=== PATIENT | female | born 1960 | race Caucasian/White ===

== ENCOUNTER → 2017-06-02 | Outpatient (CLI) | payer BC, SELFPAY | DX: Z12.31 Encounter for screening mammogram for malignant neoplasm of breast (principal) | CPT/HCPCS: 77067; G0202 ==

== ENCOUNTER → 2017-09-15 14:28 | Outpatient (POV) | payer BC, SELFPAY | PROVIDERS: Visit Provider Dermatology | DX: Z00.00 Encounter for general adult medical examination without abnormal findings (principal) ==

== ENCOUNTER → 2018-05-09 09:09 | Outpatient (POV) | payer BC, SELFPAY | PROVIDERS: Visit Provider Dermatology | DX: Z00.00 Encounter for general adult medical examination without abnormal findings (principal) ==

== ENCOUNTER → 2018-06-27 08:30 | Outpatient (POV) | payer BC, SELFPAY | PROVIDERS: Visit Provider Dermatology | DX: Z00.00 Encounter for general adult medical examination without abnormal findings (principal) ==

== ENCOUNTER → 2018-10-24 08:55 | Outpatient (POV) | payer BC, SELFPAY | PROVIDERS: Visit Provider Dermatology | DX: Z00.00 Encounter for general adult medical examination without abnormal findings (principal) ==

== ENCOUNTER → 2018-11-02 08:50 | Outpatient (CLI) | payer BC, SELFPAY ==
--- NOTE | 2018-11-02 08:59 | MM_ITS ---
MM Dig screening mamm BI w/CAD ORDERING PHYSICIAN : Tien Das MD PATIENT AGE: 58 years GENDER: Female COMPARISON: March 2016, May 2017, January Also bilateral breast ultrasound 2013 which revealed dense fibrous breast with no dominant cyst or mass INDICATION: Routine screening mammogram. No hormones. No new complaints. Excisional biopsy left breast. TECHNIQUE: Standard CC and MLO images were obtained. R2 CAD reviewed. FINDINGS: Very inhomogeneous breast pattern with dense patchy areas bilaterally, most evident towards superior breast and upper-outer quadrant. Somewhat difficult to evaluate mammogram.- Ultrasound will be a useful compliment/augment to mammography screening in breast of this of these heterogeneous areas of density bilaterally. RIGHT BREAST: Although the MLO view appears fairly stable there is a slightly more pronounced density on the cc view, medial retroareolar region. Unimpressive benefit from spot views and ultrasound of the right breast. LEFT BREAST: The cc view appears fairly stable on the left. However on the MLO view there is a relative focal area of increased density superiorly-most likely is due to summation shadow this area labeled X and warrants additional spot views given its slightly radiating appearance again I believe due to overlapping shadow. (Additional problem-solving views should include spot CC and MLO view along with a full 90 degrees view left breast. Subsequent ultrasound thereafter) Area labeled Y at the inferior left breast is been seen previously. ----IMPRESSION: Very heterogeneous breast, with areas of asymmetric dense tissue. Will benefit from evaluation with spot views and ultrasound bilaterally: Right Breast: today's mammogram studies shows areas of increased density at retroareolar region and in the medial retroareolar region. Spot views and ultrasound recommended here. Left Breast: . Increased density at the right breast-most likely due to summation shadow but would benefit from spot view and ultrasound patient returns. . BI-RADS Category: 0 Need Additional Imaging Evaluation RECOMMENDED FOLLOW-UP: IMM - IMMEDIATE FOLLOW-UP RECOMMENDED Additional views bilaterally. With Subsequent bilateral breast ultrasound (A letter has been sent to the patient regarding results of the study.)
== END ==
PROVIDERS: PCP Family Medicine; Visit Provider Obstetrics & Gynecology
DX: Z12.31 Encounter for screening mammogram for malignant neoplasm of breast (principal)
CPT/HCPCS: 77067

== ENCOUNTER → 2018-12-18 13:31 | Outpatient (CLI) | payer BC, SELFPAY ==
--- NOTE | 2018-12-18 13:39 | MM_ITS ---
MM Dig mamm BI DX w/CAD COMPARISON: Digital mammogram with CAD 11/02/2018 INDICATION: Additional evaluation of possible asymmetric densities in each breast TECHNIQUE: Spot compression MLO and CC views of each breast FINDINGS: Spot compression MLO and CC views of the right breast less than concern for true lesions. The questionable density seen on the recent mammogram appear to represent summation shadows of heterogenic fibroglandular structures in the subareolar region. Targeted ultrasound of the right breast performed same date showed no persistent or suspicious abdomen out. Spot compression MLO and CC views of the left breast lessen concern for possible architectural distortion upper outer quadrant. There is rather heterogenic fiber glandular densities in the central portion and upper outer quadrant but I see no suspicious or persistent lesion on the additional views. Ultrasound performed the same date showed no suspicious abnormality. IMPRESSION: Problem-solving views of each breast are most compatible with diffusely heterogenic fiber glandular densities likely accounting for summation shadows in each breast. BI-RADS Category: 1 Negative RECOMMENDED FOLLOW-UP: 1YR - 1 YEAR FOLLOW-UP (A letter has been sent to the patient regarding results of the study.)
--- NOTE | 2018-12-18 13:40 | US_ITS ---
US breast LT complete INDICATION: Follow-up abnormal mammogram ORDERING PHYSICIAN: Tien Das MD PATIENT AGE: 58 years COMPARISON: 12/12/2013, 12/18/2018, 11/02/2018 TECHNIQUE: Complete breast ultrasound performed with axial FINDINGS: Hypoechoic nodule is present at 4:00 measuring 7 x 5 mm. There is good through transmission of sound. This may be due to fibroglandular tissue. No other abnormalities evident. Small nodes are present in the axilla IMPRESSION: Probably benign nodule at 4:00. Recommend 6 month follow-up BI-RADS Category: 3 Probably Benign Finding Short Term Follow-up RECOMMENDED FOLLOW-UP: 6M - 6 MONTH FOLLOW-UP (A letter has been sent to the patient regarding results of the study.)
--- NOTE | 2018-12-18 13:40 | US_ITS ---
US breast RT complete INDICATION: Abnormal mammogram ORDERING PHYSICIAN: Tien Das MD PATIENT AGE: 58 years COMPARISON: 12/12/2013, 12/18/2018, 11/02/2018 TECHNIQUE: Right breast ultrasound performed with axilla FINDINGS: 6 x 4 mm septated cyst at 4:00. No suspicious lesions evident. Small nodes in the axilla IMPRESSION: Benign findings BI-RADS Category: 2 Benign Finding(s) RECOMMENDED FOLLOW-UP: 1YR - 1 YEAR FOLLOW-UP (A letter has been sent to the patient regarding results of the study.)
== END ==
PROVIDERS: PCP Family Medicine; Visit Provider Obstetrics & Gynecology
DX: R92.8 Other abnormal and inconclusive findings on diagnostic imaging of breast (principal)
CPT/HCPCS: 76641; 77066

== ENCOUNTER → 2021-03-06 14:25 | Outpatient (CLI) | payer BC, SELFPAY ==
[2021-03-06 15:13] LABS: Basophils # 0.1 K/mm3 (0-0.2); Basophils % 0.8 % (0.1-2.0); Eosinophils # 0.3 K/mm3 (0.0-0.4); Eosinophils % 3.2 % (0.1-12.0); Hematocrit 38.4 % (37.0-47.0); Hemoglobin 11.8 g/dL (12.2-16.2); Lymphocytes # 2.9 K/mm3 (0.7-4.5); Mean Corpuscular HGB Conc 30.7 g/dL (31.8-35.4); Mean Corpuscular Hemoglobin 28.5 pg (27.0-31.2); Mean Corpuscular Volume 92.9 fl (81-99); Mean Platelet Volume 8.3 fl (7.4-10.4); Monocytes # 0.4 K/mm3 (0.1-1.0); Monocytes % 4.9 % (1.7-9.3); Neutrophils # 5.2 K/mm3 (1.8-7.8); Neutrophils % 58.2 % (37.0-80.0); Platelet Count 288 K/mm3 (142-424); Red Blood Count 4.13 M/mm3 (4.20-5.40); Red Cell Distribution Width 14.6 % (11.5-17.5); White Blood Count 8.9 K/mm3 (4.8-10.8)
[2021-03-06 15:19] LABS: Strep Scrn Group A (Rapid) Negative (Negative)
== END ==
PROVIDERS: PCP Family Medicine; Visit Provider Nurse Practitioner
DX: Z20.822 Contact with and (suspected) exposure to COVID-19 (principal)
CPT/HCPCS: 36415; 85025; 87430; C9803; U0003; U0005

== ENCOUNTER → 2021-03-26 15:39 | Outpatient (CLI) | payer BC, SELFPAY ==
--- NOTE | 2021-03-26 15:43 | MM_ITS ---
PROCEDURE INFORMATION: Exam: MG Bilateral Screening 3D Mammography Exam date and time: 03/26/2021 3:43 PM Age: 61 years old Clinical indication: Encounter for screening mammogram for malignant neoplasm of breast TECHNIQUE: Imaging protocol: Bilateral screening tomosynthesis and 2D mammography including computer-aided detection (CAD) when performed. COMPARISON: 11/02/2018, 06/02/2017, 03/24/2016 FINDINGS: MAMMOGRAPHY: Breast composition: The breasts are heterogeneously dense, which may obscure small masses. Mass: No suspicious masses. Architectural distortion: No suspicious distortion. Calcifications: No suspicious calcifications. Asymmetric density: None. Skin thickening: None. Axillary adenopathy: None. IMPRESSION: No mammographic evidence of malignancy. Annual screening is recommended unless otherwise clinically indicated. ASSESSMENT: BI-RADS Category 1: Negative
== END ==
PROVIDERS: PCP Family Medicine; Visit Provider Family Medicine
DX: Z12.31 Encounter for screening mammogram for malignant neoplasm of breast (principal)
CPT/HCPCS: 77063; 77067

== ENCOUNTER → 2021-03-31 14:57 | Outpatient (POV) | payer BC, SELFPAY | PROVIDERS: Visit Provider Dermatology | DX: Z00.00 Encounter for general adult medical examination without abnormal findings (principal) ==

== ENCOUNTER → 2022-10-07 23:19 | Outpatient (CLI) | payer BC, SELFPAY ==
[2022-10-07 17:56] LABS: Basophils % 0.6 % (0.1-2.0); Eosinophils # 0.3 K/mm3 (0.0-0.4); Eosinophils % 4.5 % (0.1-12.0); Hematocrit 42.7 % (37.0-47.0); Hemoglobin 13.4 g/dL (12.2-16.2); Lymphocytes # 2.1 K/mm3 (0.7-4.5); Lymphocytes % 29.4 % (10-50); Mean Corpuscular HGB Conc 31.3 g/dL (31.8-35.4); Mean Corpuscular Hemoglobin 29.1 pg (27.0-31.2); Mean Corpuscular Volume 92.7 fl (81-99); Mean Platelet Volume 9.6 fl (7.4-10.4); Monocytes # 0.4 K/mm3 (0.1-1.0); Monocytes % 5.4 % (1.7-9.3); Neutrophils # 4.4 K/mm3 (1.8-7.8); Neutrophils % 60.2 % (37.0-80.0); Platelet Count 312 K/mm3 (142-424); Red Cell Distribution Width 13.8 % (11.5-17.5); White Blood Count 7.2 K/mm3 (4.8-10.8)
[2022-10-07 18:24] LABS: Hemoglobin A1C 5.4 % (4.0-6.0)
[2022-10-07 18:33] LABS: Microalbumin/Creatinine Ratio 4.5
[2022-10-07 18:34] LABS: Creatinine,Urine Random 179 mg/dL (Not Estab.)
[2022-10-07 18:36] LABS: Alanine Aminotransferase 30 U/L (12-78); Albumin Level 4.4 g/dl (3.5-5.0); Albumin/Globulin Ratio 1.6 (1.1-1.8); Alkaline Phosphatase 80 U/L (38-126); Anion Gap 13.2 mEq/L (5-15); Aspartate Amino Transferase 39 U/L (14-36); Bilirubin,Total 0.6 mg/dl (0.2-1.3); Blood Urea Nitrogen 18 mg/dl (7-17); Calcium 9.3 mg/dl (8.4-10.2); Carbon Dioxide 28 mmol/L (22.0-30.0); Chloride 105 mmol/L (98-107); Chol/HDL Ratio 3.3 (1-3.5); Cholesterol 221 mg/dl (140-200); Estimated Glomerular Filt Rate 73 ml/min (>60); GFR (African American) 89 ML/MIN (>60); Globulin 2.7 g/dL (1.3-3.2); Glucose 85 mg/dl (74-100); HDL Cholesterol 66 mg/dl (40-60); Potassium 4.2 mmoL/L (3.5-5.1); Sodium 142 mmol/L (136-145); Total Protein,Serum 7.1 g/dl (6.3-8.2); Triglycerides 229 mg/dl (30-150); VLDL Cholesterol 46 mg/dL (0-40)
[2022-10-07 18:53] LABS: 25-OH Vitamin D, Total 42.7 ng/mL (30-100)
[2022-10-07 19:07] LABS: Thyroid Stimulating Hormone 2.25 uIU/mL (0.465-4.68)
[2022-10-07 19:26] LABS: Vitamin B12 818 pg/mL (239-931)
== END ==
PROVIDERS: PCP Nurse Practitioner; Visit Provider Nurse Practitioner
DX: I10 Essential (primary) hypertension (principal); E78.5 Hyperlipidemia, unspecified; E53.8 Deficiency of other specified B group vitamins; E55.9 Vitamin D deficiency, unspecified; K21.9 Gastro-esophageal reflux disease without esophagitis
CPT/HCPCS: 80053; 80061; 82043; 82306; 82570; 82607; 83036; 84443; 85025

== ENCOUNTER → 2022-11-15 13:14 | Outpatient (CLI) | payer BC, SELFPAY ==
--- NOTE | 2022-11-15 13:14 | MM_ITS ---
PROCEDURE INFORMATION: Exam: MG Bilateral Screening 3D Mammography Exam date and time: 11/15/2022 1:05 PM Age: 62 years old Clinical indication: Screening. No family history of breast cancer. TECHNIQUE: Imaging protocol: Bilateral Screening tomosynthesis and 2D mammography including computer-aided detection (CAD) when performed. COMPARISON: 1. MG MM DIG SCREENING MAMM BI W/CAD 03/26/2021 3:55 PM 2. MG DIG MAMM-DX [facility] 12/18/2018 1:58 PM 3. MG SCBI MM Dig screening mamm BI w/CAD 11/02/2018 9:14 AM 4. MG DMSB DIG MAMM-SCREEN [facility] W/CAD 06/02/2017 10:08 AM FINDINGS: MAMMOGRAPHY: Breast composition: The breasts are heterogeneously dense, which may obscure small masses. Mass: No suspicious mass. Architectural distortion: None. Calcifications: No suspicious calcifications. Asymmetric density: None. Skin thickening: None. Axillary adenopathy: None. IMPRESSION: No mammographic evidence of malignancy. Annual screening is recommended unless otherwise clinically indicated. ASSESSMENT: BI-RADS Category 1: Negative
== END ==
PROVIDERS: PCP Nurse Practitioner; Visit Provider Nurse Practitioner
DX: Z12.31 Encounter for screening mammogram for malignant neoplasm of breast (principal)
CPT/HCPCS: 77063; 77067

== ENCOUNTER → 2022-12-29 09:24 | Outpatient (CLI) | payer BC, SELFPAY ==
[2022-12-29 20:15] LABS: Alanine Aminotransferase 26 U/L (12-78); Albumin Level 4.2 g/dl (3.5-5.0); Albumin/Globulin Ratio 1.6 (1.1-1.8); Alkaline Phosphatase 84 U/L (38-126); Anion Gap 9.9 mEq/L (5-15); Aspartate Amino Transferase 28 U/L (14-36); Bilirubin,Total 0.4 mg/dl (0.2-1.3); Blood Urea Nitrogen 16 mg/dl (7-17); Calcium 9.3 mg/dl (8.4-10.2); Carbon Dioxide 28 mmol/L (22.0-30.0); Chloride 108 mmol/L (98-107); Chol/HDL Ratio 2.5 (1-3.5); Cholesterol 196 mg/dl (140-200); Estimated Glomerular Filt Rate 73 ml/min (>60); GFR (African American) 89 ML/MIN (>60); Globulin 2.6 g/dL (1.3-3.2); Glucose 85 mg/dl (74-100); HDL Cholesterol 77 mg/dl (40-60); Potassium 3.9 mmoL/L (3.5-5.1); Sodium 142 mmol/L (136-145); Total Protein,Serum 6.8 g/dl (6.3-8.2); Triglycerides 171 mg/dl (30-150); VLDL Cholesterol 34 mg/dL (0-40)
[2022-12-29 20:26] LABS: Direct LDL Cholesterol 90.95 mg/dL (100-129)
== END ==
PROVIDERS: PCP Nurse Practitioner; Visit Provider Nurse Practitioner
DX: E78.5 Hyperlipidemia, unspecified (principal)
CPT/HCPCS: 80053; 80061

== ENCOUNTER → 2023-04-22 23:44 | Outpatient (CLI) | payer BC, SELFPAY ==
[2023-04-22 19:17] LABS: Coronavirus 19, PCR Not Detected (NotDetected); Influenza A, PCR Not Detected (NotDetected); Influenza B, PCR Not Detected (NotDetected)
== END ==
PROVIDERS: Family Medicine; PCP Family Medicine; Visit Provider Family Medicine
DX: J02.9 Acute pharyngitis, unspecified (principal); B95.0 Streptococcus, group A, as the cause of diseases classified elsewhere; R53.81 Other malaise; H92.03 Otalgia, bilateral
CPT/HCPCS: 87636

== ENCOUNTER → 2023-05-10 07:14 | Outpatient (CLI) | payer BC, SELFPAY ==
[2023-05-10 18:31] LABS: Influenza A, PCR Not Detected (NotDetected); Influenza B, PCR Not Detected (NotDetected)
[2023-05-10 20:32] LABS: Coronavirus 19, PCR Detected (NotDetected)
== END ==
PROVIDERS: PCP Nurse Practitioner; Visit Provider Nurse Practitioner
DX: J06.9 Acute upper respiratory infection, unspecified (principal); U07.1 COVID-19
CPT/HCPCS: 87636

== ENCOUNTER → 2023-06-09 23:28 | Outpatient (CLI) | payer BC, SELFPAY ==
[2023-06-09 18:45] LABS: Basophils % 0.6 % (0.1-2.0); Eosinophils # 0.3 K/mm3 (0.0-0.4); Eosinophils % 4.9 % (0.1-12.0); Hematocrit 40.4 % (37.0-47.0); Hemoglobin 12.8 g/dL (12.2-16.2); Lymphocytes # 1.9 K/mm3 (0.7-4.5); Lymphocytes % 35.3 % (10-50); Mean Corpuscular HGB Conc 31.8 g/dL (31.8-35.4); Mean Corpuscular Hemoglobin 28.9 pg (27.0-31.2); Mean Corpuscular Volume 91.1 fl (81-99); Mean Platelet Volume 9.6 fl (7.4-10.4); Monocytes # 0.4 K/mm3 (0.1-1.0); Monocytes % 6.9 % (1.7-9.3); Neutrophils # 2.8 K/mm3 (1.8-7.8); Neutrophils % 52.3 % (37.0-80.0); Platelet Count 272 K/mm3 (142-424); Red Blood Count 4.44 M/mm3 (4.20-5.40); Red Cell Distribution Width 14.3 % (11.5-17.5); White Blood Count 5.4 K/mm3 (4.8-10.8)
[2023-06-09 18:52] LABS: Alanine Aminotransferase 23 U/L (12-78); Albumin/Globulin Ratio 1.6 (1.1-1.8); Alkaline Phosphatase 73 U/L (38-126); Anion Gap 8.8 mEq/L (5-15); Aspartate Amino Transferase 28 U/L (14-36); Bilirubin,Total 0.5 mg/dl (0.2-1.3); Blood Urea Nitrogen 16 mg/dl (7-17); Calcium 8.8 mg/dl (8.4-10.2); Carbon Dioxide 26 mmol/L (22.0-30.0); Chloride 109 mmol/L (98-107); Chol/HDL Ratio 3.1 (1-3.5); Cholesterol 184 mg/dl (140-200); Estimated Glomerular Filt Rate 73 ml/min (>60); GFR (African American) 88 ML/MIN (>60); Globulin 2.5 g/dL (1.3-3.2); Glucose 86 mg/dl (74-100); HDL Cholesterol 59 mg/dl (40-60); Potassium 3.8 mmoL/L (3.5-5.1); Sodium 140 mmol/L (136-145); Total Protein,Serum 6.5 g/dl (6.3-8.2); Triglycerides 187 mg/dl (30-150); VLDL Cholesterol 37 mg/dL (0-40)
[2023-06-09 19:03] LABS: Direct LDL Cholesterol 87.43 mg/dL (100-129)
[2023-06-09 19:08] LABS: 25-OH Vitamin D, Total 38.1 ng/mL (30-100)
[2023-06-09 19:42] LABS: Vitamin B12 783 pg/mL (239-931)
== END ==
LOC: LAB.DROPOF 23:29
PROVIDERS: PCP Nurse Practitioner; Visit Provider Nurse Practitioner
DX: E53.8 Deficiency of other specified B group vitamins (principal); E55.9 Vitamin D deficiency, unspecified; E78.5 Hyperlipidemia, unspecified; I10 Essential (primary) hypertension; K21.9 Gastro-esophageal reflux disease without esophagitis
CPT/HCPCS: 80053; 80061; 82306; 82607; 85025

== ENCOUNTER 2023-09-19 23:09 | Outpatient (CLI) | payer BC, SELFPAY ==
[2023-09-19 18:12] LABS: Basophils # 0.1 K/mm3 (0-0.2); Basophils % 1.1 % (0.1-2.0); Eosinophils # 0.3 K/mm3 (0.0-0.4); Eosinophils % 4.4 % (0.1-12.0); Hematocrit 39.4 % (37.0-47.0); Hemoglobin 12.4 g/dL (12.2-16.2); Lymphocytes # 2.6 K/mm3 (0.7-4.5); Lymphocytes % 33.1 % (10-50); Mean Corpuscular HGB Conc 31.4 g/dL (31.8-35.4); Mean Corpuscular Hemoglobin 28.9 pg (27.0-31.2); Mean Platelet Volume 8.3 fl (7.4-10.4); Monocytes # 0.4 K/mm3 (0.1-1.0); Monocytes % 4.5 % (1.7-9.3); Neutrophils # 4.4 K/mm3 (1.8-7.8); Neutrophils % 56.9 % (37.0-80.0); Platelet Count 314 K/mm3 (142-424); Red Blood Count 4.29 M/mm3 (4.20-5.40); Red Cell Distribution Width 13.8 % (11.5-17.5); White Blood Count 7.7 K/mm3 (4.8-10.8)
[2023-09-19 18:55] LABS: Alanine Aminotransferase 28 U/L (12-78); Albumin Level 4.3 g/dl (3.5-5.0); Albumin/Globulin Ratio 1.7 (1.1-1.8); Alkaline Phosphatase 85 U/L (38-126); Anion Gap 10.3 mEq/L (5-15); Aspartate Amino Transferase 35 U/L (14-36); Bilirubin,Total 0.5 mg/dl (0.2-1.3); Blood Urea Nitrogen 18 mg/dl (7-17); Calcium 9.6 mg/dl (8.4-10.2); Carbon Dioxide 28 mmol/L (22.0-30.0); Chloride 105 mmol/L (98-107); Estimated Glomerular Filt Rate 73 ml/min (>60); GFR (African American) 88 ML/MIN (>60); Globulin 2.6 g/dL (1.3-3.2); Glucose 91 mg/dl (74-100); Potassium 3.3 mmoL/L (3.5-5.1); Sodium 140 mmol/L (136-145); Total Protein,Serum 6.9 g/dl (6.3-8.2)
[2023-09-19 19:28] LABS: Thyroid Stimulating Hormone 2.35 uIU/mL (0.465-4.68)
[2023-09-19 19:39] LABS: Hemoglobin A1C 5.8 % (4.0-6.0)
[2023-09-19 19:48] LABS: Vitamin B12 940 pg/mL (239-931)
== END 2023-09-19 23:59 | disposition home or self-care (01) ==
LOC: LAB.DROPOF 23:10
PROVIDERS: PCP Nurse Practitioner; Visit Provider Nurse Practitioner
DX: L65.9 Nonscarring hair loss, unspecified (principal); E53.8 Deficiency of other specified B group vitamins; E55.9 Vitamin D deficiency, unspecified; Z79.899 Other long term (current) drug therapy
CPT/HCPCS: 80053; 82306; 82607; 83036; 84443; 85025

== ENCOUNTER 2023-10-18 11:04 | Outpatient (POV) | payer BC, SELFPAY | END 2023-10-18 23:59 | disposition home or self-care (01) | LOC: SC 11:05 | PROVIDERS: PCP Nurse Practitioner; Visit Provider Dermatology | DX: Z00.00 Encounter for general adult medical examination without abnormal findings (principal) ==

== ENCOUNTER 2023-11-29 16:28 | Outpatient (CLI) | payer BC, SELFPAY ==
--- NOTE | 2023-11-29 16:44 | XR_ITS ---
PROCEDURE INFORMATION: Exam: XR Chest Exam date and time: 11/29/2023 4:51 PM Age: 63 years old Clinical indication: Pain; Other: Tightness; Additional info: Chest tightness TECHNIQUE: Imaging protocol: Radiologic exam of the chest. Views: 2 views. COMPARISON: No relevant prior studies available. FINDINGS: Lungs: No consolidation. Pleural spaces: No pleural effusion. No pneumothorax. Heart/Mediastinum: No cardiomegaly. Diaphragm: Right diaphragmatic eventration. Bones/joints: No acute osseous findings. IMPRESSION: No acute pulmonary findings.
--- NOTE | 2023-11-29 17:01 | ECG_ITS ---
APPROVED REPORT Exam: Resting ECG HR:76 bpm ECG Measurements Heart Rate 76 AXES MI 126 P 28 QRSd 82 QRS -5 QT 378 T -5 QTc 408 Conclusion SINUS RHYTHM LOW QRS VOLTAGE IN PRECORDIAL LEADS [QRS DEFLECTION < 1.0 mV IN CHEST LEADS] NONSPECIFIC ST & T-WAVE ABNORMALITY BORDERLINE ECG UNCONFIRMED REPORT Electronically signed by : Barrie Beebe MD 11/29/2023 17:17:08
[2023-11-29 17:21] LABS: Basophils # 0.1 K/mm3 (0-0.2); Basophils % 0.9 % (0.1-2.0); Eosinophils # 0.4 K/mm3 (0.0-0.4); Eosinophils % 3.2 % (0.1-12.0); Hematocrit 39.1 % (37.0-47.0); Hemoglobin 12.4 g/dL (12.2-16.2); Lymphocytes # 3.1 K/mm3 (0.7-4.5); Lymphocytes % 27.6 % (10-50); Mean Corpuscular HGB Conc 31.6 g/dL (31.8-35.4); Mean Corpuscular Hemoglobin 28.1 pg (27.0-31.2); Mean Corpuscular Volume 88.9 fl (81-99); Mean Platelet Volume 8.1 fl (7.4-10.4); Monocytes # 0.6 K/mm3 (0.1-1.0); Monocytes % 5.7 % (1.7-9.3); Neutrophils # 7.1 K/mm3 (1.8-7.8); Neutrophils % 62.5 % (37.0-80.0); Platelet Count 319 K/mm3 (142-424); Red Cell Distribution Width 14.8 % (11.5-17.5); White Blood Count 11.3 K/mm3 (4.8-10.8)
[2023-11-29 18:05] LABS: Alanine Aminotransferase 28 U/L (12-78); Albumin Level 4.2 g/dl (3.5-5.0); Albumin/Globulin Ratio 1.4 (1.1-1.8); Alkaline Phosphatase 96 U/L (38-126); Aspartate Amino Transferase 36 U/L (14-36); Bilirubin,Total 0.4 mg/dl (0.2-1.3); Blood Urea Nitrogen 15 mg/dl (7-17); Calcium 9.7 mg/dl (8.4-10.2); Carbon Dioxide 31 mmol/L (22.0-30.0); Chloride 101 mmol/L (98-107); Estimated Glomerular Filt Rate 46 ml/min (>60); GFR (African American) 55 ML/MIN (>60); Globulin 2.9 g/dL (1.3-3.2); Glucose 91 mg/dl (74-100); Sodium 139 mmol/L (136-145); Total Protein,Serum 7.1 g/dl (6.3-8.2)
[2023-11-29 18:15] LABS: Creatine Kinase MB 3.4 ng/ml (0.0-2.03)
[2023-11-29 18:23] LABS: Troponin I < 0.01 ng/ml (0.00-0.034)
== END 2023-11-29 23:59 | disposition home or self-care (01) ==
LOC: LAB 16:28
PROVIDERS: PCP Nurse Practitioner; Visit Provider Nurse Practitioner
DX: R07.89 Other chest pain (principal)
CPT/HCPCS: 36415; 71046; 80053; 82553; 84484; 85025; 93005

== ENCOUNTER 2023-12-08 13:36 | Outpatient (CLI) | payer BC, SELFPAY ==
--- NOTE | 2023-12-08 13:36 | CA_ITS ---
APPROVED REPORT EXAM: Comprehensive 2D, Doppler, and color-flow Echocardiogram [employer] Supervisor: Sakina Mills CRT Ht: 5 ft 1 in Wt: 135lbs BSA: 1.60 BP: 112/78 mmHg Indications: Chest Pain 2D Dimensions LA Volume 32.90 mL LA Volume Index 20.56 mL/m2 (M/F) 16-34 M-Mode Dimensions RVDd 1.83 cm (0.9-2.6) LA Diam 2.61 cm (1.9-4.0) LVDd 4.36 cm (3.5-5.7) LVDs 2.59 cm (3.5-5.7) IVSd 1.37 cm (0.6-1.1) PWd 0.81 cm (0.6-1.1) EF (Teich) 71.60% FS 40.60% EDV (Teich) 85.80 mL TAPSE 1.57 (<1.7) ESV (Teich) 24.40 mL LV Diastology E Decel Time 227 (160-240 msec) E/A Ratio 0.68 MED A' 13.20 cm/s LAT A' 12.50 cm/s Aortic Valve AO Peak GR. 5.20 mmHg Mitral Valve MV A Velocity 70.0 (40-130 cm/s) E/A Ratio 0.68 Pulmonary Valve PV Peak Velocity 125.0 (50-150 cm/s) Tricuspid Valve TR P. Velocity 149.00 cm/s RAP Estimate 10.00 mmHg RVSP 18.90 mmHg Left Ventricle The left ventricle is normal size. The left ventricular systolic function is normal. The left ventricular ejection fraction is within the normal range. There is increased LV wall thickness. There is normal LV segmental wall motion. Transmitral Doppler flow pattern suggests impaired LV relaxation. LVEF is 55%. Right Ventricle The right ventricle is normal size. The right ventricular systolic function is normal. Atria The left atrium size is normal. The right atrium size is normal. There is no Doppler evidence of interatrial shunt. Aortic Valve The aortic valve opens well. There is no aortic valvular stenosis. Trace aortic regurgitation. Mitral Valve The mitral valve is normal in structure. No evidence of mitral valve stenosis. Trace mitral regurgitation. Tricuspid Valve The tricuspid valve leaflets are thin and pliable. Trace tricuspid regurgitation. There is insufficient TR jet to estimate RVSP. Pulmonic Valve The pulmonary valve is normal in structure. Mild pulmonic regurgitation. Great Vessels The aortic root is normal in size. The ascending aorta is normal in size. IVC is normal in size and collapses >50% with inspiration. Pericardium There is no pericardial effusion. Other Information Study Quality: Fair Conclusion Normal biventricular systolic function. No significant valvular stenosis or regurgitation. Electronically signed by : Pallavi Thibodeaux MD 12/12/2023 12:10:02
== END 2023-12-08 23:59 | disposition home or self-care (01) ==
LOC: RT 13:36
PROVIDERS: PCP Nurse Practitioner; Visit Provider Nurse Practitioner
DX: R07.89 Other chest pain (principal)
CPT/HCPCS: 93306

== ENCOUNTER 2023-12-12 10:29 | Outpatient (CLI) | payer BC, SELFPAY ==
[2023-12-12 19:08] LABS: Basophils # 0.1 K/mm3 (0-0.2); Basophils % 0.7 % (0.1-2.0); Eosinophils # 0.3 K/mm3 (0.0-0.4); Eosinophils % 4.8 % (0.1-12.0); Hematocrit 36.7 % (37.0-47.0); Hemoglobin 12.2 g/dL (12.2-16.2); Lymphocytes # 2.3 K/mm3 (0.7-4.5); Lymphocytes % 34.1 % (10-50); Mean Corpuscular HGB Conc 33.3 g/dL (31.8-35.4); Mean Corpuscular Hemoglobin 29.2 pg (27.0-31.2); Mean Corpuscular Volume 87.8 fl (81-99); Mean Platelet Volume 8.3 fl (7.4-10.4); Monocytes # 0.4 K/mm3 (0.1-1.0); Monocytes % 5.1 % (1.7-9.3); Neutrophils # 3.8 K/mm3 (1.8-7.8); Neutrophils % 55.2 % (37.0-80.0); Platelet Count 300 K/mm3 (142-424); Red Blood Count 4.17 M/mm3 (4.20-5.40); Red Cell Distribution Width 15.2 % (11.5-17.5); White Blood Count 6.8 K/mm3 (4.8-10.8)
[2023-12-12 19:46] LABS: Alanine Aminotransferase 32 U/L (12-78); Albumin Level 4.3 g/dl (3.5-5.0); Albumin/Globulin Ratio 1.4 (1.1-1.8); Alkaline Phosphatase 100 U/L (38-126); Anion Gap 13.9 mEq/L (5-15); Aspartate Amino Transferase 38 U/L (14-36); Bilirubin,Total 0.6 mg/dl (0.2-1.3); Blood Urea Nitrogen 12 mg/dl (7-17); Calcium 9.6 mg/dl (8.4-10.2); Carbon Dioxide 28 mmol/L (22.0-30.0); Chloride 101 mmol/L (98-107); Estimated Glomerular Filt Rate 56 ml/min (>60); GFR (African American) 68 ML/MIN (>60); Globulin 3.1 g/dL (1.3-3.2); Glucose 93 mg/dl (74-100); Sodium 140 mmol/L (136-145); Total Protein,Serum 7.4 g/dl (6.3-8.2)
[2023-12-12 20:47] LABS: Potassium 2.9 mmoL/L (3.5-5.1)
== END 2023-12-12 23:59 | disposition home or self-care (01) ==
LOC: LAB.DROPOF 12-13 10:30
PROVIDERS: PCP Nurse Practitioner; Visit Provider Nurse Practitioner
DX: R07.89 Other chest pain (principal); I10 Essential (primary) hypertension
CPT/HCPCS: 80053; 85025

== ENCOUNTER 2023-12-19 15:40 | Outpatient (CLI) | payer BC, SELFPAY ==
--- NOTE | 2023-12-19 15:41 | MM_ITS ---
PROCEDURE INFORMATION: Exam: MG Bilateral Screening 3D Mammography Exam date and time: 12/19/2023 3:31 PM Age: 63 years old Clinical indication: Screening examination; Additional info: Annual breast cancer screening TECHNIQUE: Imaging protocol: Bilateral Screening tomosynthesis and 2D mammography including computer-aided detection (CAD) when performed. COMPARISON: 1. MG MM DIG SCREENING MAMM BI W/CAD 11/15/2022 1:05 PM 2. MG MM DIG SCREENING MAMM BI W/CAD 03/26/2021 3:55 PM 3. MG DIG MAMM-DX [facility] 12/18/2018 1:58 PM FINDINGS: MAMMOGRAPHY: Breast composition: The breasts are heterogeneously dense, which may obscure small masses. Mass: No suspicious masses. Architectural distortion: No suspicious distortion. Calcifications: No suspicious calcifications. Asymmetric density: None. Skin thickening: None. Axillary adenopathy: None. IMPRESSION: No mammographic evidence of malignancy. Annual screening is recommended unless otherwise clinically indicated. ASSESSMENT: BI-RADS Category 1: Negative
== END 2023-12-19 23:59 | disposition home or self-care (01) ==
LOC: RAD 15:41
PROVIDERS: PCP Nurse Practitioner; Visit Provider Nurse Practitioner
DX: Z12.31 Encounter for screening mammogram for malignant neoplasm of breast (principal)
CPT/HCPCS: 77063; 77067

== ENCOUNTER 2023-12-27 11:10 | Outpatient (CLI) | payer BC, SELFPAY ==
--- NOTE | 2023-12-27 11:11 | NM_ITS ---
APPROVED REPORT Exam: Nuclear Stress Test Indication: Chest pain, Abnormal EKG, HTN, High cholesterol Patient Location: Outpatient Stress Tech: Graciela Ramirez [place] Tech:Irene Blanco, ARRT, RT (R)(N) Ht: 5 ft 1 in Wt: 149 lbs Bra Size: D HR: 83 bpm BP: 116/77 mmHg BSA: 1.67 m2 Rhythm: NSR TID: 1.19 BMI: 28.1 History: Chest pain, Abnormal EKG, HTN, High cholesterol Procedure: Patient exercised on Kennedy protocol 7:03 minutes and sec, resting heart rate 83 bpm, resting blood pressure 116/77 mmHg, with exercise maximum heart rate achived was 150 bpm which is 94 % of the maximum predicted heart rate and blood pressure was 158/90 mmHg. Test was stopped due to SOB. Patient denied any complaint of chest pain. Patient has average exercise capacity, achieved 10.1 METs of workload on treadmill, the blood pressure response to exercise was normal . Cardiac Stress and Resting SPECT Images: Cardiac Stress and Resting SPECT images were obtained using technetium 99m Myoview 31.7 mCi stress and 10.68 mCi at rest. Resting and stress imaging in supine and prone positions demonstrate no evidence of fixed or reversible perfusion defects. Gated imaging demonstrates normal global and regional LV systolic function. LVEF is calculated at 61%. Conclusion: No evidence of fixed or reversible perfusion defects. Gated imaging demonstrates normal global and regional LV systolic function. LVEF is calculated at 61%. Of note, the patient had an abnormal ECG at peak stress suggestive of ischemia. If there is ongoing clinical concern for ischemia, further evaluation with an alternative modality (i.e. CCTA) is suggested. Electronically signed by : Pallavi Thibodeaux MD 01/01/2024 02:16:52
[2023-12-27] MEDS: SODIUM CHLORIDE 0.9% 10ML SYR (RAD ONLY) 10 ML IV ×2 (13:24)
[2023-12-27] MEDS: ISOTOPE MYOVIEW (PER STUDY) 1 DOSE IV (13:24)
--- NOTE | 2023-12-27 13:48 | CA_ITS ---
APPROVED REPORT Exam: Pharmacologic Technologist: Graciela Robison, Ht: 5 ft 1 in Wt: 151 lbs BSA: 1.68 m2 HR: 68 bpm BP: 119/72 mmHg Rhythm: NSR Medical History Medications: Aspirin,,,,, TopIRAMATE,,,,, Albuterol,,,,, RoSUVASTATIN,,,,, Coenzyme Q10,,,,, Potassium Chloride ER,,,,, Esomeprazole magnesium,,,,, Vitamin D3, B12,,,,, Sumatriptan-naproxen,,,,, Stress Test Details Test: Kennedy HR Resting HR: 83 bpm Max Heart Rate (APMHR): 159 bpm Max HR Achieved: 150 bpm Target HR (85% APMHR): 135 bpm % of APMHR: 94 Recovery HR: 97 bpm HR response to stress: Normal HR response to stress BP Resting BP: 116.0/77.0 mmHg Max BP: 158.0/90.0 mmHg Recovery BP: 128.0/68.0 mmHg BP response to stress: Normal blood pressure response to stress. ECG Resting ECG: Normal sinus rhythm, nonspecific ST changes in inferior lateral leads Stress EC.[address] depression Arrhythmia: PVCs Recovery ECG: Return to baseline within 5 minutes of recovery Recovery Arrhythmia: PVCs Clinical Exercise duration: 07:03 min Highest Stage Achieved: III Exercise capacity: 10.1 METs Overall Exercise Capacity for Age: Average Stress ECG Conclusion The patient was able to exercise for a total of 7 minutes, 03 seconds. She achieved a total of 10.1 METS. She has average exercise capacity compared to age and sex matched peers. She has normal HR and BP response to exercise. Max HR: 150 % of PM: 94 Max BP: 158/90 METs:10.1 Test stopped due to: Dyspnea Symptoms: Dyspnea Arrhythmias/Ectopy: PVC ST-T Changes: 1mm ST depression Conclusion: Average exercise capacity. Abnormal EKG response to exercise, suggestive of ischemia. Myoview images reported separately. Test Summary REST . . . . . . . Sitting REST . . . . . . . Standing REST 07:41 0.0 0.0 83 . 116/ 77 . . Stage 1 01:00 10.0 1.7 99 . . . . Stage 1 02:00 10.0 1.7 109 . . . . Stage 1 03:00 10.0 1.7 122 . 120/ 82 . . Stage 2 01:00 12.0 2.5 129 . . . . Stage 2 02:00 12.0 2.5 139 . 158/ 90 . . Stage 2 03:00 12.0 2.5 142 . 158/ 90 . . Stage 3 . . . . . . . Myoview Injected Stage 3 01:00 14.0 3.4 148 . . . . Stage 3 01:03 14.0 3.4 148 . . . Stop exercise at 07:03 RECOVERY 01:00 0.0 0.0 132 . . . . RECOVERY 02:00 0.0 0.0 108 . 122/ 69 . . RECOVERY 03:00 0.0 0.0 96 . 128/ 68 . . RECOVERY 03:25 0.0 0.0 90 . 128/ 68 . . Electronically signed by : Pallavi Thibodeaux MD 01/01/2024 02:14:20
== END 2023-12-27 23:59 | disposition home or self-care (01) ==
PROVIDERS: PCP Nurse Practitioner; Visit Provider Physician Assistant
DX: R07.89 Other chest pain (principal); R94.31 Abnormal electrocardiogram [ECG] [EKG]; I10 Essential (primary) hypertension; E78.2 Mixed hyperlipidemia
CPT/HCPCS: 78452; 93017; 93018; A9502

== ENCOUNTER 2024-01-05 19:43 | Outpatient (CLI) | payer BC, SELFPAY ==
[2024-01-05 20:34] LABS: Anion Gap 13.8 mEq/L (5-15); Blood Urea Nitrogen 17 mg/dl (7-17); Calcium 9.7 mg/dl (8.4-10.2); Carbon Dioxide 26 mmol/L (22.0-30.0); Chloride 106 mmol/L (98-107); Estimated Glomerular Filt Rate 56 ml/min (>60); GFR (African American) 68 ML/MIN (>60); Glucose 85 mg/dl (74-100); Potassium 3.8 mmoL/L (3.5-5.1); Sodium 142 mmol/L (136-145)
== END 2024-01-05 23:59 | disposition home or self-care (01) ==
LOC: LAB 19:44
PROVIDERS: PCP Nurse Practitioner; Visit Provider Nurse Practitioner
DX: E87.6 Hypokalemia (principal)
CPT/HCPCS: 80048

== ENCOUNTER 2024-03-02 10:09 | Outpatient (CLI) | payer BC, SELFPAY ==
[2024-03-02 19:34] LABS: Anion Gap 8.5 mEq/L (5-15); Blood Urea Nitrogen 17 mg/dl (7-17); Calcium 9.9 mg/dl (8.4-10.2); Carbon Dioxide 30 mmol/L (22.0-30.0); Chloride 105 mmol/L (98-107); Estimated Glomerular Filt Rate 63 ml/min (>60); GFR (African American) 77 ML/MIN (>60); Glucose 79 mg/dl (74-100); Potassium 3.5 mmoL/L (3.5-5.1); Sodium 140 mmol/L (136-145)
== END 2024-03-02 23:59 | disposition home or self-care (01) ==
LOC: LAB.DROPOF 03-05 10:09
PROVIDERS: PCP Nurse Practitioner; Visit Provider Nurse Practitioner
DX: E78.5 Hyperlipidemia, unspecified (principal)
CPT/HCPCS: 80048

== ENCOUNTER 2024-05-03 14:50 | Outpatient (CLI) | payer BC, SELFPAY ==
[2024-05-03 18:04] LABS: Adenovirus,PCR Not Detected (NotDetected); Bordetella Pertussis Not Detected (NotDetected); Chlamydophila Pneumoniae, PCR Not Detected (NotDetected); Coronavirus 19, PCR Not Detected (NotDetected); Coronavirus 229E Not Detected (NotDetected); Coronavirus NL63 Not Detected (NotDetected); Coronavirus OC43 Not Detected (NotDetected); Coronovirus HKU1,PCR Not Detected (NotDetected); Human Metapneumovirus Not Detected (NotDetected); Influenza A, PCR Not Detected (NotDetected); Influenza AH1, 2009 Not Detected (NotDetected); Influenza AH1, PCR Not Detected (NotDetected); Influenza AH3,PCR Not Detected (NotDetected); Influenza B, PCR Not Detected (NotDetected); Mycoplasma Pneumoniae, PCR Not Detected (NotDetected); Parainfluenza 1, PCR Not Detected (NotDetected); Parainfluenza 2, PCR Not Detected (NotDetected); Parainfluenza 3, PCR Not Detected (NotDetected); Respiratory Syncytial Virus Not Detected (NotDetected); Rhinovirus/Enterovirus Not Detected (NotDetected)
[2024-05-03 22:34] LABS: Parainfluenza 4, PCR Detected (NotDetected)
== END 2024-05-03 23:59 | disposition home or self-care (01) ==
LOC: LAB.DROPOF 05-04 09:24
PROVIDERS: PCP Nurse Practitioner; Visit Provider Nurse Practitioner
DX: J06.9 Acute upper respiratory infection, unspecified (principal)
CPT/HCPCS: 87633

== ENCOUNTER 2024-05-31 14:15 | Outpatient (CLI) | payer BC, SELFPAY ==
[2024-05-31 18:11] LABS: Adenovirus,PCR Not Detected (NotDetected); Bordetella Pertussis Not Detected (NotDetected); Chlamydophila Pneumoniae, PCR Not Detected (NotDetected); Coronavirus 19, PCR Not Detected (NotDetected); Coronavirus 229E Not Detected (NotDetected); Coronavirus NL63 Not Detected (NotDetected); Coronavirus OC43 Not Detected (NotDetected); Coronovirus HKU1,PCR Not Detected (NotDetected); Human Metapneumovirus Not Detected (NotDetected); Influenza A, PCR Not Detected (NotDetected); Influenza AH1, 2009 Not Detected (NotDetected); Influenza AH1, PCR Not Detected (NotDetected); Influenza AH3,PCR Not Detected (NotDetected); Influenza B, PCR Not Detected (NotDetected); Mycoplasma Pneumoniae, PCR Not Detected (NotDetected); Parainfluenza 1, PCR Not Detected (NotDetected); Parainfluenza 2, PCR Not Detected (NotDetected); Parainfluenza 3, PCR Not Detected (NotDetected); Parainfluenza 4, PCR Not Detected (NotDetected); Respiratory Syncytial Virus Not Detected (NotDetected)
[2024-05-31 20:09] LABS: Rhinovirus/Enterovirus Detected (NotDetected)
== END 2024-05-31 23:59 | disposition home or self-care (01) ==
LOC: LAB.DROPOF 06-01 09:51
PROVIDERS: PCP Nurse Practitioner; Visit Provider Nurse Practitioner
DX: J06.9 Acute upper respiratory infection, unspecified (principal)
CPT/HCPCS: 87633

== ENCOUNTER 2024-07-01 10:24 | Inpatient (IN) | payer BC, SELFPAY ==
[2024-07-01] VITALS (45 sets, daily range): BP systolic 98–135; BP diastolic 31–72; PULSE 58–85; RESP 10–21; TEMP 36.5–36.8; O2SAT 91–99; BMI 27.3; BMI 28.2
--- NOTE | 2024-07-01 10:48 | CT_ITS ---
PROCEDURE INFORMATION: Exam: CT Abdomen And Pelvis With Contrast Exam date and time: 07/01/2024 11:27 AM Age: 64 years old Clinical indication: Abdominal pain; Additional info: Generalized abdominal pain TECHNIQUE: Imaging protocol: Computed tomography of the abdomen and pelvis with contrast. Radiation optimization: All CT scans at this facility use at least one of these dose optimization techniques: automated exposure control; mA and/or kV adjustment per patient size (includes targeted exams where dose is matched to clinical indication); or iterative reconstruction. Contrast material: ISOVUE; Contrast volume: 75 ml; Contrast route: IV; COMPARISON: CR XR CHEST 2V 11/29/2023 4:51 PM FINDINGS: Diaphragm: Moderate hiatal hernia. Liver: Normal. No mass. Gallbladder and biliary ducts: Normal. No calcified stones. No ductal dilation. Pancreas: Normal. No ductal dilation. Spleen: Normal. No splenomegaly. Adrenal glands: Normal. No mass. Kidneys and ureters: Normal. No hydronephrosis. Stomach and bowel: Segment of wall thickening at the junction of the sigmoid and descending colon, consistent in appearance with acute diverticulitis. Adjacent foci of gas from diverticular perforation. No drainable collection. Appendix: No evidence of appendicitis. Intraperitoneal space: Acute pneumoperitoneum. Vasculature: Unremarkable. No abdominal aortic aneurysm. Lymph nodes: Unremarkable. No enlarged lymph nodes. Urinary bladder: Unremarkable as visualized. Reproductive: Inflammatory changes in close proximity to the left ovary, underlying left ovary pathology cannot be excluded. Right ovary unremarkable. Bones/joints: Unremarkable. No acute fracture. Soft tissues: Unremarkable. IMPRESSION: 1. Acute pneumoperitoneum. 2. Segment of wall thickening at the junction of the sigmoid and descending colon, consistent in appearance with acute diverticulitis. Adjacent foci of gas from diverticular perforation. No drainable collection. 3. Inflammatory changes in close proximity to the left ovary, underlying left ovary pathology cannot be excluded. Follow-up examination after course of treatment is recommended. Findings were discussed with Sasha Orlando on 07/01/2024 11:49 AM EST
--- NOTE | 2024-07-01 10:50 | HMH.EDGENADL ---
Discharge Plan Disposition Patient Disposition: Admitted Condition: Good Clinical Impressions Clinical Impression: Abdominal pain, Hypokalemia, Perforated diverticulum, Pneumoperitoneum, Hypomagnesemia Discharge ED Provider: Sasha Figueroa General Adult HPI General Chief complaint: Abdominal Pain Stated complaint: abd pain Time Seen by Provider: 07/01/24 10:31 Mode of Arrival: Ambulatory Source of Information: Patient Limitations: No Limitations Description of Symptoms (Recalled from ER Triage Doc. by RN): pt presents to ED with c/o adominal pain. located generalized in abdomen. pt reports symptoms began last night. 10/10 pain, sharp and radiating in nature. History of Present Illness HPI narrative: This patient is a 64-year-old female with a history of hyperlipidemia, hypertension, GERD, and Gay's esophagus presented to the emergency department for evaluation with concern for severe generalized abdominal pain that started 8:00 PM last night. She states that the pain is 10 out of 10, sharp, and all over. Nothing seems to make it better or worse. She denies any fevers, chills, vomiting, changes in bowel movements, or other concerns. Her last bowel movement was this morning. She has not been able to eat or drink since onset of pain. She denies experiencing anything like this in the past and denies any prior abdominal surgeries. Related Data Home Medications ?Medication ?Instructions ?Recorded ?Confirmed aspirin 81 mg chewable tablet 81 mg PO DAILY 10/07/22 05/31/24 cholecalciferol (vitamin D3) 50 100 mcg PO DAILY 10/07/22 05/31/24 mcg (2,000 unit) tablet coenzyme Q10 100 mg capsule 100 mg PO DAILY 10/07/22 05/31/24 cyanocobalamin (vitamin B-12) 500 500 mcg PO DAILY 10/07/22 05/31/24 mcg tablet topiramate 50 mg tablet 50 mg PO BID 10/28/23 05/31/24 sumatriptan 85 mg-naproxen 500 mg 1 tab PO ONCE PRN 12/21/23 05/31/24 tablet Previous Rx's ?Medication ?Instructions ?Recorded fluticasone propionate 50 1 spray intranasal DAILY #16 grams 04/16/24 mcg/actuation nasal spray,suspension cefdinir 300 mg capsule 300 mg PO BID #20 caps 05/31/24 prednisone 20 mg tablet 20 mg PO .COMPLEX #15 tabs 05/31/24 dextromethorphan-guaifenesin ER 60 1 tab PO Q12H #60 tabs 06/01/24 mg-1,200 mg tab,extend release,12hr rosuvastatin 20 mg tablet See Rx Instructions .Route 06/08/24 .COMPLEX #90 tabs triamterene 37.5 See Rx Instructions .Route 06/12/24 mg-hydrochlorothiazide 25 mg tablet .COMPLEX #90 tabs Allergies Allergy/AdvReac Type Severity Reaction Status Date / Time No Known Allergies Allergy Verified 05/31/24 13:50 [facility] Disclaimer: The information contained in this section may have been updated after the patient was seen, as this information can be updated by other users. Medical History Chest tightness Uterine prolapse MVP (mitral valve prolapse) Barretts esophagus Hiatal hernia Vitamin B12 deficiency Vitamin D deficiency Migraine GERD (gastroesophageal reflux disease) Hyperlipidemia Essential hypertension Surgical History History of colonoscopy (~2013) Family History Other No significant family history Social History Smoking Status: Never smoker alcohol intake: current alcohol intake frequency: holidays/special occasions only substance use type: denies use current occupational status: employed Travel in the last 8 weeks: None household members: family housing: house Have you lived/traveled outside US in past 30 days?: No Contact w/someone who lives/traveled outside US past 30 days?: No Exposure to someone with infectious disease in past 14 days?: No Do you have a fever (greater than 100.4 F or 38 C)?: No Have you tested positive for COVID-19: No Exposed to someone with COVID-19 in past 14 days?: No Do you have a sore throat?: No Do you have a cough?: No Do you have any weakness?: No Do you have any diarrhea?: No Are you experiencing any unusual bleeding?: No Do you have any muscle aches/pain?: No Do you have any abdominal pain?: No Are you experiencing loss of taste or smell?: No Other Medical History Have you received the Pneumonia Vaccine: No ROS Obtained: Yes All systems reviewed & no additional complaints except as documented Physical Exam General General appearance: alert and in no apparent distress Head Head exam: atraumatic and normocephalic Eye Eye exam: Present normal appearance, PERRL and EOMI ENT ENT exam: Present normal exam, normal oropharynx, mucous membranes moist and normal external ear exam Neck Neck exam: Present normal inspection, full ROM and trachea midline; Absent tenderness Chest Chest inspection: Present normal inspection and symmetric chest wall rise; Absent tenderness Respiratory Respiratory exam: Present normal lung sounds bilaterally; Absent respiratory distress, wheezes, stridor or accessory muscle use Cardiovascular Cardiovascular exam: Present regular rate and normal rhythm Abdominal Exam Abdominal exam: Present tenderness (Generalized), guarding, rebound and normal bowel sounds; Absent distention Extremities Exam Extremities exam: Present normal inspection, full ROM and normal capillary refill; Absent tenderness or edema Back Exam Back exam: Present normal inspection and full ROM; Absent tenderness Neurological Exam Neurological exam: Present alert, oriented X3, CN II-XII intact and normal gait; Absent motor sensory deficit Psychiatric Psychiatric exam: Present normal affect and normal mood Skin Skin exam: Present warm and dry Medical Decision Making Medical Records Medical records reviewed: Yes I reviewed the patient's medical records. Screening: Per USPSTF and CDC recommendations, given the prevalence of disease in our region, it is our hospital?s policy to screen for HIV and viral Hepatitis for all patients aged 18 and over and those with ongoing risk factors. [place] Inquiry Pt receiving controlled substance: No Vital Signs: 07/01/24 10:24 07/01/24 10:43 07/01/24 11:00 Temperature 98.2 F Temperature Source Oral Pulse Rate 74 77 Pulse Rate [Left Radial] 82 Respiratory Rate 13 Blood Pressure 123/69 123/53 L Blood Pressure [Right Arm] 135/63 Blood Pressure Mean Blood Pressure Mean [Right Arm] 87 02 Sat by Pulse Oximetry 97 99 99 Oxygen Delivery Method Room Air Room Air Room Air 07/01/24 11:42 07/01/24 12:00 07/01/24 12:33 Temperature Temperature Source Pulse Rate 84 85 76 Pulse Rate [Left Radial] Respiratory Rate 21 18 19 Blood Pressure 127/54 L 115/64 120/64 Blood Pressure [Right Arm] Blood Pressure Mean 80 Blood Pressure Mean [Right Arm] 02 Sat by Pulse Oximetry 99 99 97 Oxygen Delivery Method Room Air Room Air Lab Data Lab results reviewed: Yes I reviewed the patient's lab results. Lab Results 07/01/24 10:40: WBC 14.4 H, RBC 4.24, Hgb 11.2 L, Hct 36.8 L, MCV 86.8, MCH 26.4 L, MCHC 30.4 L, RDW 16.4, Plt Count 319, MPV 9.7, Neut % (Auto) 78.8, Lymph % (Auto) 12.9, [place] % (Auto) 7.6, Eos % (Auto) 0.0 L, Baso % (Auto) 0.1, Neut # (Auto) 11.3 H, Lymph # (Auto) 1.9, [place] # (Auto) 1.1 H, Eos # (Auto) 0.0, Baso # (Auto) 0.0, Sodium 137, Potassium 2.9 L*, Chloride 105, Carbon Dioxide 27, Anion Gap 7.9, BUN 25 H, Creatinine 0.80, Estimated Creat Clear 61, Estimated GFR 73, Est GFR ( Amer) 88, Glucose 114 H, Lactate 1.7, Calcium 9.4, Magnesium 0.9 L, Total Bilirubin 0.6, AST 24, ALT 27, Alkaline Phosphatase 75, Troponin I < 0.01, Total Protein 6.9, Albumin 4.4, Globulin 2.5, Albumin/Globulin Ratio 1.8, Lipase 84, Urine Color Yellow, Urine Appearance Clear, Urine pH 7.0, Ur Specific [place] 1.025, Urine Protein Negative, Urine Glucose (UA) Negative, Urine Ketones Negative, Urine Blood Negative, Urine Nitrate Negative, Urine Bilirubin Negative, Urine Urobilinogen 0.2, Ur Leukocyte Esterase 1+ A, Urine RBC None, Urine WBC 5-10, Ur Squamous Epith Cells 3-5, Urine Bacteria Trace 07/01/24 10:40 07/01/24 10:40 Orders (Tests/Meds): ED MEDICATIONS Generic Name Dose Route Start Last Admin Trade Name Freq PRN Reason Stop Dose Admin Potassium Chloride/Water 100 mls @ 100 mls/hr 07/01/24 11:24 07/01/24 11:46 Potassium Chloride 10meq/100ml Ivpb IV 07/01/24 13:23 100 mls/hr Q1H JAVIER Administration Magnesium Sulfate 2 gm in 50 mls @ 50 mls/hr 07/01/24 11:58 07/01/24 12:17 Magnesium Sulfate 2gm/50ml Premix IV 07/01/24 12:57 50 mls/hr ONCE ONE Administration Sodium Chloride 8 ml 07/01/24 10:49 Sodium Chloride 0.9% 10ml Vial IV 07/31/24 10:48 NEEDED PRN dilute pepcid Discontinued Medications Generic Name Dose Route Start Last Admin Trade Name Zulma PRN Reason Stop Dose Admin Acetaminophen 1,000 mg 07/01/24 10:49 07/01/24 10:59 Acetaminophen 1,000mg/100ml Vial IV 07/01/24 10:50 1,000 mg ONCE ONE Administration Famotidine 20 mg 07/01/24 10:49 07/01/24 10:59 Famotidine 20mg/2ml Vial IV 07/01/24 10:50 20 mg ONCE ONE Administration Lactated Ringer's 1,000 mls @ 999 mls/hr 07/01/24 10:49 07/01/24 10:59 Lactated Ringer's 1000 Ml Bag IV 07/01/24 11:49 999 mls/hr .Q1H1M ONE Administration Piperacillin Sod/Tazobactam 50 mls @ 100 mls/hr 07/01/24 11:51 07/01/24 12:17 Sod 3.375 gm/ Sodium Chloride IV 07/01/24 12:20 100 mls/hr ONCE ONE Administration Iopamidol 75 ml 07/01/24 11:29 07/01/24 11:30 Iopamidol-370 (76%);100ml Bottle IV 07/01/24 11:30 75 ml ONCE ONE Administration Ketorolac Tromethamine 15 mg 07/01/24 10:49 07/01/24 10:59 Ketorolac 30mg/Ml Vial IV 07/01/24 10:50 15 mg ONCE ONE Administration Sodium Chloride 10 ml 07/01/24 11:29 07/01/24 11:30 Sodium Chloride 0.9% 10ml Syr (Rad Only) IV 07/01/24 11:30 10 ml ONCE ONE Administration ORDERS Category Date Time Status CT abdomen pelvis w con Stat Cat Scan 07/01/24 10:48 Completed Consult to General Surgery [CONS] Stat Cons 07/01/24 11:53 Ordered Complete Blood Count Auto Diff Stat Lab 07/01/24 10:40 Completed Comprehensive Metabolic Panel Stat Lab 07/01/24 10:40 Completed HIV Combo Stat Lab 07/01/24 10:37 Ordered Hepatitis C Ab Qual. W/ RFX Stat Lab 07/01/24 10:37 Ordered Lactic Acid Stat Lab 07/01/24 10:40 Completed Lipase Stat Lab 07/01/24 10:40 Completed MAG [Magnesium] Stat Lab 07/01/24 10:40 Completed Trop I [Troponin I] Stat Lab 07/01/24 10:40 Completed Troponin I Q3H Lab 07/01/24 14:00 Ordered Troponin I Q3H Lab 07/01/24 17:00 Ordered UA [Urinalysis and Microscopic] Stat Lab 07/01/24 10:40 Completed Blood Culture Stat Micro 07/01/24 12:12 Received Urine Culture Stat Micro 07/01/24 10:40 Received ECG Data Tracing #1: I reviewed this ECG and interpreted as documented below: Normal sinus rhythm with a ventricular rate of 75 bpm. No acute STEMI. Normal intervals. ECG initial impression date: 07/01/24 ECG initial impression time: 11:11 Medical Decision Narrative: In summary, this patient is a 64-year-old female presenting to the Emergency Department for evaluation of generalized abdominal pain. Differential diagnoses considered include but are not limited to colitis, gastroenteritis, diverticulitis, appendicitis, cholecystitis, pancreatitis. Ruling out the most morbid conditions drove assessment. It should be noted patient's history includes GERD, hypertension, hyperlipidemia which may or may not be at goal therapy. This complicates all aspects of care by increasing patient's risk for morbidity. On exam, the patient is lying in bed in no acute distress with normal vital signs and cardiac telemetry. She has generalized abdominal tenderness with guarding. Workup included CBC, CMP, lipase, lactic acid, troponin, EKG, urinalysis, CT abdomen and pelvis with IV contrast. She was given a bolus of IV fluids as well as IV Toradol, acetaminophen, Pepcid, and Zofran for symptomatic improvement.. I independently interpreted CT scan prior to the radiologist read and noted pneumoperitoneum with stranding in the left lower quadrant/pelvis. Please see their read for final interpretation. I had an interactive discussion with the radiologist who noted concerns for perforated diverticulitis. She also stated that she could not definitively evaluate the left ovary given the degree of inflammation and pneumoperitoneum. I did notify general surgeon and admitting hospitalist of this. Labs were obtained that demonstrated hypokalemia and hypomagnesemia, for which IV replacement as well as IV fluids were ordered. Patient also has a leukocytosis. BUN is mildly elevated in the setting of poor oral intake since 8:00 PM last night. Lactic acid is normal. For pneumoperitoneum/perforated diverticulitis, I administered IV Zosyn. On reassessment, patient had good improvement after administration of IV Toradol and acetaminophen. She is resting comfortably in bed with normal vital signs on cardiac telemetry. I had an interactive discussion with the general surgeon on-call with regards to her perforated diverticulitis, and he evaluated the patient and then posted for the OR. I then had an interactive discussion with the hospitalist, who admitted the patient in stable condition. Critical Care Critical Care Time Critical Care Time: Yes Attestation: On 07/01/24, the high probability of a clinically significant, sudden or life threatening deterioration of the following system(s) required my full and direct attention, intervention and personal management. The time I documented below is in addition to time spent performing reported procedures but includes the following listed in this critical care notation. Total Time Total Critical Care Time: 35
[2024-07-01] MEDS: ACETAMINOPHEN 1,000MG/100ML VIAL 1000 MG IV ×2 (10:59→16:38)
[2024-07-01] MEDS: FAMOTIDINE 20MG/2ML VIAL 20 MG IV (10:59)
[2024-07-01] MEDS: KETOROLAC 30MG/ML VIAL 15 MG IV ×2 (10:59→19:59)
[2024-07-01] MEDS: LACTATED RINGERS 1000ML 1,000 ML 999 ML IV (10:59)
[2024-07-01 11:06] LABS: Microscopic, Urine URINE MICROSCOPIC (MICROSCOPIC)
[2024-07-01 11:08] LABS: Basophils % 0.1 % (0.1-2.0); Hematocrit 36.8 % (37.0-47.0); Hemoglobin 11.2 g/dL (12.2-16.2); Lymphocytes # 1.9 K/mm3 (0.7-4.5); Lymphocytes % 12.9 % (10-50); Mean Corpuscular HGB Conc 30.4 g/dL (31.8-35.4); Mean Corpuscular Hemoglobin 26.4 pg (27.0-31.2); Mean Corpuscular Volume 86.8 fl (81-99); Mean Platelet Volume 9.7 fl (7.4-10.4); Monocytes # 1.1 K/mm3 (0.1-1.0); Monocytes % 7.6 % (1.7-9.3); Neutrophils # 11.3 K/mm3 (1.8-7.8); Neutrophils % 78.8 % (37.0-80.0); Platelet Count 319 K/mm3 (142-424); Red Blood Count 4.24 M/mm3 (4.20-5.40); Red Cell Distribution Width 16.4 % (11.5-17.5); White Blood Count 14.4 K/mm3 (4.8-10.8)
--- NOTE | 2024-07-01 11:08 | ECG_ITS ---
APPROVED REPORT Exam: Resting ECG HR:75 bpm ECG Measurements Heart Rate 75 AXES AK 136 P 60 QRSd 80 QRS -3 QT 387 T 39 QTc 416 Conclusion SINUS RHYTHM NONSPECIFIC ST & T-WAVE ABNORMALITY Electronically signed by : HIWOT JONES, 07/01/2024 13:34:37
[2024-07-01 11:15] LABS: Chloride 105 mmol/L (98-107); Sodium 137 mmol/L (136-145)
[2024-07-01 11:18] LABS: Alanine Aminotransferase 27 U/L (12-78); Alkaline Phosphatase 75 U/L (38-126); Aspartate Amino Transferase 24 U/L (14-36); Bilirubin,Total 0.6 mg/dl (0.2-1.3); Blood Urea Nitrogen 25 mg/dl (7-17); Creatinine Clearance Estimated 61 mL/min (50-200); Estimated Glomerular Filt Rate 73 ml/min (>60); GFR (African American) 88 ML/MIN (>60); Lipase 84 U/L (23-300); Total Protein,Serum 6.9 g/dl (6.3-8.2)
[2024-07-01 11:19] LABS: Calcium 9.4 mg/dl (8.4-10.2); Glucose 114 mg/dl (74-100); Potassium 2.9 mmoL/L (3.5-5.1)
[2024-07-01 11:27] LABS: Appearance,Urine CLEAR (Clear); Bilirubin,Urine Negative (Negative); Blood, Urine Negative (Negative); Color,Urine YELLOW (Yellow); Glucose,Urine (UA) Negative (Negative); Ketones,Urine Negative (Negative); Leukocyte Esterase,Urine 1+ (Negative); Nitrate,Urine Negative (Negative); Protein,Urine Negative (Negative); Specific Gravity, Urine 1.025 (1.005-1.030); Urobilinogen,Urine 0.2 EU/dl (0.2)
[2024-07-01] MEDS: IOPAMIDOL-370 (76%);100ML BOTTLE 75 ML IV (11:30)
[2024-07-01] MEDS: SODIUM CHLORIDE 0.9% 10ML SYR (RAD ONLY) 10 ML IV (11:30)
[2024-07-01 11:37] LABS: Troponin I < 0.01 ng/ml (0.00-0.034)
[2024-07-01 11:38] LABS: Bacteria,Urine Trace /lpf; Lactic Acid 1.7 mmol/L (0.7-2.1)
[2024-07-01] MEDS: KCl 10mEq/100ml 100 ML 100 MEQ IV ×2 (11:46→12:57)
--- NOTE | 2024-07-01 11:47 | PC.NURSE ---
dr perez is speaking to [facility]
[2024-07-01 11:58] LABS: Magnesium 0.9 mg/dl (1.6-2.3)
--- NOTE | 2024-07-01 12:09 | PC.NURSE ---
gen surgery production machinist at bedside
--- NOTE | 2024-07-01 12:10 | PC.NURSE ---
hospitalist accepted pt for admission. house aware of admission
[2024-07-01 12:11] LABS: Anion Gap 7.9 mEq/L (5-15); Carbon Dioxide 27 mmol/L (22.0-30.0)
[2024-07-01] MEDS: PIPERACILLIN/TAZO 3.375 GM in 0.9 % SODIUM CHLORIDE 50 ML IV (12:17)
[2024-07-01] MEDS: MAGNESIUM SULFATE IN WATER 2 GM/50 ML PIGGYBACK IV (12:17)
[2024-07-01 12:19] LABS: Albumin Level 4.4 g/dl (3.5-5.0); Albumin/Globulin Ratio 1.8 (1.1-1.8); Globulin 2.5 g/dL (1.3-3.2)
--- NOTE | 2024-07-01 12:27 | EXP.GEN.HP ---
HPI HPI HPI: 64-year-old lady presented to the emergency department with 24 hours of worsening abdominal pain. She had sudden onset of the abdominal pain yesterday evening and it rapidly progressed overnight. It was diffuse and severe. She has no appetite. She denies any bowel movement. She has been on a course of prednisone for the last week for migraines. She has never had a pain like this before [facility] Disclaimer: The information contained in this section may have been updated after the patient was seen, as this information can be updated by other users. Medical History Chest tightness Uterine prolapse MVP (mitral valve prolapse) Barretts esophagus Hiatal hernia Vitamin B12 deficiency Vitamin D deficiency Migraine GERD (gastroesophageal reflux disease) Hyperlipidemia Essential hypertension Surgical History History of colonoscopy (~2013) Family History Other No significant family history Social History Smoking Status: Never smoker alcohol intake: current alcohol intake frequency: holidays/special occasions only substance use type: denies use current occupational status: employed Travel in the last 8 weeks: None household members: family housing: house Have you lived/traveled outside [place] in past 30 days?: No Contact w/someone who lives/traveled outside US past 30 days?: No Exposure to someone with infectious disease in past 14 days?: No Do you have a fever (greater than 100.4 F or 38 C)?: No Have you tested positive for COVID-19: No Exposed to someone with COVID-19 in past 14 days?: No Do you have a sore throat?: No Do you have a cough?: No Do you have any weakness?: No Do you have any diarrhea?: No Are you experiencing any unusual bleeding?: No Do you have any muscle aches/pain?: No Do you have any abdominal pain?: No Are you experiencing loss of taste or smell?: No Other Medical History Have you received the Pneumonia Vaccine: No Review of Systems Review of Systems Review of systems:: pertinent systems reviewed and negative unless documented below Constitutional Constitutional: Reports headache(s) ENT Ears, Nose, Mouth, and Throat: Reports headache(s) *Neurologic Neurologic: Reports headache(s) Meds Home Medications and Allergies Home Medications ?Medication ?Instructions ?Recorded ?Confirmed ?Type aspirin 81 mg chewable tablet 81 mg PO DAILY 10/07/22 05/31/24 History cholecalciferol (vitamin D3) 50 100 mcg PO DAILY 10/07/22 05/31/24 History mcg (2,000 unit) tablet coenzyme Q10 100 mg capsule 100 mg PO DAILY 10/07/22 05/31/24 History cyanocobalamin (vitamin B-12) 500 500 mcg PO DAILY 10/07/22 05/31/24 History mcg tablet topiramate 50 mg tablet 50 mg PO BID 10/28/23 05/31/24 History sumatriptan 85 mg-naproxen 500 mg 1 tab PO ONCE PRN 12/21/23 05/31/24 History tablet fluticasone propionate 50 1 spray intranasal DAILY #16 grams 04/16/24 05/31/24 Rx mcg/actuation nasal spray,suspension cefdinir 300 mg capsule 300 mg PO BID #20 caps 05/31/24 05/31/24 Rx prednisone 20 mg tablet 20 mg PO .COMPLEX #15 tabs 05/31/24 05/31/24 Rx dextromethorphan-guaifenesin ER 60 1 tab PO Q12H #60 tabs 06/01/24 Rx mg-1,200 mg tab,extend release,12hr rosuvastatin 20 mg tablet See Rx Instructions .Route 06/08/24 Rx .COMPLEX #90 tabs triamterene 37.5 See Rx Instructions .Route 06/12/24 Rx mg-hydrochlorothiazide 25 mg tablet .COMPLEX #90 tabs New Prescriptions to Start Prescriptions: Allergies Allergy/AdvReac Type Severity Reaction Status Date / Time No Known Allergies Allergy Verified 05/31/24 13:50 Exam Data for Last 24 hours Vital signs and Labs for Last 24 Hours: Temp Pulse Resp BP Pulse Ox O2 Del Method 98.2 F 85 18 115/64 99 Room Air 07/01/24 10:24 07/01/24 12:00 07/01/24 12:00 07/01/24 12:00 07/01/24 12:00 07/01/24 11:42 Laboratory Results - last 24 hr 07/01/24 10:40: WBC 14.4 H, RBC 4.24, Hgb 11.2 L, Hct 36.8 L, MCV 86.8, MCH 26.4 L, MCHC 30.4 L, RDW 16.4, Plt Count 319, MPV 9.7, Neut % (Auto) 78.8, Lymph % (Auto) 12.9, [place] % (Auto) 7.6, Eos % (Auto) 0.0 L, Baso % (Auto) 0.1, Neut # (Auto) 11.3 H, Lymph # (Auto) 1.9, [place] # (Auto) 1.1 H, Eos # (Auto) 0.0, Baso # (Auto) 0.0, Sodium 137, Potassium 2.9 L*, Chloride 105, Carbon Dioxide 27, Anion Gap 7.9, BUN 25 H, Creatinine 0.80, Estimated Creat Clear 61, Estimated GFR 73, Est GFR ( Amer) 88, Glucose 114 H, Lactate 1.7, Calcium 9.4, Magnesium 0.9 L, Total Bilirubin 0.6, AST 24, ALT 27, Alkaline Phosphatase 75, Troponin I < 0.01, Total Protein 6.9, Albumin 4.4, Globulin 2.5, Albumin/Globulin Ratio 1.8, Lipase 84, Urine Color Yellow, Urine Appearance Clear, Urine pH 7.0, Ur Specific [place] 1.025, Urine Protein Negative, Urine Glucose (UA) Negative, Urine Ketones Negative, Urine Blood Negative, Urine Nitrate Negative, Urine Bilirubin Negative, Urine Urobilinogen 0.2, Ur Leukocyte Esterase 1+ A, Urine RBC None, Urine WBC 5-10, Ur Squamous Epith Cells 3-5, Urine Bacteria Trace I & O for Last 24 hours: Intake & Output 06/28/24 06/29/24 06/30/24 07/01/24 23:59 23:59 23:59 23:59 Weight 145 lb Constitutional Constitutional: mild distress *Routine HEENT Exam Head: Present normocephalic and atraumatic Eye: Absent conjunctival icterus ENT: Present mucous membranes moist *Routine Respiratory Exam Respiratory: Present CTA bilaterally *Routine Cardiovascular Exam Cardiovascular: Present RRR *Routine Abdominal Exam Abdominal: Present tenderness, rebound and guarding *Routine Rectal Exam Rectal:: deferred *Routine Genitalia Exam Genitalia:: deferred Results Results Lab Results Last 24 Hours:: Laboratory Results - last 24 hr 07/01/24 10:40: WBC 14.4 H, RBC 4.24, Hgb 11.2 L, Hct 36.8 L, MCV 86.8, MCH 26.4 L, MCHC 30.4 L, RDW 16.4, Plt Count 319, MPV 9.7, Neut % (Auto) 78.8, Lymph % (Auto) 12.9, [place] % (Auto) 7.6, Eos % (Auto) 0.0 L, Baso % (Auto) 0.1, Neut # (Auto) 11.3 H, Lymph # (Auto) 1.9, [place] # (Auto) 1.1 H, Eos # (Auto) 0.0, Baso # (Auto) 0.0, Sodium 137, Potassium 2.9 L*, Chloride 105, Carbon Dioxide 27, Anion Gap 7.9, BUN 25 H, Creatinine 0.80, Estimated Creat Clear 61, Estimated GFR 73, Est GFR ( Amer) 88, Glucose 114 H, Lactate 1.7, Calcium 9.4, Magnesium 0.9 L, Total Bilirubin 0.6, AST 24, ALT 27, Alkaline Phosphatase 75, Troponin I < 0.01, Total Protein 6.9, Albumin 4.4, Globulin 2.5, Albumin/Globulin Ratio 1.8, Lipase 84, Urine Color Yellow, Urine Appearance Clear, Urine pH 7.0, Ur Specific [place] 1.025, Urine Protein Negative, Urine Glucose (UA) Negative, Urine Ketones Negative, Urine Blood Negative, Urine Nitrate Negative, Urine Bilirubin Negative, Urine Urobilinogen 0.2, Ur Leukocyte Esterase 1+ A, Urine RBC None, Urine WBC 5-10, Ur Squamous Epith Cells 3-5, Urine Bacteria Trace CT scan - abdomen: report reviewed and image reviewed (free air all the way up to diaphragm with severe diverticulitis) Assessment and Plan *Assessment and plan (1) Perforated diverticulum: Problem Comment: Perforated diverticulitis with free air all the way up to the diaphragm on CT scan and leukocytosis to 14,000. She has been on a taper of prednisone for the last 2 weeks and I suspect this is why she has not had an overwhelming inflammatory response yet. She is at high risk for deteriorating clinically should we not operate. I would recommend exploratory laparotomy with James's procedure. Risk of bleeding, worsening infection, anesthesia, and need for future operations were discussed with the patient and her family and she agrees to proceed. She has already been started on IV antibiotics and resuscitation. Status: Acute Category: Surgical Code(s): K57.80 - Diverticulitis of intestine, part unspecified, with perforation and abscess without bleeding (2) Pneumoperitoneum: Problem Comment: See above discussion Status: Acute Category: Surgical Code(s): K66.8 - Other specified disorders of peritoneum (3) Hypokalemia: Status: Acute Category: Medical Code(s): E87.6 - Hypokalemia (4) Hypomagnesemia: Status: Acute Category: Medical Code(s): E83.42 - Hypomagnesemia
[2024-07-01 14:08] LABS: HIV Combo NEGATIVE (Negative)
[2024-07-01 14:16] LABS: Hepatitis C Ab Qual. W/ RFX NEGATIVE (Negative)
--- NOTE | 2024-07-01 15:05 | P.OP_ITS ---
Date of procedure: 07/01/24 Pre-op Diagnosis:: Perforated diverticulitis Post-op Diagnosis:: Same Procedure performed:: Exploratory laparotomy with sigmoid colectomy and end colostomy Surgeon:: Oscar Sales MD SUPERVISOR TELEPHONE INFORMATION:: Pepito Archibald Anesthesia: GETA Estimated blood loss (mL): 100 Operative findings:: Perforated sigmoid diverticulitis Operative note:: The patient was consented and taken to the operating room. She was laid in the supine position and general endotracheal anesthesia was instituted without complication. The abdomen was prepped and draped in usual sterile fashion and a brief surgical pause was performed. I began the procedure with a midline laparotomy incision. I dissected down to the fascia and the fascia was opened with cautery entering the peritoneum bluntly. She did have pneumo peritoneum and purulent contamination with infection just below the level of the fascia. I packed away the small intestine and omentum. I then began a mobilization of the white line of Toldt. This was mobilized using cautery all the way down into the pelvis. I was able to visualize the left ureter. She did have adhesions from the left tube and ovary. These were taken down. She had no fecal contamination but did have pus in her pelvis and throughout her left lower quadrant. Her colon was full of hard stool. After mobilizing the sigmoid colon to the midline I dissected into the pelvis avoiding the ureter. I divided the colon from the rectum at the sacral promontory. I then dissected out the EVA and placed a clamp on this and divided it between ties. Using the Enseal device I divided the rest of the mesentery down to the division in the pelvis. I then used the Enseal to divide the mesentery up to the descending colon margin. I then partially mobilized the splenic flexure to bring the colon out as an ostomy. I then irrigated the abdomen with copious amounts of irrigation. I removed all packing. I then created a circular incision on the left abdominal wall and dissected down to the fascia. The fascia was opened vertically and I divided the muscle and open the posterior fascia as well to 2 fingerbreadths. I then pulled the descending colon out the hole and directed my attention back to the midline. I closed the fascia with #1 looped PDS with multiple interrupted 0 Vicryl's. The skin was then irrigated and closed with loose skin warren. I packed between the skin warren with iodoform gauze. The midline was covered with a towel. I then matured the colostomy in Nataliya fashion with 3-0 Vicryl sutures. Ostomy appliance was placed and a sterile dressing was placed on the midline. She tolerated the procedure well and underwent a tap block by anesthesia. She was transferred to the PACU in stable condition after extubation. Condition: stable Disposition: PACU Complications:: None
--- NOTE | 2024-07-01 15:09 | P.PNANES_ITS ---
[facility] Disclaimer: The information contained in this section may have been updated after the patient was seen, as this information can be updated by other users. Medical History Chest tightness Uterine prolapse MVP (mitral valve prolapse) Barretts esophagus Hiatal hernia Vitamin B12 deficiency Vitamin D deficiency Migraine GERD (gastroesophageal reflux disease) Hyperlipidemia Essential hypertension Surgical History History of colonoscopy (~2013) Family History Other No significant family history Social History Smoking Status: Never smoker alcohol intake: current alcohol intake frequency: holidays/special occasions only substance use type: denies use current occupational status: employed Travel in the last 8 weeks: None household members: family housing: house Have you lived/traveled outside US in past 30 days?: No Contact w/someone who lives/traveled outside US past 30 days?: No Exposure to someone with infectious disease in past 14 days?: No Do you have a fever (greater than 100.4 F or 38 C)?: No Have you tested positive for COVID-19: No Exposed to someone with COVID-19 in past 14 days?: No Do you have a sore throat?: No Do you have a cough?: No Do you have any weakness?: No Do you have any diarrhea?: No Are you experiencing any unusual bleeding?: No Do you have any muscle aches/pain?: No Do you have any abdominal pain?: No Are you experiencing loss of taste or smell?: No [facility] Anesthesia Checklist Patient Identification Patient Identification: Arm Band Structural Data Admitted From: Emergency Dept Planned Operative Procedure/s: Exploratory Laparotomy Consent for Planned Operative Procedure(s) Verified: Yes Verified Documents: Surgical Consent and History and Physical NPO Status Verified Time NPO: 00:00 Additional verifications Anesthesia Reactions: No Airway Assessment Mallampati Score:: Class II C-Spine Mobility Assessed: Yes TMJ Mobility Assessed: Yes Dentition: Good Dentition Neurological Assessment Level of Consciousness: Awake, Alert and Appropriate Anesthesia Plan Anesthesia Risk discussed: Yes Anesthesia Plan: Verified ASA Class: II (E) Anesthesia Type: General
--- NOTE | 2024-07-01 15:09 | P.PNANES_ITS ---
[facility] Anesthesia Record Part I Anesthesia Record I Intake, IV Amount: 1,700 Hydration: Adequate Estimated blood loss (mL): 50 Urine output (mL): 1,200 Blood Pressure: 103/72 SaO2: 94 Pulse Rate: 72 Airway Patency: Patent Respiratory Rate: 16 Temperature: 98.3 F Patient is:: Drowsy and Stable
[2024-07-01] MEDS: PIPERCILLIN/TAZO 3.375 GM in 0.9 % SODIUM CHLORIDE 50 ML IV ×2 (16:12→20:51)
[2024-07-01] MEDS: LACTATED RINGERS 1000ML 1,000 ML 125 ML IV (16:37)
--- NOTE | 2024-07-01 17:12 | EXP.MED.CON ---
History of Present Illness *History of present illness: 64-year-old lady presented to the emergency department with 24 hours of worsening abdominal pain. She had sudden onset of the abdominal pain yesterday evening and it rapidly progressed overnight. It was diffuse and severe. She has no appetite. She denies any bowel movement. She has been on a course of prednisone for the last week for migraines. She has never had a pain like this before [facility] Disclaimer: The information contained in this section may have been updated after the patient was seen, as this information can be updated by other users. Medical History Chest tightness Uterine prolapse MVP (mitral valve prolapse) Barretts esophagus Hiatal hernia Vitamin B12 deficiency Vitamin D deficiency Migraine GERD (gastroesophageal reflux disease) Hyperlipidemia Essential hypertension Surgical History History of colonoscopy (~2013) Family History Other No significant family history Social History (Updated 07/01/24 @ 16:28 by Malathi Hills RN) Smoking Status: Never smoker alcohol intake: never substance use type: denies use current occupational status: employed Travel in the last 8 weeks: None household members: family housing: house Have you lived/traveled outside US in past 30 days?: No Contact w/someone who lives/traveled outside US past 30 days?: No Exposure to someone with infectious disease in past 14 days?: No Do you have a fever (greater than 100.4 F or 38 C)?: No Have you tested positive for COVID-19: No Exposed to someone with COVID-19 in past 14 days?: No Do you have a sore throat?: No Do you have a cough?: No Do you have any weakness?: No Are you experiencing any nausea/vomitting?: No Do you have any diarrhea?: No Are you experiencing any unusual bleeding?: No Do you have any muscle aches/pain?: No Do you have any abdominal pain?: No Are you experiencing loss of taste or smell?: No Review of Systems Constitutional Constitutional: Reports headache(s) ENT Ears, Nose, Mouth, and Throat: Reports headache(s) *Neurologic Neurologic: Reports headache(s) Exam Data for Last 24 hours Vital signs and Labs for Last 24 Hours: Temp Pulse Resp BP Pulse Ox O2 Del Method O2 Flow Rate 97.7 F 63 15 113/59 L 92 L Room Air 2 07/01/24 16:15 07/01/24 16:15 07/01/24 16:15 07/01/24 16:15 07/01/24 16:20 07/01/24 16:20 07/01/24 15:10 Laboratory Results - last 24 hr 07/01/24 10:40: WBC 14.4 H, RBC 4.24, Hgb 11.2 L, Hct 36.8 L, MCV 86.8, MCH 26.4 L, MCHC 30.4 L, RDW 16.4, Plt Count 319, MPV 9.7, Neut % (Auto) 78.8, Lymph % (Auto) 12.9, [place] % (Auto) 7.6, Eos % (Auto) 0.0 L, Baso % (Auto) 0.1, Neut # (Auto) 11.3 H, Lymph # (Auto) 1.9, [place] # (Auto) 1.1 H, Eos # (Auto) 0.0, Baso # (Auto) 0.0, Sodium 137, Potassium 2.9 L*, Chloride 105, Carbon Dioxide 27, Anion Gap 7.9, BUN 25 H, Creatinine 0.80, Estimated Creat Clear 61, Estimated GFR 73, Est GFR ( Amer) 88, Glucose 114 H, Lactate 1.7, Calcium 9.4, Magnesium 0.9 L, Total Bilirubin 0.6, AST 24, ALT 27, Alkaline Phosphatase 75, Troponin I < 0.01, Total Protein 6.9, Albumin 4.4, Globulin 2.5, Albumin/Globulin Ratio 1.8, Lipase 84, Urine Color Yellow, Urine Appearance Clear, Urine pH 7.0, Ur Specific [place] 1.025, Urine Protein Negative, Urine Glucose (UA) Negative, Urine Ketones Negative, Urine Blood Negative, Urine Nitrate Negative, Urine Bilirubin Negative, Urine Urobilinogen 0.2, Ur Leukocyte Esterase 1+ A, Urine RBC None, Urine WBC 5-10, Ur Squamous Epith Cells 3-5, Urine Bacteria Trace, HCV Ab SOM w/Rflx PCR Qn Negative, HIV Ag/Ab Combo Qual Negative I & O for Last 24 hours: Intake & Output 06/28/24 06/29/24 06/30/24 07/01/24 23:59 23:59 23:59 23:59 Intake Total 1750 / 1750 Output Total 700 / 700 Balance 1050 / 1050 Weight 67.84 kg Meds Home Medications and Allergies Home Medications ?Medication ?Instructions ?Recorded ?Confirmed ?Type aspirin 81 mg chewable tablet 81 mg PO DAILY 10/07/22 05/31/24 History cholecalciferol (vitamin D3) 50 100 mcg PO DAILY 10/07/22 05/31/24 History mcg (2,000 unit) tablet coenzyme Q10 100 mg capsule 100 mg PO DAILY 10/07/22 05/31/24 History cyanocobalamin (vitamin B-12) 500 500 mcg PO DAILY 10/07/22 05/31/24 History mcg tablet topiramate 50 mg tablet 50 mg PO BID 10/28/23 05/31/24 History sumatriptan 85 mg-naproxen 500 mg 1 tab PO ONCE PRN 12/21/23 05/31/24 History tablet fluticasone propionate 50 1 spray intranasal DAILY #16 grams 04/16/24 05/31/24 Rx mcg/actuation nasal spray,suspension cefdinir 300 mg capsule 300 mg PO BID #20 caps 05/31/24 05/31/24 Rx prednisone 20 mg tablet 20 mg PO .COMPLEX #15 tabs 05/31/24 05/31/24 Rx dextromethorphan-guaifenesin ER 60 1 tab PO Q12H #60 tabs 06/01/24 Rx mg-1,200 mg tab,extend release,12hr rosuvastatin 20 mg tablet See Rx Instructions .Route 06/08/24 Rx .COMPLEX #90 tabs triamterene 37.5 See Rx Instructions .Route 06/12/24 Rx mg-hydrochlorothiazide 25 mg tablet .COMPLEX #90 tabs New Prescriptions to Start Prescriptions: Allergies Allergy/AdvReac Type Severity Reaction Status Date / Time No Known Allergies Allergy Verified 05/31/24 13:50 Results Labs 07/01/24 10:40 07/01/24 10:40 Labs: Abnormal lab results 07/01/24 Range/Units 10:40 WBC 14.4 H (4.8-10.8) K/mm3 Hgb 11.2 L (12.2-16.2) g/dL Hct 36.8 L (37.0-47.0) % MCH 26.4 L (27.0-31.2) pg MCHC 30.4 L (31.8-35.4) g/dL Eos % (Auto) 0.0 L (0.1-12.0) % Neut # (Auto) 11.3 H (1.8-7.8) K/mm3 [place] # (Auto) 1.1 H (0.1-1.0) K/mm3 Potassium 2.9 L* (3.5-5.1) mmoL/L BUN 25 H (7-17) mg/dl Glucose 114 H (74-100) mg/dl Magnesium 0.9 L (1.6-2.3) mg/dl Ur Leukocyte Esterase 1+ A (Negative) H & H 07/01/24 Range/Units 10:40 Hgb 11.2 L (12.2-16.2) g/dL Hct 36.8 L (37.0-47.0) % All other labs normal.
[2024-07-01 17:57] LABS: Troponin I < 0.01 ng/ml (0.00-0.034)
[2024-07-01] MEDS: HYDROMORPHONE 2MG/ML SYRINGE 0.5 MG IV ×2 (18:33→20:53)
--- NOTE | 2024-07-01 18:40 | PC.NURSE ---
PT HAS DONE WELL SINCE RRIVING TO THE UNIT AFTER SURGERY. SHE REMAINS ALERAT AND ORIENTED ON ROOM AIR. VSS. NSR ON TELE. HER MIDLINE DRESSING IS CLEAN, DRY, AND INTACT. OSTOMY IS PINK. PT HAS ENDORSED SOME ABD PAIN AND HAS BEEN TREATED PER MAR. FAMILY AT BEDSIDE. GARCIA DRAINING CLEAR YELLOW URINE.
[2024-07-01 18:56] LABS: Microscopic,Cath URINE MICROSCOPIC (MICROSCOPIC)
[2024-07-01 18:58] LABS: Appearance,Urine/Cath CLEAR (Clear); Bilirubin,Cath Negative (Negative); Blood, Urine/Cath Negative (Negative); Color,Urine/Cath YELLOW (Yellow); Glucose,Urine/Cath (UA) Negative (Negative); Ketones,Urine/Cath Negative (Negative); Leukocyte Esterase,Cath Negative (Negative); Nitrate,Cath Negative (Negative); PH,Urine/Cath 7.5 (5.0-8.5); Protein,Urine/Cath Negative (Negative); Urobilinogen,Cath 0.2 EU/dl (0.2)
[2024-07-01 19:46] LABS: Squamous Epithelial Ur./Cath Occasional #/hpf (0-5); WBC,Urine/Cath Occasional #/hpf (0-3)
--- NOTE | 2024-07-01 20:35 | P.HP_ITS ---
<Statement entered by Johnny Chung MD - 07/04/24 10:31> Personally examined patient and agree with the plan of care as outlined by the SENIOR BUSINESS ARCHITECT. History of Present Illness *Admission Date: 07/01/24 *Reason for visit:: consult, from general surgery for hospitalist to follow post surgical *History of present illness: Patient is status post ruptured diverticuli requiring laparotomy with sigmoid colectomy and end colostomy. Patient required midline laparotomy incision. And has been admitted to the ICU post procedure. Patient is in stable condition. [facility] Disclaimer: The information contained in this section may have been updated after the patient was seen, as this information can be updated by other users. Medical History Chest tightness Uterine prolapse MVP (mitral valve prolapse) Barretts esophagus Hiatal hernia Vitamin B12 deficiency Vitamin D deficiency Migraine GERD (gastroesophageal reflux disease) Hyperlipidemia Essential hypertension Surgical History History of colonoscopy (~2013) Family History Other No significant family history Social History Smoking Status: Never smoker alcohol intake: never substance use type: denies use current occupational status: employed Travel in the last 8 weeks: None household members: family housing: house Have you lived/traveled outside US in past 30 days?: No Contact w/someone who lives/traveled outside US past 30 days?: No Exposure to someone with infectious disease in past 14 days?: No Do you have a fever (greater than 100.4 F or 38 C)?: No Have you tested positive for COVID-19: No Exposed to someone with COVID-19 in past 14 days?: No Do you have a sore throat?: No Do you have a cough?: No Do you have any weakness?: No Are you experiencing any nausea/vomitting?: No Do you have any diarrhea?: No Are you experiencing any unusual bleeding?: No Do you have any muscle aches/pain?: No Do you have any abdominal pain?: No Are you experiencing loss of taste or smell?: No Other Medical History Have you received the Flu Vaccine for this season: Yes Have you received the Pneumonia Vaccine: No Review of Systems Review of Systems Review of systems:: pertinent systems reviewed and negative unless documented below Constitutional Constitutional: Reports as per HPI and Reports headache(s) Eyes Eyes: Reports as per HPI ENT Ears, Nose, Mouth, and Throat: Reports headache(s) Comments: Long history of strep throat, and ear infection, past throat cultures for strep *Cardiovascular Cardiovascular: Reports as per HPI *Respiratory Respiratory: Reports as per HPI Comments: Patient states she has never been a smoker *Gastrointestinal Gastrointestinal: Reports as per HPI, Reports abdominal pain, Reports dyspepsia and Reports heartburn Comments: Talking with patient she does have a long history of heartburn. I am examining her after surgery. There is abdominal pain, dressing is in place but no palpation was done., Did check with nursing and pain medication is ordered. *Genitourinary Genitourinary: Reports as per HPI *Musculoskeletal Musculoskeletal: Reports as per HPI Integumentary/Breasts Skin/Breast: Reports as per HPI *Neurologic Neurologic: Reports as per HPI and Reports headache(s) Psychiatric Psychiatric: Reports as per HPI Endocrine Endocrine: Reports as per HPI Hematologic/Lymphatic Hematologic/Lymphatic: Reports as per HPI Allergic/Immunologic Allergic/Immunologic: Reports as per HPI Meds Home Medications and Allergies Home Medications ?Medication ?Instructions ?Recorded ?Confirmed ?Type aspirin 81 mg chewable tablet 81 mg PO DAILY 10/07/22 05/31/24 History cholecalciferol (vitamin D3) 50 100 mcg PO DAILY 10/07/22 05/31/24 History mcg (2,000 unit) tablet coenzyme Q10 100 mg capsule 100 mg PO DAILY 10/07/22 05/31/24 History cyanocobalamin (vitamin B-12) 500 500 mcg PO DAILY 10/07/22 05/31/24 History mcg tablet topiramate 50 mg tablet 50 mg PO BID 10/28/23 05/31/24 History sumatriptan 85 mg-naproxen 500 mg 1 tab PO ONCE PRN 12/21/23 05/31/24 History tablet fluticasone propionate 50 1 spray intranasal DAILY #16 grams 04/16/24 05/31/24 Rx mcg/actuation nasal spray,suspension cefdinir 300 mg capsule 300 mg PO BID #20 caps 05/31/24 05/31/24 Rx prednisone 20 mg tablet 20 mg PO .COMPLEX #15 tabs 05/31/24 05/31/24 Rx dextromethorphan-guaifenesin ER 60 1 tab PO Q12H #60 tabs 06/01/24 Rx mg-1,200 mg tab,extend release,12hr rosuvastatin 20 mg tablet See Rx Instructions .Route 06/08/24 Rx .COMPLEX #90 tabs triamterene 37.5 See Rx Instructions .Route 06/12/24 Rx mg-hydrochlorothiazide 25 mg tablet .COMPLEX #90 tabs New Prescriptions to Start Prescriptions: Allergies Allergy/AdvReac Type Severity Reaction Status Date / Time No Known Allergies Allergy Verified 05/31/24 13:50 Exam Data for Last 24 hours Vital signs and Labs for Last 24 Hours: Temp Pulse Resp BP Pulse Ox O2 Del Method O2 Flow Rate 97.7 F 66 16 120/65 94 L Room Air 2 07/01/24 16:15 07/01/24 20:15 07/01/24 20:15 07/01/24 20:15 07/01/24 20:15 07/01/24 20:15 07/01/24 15:10 Laboratory Results - last 24 hr 07/01/24 10:40: WBC 14.4 H, RBC 4.24, Hgb 11.2 L, Hct 36.8 L, MCV 86.8, MCH 26.4 L, MCHC 30.4 L, RDW 16.4, Plt Count 319, MPV 9.7, Neut % (Auto) 78.8, Lymph % (Auto) 12.9, [place] % (Auto) 7.6, Eos % (Auto) 0.0 L, Baso % (Auto) 0.1, Neut # (Auto) 11.3 H, Lymph # (Auto) 1.9, [place] # (Auto) 1.1 H, Eos # (Auto) 0.0, Baso # (Auto) 0.0, Sodium 137, Potassium 2.9 L*, Chloride 105, Carbon Dioxide 27, Anion Gap 7.9, BUN 25 H, Creatinine 0.80, Estimated Creat Clear 61, Estimated GFR 73, Est GFR ( Amer) 88, Glucose 114 H, Lactate 1.7, Calcium 9.4, Magnesium 0.9 L, Total Bilirubin 0.6, AST 24, ALT 27, Alkaline Phosphatase 75, Troponin I < 0.01, Total Protein 6.9, Albumin 4.4, Globulin 2.5, Albumin/Globulin Ratio 1.8, Lipase 84, Urine Color Yellow, Urine Appearance Clear, Urine pH 7.0, Ur Specific [place] 1.025, Urine Protein Negative, Urine Glucose (UA) Negative, Urine Ketones Negative, Urine Blood Negative, Urine Nitrate Negative, Urine Bilirubin Negative, Urine Urobilinogen 0.2, Ur Leukocyte Esterase 1+ A, Urine RBC None, Urine WBC 5-10, Ur Squamous Epith Cells 3-5, Urine Bacteria Trace, HCV Ab SOM w/Rflx PCR Qn Negative, HIV Ag/Ab Combo Qual Negative 07/01/24 13:05: Urine Color Yellow, Urine Appearance Clear, Urine pH 7.5, Ur Specific [place] 1.020, Urine Protein Negative, Urine Glucose (UA) Negative, Urine Ketones Negative, Urine Blood Negative, Urine Nitrate Negative, Urine Bilirubin Negative, Urine Urobilinogen 0.2, Ur Leukocyte Esterase Negative, Urine RBC 3-5, Urine WBC Occasional, Ur Squamous Epith Cells Occasional 07/01/24 16:50: Troponin I < 0.01 I & O for Last 24 hours: Intake & Output 06/29/24 06/30/24 07/01/24 07/02/24 05:59 05:59 05:59 05:59 Intake Total 1750 / 1750 Output Total 700 / 700 Balance 1050 / 1050 Weight 149 lb 9 oz Radiology Reports for the Last 24 Hours: CT scan of the abdomen, showed some inflammatory process was around the left ovary. But also noting free air with bowel wall thickening indicating diverticulitis Narrative: Patient was examined in the ICU postsurgery. Constitutional Constitutional: mild distress and obese Comments: Patient is in some pain. Pain medication is ordered and is time for the next dose.. Patient appears to be well-nourished no signs of any nutritional deficits., *Routine HEENT Exam Head: Present normocephalic and atraumatic Eye: Present EOMI and PERRL ENT: Present mucous membranes moist *Routine Neck Exam Neck: Present supple and full ROM Routine Chest/Breast/Axilla Exam Breast: Present induration Comments: Breast exam was not done. But there was no signs of any chest wall tenderness., *Routine Respiratory Exam Respiratory: Present decreased breath sounds, CTA bilaterally, normal respira tory effort, able to speak in complete sentences and symmetric chest movement Comments: Patient is in no respiratory distress., She is on room air at this time was able to auscultate anterior portion of the chest., Due to being postsurgery I did not roll turn or sit the patient up to examine the back as I did not feel that was necessary at this time *Routine Cardiovascular Exam Cardiovascular: Present RRR, Normal S1 and Normal S2 Comments: Nice clear heart sounds. Normal circulation brisk capillary refill to the nailbeds *Routine Abdominal Exam Abdominal: Present other Comments: Dressings are in place. Colostomy in place., did not palpate abdomen due to present pain level and recent surgery , was not distended *Routine Rectal Exam Rectal:: deferred *Routine Genitalia Exam Genitalia:: deferred *Routine Extremities Exam Extremities: Present full ROM and pulses intact Comments: No edema to lower extremities Routine Back/Spine/Pelvis Exam Back/Spine: Present full ROM Comments: Due to patient's recent surgery did not move her through full range of motion w ith her back but she had no complaints of back pain, *Routine Skin Exam Skin: Present intact Comments: Abdominal dressing in place *Routine Neurological Exam Neurological: Present alert, oriented X3, CN II-XII intact, normal tone, vision grossly intact and hearing grossly intact Comments: No neurological deficits no Routine Psychiatric Exam Psychiatric: Present normal affect, normal thought process, cooperative, good insight and good judgment Comments: Patient is in pain postsurgery but very appropriate, showing no signs of confusion H&P: Result Impressions 1. Diverticulitis with perforation 2. Status post laparotomy with sigmoid colectomy and end colostomy by Dr. Sales Imaging and Cardiology CT scan - abdomen: Status: image reviewed by me Additional comments: Is now postsurgery but showing free air indicating perforation of diverticulum. Also some inflammation around the left ovary Assessment and Plan *Assessment and plan (1) Perforated diverticulum: Problem Comment: Perforated diverticulitis with free air all the way up to the diaphragm on CT scan and leukocytosis to 14,000. She has been on a taper of prednisone for the last 2 weeks and I suspect this is why she has not had an overwhelming inflammatory response yet. She is at high risk for deteriorating clinically should we not operate. I would recommend exploratory laparotomy with James's procedure. Risk of bleeding, worsening infection, anesthesia, and need for future operations were discussed with the patient and her family and she agrees to proceed. She has already been started on IV antibiotics and resuscitation. Status: Acute Category: Surgical Code(s): K57.80 - Diverticulitis of intestine, part unspecified, with perforation and abscess without bleeding (2) Status post laparotomy: Status: Acute Category: Surgical Code(s): Z98.890 - Other specified postprocedural states (3) S/P colectomy: Status: Acute Category: Surgical Code(s): Z90.49 - Acquired absence of other specified parts of digestive tract (4) Colostomy present: Status: Acute Category: Medical Code(s): Z93.3 - Colostomy status (5) Postoperative abdominal pain: Status: Acute Category: Medical Code(s): R10.9 - Unspecified abdominal pain; G89.18 - Other acute postprocedural pain (6) Hypomagnesemia: Status: Acute Category: Medical Code(s): E83.42 - Hypomagnesemia (7) Hypokalemia: Status: Acute Category: Medical Code(s): E87.6 - Hypokalemia Plan Hospitalist has been consulted to follow patient postop.. To evaluate for any physical changes needed for pain control. Presently patient is resting well, per nursing pain control is adequate. Will continue to follow the patient being able to monitor labs,, vitals , and other test.
[2024-07-01 20:49] LABS: Troponin I < 0.01 ng/ml (0.00-0.034)
[2024-07-01] MEDS: SODIUM CHLORIDE 0.9% 10ML VIAL 8 ML IV (20:51)
[2024-07-01] MEDS: PANTOPRAZOLE 40MG VIAL 40 MG IV (20:51)
[2024-07-02] VITALS (30 sets, daily range): BP systolic 94–126; BP diastolic 45–76; PULSE 62–96; RESP 10–24; TEMP 36.7–37.3; O2SAT 91–99
[2024-07-02] MEDS: HYDROMORPHONE 2MG/ML SYRINGE 0.5 MG IV ×6 (00:04→16:26)
[2024-07-02] MEDS: LACTATED RINGERS 1000ML 1,000 ML 125 ML IV ×2 (00:09→06:17)
[2024-07-02] MEDS: KETOROLAC 30MG/ML VIAL 15 MG IV ×2 (02:54→18:31)
[2024-07-02] MEDS: PIPERCILLIN/TAZO 3.375 GM in 0.9 % SODIUM CHLORIDE 50 ML IV ×4 (02:55→21:41)
--- NOTE | 2024-07-02 05:07 | PC.NURSE ---
Patient has had a good night has been able to rest. She has had pain but it has been controlled well with the PRN medication. Patient states the pain is more so when she moves and just feels extremely sore and tender. Stoma is pink and moist. No output from stoma yet. Patient has had no other complaints this shift
[2024-07-02 06:38] LABS: Basophils % 0.1 % (0.1-2.0); Eosinophils % 0.1 % (0.1-12.0); Hematocrit 29.8 % (37.0-47.0); Lymphocytes # 1.5 K/mm3 (0.7-4.5); Lymphocytes % 13.7 % (10-50); Mean Corpuscular HGB Conc 29.5 g/dL (31.8-35.4); Mean Corpuscular Hemoglobin 25.7 pg (27.0-31.2); Mean Corpuscular Volume 86.9 fl (81-99); Monocytes # 0.8 K/mm3 (0.1-1.0); Monocytes % 7.3 % (1.7-9.3); Neutrophils # 8.4 K/mm3 (1.8-7.8); Neutrophils % 78.3 % (37.0-80.0); Platelet Count 206 K/mm3 (142-424); Red Blood Count 3.43 M/mm3 (4.20-5.40); Red Cell Distribution Width 16.7 % (11.5-17.5); White Blood Count 10.8 K/mm3 (4.8-10.8)
[2024-07-02 06:54] LABS: Blood Urea Nitrogen 18 mg/dl (7-17); Carbon Dioxide 26 mmol/L (22.0-30.0); Chloride 107 mmol/L (98-107); Creatinine Clearance Estimated 66 mL/min (50-200); Estimated Glomerular Filt Rate 85 ml/min (>60); GFR (African American) 103 ML/MIN (>60); Glucose 95 mg/dl (74-100); Potassium 3.8 mmoL/L (3.5-5.1)
[2024-07-02 06:55] LABS: Hemoglobin 8.8 g/dL (12.2-16.2)
[2024-07-02 06:58] LABS: Anion Gap 7.8 mEq/L (5-15); Sodium 137 mmol/L (136-145)
[2024-07-02 07:20] LABS: Magnesium 2.2 mg/dl (1.6-2.3)
[2024-07-02] MEDS: ENOXAPARIN 40MG/0.4ML SYRINGE 40 MG SUBCUT (08:59)
--- NOTE | 2024-07-02 10:06 | EXP.SURG.PN ---
Subjective Narrative: Patient has incisional soreness. Otherwise no complaints. No nausea. Exam Data for Last 24 hours Vital signs and Labs for Last 24 Hours: Temp Pulse Resp BP Pulse Ox O2 Del Method O2 Flow Rate 98.8 F 84 16 112/62 91 L Room Air 2 07/02/24 08:00 07/02/24 09:58 07/02/24 09:58 07/02/24 09:58 07/02/24 09:58 07/02/24 09:58 07/01/24 15:10 Laboratory Results - last 24 hr 07/01/24 10:40: WBC 14.4 H, RBC 4.24, Hgb 11.2 L, Hct 36.8 L, MCV 86.8, MCH 26.4 L, MCHC 30.4 L, RDW 16.4, Plt Count 319, MPV 9.7, Neut % (Auto) 78.8, Lymph % (Auto) 12.9, [place] % (Auto) 7.6, Eos % (Auto) 0.0 L, Baso % (Auto) 0.1, Neut # (Auto) 11.3 H, Lymph # (Auto) 1.9, [place] # (Auto) 1.1 H, Eos # (Auto) 0.0, Baso # (Auto) 0.0, Sodium 137, Potassium 2.9 L*, Chloride 105, Carbon Dioxide 27, Anion Gap 7.9, BUN 25 H, Creatinine 0.80, Estimated Creat Clear 61, Estimated GFR 73, Est GFR ( Amer) 88, Glucose 114 H, Lactate 1.7, Calcium 9.4, Magnesium 0.9 L, Total Bilirubin 0.6, AST 24, ALT 27, Alkaline Phosphatase 75, Troponin I < 0.01, Total Protein 6.9, Albumin 4.4, Globulin 2.5, Albumin/Globulin Ratio 1.8, Lipase 84, Urine Color Yellow, Urine Appearance Clear, Urine pH 7.0, Ur Specific [place] 1.025, Urine Protein Negative, Urine Glucose (UA) Negative, Urine Ketones Negative, Urine Blood Negative, Urine Nitrate Negative, Urine Bilirubin Negative, Urine Urobilinogen 0.2, Ur Leukocyte Esterase 1+ A, Urine RBC None, Urine WBC 5-10, Ur Squamous Epith Cells 3-5, Urine Bacteria Trace, HCV Ab SOM w/Rflx PCR Qn Negative, HIV Ag/Ab Combo Qual Negative 07/01/24 13:05: Urine Color Yellow, Urine Appearance Clear, Urine pH 7.5, Ur Specific [place] 1.020, Urine Protein Negative, Urine Glucose (UA) Negative, Urine Ketones Negative, Urine Blood Negative, Urine Nitrate Negative, Urine Bilirubin Negative, Urine Urobilinogen 0.2, Ur Leukocyte Esterase Negative, Urine RBC 3-5, Urine WBC Occasional, Ur Squamous Epith Cells Occasional 07/01/24 16:50: Troponin I < 0.01 07/01/24 19:50: Troponin I < 0.01 07/02/24 05:53: WBC 10.8, RBC 3.43 L, Hgb 8.8 L D, Hct 29.8 L, MCV 86.9, MCH 25.7 L, MCHC 29.5 L, RDW 16.7, Plt Count 206 D, MPV 11.0 H, Neut % (Auto) 78.3, Lymph % (Auto) 13.7, [place] % (Auto) 7.3, Eos % (Auto) 0.1, Baso % (Auto) 0.1, Neut # (Auto) 8.4 H, Lymph # (Auto) 1.5, [place] # (Auto) 0.8, Eos # (Auto) 0.0, Baso # (Auto) 0.0, Sodium 137, Potassium 3.8 D, Chloride 107, Carbon Dioxide 26, Anion Gap 7.8, BUN 18 H D, Creatinine 0.70, Estimated Creat Clear 66, Estimated GFR 85, Est GFR ( Amer) 103, Glucose 95, Calcium 8.0 L, Magnesium 2.2 D I & O for Last 24 hours: Intake & Output 06/29/24 06/30/24 07/01/24 07/02/24 11:59 11:59 11:59 11:59 Intake Total 1900 / 1900 Output Total 1350 / 1350 Balance 550 / 550 Weight 145 lb 159 lb Microbiology Reports for the Last 24 Hours: Microbiology 07/01/24 10:40 Urine,Clean Catch Urine Culture - Preliminary *Routine Abdominal Exam Abdominal: Present soft and ostomy Comments: Some incisional tenderness. Ostomy viable. Progress Note: A&P Assessment and plan (1) Perforated diverticulum: Status: Acute Assessment and plan: May transfer out of ICU to medical surgical floor. Pro out. Increase activity. N.p.o. except ice chips. Continue antibiotics. (2) Status post laparotomy: Status: Acute (3) S/P colectomy: Status: Acute (4) Colostomy present: Status: Acute (5) Postoperative abdominal pain: Status: Acute (6) Hypomagnesemia: Status: Acute (7) Hypokalemia: Status: Acute
--- NOTE | 2024-07-02 13:30 | HMH.PHAINT1 ---
Pharmacy Intervention Comments: HOME MEDICATION LIST VERIFIED USING LIST FROM OUTPATIENT PHARMACY AND PT INTERVIEW
--- NOTE | 2024-07-02 13:41 | PC.NURSE ---
pt up and ambulated around unit with minimal assistance.
--- NOTE | 2024-07-02 15:15 | PC.NURSE ---
report given to MILDRED Turner
--- NOTE | 2024-07-02 17:51 | PC.NURSE ---
aox4, medicated for pain once since arrival to floor. pt ambulated to restroom with standby assist and urinated once so far this shift. still no output in colostomy
[2024-07-02] MEDS: PANTOPRAZOLE 40MG VIAL 40 MG IV (21:41)
--- NOTE | 2024-07-02 22:24 | EXP.PN ---
Subjective *Date: 07/03/24 *Time: 01:59 Exam Data for Last 24 hours Vital signs and Labs for Last 24 Hours: Temp Pulse Resp BP Pulse Ox O2 Del Method O2 Flow Rate 98.0 F 76 16 109/61 L 94 L Room Air 2 07/02/24 20:00 07/02/24 20:00 07/02/24 20:00 07/02/24 20:00 07/02/24 20:00 07/02/24 20:00 07/01/24 15:10 Laboratory Results - last 24 hr 07/02/24 05:53: WBC 10.8, RBC 3.43 L, Hgb 8.8 L D, Hct 29.8 L, MCV 86.9, MCH 25.7 L, MCHC 29.5 L, RDW 16.7, Plt Count 206 D, MPV 11.0 H, Neut % (Auto) 78.3, Lymph % (Auto) 13.7, [place] % (Auto) 7.3, Eos % (Auto) 0.1, Baso % (Auto) 0.1, Neut # (Auto) 8.4 H, Lymph # (Auto) 1.5, [place] # (Auto) 0.8, Eos # (Auto) 0.0, Baso # (Auto) 0.0, Sodium 137, Potassium 3.8 D, Chloride 107, Carbon Dioxide 26, Anion Gap 7.8, BUN 18 H D, Creatinine 0.70, Estimated Creat Clear 66, Estimated GFR 85, Est GFR ( Amer) 103, Glucose 95, Calcium 8.0 L, Magnesium 2.2 D I & O for Last 24 hours: Intake & Output 06/29/24 06/30/24 07/01/24 07/02/24 23:59 23:59 23:59 23:59 Intake Total 1750 / 1800 150 / 150 Output Total 700 / 1050 650 / 650 Balance 1050 / 750 -500 / -500 Weight 67.84 kg 72.121 kg Microbiology Reports for the Last 24 Hours: Microbiology 07/01/24 12:12 Blood Blood Culture - Preliminary NO GROWTH AFTER 24 HOURS 07/01/24 12:12 Blood Blood Culture - Preliminary NO GROWTH AFTER 24 HOURS 07/01/24 10:40 Urine,Clean Catch Urine Culture - Preliminary Constitutional Constitutional: no acute distress *Routine HEENT Exam Head: Present normocephalic Eye: Present EOMI and PERRL ENT: Present mucous membranes moist *Routine Neck Exam Neck: Present supple; Absent lymphadenopathy *Routine Respiratory Exam Respiratory: Present CTA bilaterally *Routine Cardiovascular Exam Cardiovascular: Present RRR *Routine Abdominal Exam Abdominal: Present soft and ostomy Comments: Some incisional tenderness. Ostomy viable. *Routine Extremities Exam Extremities: Absent cyanosis, clubbing or edema *Routine Skin Exam Skin: Present warm; Absent rash *Routine Neurological Exam Neurological: Present alert and oriented X3 Assessment and Plan *Assessment and plan (1) Perforated diverticulum: Status: Acute Category: Surgical Code(s): K57.80 - Diverticulitis of intestine, part unspecified, with perforation and abscess without bleeding (2) Status post laparotomy: Status: Acute Category: Surgical Code(s): Z98.890 - Other specified postprocedural states (3) S/P colectomy: Status: Acute Category: Surgical Code(s): Z90.49 - Acquired absence of other specified parts of digestive tract (4) Colostomy present: Status: Acute Category: Medical Code(s): Z93.3 - Colostomy status (5) Postoperative abdominal pain: Status: Acute Category: Medical Code(s): R10.9 - Unspecified abdominal pain; G89.18 - Other acute postprocedural pain (6) Hypomagnesemia: Status: Acute Category: Medical Code(s): E83.42 - Hypomagnesemia (7) Hypokalemia: Status: Acute Category: Medical Code(s): E87.6 - Hypokalemia Plan Madelin Talamantes is a 64-year-old female who presented with abdominal pain and was admitted for perforated sigmoid diverticulitis s/p sigmoid colectomy and end colostomy. #Perforated sigmoid diverticulitis ? General Surgery consulted, s/p sigmoid colectomy and end colostomy. ? Today, patient is doing well overall. Endorses some abdominal pain, but no flatus or bowel movements yet. ? WBC improved from 14.4-10.8. ? General Surgery following, agreed to keep patient n.p.o. except ice chips. Will continue to monitor flatus, bowel movements. ? Continue Zosyn day 2. ? Encourage ambulation as tolerated. ? Continue LR at 75 mL/h. No signs of volume overload at this time. ? Follow-up blood cultures. #Acute anemia ? Hemoglobin dropped from 11.2-8.8 today. In the setting of ex lap. ? Continue to monitor. No signs of overt bleeding, vital signs stable. ? Transfuse if hemoglobin less than 7. Chronic medical problems: #GERD ? Resume home PPI. #Hypertension ? Hold home triamterene, hydrochlorothiazide due to soft pressures. Upon review of home medications, patient takes prednisone 20 mg daily. Per refill history, she has been getting this for months. Will need to ask patient in the morning of the indication. Could have highly contributed to bowel perforation. However, withholding this medication can lead to withdrawal. Consider taper tomorrow after discussing with surgery, and perhaps GI. Prescribed by Dr. Madelin Sigala, neurologist in [place]. Full code DVT prophylaxis: Lovenox 40mg
[2024-07-03] MEDS: LACTATED RINGERS 1000ML 1,000 ML 100 ML IV (01:06)
[2024-07-03] MEDS: PIPERCILLIN/TAZO 3.375 GM in 0.9 % SODIUM CHLORIDE 50 ML IV ×4 (02:40→20:59)
[2024-07-03] MEDS: KETOROLAC 30MG/ML VIAL 15 MG IV ×4 (02:40→20:59)
[2024-07-03 04:00] VITALS: BP 124/77; PULSE 89; RESP 16; TEMP 36.8; O2SAT 95; BMI 32.3
[2024-07-03 06:33] LABS: Basophils % 0.2 % (0.1-2.0); Eosinophils # 0.2 K/mm3 (0.0-0.4); Eosinophils % 2.3 % (0.1-12.0); Hematocrit 25.6 % (37.0-47.0); Hemoglobin 7.5 g/dL (12.2-16.2); Lymphocytes # 2.1 K/mm3 (0.7-4.5); Lymphocytes % 22.4 % (10-50); Mean Corpuscular HGB Conc 29.3 g/dL (31.8-35.4); Mean Corpuscular Hemoglobin 25.8 pg (27.0-31.2); Mean Platelet Volume 9.9 fl (7.4-10.4); Monocytes # 0.8 K/mm3 (0.1-1.0); Monocytes % 8.2 % (1.7-9.3); Neutrophils # 6.3 K/mm3 (1.8-7.8); Neutrophils % 66.1 % (37.0-80.0); Platelet Count 253 K/mm3 (142-424); Red Blood Count 2.91 M/mm3 (4.20-5.40); Red Cell Distribution Width 16.7 % (11.5-17.5); White Blood Count 9.5 K/mm3 (4.8-10.8)
[2024-07-03 06:43] LABS: Alanine Aminotransferase 24 U/L (12-78); Albumin Level 2.7 g/dl (3.5-5.0); Albumin/Globulin Ratio 1.2 (1.1-1.8); Alkaline Phosphatase 53 U/L (38-126); Anion Gap 8.1 mEq/L (5-15); Aspartate Amino Transferase 22 U/L (14-36); Bilirubin,Total 0.5 mg/dl (0.2-1.3); Blood Urea Nitrogen 15 mg/dl (7-17); Carbon Dioxide 27 mmol/L (22.0-30.0); Chloride 107 mmol/L (98-107); Creatinine Clearance Estimated 72 mL/min (50-200); Estimated Glomerular Filt Rate 63 ml/min (>60); GFR (African American) 77 ML/MIN (>60); Globulin 2.3 g/dL (1.3-3.2); Glucose 79 mg/dl (74-100); Potassium 3.1 mmoL/L (3.5-5.1); Sodium 139 mmol/L (136-145)
[2024-07-03 08:00] VITALS: BP 154/68; PULSE 97; RESP 16; TEMP 36.7; O2SAT 92
--- NOTE | 2024-07-03 08:23 | P.PN_ITS ---
Subjective *Date: 07/03/24 *Time: 08:23 Interval history: Patient is laying comfortably in bed this morning, but having flatus. She was excited about that. She states will be continue to move around as able. Will wait on further surgery recommendations. Exam Data for Last 24 hours Vital signs and Labs for Last 24 Hours: Temp Pulse Resp BP Pulse Ox O2 Del Method O2 Flow Rate 98.3 F 89 16 124/77 95 Room Air 2 07/03/24 04:00 07/03/24 04:00 07/03/24 04:00 07/03/24 04:00 07/03/24 04:00 07/03/24 06:42 07/01/24 15:10 Laboratory Results - last 24 hr 07/03/24 05:55: WBC 9.5, RBC 2.91 L, Hgb 7.5 L, Hct 25.6 L, MCV 88.0, MCH 25.8 L , MCHC 29.3 L, RDW 16.7, Plt Count 253, MPV 9.9, Neut % (Auto) 66.1, Lymph % (Auto) 22.4, [place] % (Auto) 8.2, Eos % (Auto) 2.3, Baso % (Auto) 0.2, Neut # (Auto) 6.3, Lymph # (Auto) 2.1, [place] # (Auto) 0.8, Eos # (Auto) 0.2, Baso # (Auto) 0.0, Sodium 139, Potassium 3.1 L, Chloride 107, Carbon Dioxide 27, Anion Gap 8.1, BUN 15, Creatinine 0.90 D, Estimated Creat Clear 72, Estimated GFR 63, Est GFR ( Amer) 77 D, Glucose 79, Calcium 8.0 L, Magnesium 2.0, Total Bilirubin 0.5, AST 22, ALT 24, Alkaline Phosphatase 53, Total Protein 5.0 L D, Albumin 2.7 L, Globulin 2.3, Albumin/Globulin Ratio 1.2 I & O for Last 24 hours: Intake & Output 06/30/24 07/01/24 07/02/24 07/03/24 23:59 23:59 23:59 23:59 Intake Total 1750 / 1800 150 / 700 550 / 550 Output Total 700 / 1050 650 / 650 0 / 0 Balance 1050 / 750 -500 / 50 550 / 550 Weight 67.84 kg 72.121 kg 77.746 kg Microbiology Reports for the Last 24 Hours: Microbiology 07/01/24 10:40 Urine,Clean Catch Urine Culture - Final Multiple organisms, suggests contamination. 07/01/24 12:12 Blood Blood Culture - Preliminary NO GROWTH AFTER 24 HOURS 07/01/24 12:12 Blood Blood Culture - Preliminary NO GROWTH AFTER 24 HOURS Constitutional Constitutional: no acute distress *Routine HEENT Exam Head: Present normocephalic Eye: Present EOMI and PERRL ENT: Present mucous membranes moist *Routine Neck Exam Neck: Present supple; Absent lymphadenopathy *Routine Respiratory Exam Respiratory: Present CTA bilaterally *Routine Cardiovascular Exam Cardiovascular: Present RRR *Routine Abdominal Exam Abdominal: Present soft and ostomy Comments: Some incisional tenderness. Ostomy viable. Flatus in the ostomy. *Routine Extremities Exam Extremities: Absent cyanosis, clubbing or edema *Routine Skin Exam Skin: Present warm; Absent rash *Routine Neurological Exam Neurological: Present alert and oriented X3 Assessment and Plan *Assessment and plan (1) Perforated diverticulum: Status: Acute Category: Surgical Code(s): K57.80 - Diverticulitis of intestine, part unspecified, with perforation and abscess without bleeding (2) Status post laparotomy: Status: Acute Category: Surgical Code(s): Z98.890 - Other specified postprocedural states (3) S/P colectomy: Status: Acute Category: Surgical Code(s): Z90.49 - Acquired absence of other specified parts of digestive tract (4) Colostomy present: Status: Acute Category: Medical Code(s): Z93.3 - Colostomy status (5) Postoperative abdominal pain: Status: Acute Category: Medical Code(s): R10.9 - Unspecified abdominal pain; G89.18 - Other acute postprocedural pain (6) Hypomagnesemia: Status: Acute Category: Medical Code(s): E83.42 - Hypomagnesemia (7) Hypokalemia: Status: Acute Category: Medical Code(s): E87.6 - Hypokalemia Plan Madelin Talamantes is a 64-year-old female who presented with abdominal pain and was admitted for perforated sigmoid diverticulitis s/p sigmoid colectomy and end colostomy. #Perforated sigmoid diverticulitis ? General Surgery consulted, s/p sigmoid colectomy and end colostomy. ? Today, patient is doing well overall. Endorses some abdominal pain, patient is having flatus in the ostomy today. ? WBC improving 9.5, peaked 14.5. ? General Surgery following, will wait on further diet recommendation given she is having flatus now. ? Continue Zosyn day 3. ? Encourage ambulation as tolerated. ? Continue LR at 75 mL/h. No signs of volume overload at this time. ? Follow-up blood cultures. #Acute anemia ? Hemoglobin dropped from to 7.5 today. In the setting of ex lap. ? Continue to monitor. No signs of overt bleeding, vital signs stable. ? Transfuse if hemoglobin less than 7. Chronic medical problems: #GERD ? Resume home PPI. #Hypertension ? Hold home triamterene, hydrochlorothiazide due to soft pressures. Upon review of home medications, patient takes prednisone 20 mg daily. Per refill history, she has been getting this for months. Will need to ask patient in the morning of the indication. Could have highly contributed to bowel perforation. However, withholding this medication can lead to withdrawal. Consider taper tomorrow after discussing with surgery, and perhaps GI. Prescribed by Dr. Madelin Sigala, neurologist in [place]. Full code DVT prophylaxis: Lovenox 40mg
--- NOTE | 2024-07-03 08:26 | EXP.ANES.II ---
[facility] Anesthesia Record Part II Anesthesia Record Part II Discharge Time: 15:30 Destination: Intensive Care Unit PACU nurse assessment reviewed?: Yes Patient Condition:: Good Anesthesia Complications:: None Swallowing reflex intact?: Yes Airway Patency: Patent Cyanosis?: No Blood Pressure: 120/71 SaO2: 95 Respiratory Rate: 18 Pulse Rate: 68 Temperature: 98.3 F Mental Status: Alert & Oriented Pain level:: 0 Nausea and/or vomitting:: None Intake, IV Amount: 0 Hydration: Adequate
[2024-07-03 08:27] VITALS: BP 120/71; PULSE 68; RESP 18; TEMP 36.8; O2SAT 95
[2024-07-03] MEDS: ENOXAPARIN 40MG/0.4ML SYRINGE 40 MG SUBCUT (09:39)
[2024-07-03] MEDS: TOPIRAMATE 100MG TABLET 50 MG PO (09:39)
[2024-07-03] MEDS: HYDROMORPHONE 2MG/ML SYRINGE 0.5 MG IV ×2 (09:42→13:55)
--- NOTE | 2024-07-03 10:32 | EXP.SURG.PN ---
Subjective Narrative: Some soreness. No nausea. Exam Data for Last 24 hours Vital signs and Labs for Last 24 Hours: Temp Pulse Resp BP Pulse Ox O2 Del Method O2 Flow Rate 98.1 F 97 H 18 154/68 H 92 L Room Air 2 07/03/24 08:00 07/03/24 08:00 07/03/24 08:27 07/03/24 08:00 07/03/24 08:00 07/03/24 08:00 07/01/24 15:10 Laboratory Results - last 24 hr 07/03/24 05:55: WBC 9.5, RBC 2.91 L, Hgb 7.5 L, Hct 25.6 L, MCV 88.0, MCH 25.8 L, MCHC 29.3 L, RDW 16.7, Plt Count 253, MPV 9.9, Neut % (Auto) 66.1, Lymph % (Auto) 22.4, [place] % (Auto) 8.2, Eos % (Auto) 2.3, Baso % (Auto) 0.2, Neut # (Auto) 6.3, Lymph # (Auto) 2.1, [place] # (Auto) 0.8, Eos # (Auto) 0.2, Baso # (Auto) 0.0, Sodium 139, Potassium 3.1 L, Chloride 107, Carbon Dioxide 27, Anion Gap 8.1, BUN 15, Creatinine 0.90 D, Estimated Creat Clear 72, Estimated GFR 63, Est GFR ( Amer) 77 D, Glucose 79, Calcium 8.0 L, Magnesium 2.0, Total Bilirubin 0.5, AST 22, ALT 24, Alkaline Phosphatase 53, Total Protein 5.0 L D, Albumin 2.7 L, Globulin 2.3, Albumin/Globulin Ratio 1.2 I & O for Last 24 hours: Intake & Output 06/30/24 07/01/24 07/02/24 07/03/24 11:59 11:59 11:59 11:59 Intake Total 1900 / 1900 550 / 550 Output Total 1350 / 1350 0 / 0 Balance 550 / 550 550 / 550 Weight 145 lb 159 lb 171 lb 6.4 oz Microbiology Reports for the Last 24 Hours: Microbiology 07/01/24 10:40 Urine,Clean Catch Urine Culture - Final Multiple organisms, suggests contamination. 07/01/24 12:12 Blood Blood Culture - Preliminary NO GROWTH AFTER 24 HOURS 07/01/24 12:12 Blood Blood Culture - Preliminary NO GROWTH AFTER 24 HOURS *Routine Abdominal Exam Abdominal: Present ostomy Comments: Incisional tenderness. Incision clean. Some serous drainage. Ostomy viable with gas output. Progress Note: A&P Assessment and plan (1) Perforated diverticulum: Status: Acute Assessment and plan: Dressing changes. Continue NPO except ice chips and gum. (2) Status post laparotomy: Status: Acute (3) S/P colectomy: Status: Acute (4) Colostomy present: Status: Acute (5) Postoperative abdominal pain: Status: Acute (6) Hypomagnesemia: Status: Acute (7) Hypokalemia: Status: Acute
[2024-07-03] MEDS: POTASSIUM CHLORIDE 20MEQ TAB 40 MEQ PO ×3 (11:57→19:59)
--- NOTE | 2024-07-03 13:11 | DIET.NUTRFU ---
provided patient with colostomy diet information reviewed, diet advancements as bowels start to move. She is experiencing gas and allowed to have ice chips.
--- NOTE | 2024-07-03 13:53 | SW/DCPLANNER ---
Addendum entered by Barb Neumann 07/06/24 10:01: Per PT/OT patient has no needs at this time. Patient stated that she will have assistance at home at time of discharge. Addendum entered by Barb Neumann 07/06/24 10:01: [employer] starter kit will be delivered to patient's home today. Addendum entered by Barb Neumann 07/05/24 10:06: I contacted [employer] this AM: starter kit send to wrong address and will be reshipped today to correct address. Original Note: Patient information has been faxed to [email or web address] for a colostomy starter kit.
[2024-07-03] MEDS: LACTATED RINGERS 1000ML 1,000 ML 75 ML IV (15:19)
[2024-07-03 16:00] VITALS: BP 124/69; PULSE 79; RESP 17; TEMP 36.6; O2SAT 94
--- NOTE | 2024-07-03 18:11 | PC.NURSE ---
Patient having gas from ostomy, no stool out of ostomy at this time. Patient's pain has been controlled with PRN medications.
[2024-07-03 20:00] VITALS: BP 119/53; PULSE 84; RESP 16; TEMP 36.7; O2SAT 94
[2024-07-03] MEDS: ATORVASTATIN 40MG TABLET 40 MG PO (20:59)
[2024-07-03] MEDS: TOPIRAMATE 100MG TABLET 100 MG PO (20:59)
[2024-07-03] MEDS: PANTOPRAZOLE 40MG TABLET 40 MG PO (20:59)
[2024-07-04] MEDS: HYDROMORPHONE 2MG/ML SYRINGE 0.5 MG IV ×2 (00:30→10:13)
[2024-07-04 03:40] VITALS: BP 127/74; PULSE 78; RESP 18; TEMP 36.7; O2SAT 94; BMI 30.1
[2024-07-04] MEDS: PIPERCILLIN/TAZO 3.375 GM in 0.9 % SODIUM CHLORIDE 50 ML IV ×4 (04:04→20:52)
[2024-07-04] MEDS: KETOROLAC 30MG/ML VIAL 15 MG IV (04:05)
[2024-07-04] MEDS: LACTATED RINGERS 1000ML 1,000 ML 75 ML IV (04:11)
[2024-07-04 07:12] LABS: Basophils # 0.1 K/mm3 (0-0.2); Basophils % 0.7 % (0.1-2.0); Eosinophils # 0.4 K/mm3 (0.0-0.4); Eosinophils % 4.5 % (0.1-12.0); Hematocrit 25.6 % (37.0-47.0); Hemoglobin 7.7 g/dL (12.2-16.2); Lymphocytes # 1.9 K/mm3 (0.7-4.5); Lymphocytes % 20.6 % (10-50); Mean Corpuscular HGB Conc 30.1 g/dL (31.8-35.4); Mean Corpuscular Hemoglobin 26.6 pg (27.0-31.2); Mean Corpuscular Volume 88.6 fl (81-99); Mean Platelet Volume 9.2 fl (7.4-10.4); Monocytes # 0.7 K/mm3 (0.1-1.0); Neutrophils # 5.8 K/mm3 (1.8-7.8); Neutrophils % 63.2 % (37.0-80.0); Platelet Count 278 K/mm3 (142-424); Red Blood Count 2.89 M/mm3 (4.20-5.40); Red Cell Distribution Width 16.3 % (11.5-17.5); White Blood Count 9.1 K/mm3 (4.8-10.8)
[2024-07-04 07:26] LABS: Alanine Aminotransferase 22 U/L (12-78); Albumin Level 2.8 g/dl (3.5-5.0); Albumin/Globulin Ratio 1.2 (1.1-1.8); Alkaline Phosphatase 57 U/L (38-126); Aspartate Amino Transferase 23 U/L (14-36); Bilirubin,Total 0.6 mg/dl (0.2-1.3); Blood Urea Nitrogen 14 mg/dl (7-17); Calcium 8.6 mg/dl (8.4-10.2); Carbon Dioxide 23 mmol/L (22.0-30.0); Chloride 110 mmol/L (98-107); Creatinine Clearance Estimated 67 mL/min (50-200); Estimated Glomerular Filt Rate 73 ml/min (>60); GFR (African American) 88 ML/MIN (>60); Globulin 2.4 g/dL (1.3-3.2); Glucose 60 mg/dl (74-100); Magnesium 1.9 mg/dl (1.6-2.3); Sodium 140 mmol/L (136-145); Total Protein,Serum 5.2 g/dl (6.3-8.2)
[2024-07-04 08:00] VITALS: BP 124/60; PULSE 68; RESP 17; TEMP 36.9; O2SAT 97
--- NOTE | 2024-07-04 08:26 | EXP.SURG.PN ---
Subjective Narrative: Patient without any new complaints. Exam Data for Last 24 hours Vital signs and Labs for Last 24 Hours: Temp Pulse Resp BP Pulse Ox O2 Del Method O2 Flow Rate 98.1 F 78 18 127/74 94 L Room Air 2 07/04/24 03:40 07/04/24 03:40 07/04/24 03:40 07/04/24 03:40 07/04/24 03:40 07/04/24 07:00 07/01/24 15:10 Laboratory Results - last 24 hr 07/04/24 06:38: WBC 9.1, RBC 2.89 L, Hgb 7.7 L, Hct 25.6 L, MCV 88.6, MCH 26.6 L, MCHC 30.1 L, RDW 16.3, Plt Count 278, MPV 9.2, Neut % (Auto) 63.2, Lymph % (Auto) 20.6, [place] % (Auto) 8.0, Eos % (Auto) 4.5, Baso % (Auto) 0.7, Neut # (Auto) 5.8, Lymph # (Auto) 1.9, [place] # (Auto) 0.7, Eos # (Auto) 0.4, Baso # (Auto) 0.1, Sodium 140, Potassium 4.0 D, Chloride 110 H, Carbon Dioxide 23, Anion Gap 11.0, BUN 14, Creatinine 0.80, Estimated Creat Clear 67, Estimated GFR 73, Est GFR ( Amer) 88, Glucose 60 L, Calcium 8.6, Magnesium 1.9, Total Bilirubin 0.6, AST 23, ALT 22, Alkaline Phosphatase 57, Total Protein 5.2 L, Albumin 2.8 L, Globulin 2.4, Albumin/Globulin Ratio 1.2 I & O for Last 24 hours: Intake & Output 07/01/24 07/02/24 07/03/24 07/04/24 11:59 11:59 11:59 11:59 Intake Total 1900 / 1900 550 / 550 495 / 495 Output Total 1350 / 1350 0 / 0 0 / 0 Balance 550 / 550 550 / 550 495 / 495 Weight 145 lb 159 lb 171 lb 6.4 oz 159 lb 6.4 oz Microbiology Reports for the Last 24 Hours: Microbiology 07/01/24 12:12 Blood Blood Culture - Preliminary NO GROWTH AFTER 48 HOURS 07/01/24 12:12 Blood Blood Culture - Preliminary NO GROWTH AFTER 48 HOURS 07/01/24 10:40 Urine,Clean Catch Urine Culture - Final Multiple organisms, suggests contamination. *Routine Abdominal Exam Comments: Some incisional soreness. Dressing dry. Ostomy viable with some stool output. Progress Note: A&P Assessment and plan (1) Perforated diverticulum: Status: Acute Assessment and plan: Start limited clear liquids. (2) Status post laparotomy: Status: Acute (3) S/P colectomy: Status: Acute (4) Colostomy present: Status: Acute (5) Postoperative abdominal pain: Status: Acute (6) Hypomagnesemia: Status: Acute (7) Hypokalemia: Status: Acute
--- NOTE | 2024-07-04 08:28 | P.PN_ITS ---
Subjective *Date: 07/05/24 *Time: 07:13 Medical Exam Vital signs and Labs for Last 24 Hours: Vital Signs Temp Pulse Resp BP Pulse Ox O2 Del Method 07/04/24 07:00 Room Air 07/04/24 05:00 Room Air 07/04/24 03:40 98.1 F 78 18 127/74 94 L Room Air 07/04/24 03:00 Room Air 07/04/24 01:00 Room Air 07/03/24 23:00 Room Air 07/03/24 21:00 Room Air 07/03/24 20:00 Room Air 07/03/24 20:00 98.1 F 84 16 119/53 L 94 L Room Air 07/03/24 16:00 97.9 F 79 17 124/69 94 L Intake and Output 07/03/24 07/04/24 07/04/24 19:59 03:59 11:59 Intake Total 495 / 495 Output Total 0 / 0 0 / 0 Balance 495 / 495 0 / 495 Intake: Intake, Oral Amount 120 / 120 Intake, Total IV Amount 375 / 375 Lactated Ringers 1000ML 1,000 375 / 375 ml @ 75 mls/hr IV .[id number] [facility] Rx#:[id number] Output: Output, Urine Amount 0 / 0 0 / 0 Other: Number of Unmeasured Voids 1 1 Weight 159 lb 6.4 oz Patient Weight 07/04/24 11:59 Weight 159 lb 6.4 oz Laboratory Results - last 24 hr 07/04/24 06:38: WBC 9.1, RBC 2.89 L, Hgb 7.7 L, Hct 25.6 L, MCV 88.6, MCH 26.6 L , MCHC 30.1 L, RDW 16.3, Plt Count 278, MPV 9.2, Neut % (Auto) 63.2, Lymph % (Auto) 20.6, [place] % (Auto) 8.0, Eos % (Auto) 4.5, Baso % (Auto) 0.7, Neut # (Auto) 5.8, Lymph # (Auto) 1.9, [place] # (Auto) 0.7, Eos # (Auto) 0.4, Baso # (Auto) 0.1, Sodium 140, Potassium 4.0 D, Chloride 110 H, Carbon Dioxide 23, Anion Gap 11.0, BUN 14, Creatinine 0.80, Estimated Creat Clear 67, Estimated GFR 73, Est GFR ( Amer) 88, Glucose 60 L, Calcium 8.6, Magnesium 1.9, Total Bilirubin 0.6, AST 23, ALT 22, Alkaline Phosphatase 57, Total Protein 5.2 L, Albumin 2.8 L, Globulin 2.4, Albumin/Globulin Ratio 1.2 I & O for Labs for Last 24 Hours: Intake & Output 07/01/24 07/02/24 07/03/24 07/04/24 11:59 11:59 11:59 11:59 Intake Total 1900 / 1900 550 / 550 495 / 495 Output Total 1350 / 1350 0 / 0 0 / 0 Balance 550 / 550 550 / 550 495 / 495 Weight 145 lb 159 lb 171 lb 6.4 oz 159 lb 6.4 oz Microbiology Reports for the Last 24 Hours: Microbiology 07/01/24 12:12 Blood Blood Culture - Preliminary NO GROWTH AFTER 48 HOURS 07/01/24 12:12 Blood Blood Culture - Preliminary NO GROWTH AFTER 48 HOURS 07/01/24 10:40 Urine,Clean Catch Urine Culture - Final Multiple organisms, suggests contamination.
--- NOTE | 2024-07-04 09:13 | P.PN_ITS ---
Subjective *Date: 07/04/24 *Time: 09:13 Medical Exam Vital signs and Labs for Last 24 Hours: Vital Signs Temp Pulse Resp BP Pulse Ox O2 Del Method 07/04/24 07:00 Room Air 07/04/24 05:00 Room Air 07/04/24 03:40 98.1 F 78 18 127/74 94 L Room Air 07/04/24 03:00 Room Air 07/04/24 01:00 Room Air 07/03/24 23:00 Room Air 07/03/24 21:00 Room Air 07/03/24 20:00 Room Air 07/03/24 20:00 98.1 F 84 16 119/53 L 94 L Room Air 07/03/24 16:00 97.9 F 79 17 124/69 94 L Intake and Output 07/03/24 07/04/24 07/04/24 23:59 07:59 15:59 Intake Total 495 / 495 Output Total 0 / 0 Balance 495 / 495 Intake: Intake, Oral Amount 120 / 120 Intake, Total IV Amount 375 / 375 Lactated Ringers 1000ML 1,000 375 / 375 ml @ 75 mls/hr IV .[id number] [facility] Rx#:[id number] Output: Output, Urine Amount 0 / 0 Other: Number of Unmeasured Voids 1 Weight 72.303 kg Patient Weight 07/04/24 23:59 Weight 72.303 kg Laboratory Results - last 24 hr 07/04/24 06:38: WBC 9.1, RBC 2.89 L, Hgb 7.7 L, Hct 25.6 L, MCV 88.6, MCH 26.6 L , MCHC 30.1 L, RDW 16.3, Plt Count 278, MPV 9.2, Neut % (Auto) 63.2, Lymph % (Auto) 20.6, [place] % (Auto) 8.0, Eos % (Auto) 4.5, Baso % (Auto) 0.7, Neut # (Auto) 5.8, Lymph # (Auto) 1.9, [place] # (Auto) 0.7, Eos # (Auto) 0.4, Baso # (Auto) 0.1, Sodium 140, Potassium 4.0 D, Chloride 110 H, Carbon Dioxide 23, Anion Gap 11.0, BUN 14, Creatinine 0.80, Estimated Creat Clear 67, Estimated GFR 73, Est GFR ( Amer) 88, Glucose 60 L, Calcium 8.6, Magnesium 1.9, Total Bilirubin 0.6, AST 23, ALT 22, Alkaline Phosphatase 57, Total Protein 5.2 L, Albumin 2.8 L, Globulin 2.4, Albumin/Globulin Ratio 1.2 I & O for Labs for Last 24 Hours: Intake & Output 07/01/24 07/02/24 07/03/24 07/04/24 23:59 23:59 23:59 23:59 Intake Total 1750 / 1800 150 / 700 550 / 1045 495 / 495 Output Total 700 / 1050 650 / 650 0 / 0 0 / 0 Balance 1050 / 750 -500 / 50 550 / 1045 495 / 495 Weight 67.84 kg 72.121 kg 77.746 kg 72.303 kg Microbiology Reports for the Last 24 Hours: Microbiology 07/01/24 12:12 Blood Blood Culture - Preliminary NO GROWTH AFTER 48 HOURS 07/01/24 12:12 Blood Blood Culture - Preliminary NO GROWTH AFTER 48 HOURS 07/01/24 10:40 Urine,Clean Catch Urine Culture - Final Multiple organisms, suggests contamination. The patient's infection will respond to the chosen ABx?: Yes Is the patient receiving the right drug, dose, and route?: Yes Could a more targeted ABx be ordered?: No
[2024-07-04] MEDS: ENOXAPARIN 40MG/0.4ML SYRINGE 40 MG SUBCUT (10:12)
[2024-07-04] MEDS: TOPIRAMATE 100MG TABLET 50 MG PO (10:14)
--- NOTE | 2024-07-04 13:43 | HMH.PTEV ---
Physical Therapy Evaluation Rehab PT IP Evaluation Start: 07/04/24 10:43 Freq: ONCE Status: Active Protocol: Document 07/04/24 13:41 SUMANTH (Rec: 07/04/24 13:43 SUMANTH [id number]) Subjective/History History History Per H&P: Patient is status post ruptured diverticuli requiring laparotomy with sigmoid colectomy and end colostomy. Patient required midline laparotomy incision. And has been admitted to the ICU post procedure. Patient is in stable condition. Subjective Subjective Pt reports she lives with her grand-daughter who is able to assist as needed. Pt lives in a home with a basement and 0 JAISON. Pt normally IND with all mobility without AD use. Pt still driving. New diagnosis of cancer in past 12 No months? Rehab PT IP Eval Objective Appearance Patient Behavior Appropriate,Cooperative Patient Orientation Person,Place Difficulty following instructions none Speech Pattern Clear Ambulation Patient Able to Ambulate Yes Ambulation Observation IP General Gait Pattern Observation No Deviations/Normal Ambulation Distance (feet) 30 Ambulation Assistive Device None Ambulation Ability Supervision/Stand by Balance Ability to Arise Able, uses arms to help Sitting Balance Steady, safe Standing Balance Steady, wide stance Dynamic Sitting Balance Ability Good Dynamic Standing Balance Ability Good Transfers Bed Transfer Ability Independent Sit to Stand Bed Transfer Ability Supervision/Stand by Rehab PT IP prob,goals,plan Problems Date of Evaluation: 07/04/24 Rehab Potential Rehab Potential Innapropriate for Skilled Therapy Discharge Plan PT Discharge Plan Pt not appropriate for skilled acute care PT at this time d/ t pt?s mobility being at baseline. Eval Complexity Eval Charge Codes 55838 - Moderate Complexity PHYSICIAN CERTIFICATION: I certify the specified therapy services for Madelin Talamantes are required, authorized, and reviewed every 30 days.
--- NOTE | 2024-07-04 14:07 | HMH.OTEV ---
OT Inpatient Evaluation Rehab OT IP Evaluation Start: 07/04/24 10:43 Freq: ONCE Status: Active Protocol: Document 07/04/24 14:03 PUSHPA (Rec: 07/04/24 14:07 [facility] [id number]) Rehab OT IP Assessment Subjective History Pt oriented x 3 on arrival. Pt agreeable to engage in therapy evaluation. Pt admitted on 07/01/24 due to post op laparotomy. History and physical: Patient is status post ruptured diverticuli requiring laparotomy with sigmoid colectomy and end colostomy. Patient required midline laparotomy incision. And has been admitted to the ICU post procedure. Patient is in stable condition. Subjective Pt reports she lives with her grand-daughter who is able to assist as needed. Pt lives in a home with a basement and 0 JAISON. Pt normally IND with all transfers without AD use. Pt also claims she is independent with all ADLs and IADLs. Pt still driving. Objective Patient Orientation Person,Place,Birthday Right Upper Extremity Gross ROM WFL Left Upper Extremity Gross ROM WFL Bed Mobility bed mobility-scooting,bed mobility - supine/sit Assist Level Supervision/Stand by Transfer Training Sit/Stand Transfer Assist Level Contact Guard/Hand Hold Performing Toilet Hygiene Ability Standby Assistance Overall Commode/Toilet Transfer Ability Standby Assistance Commode/Toilet Transfer Technique Sit to/from Ambulatory Rehab OT IP prob,goals,plan Problems Date of Evaluation: 07/04/24 Rehab Potential Rehab Potential Innapropriate for Skilled Therapy Discharge Plan OT Discharge Plan Pt appears to be at her baseline with functional transfers and ADL independence . Pt can return home once she is medically stable per physician. Eval Complexity Eval Charge Codes 47311 - Low Complexity PHYSICIAN CERTIFICATION: I certify the specified therapy services for Madelin Talamantes are required, authorized, and reviewed every 30 days.
--- NOTE | 2024-07-04 15:05 | P.PN_ITS ---
Subjective *Date: 07/04/24 *Time: 15:13 Interval history: Patient states she is feeling better this morning. Passing gas and having liquid output from ostomy. Afebrile. Stable on room air. No nausea or vomiting. Pain improving in belly. Medical Exam Vital signs and Labs for Last 24 Hours: Vital Signs Temp Pulse Resp BP Pulse Ox O2 Del Method 07/04/24 14:46 Room Air 07/04/24 13:00 Room Air 07/04/24 11:00 Room Air 07/04/24 09:00 Room Air 07/04/24 08:00 Room Air 07/04/24 08:00 98.4 F 68 17 124/60 97 Room Air 07/04/24 07:00 Room Air 07/04/24 05:00 Room Air 07/04/24 03:40 98.1 F 78 18 127/74 94 L Room Air 07/04/24 03:00 Room Air 07/04/24 01:00 Room Air 07/03/24 23:00 Room Air 07/03/24 21:00 Room Air 07/03/24 20:00 Room Air 07/03/24 20:00 98.1 F 84 16 119/53 L 94 L Room Air 07/03/24 16:00 97.9 F 79 17 124/69 94 L Intake and Output 07/03/24 07/04/24 07/04/24 23:59 07:59 15:59 Intake Total 495 / 613 118 / 613 Output Total 0 / 0 0 / 0 Balance 495 / 613 118 / 613 Intake: Intake, Oral Amount 120 / 238 118 / 238 Intake, Total IV Amount 375 / 375 Lactated Ringers 1000ML 1,000 375 / 375 ml @ 75 mls/hr IV .[id number] [facility] Rx#:[id number] Output: Output, Urine Amount 0 / 0 0 / 0 Other: Number of Unmeasured Voids 1 2 Weight 72.303 kg Patient Weight 07/04/24 23:59 Weight 72.303 kg Laboratory Results - last 24 hr 07/04/24 06:38: WBC 9.1, RBC 2.89 L, Hgb 7.7 L, Hct 25.6 L, MCV 88.6, MCH 26.6 L , MCHC 30.1 L, RDW 16.3, Plt Count 278, MPV 9.2, Neut % (Auto) 63.2, Lymph % (Auto) 20.6, [place] % (Auto) 8.0, Eos % (Auto) 4.5, Baso % (Auto) 0.7, Neut # (Auto) 5.8, Lymph # (Auto) 1.9, [place] # (Auto) 0.7, Eos # (Auto) 0.4, Baso # (Auto) 0.1, Sodium 140, Potassium 4.0 D, Chloride 110 H, Carbon Dioxide 23, Anion Gap 11.0, BUN 14, Creatinine 0.80, Estimated Creat Clear 67, Estimated GFR 73, Est GFR ( Amer) 88, Glucose 60 L, Calcium 8.6, Magnesium 1.9, Total Bilirubin 0.6, AST 23, ALT 22, Alkaline Phosphatase 57, Total Protein 5.2 L, Albumin 2.8 L, Globulin 2.4, Albumin/Globulin Ratio 1.2 I & O for Labs for Last 24 Hours: Intake & Output 07/01/24 07/02/24 07/03/24 07/04/24 23:59 23:59 23:59 23:59 Intake Total 1750 / 1800 150 / 700 550 / 1045 613 / 613 Output Total 700 / 1050 650 / 650 0 / 0 0 / 0 Balance 1050 / 750 -500 / 50 550 / 1045 613 / 613 Weight 67.84 kg 72.121 kg 77.746 kg 72.303 kg Microbiology Reports for the Last 24 Hours: Microbiology 07/01/24 12:12 Blood Blood Culture - Preliminary NO GROWTH AFTER 48 HOURS 07/01/24 12:12 Blood Blood Culture - Preliminary NO GROWTH AFTER 48 HOURS Constitutional: Present no acute distress, obese, chronically ill appearing and cooperative Head: Present atraumatic and normocephalic ENT: Present normal exam Respiratory: Present normal respiratory effort; Absent rhonchi, wheezes or crackles Cardiac: Present Reg Rate and Rhythm GI: Present soft, tenderness (Mainly around surgical site) and normal bowel sounds; Absent distention Comments:: Ostomy with liquid output Extremities: Present normal inspection and full ROM Skin: Present intact; Absent erythema Neuro: Present Grossly Intact, alert, awake, oriented x 3 and moves all extremities Assessment and Plan *Assessment and plan (1) Perforated diverticulum: Status: Acute Category: Surgical Code(s): K57.80 - Diverticulitis of intestine, part unspecified, with perforation and abscess without bleeding (2) Status post laparotomy: Status: Acute Category: Surgical Code(s): Z98.890 - Other specified postprocedural states (3) S/P colectomy: Status: Acute Category: Surgical Code(s): Z90.49 - Acquired absence of other specified parts of digestive tract (4) Colostomy present: Status: Acute Category: Medical Code(s): Z93.3 - Colostomy status (5) Postoperative abdominal pain: Status: Acute Category: Medical Code(s): R10.9 - Unspecified abdominal pain; G89.18 - Other acute postprocedural pain (6) Hypomagnesemia: Status: Acute Category: Medical Code(s): E83.42 - Hypomagnesemia (7) Hypokalemia: Status: Acute Category: Medical Code(s): E87.6 - Hypokalemia Plan Madelin Talamantes is a 64-year-old female who presented with abdominal pain and was admitted for perforated sigmoid diverticulitis s/p sigmoid colectomy and end colostomy. Starting to have some output from her ostomy. Overall doing well. Will advance diet today. Surgery continues to assist with care. Problems addressed as follows: #Perforated sigmoid diverticulitis ? General Surgery consulted, s/p sigmoid colectomy and end colostomy. ? Having flatus and liquid output. White count normal at 9.1, hemoglobin stable at 7.7. -Discussed case with surgery today, recommend advancing to clear liquid diet. -Continue Zosyn every 6 hours, today is day 4. ? Encourage ambulation as tolerated. - Discontinue IV fluids. ? Follow-up blood cultures. - Continue oxycodone 5 mg oral as needed every 4 hours. Continue pantoprazole 40 mg nightly. #Acute anemia ? Hemoglobin stable at 7.7. Repeat CBC, CMP, magnesium ordered for the morning. ? Transfuse if hemoglobin less than 7. Chronic medical problems: #GERD: Resume home PPI. #Hypertension: Blood pressure stable, will hold blood pressure meds at this time Upon review of home medications, patient takes prednisone 20 mg daily. Per refill history, she has been getting this for months. Will need to ask patient in the morning of the indication. Could have highly contributed to bowel perforation. However, withholding this medication can lead to withdrawal. Initiating on taper 10 mg daily starting in the morning. Will decrease every 72 hours. Full code DVT prophylaxis: Lovenox 40mg Clear liquid diet
[2024-07-04 15:47] VITALS: BP 101/70; PULSE 68; RESP 16; TEMP 36.6; O2SAT 97
[2024-07-04] MEDS: TOPIRAMATE 100MG TABLET 100 MG PO (20:51)
[2024-07-04] MEDS: ATORVASTATIN 40MG TABLET 40 MG PO (20:52)
[2024-07-04] MEDS: PANTOPRAZOLE 40MG TABLET 40 MG PO (20:52)
[2024-07-04] MEDS: OXYCODONE 5MG IMMEDIATE RELEASE TABLET 5 MG PO (20:52)
[2024-07-05] VITALS: BP 136/68; PULSE 90; RESP 18; TEMP 37; O2SAT 96
[2024-07-05] MEDS: PIPERCILLIN/TAZO 3.375 GM in 0.9 % SODIUM CHLORIDE 50 ML IV ×4 (03:19→20:17)
[2024-07-05 04:00] VITALS: BP 132/71; PULSE 67; RESP 15; TEMP 36.9; O2SAT 95; BMI 30.8
--- NOTE | 2024-07-05 07:24 | EXP.SURG.PN ---
Subjective Narrative: Patient doing well. Some soreness. Tolerating clear liquids Exam Data for Last 24 hours Vital signs and Labs for Last 24 Hours: Temp Pulse Resp BP Pulse Ox O2 Del Method O2 Flow Rate 98.4 F 67 15 132/71 95 Room Air 2 07/05/24 04:00 07/05/24 04:00 07/05/24 04:00 07/05/24 04:00 07/05/24 04:00 07/05/24 06:49 07/01/24 15:10 Laboratory Results - last 24 hr 07/04/24 06:38: Sodium 140, Potassium 4.0 D, Chloride 110 H, Carbon Dioxide 23, Anion Gap 11.0, BUN 14, Creatinine 0.80, Estimated Creat Clear 67, Estimated GFR 73, Est GFR ( Amer) 88, Glucose 60 L, Calcium 8.6, Magnesium 1.9, Total Bilirubin 0.6, AST 23, ALT 22, Alkaline Phosphatase 57, Total Protein 5.2 L, Albumin 2.8 L, Globulin 2.4, Albumin/Globulin Ratio 1.2 I & O for Last 24 hours: Intake & Output 07/02/24 07/03/24 07/04/24 07/05/24 11:59 11:59 11:59 11:59 Intake Total 1900 / 1900 550 / 550 495 / 495 778 / 778 Output Total 1350 / 1350 0 / 0 0 / 0 0 / 0 Balance 550 / 550 550 / 550 495 / 495 778 / 778 Weight 159 lb 171 lb 6.4 oz 159 lb 6.4 oz 163 lb 3.2 oz *Routine Abdominal Exam Abdominal: Present soft and ostomy Comments: Incision clean. Ostomy viable with good output. Progress Note: A&P Assessment and plan (1) Perforated diverticulum: Status: Acute Assessment and plan: Continue antibiotics. Advance to full liquids. (2) Status post laparotomy: Status: Acute (3) S/P colectomy: Status: Acute (4) Colostomy present: Status: Acute (5) Postoperative abdominal pain: Status: Acute (6) Hypomagnesemia: Status: Acute (7) Hypokalemia: Status: Acute
[2024-07-05 07:41] LABS: Basophils % 0.1 % (0.1-2.0); Eosinophils # 0.5 K/mm3 (0.0-0.4); Hematocrit 26.2 % (37.0-47.0); Hemoglobin 8.1 g/dL (12.2-16.2); Lymphocytes # 1.8 K/mm3 (0.7-4.5); Lymphocytes % 18.6 % (10-50); Mean Corpuscular HGB Conc 30.9 g/dL (31.8-35.4); Mean Corpuscular Hemoglobin 26.6 pg (27.0-31.2); Mean Corpuscular Volume 86.2 fl (81-99); Mean Platelet Volume 9.3 fl (7.4-10.4); Monocytes # 0.9 K/mm3 (0.1-1.0); Monocytes % 8.7 % (1.7-9.3); Neutrophils # 5.9 K/mm3 (1.8-7.8); Neutrophils % 60.5 % (37.0-80.0); Platelet Count 347 K/mm3 (142-424); Red Blood Count 3.04 M/mm3 (4.20-5.40); White Blood Count 9.8 K/mm3 (4.8-10.8)
[2024-07-05 07:50] LABS: Alanine Aminotransferase 23 U/L (12-78); Albumin Level 3.1 g/dl (3.5-5.0); Albumin/Globulin Ratio 1.2 (1.1-1.8); Alkaline Phosphatase 64 U/L (38-126); Anion Gap 14.3 mEq/L (5-15); Aspartate Amino Transferase 24 U/L (14-36); Bilirubin,Total 0.8 mg/dl (0.2-1.3); Blood Urea Nitrogen 11 mg/dl (7-17); Calcium 8.5 mg/dl (8.4-10.2); Carbon Dioxide 22 mmol/L (22.0-30.0); Chloride 106 mmol/L (98-107); Creatinine Clearance Estimated 68 mL/min (50-200); Estimated Glomerular Filt Rate 73 ml/min (>60); GFR (African American) 88 ML/MIN (>60); Globulin 2.5 g/dL (1.3-3.2); Glucose 76 mg/dl (74-100); Magnesium 1.8 mg/dl (1.6-2.3); Potassium 3.3 mmoL/L (3.5-5.1); Sodium 139 mmol/L (136-145); Total Protein,Serum 5.6 g/dl (6.3-8.2)
[2024-07-05 08:00] VITALS: BP 130/74; PULSE 75; RESP 19; TEMP 36.8; O2SAT 96
[2024-07-05] MEDS: TOPIRAMATE 100MG TABLET 50 MG PO (09:31)
[2024-07-05] MEDS: ENOXAPARIN 40MG/0.4ML SYRINGE 40 MG SUBCUT (09:31)
[2024-07-05] MEDS: OXYCODONE 5MG IMMEDIATE RELEASE TABLET 5 MG PO (09:32)
[2024-07-05] MEDS: predniSONE 10MG TAB 10 MG PO (09:33)
--- NOTE | 2024-07-05 09:54 | P.PN_ITS ---
Subjective *Date: 07/05/24 *Time: 13:42 Interval history: Tolerating clear liquid. Good output from stoma. No chest pain or shortness of breath. Labs stable. No nausea or vomiting. Advancing diet today Medical Exam Vital signs and Labs for Last 24 Hours: Vital Signs Temp Pulse Resp BP Pulse Ox O2 Del Method 07/05/24 08:00 98.2 F 75 19 130/74 96 Room Air 07/05/24 06:49 Room Air 07/05/24 04:54 Room Air 07/05/24 04:00 98.4 F 67 15 132/71 95 Room Air 07/05/24 03:00 Room Air 07/05/24 01:00 Room Air 07/05/24 00:00 98.6 F 90 18 136/68 96 Room Air 07/04/24 22:55 Room Air 07/04/24 21:00 Room Air 07/04/24 20:00 Room Air 07/04/24 18:38 Room Air 07/04/24 16:48 Room Air 07/04/24 15:47 98 F 68 16 101/70 L 97 Room Air 07/04/24 14:46 Room Air 07/04/24 13:00 Room Air 07/04/24 11:00 Room Air Intake and Output 07/04/24 07/05/24 07/05/24 23:59 07:59 15:59 Intake Total 660 / 1273 0 / 270 270 / 270 Output Total 0 / 0 0 / 0 Balance 660 / 1273 0 / 270 270 / 270 Intake: Intake, Oral Amount 560 / 798 0 / 270 270 / 270 Intake, Total IV Amount 100 / 475 Pipercillin/Tazo 3.375 gm In 0. 100 / 100 9 % Sodium Chloride 50 ml @ 100 mls/hr IV Q6H [facility] Rx#:[id number] Output: Output, Urine Amount 0 / 0 0 / 0 Other: Number of Voids 0 Number of Bowel Movements 1 Weight 74.026 kg Patient Weight 07/05/24 23:59 Weight 74.026 kg Laboratory Results - last 24 hr 07/05/24 06:53: WBC 9.8, RBC 3.04 L, Hgb 8.1 L, Hct 26.2 L, MCV 86.2, MCH 26.6 L , MCHC 30.9 L, RDW 16.0, Plt Count 347, MPV 9.3, Neut % (Auto) 60.5, Lymph % (Auto) 18.6, [place] % (Auto) 8.7, Eos % (Auto) 5.0, Baso % (Auto) 0.1, Neut # (Auto) 5.9, Lymph # (Auto) 1.8, [place] # (Auto) 0.9, Eos # (Auto) 0.5 H, Baso # (Auto) 0.0, Sodium 139, Potassium 3.3 L, Chloride 106, Carbon Dioxide 22, Anion Gap 14.3, BUN 11, Creatinine 0.80, Estimated Creat Clear 68, Estimated GFR 73, Est GFR ( Amer) 88, Glucose 76, Calcium 8.5, Magnesium 1.8, Total Bilirubin 0.8, AST 24, ALT 23, Alkaline Phosphatase 64, Total Protein 5.6 L, Albumin 3.1 L D, Globulin 2.5, Albumin/Globulin Ratio 1.2 I & O for Labs for Last 24 Hours: Intake & Output 07/02/24 07/03/24 07/04/24 07/05/24 23:59 23:59 23:59 23:59 Intake Total 150 / 700 550 / 1045 1273 / 1273 270 / 270 Output Total 650 / 650 0 / 0 0 / 0 0 / 0 Balance -500 / 50 550 / 1045 1273 / 1273 270 / 270 Weight 72.121 kg 77.746 kg 72.303 kg 74.026 kg Constitutional: Present no acute distress, obese, chronically ill appearing and cooperative Head: Present atraumatic and normocephalic ENT: Present normal exam Respiratory: Present normal respiratory effort; Absent rhonchi, wheezes or crackles Cardiac: Present Reg Rate and Rhythm GI: Present soft, tenderness (Mainly around surgical site) and normal bowel sounds; Absent distention Comments:: Ostomy with liquid output Extremities: Present normal inspection and full ROM Skin: Present intact; Absent erythema Neuro: Present Grossly Intact, alert, awake, oriented x 3 and moves all ext remities Assessment and Plan *Assessment and plan (1) Perforated diverticulum: Status: Acute Category: Surgical Code(s): K57.80 - Diverticulitis of intestine, part unspecified, with perforation and abscess without bleeding (2) Status post laparotomy: Status: Acute Category: Surgical Code(s): Z98.890 - Other specified postprocedural states (3) S/P colectomy: Status: Acute Category: Surgical Code(s): Z90.49 - Acquired absence of other specified parts of digestive tract (4) Colostomy present: Status: Acute Category: Medical Code(s): Z93.3 - Colostomy status (5) Postoperative abdominal pain: Status: Acute Category: Medical Code(s): R10.9 - Unspecified abdominal pain; G89.18 - Other acute postprocedural pain (6) Hypomagnesemia: Status: Acute Category: Medical Code(s): E83.42 - Hypomagnesemia (7) Hypokalemia: Status: Acute Category: Medical Code(s): E87.6 - Hypokalemia Plan Madelin Talamantes is a 64-year-old female who presented with abdominal pain and was admitted for perforated sigmoid diverticulitis s/p sigmoid colectomy and end colostomy. Starting to have some output from her ostomy. Overall doing well. Will advance diet again today to full liquids. Surgery continues to assist with care. Problems addressed as follows: #Perforated sigmoid diverticulitis ? General Surgery consulted, s/p sigmoid colectomy and end colostomy. Recommend continuing to advance diet today. Tolerating clears over the past 24 hours -White count stable at 9.8, hemoglobin 8.1. Kidney function stable with BUN 11, creatinine 0.8. -Continue Zosyn every 6 hours, today is day 4. ? Encourage ambulation as tolerated. ? Follow-up blood cultures. - Continue oxycodone 5 mg oral as needed every 4 hours. Continue pantoprazole 40 mg nightly. #Acute anemia ? Hemoglobin improved to 8.1. Repeat CBC, CMP, magnesium ordered for the morning. ? Transfuse if hemoglobin less than 7. Chronic medical problems: #GERD: Resume home PPI. #Hypertension: Blood pressure stable, will hold blood pressure meds at this time Upon review of home medications, patient takes prednisone 20 mg daily. Per refill history, she has been getting this for months. Will need to ask patient in the morning of the indication. Could have highly contributed to bowel perforation. However, withholding this medication can lead to withdrawal. Continue 10 mg for 3 days, decrease to 5mg daily for 3 days thereafter. Full code DVT prophylaxis: Lovenox 40mg Clear liquid diet
[2024-07-05 16:00] VITALS: BP 142/76; PULSE 70; RESP 18; TEMP 36.9; O2SAT 96
[2024-07-05] MEDS: MAGNESIUM SULFATE IN WATER 2 GM/50 ML PIGGYBACK IV (16:25)
[2024-07-05] MEDS: POTASSIUM CHLORIDE 20MEQ TAB 40 MEQ PO ×2 (16:26→20:17)
[2024-07-05 20:00] VITALS: BP 138/82; PULSE 64; RESP 16; TEMP 36.6; O2SAT 97
[2024-07-05] MEDS: ATORVASTATIN 40MG TABLET 40 MG PO (20:17)
[2024-07-05] MEDS: TOPIRAMATE 100MG TABLET 100 MG PO (20:17)
[2024-07-05] MEDS: KETOROLAC 30MG/ML VIAL 15 MG IV (20:17)
[2024-07-05] MEDS: PANTOPRAZOLE 40MG TABLET 40 MG PO (20:17)
[2024-07-06] VITALS: BP 113/67; PULSE 61; RESP 20; TEMP 36.4; O2SAT 97
[2024-07-06 04:00] VITALS: BP 127/68; PULSE 64; RESP 16; TEMP 36.5; O2SAT 95; BMI 28.5
[2024-07-06] MEDS: PIPERCILLIN/TAZO 3.375 GM in 0.9 % SODIUM CHLORIDE 50 ML IV ×3 (04:07→14:33)
--- NOTE | 2024-07-06 05:04 | PC.NURSE ---
A&OX4 and has tolerated room air. Lung sounds clear and bowel sounds active. Midline dressing c,d,i. She has had gas and stool through ostomy. Medicated for pain once. She has ambulated to the bathroom independently. No complaints at this time, call light within reach.
[2024-07-06 07:17] LABS: Basophils % 0.3 % (0.1-2.0); Eosinophils # 0.3 K/mm3 (0.0-0.4); Eosinophils % 2.6 % (0.1-12.0); Hematocrit 30.5 % (37.0-47.0); Lymphocytes # 2.4 K/mm3 (0.7-4.5); Lymphocytes % 21.7 % (10-50); Mean Corpuscular HGB Conc 29.8 g/dL (31.8-35.4); Mean Corpuscular Hemoglobin 25.9 pg (27.0-31.2); Mean Corpuscular Volume 86.9 fl (81-99); Mean Platelet Volume 9.1 fl (7.4-10.4); Monocytes # 0.9 K/mm3 (0.1-1.0); Neutrophils # 5.9 K/mm3 (1.8-7.8); Neutrophils % 52.6 % (37.0-80.0); Platelet Count 433 K/mm3 (142-424); Red Blood Count 3.51 M/mm3 (4.20-5.40); Red Cell Distribution Width 16.2 % (11.5-17.5); White Blood Count 11.3 K/mm3 (4.8-10.8)
[2024-07-06 07:28] LABS: Albumin Level 3.4 g/dl (3.5-5.0); Chloride 110 mmol/L (98-107); Potassium 3.4 mmoL/L (3.5-5.1); Sodium 142 mmol/L (136-145)
[2024-07-06 07:30] LABS: Blood Urea Nitrogen 10 mg/dl (7-17); Creatinine Clearance Estimated 63 mL/min (50-200); Estimated Glomerular Filt Rate 63 ml/min (>60); GFR (African American) 77 ML/MIN (>60)
[2024-07-06 07:31] LABS: Alanine Aminotransferase 26 U/L (12-78); Albumin/Globulin Ratio 1.3 (1.1-1.8); Alkaline Phosphatase 72 U/L (38-126); Anion Gap 12.4 mEq/L (5-15); Aspartate Amino Transferase 30 U/L (14-36); Bilirubin,Total 0.9 mg/dl (0.2-1.3); Calcium 8.5 mg/dl (8.4-10.2); Carbon Dioxide 23 mmol/L (22.0-30.0); Globulin 2.7 g/dL (1.3-3.2); Glucose 88 mg/dl (74-100); Total Protein,Serum 6.1 g/dl (6.3-8.2)
[2024-07-06 07:32] LABS: Magnesium 2.3 mg/dl (1.6-2.3)
[2024-07-06 07:33] LABS: Hemoglobin 9.2 g/dL (12.2-16.2)
--- NOTE | 2024-07-06 07:38 | P.PN_ITS ---
Subjective Patient reports: no new complaints Narrative: Pain controlled. Tolerating full liquid diet. No nausea Exam Data for Last 24 hours Vital signs and Labs for Last 24 Hours: Temp Pulse Resp BP Pulse Ox O2 Del Method O2 Flow Rate 97.7 F 64 16 127/68 95 Room Air 2 07/06/24 04:00 07/06/24 04:00 07/06/24 04:00 07/06/24 04:00 07/06/24 04:00 07/06/24 07:00 07/01/24 15:10 Laboratory Results - last 24 hr 07/05/24 06:53: WBC 9.8, RBC 3.04 L, Hgb 8.1 L, Hct 26.2 L, MCV 86.2, MCH 26.6 L , MCHC 30.9 L, RDW 16.0, Plt Count 347, MPV 9.3, Neut % (Auto) 60.5, Lymph % (Auto) 18.6, [place] % (Auto) 8.7, Eos % (Auto) 5.0, Baso % (Auto) 0.1, Neut # (Auto) 5.9, Lymph # (Auto) 1.8, [place] # (Auto) 0.9, Eos # (Auto) 0.5 H, Baso # (Auto) 0.0, Sodium 139, Potassium 3.3 L, Chloride 106, Carbon Dioxide 22, Anion Gap 14.3, BUN 11, Creatinine 0.80, Estimated Creat Clear 68, Estimated GFR 73, Est GFR ( Amer) 88, Glucose 76, Calcium 8.5, Magnesium 1.8, Total Bilirubin 0.8, AST 24, ALT 23, Alkaline Phosphatase 64, Total Protein 5.6 L, Albumin 3.1 L D, Globulin 2.5, Albumin/Globulin Ratio 1.2 07/06/24 06:40: WBC 11.3 H, RBC 3.51 L, Hgb 9.2 L D, Hct 30.5 L, MCV 86.9, MCH 25.9 L, MCHC 29.8 L, RDW 16.2, Plt Count 433 H, MPV 9.1, Neut % (Auto) 52.6, Lymph % (Auto) 21.7, [place] % (Auto) 8.0, Eos % (Auto) 2.6, Baso % (Auto) 0.3, Neut # (Auto) 5.9, Lymph # (Auto) 2.4, [place] # (Auto) 0.9, Eos # (Auto) 0.3, Baso # (Auto) 0.0 I & O for Last 24 hours: Intake & Output 07/03/24 07/04/24 07/05/24 07/06/24 11:59 11:59 11:59 11:59 Intake Total 550 / 550 495 / 495 1048 / 1048 1130 / 1130 Output Total 0 / 0 0 / 0 0 / 0 0 / 0 Balance 550 / 550 495 / 495 1048 / 1048 1130 / 1130 Weight 171 lb 6.4 oz 159 lb 6.4 oz 163 lb 3.2 oz 150 lb 14.4 oz Microbiology Reports for the Last 24 Hours: Microbiology 07/01/24 12:12 Blood Blood Culture - Preliminary NO GROWTH AFTER 4 DAYS 07/01/24 12:12 Blood Blood Culture - Preliminary NO GROWTH AFTER 4 DAYS *Routine Abdominal Exam Abdominal: Present soft and ostomy Progress Note: A&P Assessment and plan (1) Perforated diverticulum: Status: Acute Assessment and plan: Discharge planning (2) Status post laparotomy: Status: Acute (3) S/P colectomy: Status: Acute (4) Colostomy present: Status: Acute (5) Postoperative abdominal pain: Status: Acute (6) Hypomagnesemia: Status: Acute (7) Hypokalemia: Status: Acute
[2024-07-06 07:58] VITALS: BP 118/61; PULSE 82; RESP 18; TEMP 36.6; O2SAT 97
[2024-07-06] MEDS: predniSONE 10MG TAB 10 MG PO (08:24)
[2024-07-06] MEDS: ENOXAPARIN 40MG/0.4ML SYRINGE 40 MG SUBCUT (08:24)
[2024-07-06] MEDS: TOPIRAMATE 100MG TABLET 50 MG PO (08:24)
--- NOTE | 2024-07-06 12:02 | EXP.DC.SUM ---
General Admission date:: 07/01/24 Discharge date: 07/06/24 HPI HPI HPI: Patient is status post ruptured diverticuli requiring laparotomy with sigmoid colectomy and end colostomy. Patient required midline laparotomy incision. And has been admitted to the ICU post procedure. Patient is in stable condition. Hospital Course Hospital Course Hospital Course: Madelin Talamantes is a 64-year-old female who presented with abdominal pain and was admitted for perforated sigmoid diverticulitis s/p sigmoid colectomy and end colostomy. SSlowly advance diet. Patient began having more output from her ostomy. Tolerating p.o. intake well. Discussion with surgery, stable to discharge home with further management as an outpatient. Problems addressed as follows: #Perforated sigmoid diverticulitis ? General Surgery consulted, s/p sigmoid colectomy and end colostomy. Patient showed gradual improvement in her abdominal discomfort and diet tolerance. Diet was slowly advanced. Tolerating full liquids by day of discharge with good output from her ostomy. White count remained stable between 9 and 11. Kidney function normal. Hemoglobin stable at 9. Treated with Zosyn during admission. Will transition to Augmentin to complete 7-day course total of antibiotics. Cultures remained negative. Pain overall doing well. Continue SNF as all GERD. Follow-up with surgery in the next 1 to 2 weeks. #Acute anemia ? Patient had drop in hemoglobin after surgery. Did not require transfusion however. Hemoglobin on day of discharge of 9.2. Platelets 433. Needs repeat labs at follow-up in the coming weeks #GERD: Resume home PPI. #Hypertension: Blood pressure stable, will hold blood pressure meds at this time Upon review of home medications, patient takes prednisone 20 mg daily. Per refill history, she has been getting this for months. Will need to ask patient in the morning of the indication. Could have highly contributed to bowel perforation. However, withholding this medication can lead to withdrawal. Continue 10 mg for 3 days, decrease to 5mg daily for 3 days thereafter. Total time spent on discharge 32 minutes in counseling, documentation, chart review, and direct care with patient. Provided with ostomy supplies at discharge. Case management assisted with ordering supplies delivered to patient's house. Exam Data for Last 24 hours Vital signs and Labs for Last 24 Hours: Temp Pulse Resp BP Pulse Ox O2 Del Method O2 Flow Rate 98 F 82 18 118/61 97 Room Air 2 07/06/24 07:58 07/06/24 07:58 07/06/24 07:58 07/06/24 07:58 07/06/24 07:58 07/06/24 09:00 07/01/24 15:10 Laboratory Results - last 24 hr 07/06/24 06:40: WBC 11.3 H, RBC 3.51 L, Hgb 9.2 L D, Hct 30.5 L, MCV 86.9, MCH 25.9 L, MCHC 29.8 L, RDW 16.2, Plt Count 433 H, MPV 9.1, Neut % (Auto) 52.6, Lymph % (Auto) 21.7, [place] % (Auto) 8.0, Eos % (Auto) 2.6, Baso % (Auto) 0.3, Neut # (Auto) 5.9, Lymph # (Auto) 2.4, [place] # (Auto) 0.9, Eos # (Auto) 0.3, Baso # (Auto) 0.0, Sodium 142, Potassium 3.4 L, Chloride 110 H, Carbon Dioxide 23, Anion Gap 12.4, BUN 10, Creatinine 0.90, Estimated Creat Clear 63, Estimated GFR 63, Est GFR ( Amer) 77, Glucose 88, Calcium 8.5, Magnesium 2.3 D, Total Bilirubin 0.9, AST 30, ALT 26, Alkaline Phosphatase 72, Total Protein 6.1 L, Albumin 3.4 L, Globulin 2.7, Albumin/Globulin Ratio 1.3 I & O for Last 24 hours: Intake & Output 07/03/24 07/04/24 07/05/24 07/06/24 23:59 23:59 23:59 23:59 Intake Total 550 / 1045 1273 / 1273 1400 / 1400 730 / 730 Output Total 0 / 0 0 / 0 0 / 0 0 / 0 Balance 550 / 1045 1273 / 1273 1400 / 1400 730 / 730 Weight 77.746 kg 72.303 kg 74.026 kg 68.447 kg Microbiology Reports for the Last 24 Hours: Microbiology 07/01/24 12:12 Blood Blood Culture - Preliminary NO GROWTH AFTER 4 DAYS 07/01/24 12:12 Blood Blood Culture - Preliminary NO GROWTH AFTER 4 DAYS Constitutional Constitutional: no acute distress, average body habitus, chronically ill appearing and cooperative *Routine HEENT Exam Head: Present normocephalic Eye: Present EOMI and PERRL ENT: Present mucous membranes moist *Routine Neck Exam Neck: Present supple; Absent lymphadenopathy *Routine Respiratory Exam Respiratory: Present CTA bilaterally; Absent rhonchi, wheezes or crackles *Routine Cardiovascular Exam Cardiovascular: Present RRR *Routine Abdominal Exam Abdominal: Present soft and ostomy Comments: Some incisional tenderness. Ostomy viable. Flatus and stool in ostomy *Routine Rectal Exam Patient deferred: visual exam *Routine Exam Patient deferred: external exam *Routine Extremities Exam Extremities: Absent cyanosis, clubbing or edema *Routine Skin Exam Skin: Present intact and warm; Absent rash *Routine Neurological Exam Neurological: Present alert, oriented X3 and moving all extremities; Absent altered mental status Results Data Completed and Pending Labs on day of discharge: Labs from last 24 hours 07/06/24 06:40 WBC 11.3 H RBC 3.51 L Hgb 9.2 L D Hct 30.5 L MCV 86.9 MCH 25.9 L MCHC 29.8 L RDW 16.2 Plt Count 433 H MPV 9.1 Neut % (Auto) 52.6 Lymph % (Auto) 21.7 [place] % (Auto) 8.0 Eos % (Auto) 2.6 Baso % (Auto) 0.3 Neut # (Auto) 5.9 Lymph # (Auto) 2.4 [place] # (Auto) 0.9 Eos # (Auto) 0.3 Baso # (Auto) 0.0 Sodium 142 Potassium 3.4 L Chloride 110 H Carbon Dioxide 23 Anion Gap 12.4 BUN 10 Creatinine 0.90 Estimated Creat Clear 63 Estimated GFR 63 Est GFR ( Amer) 77 Glucose 88 Calcium 8.5 Magnesium 2.3 D Total Bilirubin 0.9 AST 30 ALT 26 Alkaline Phosphatase 72 Total Protein 6.1 L Albumin 3.4 L Globulin 2.7 Albumin/Globulin Ratio 1.3 Preliminary micro results at discharge 07/01/24 12:12 Blood Culture - Preliminary Blood NO GROWTH AFTER 4 DAYS 07/01/24 12:12 Blood Culture - Preliminary Blood NO GROWTH AFTER 4 DAYS DS: Diagnosis Discharge Diagnosis (1) Perforated diverticulum: Status: Acute Code(s): K57.80 - Diverticulitis of intestine, part unspecified, with perforation and abscess without bleeding (2) Status post laparotomy: Status: Acute Code(s): Z98.890 - Other specified postprocedural states (3) S/P colectomy: Status: Acute Code(s): Z90.49 - Acquired absence of other specified parts of digestive tract (4) Colostomy present: Status: Acute Code(s): Z93.3 - Colostomy status (5) Postoperative abdominal pain: Status: Acute Code(s): R10.9 - Unspecified abdominal pain; G89.18 - Other acute postprocedural pain (6) Hypomagnesemia: Status: Acute Code(s): E83.42 - Hypomagnesemia (7) Hypokalemia: Status: Acute Code(s): E87.6 - Hypokalemia Meds Home Medications and Allergies Home Medications ?Medication ?Instructions ?Recorded ?Confirmed ?Type topiramate 50 mg tablet 100 mg PO HS 10/28/23 07/02/24 History sumatriptan 85 mg-naproxen 500 mg 1 tab PO NEEDED PRN migraines 12/21/23 07/02/24 History tablet esomeprazole magnesium 20 mg 20 mg PO DAILY 07/02/24 07/02/24 History capsule,delayed release esomeprazole magnesium 20 mg 40 mg PO HS 07/02/24 07/02/24 History capsule,delayed release rosuvastatin 20 mg tablet 20 mg PO HS 07/02/24 07/02/24 History topiramate 50 mg tablet 50 mg PO DAILY 07/02/24 07/02/24 History triamterene 37.5 1 tab PO DAILY 07/02/24 07/02/24 History mg-hydrochlorothiazide 25 mg tablet amoxicillin 875 mg-potassium 1 tab PO BID 2 days #3 tabs 07/06/24 Rx clavulanate 125 mg tablet prednisone 5 mg tablet See Rx Instructions .Route 07/06/24 Rx .COMPLEX #5 tabs New Prescriptions to Start Prescriptions: amoxicillin-pot clavulanate Destin Tobias James Allergies Allergy/AdvReac Type Severity Reaction Status Date / Time No Known Allergies Allergy Verified 05/31/24 13:50 Discharge Plan Disposition Patient Disposition: Home, Self-Care Condition: Good Discharge Order Discharge Orders: Discharge Order (Routine); Ordered 07/06/24 Ordered By: Destin Tobias Follow up Plan Follow up with: Trey Madsen MD [Staff Physician] - 07/19/24 9:00 am Marci Munguia APRN [Primary Care Provider] - 07/12/24 1:00 pm Prescriptions/Medication Reconciliation: New prednisone 5 mg Tablet See Rx Instructions .ROUTE .COMPLEX Qty: 5 0RF Rx Instructions: 10 mg for 1 day followed by 5 mg daily for 3 days and then discontinue. amoxicillin-pot clavulanate 875-125 mg tablet 1 tab PO BID 2 Days Qty: 3 0RF Rx Instructions: First dose tonight 07/06/2024. Last dose should be taken in the evening of 07/07/2024 Continued topiramate 50 mg tablet 100 mg PO HS Patient Comments: TAKE 1 TABLET BY MOUTH IN THE MORNING AND 2 TABLETS AT BEDTIME. sumatriptan-naproxen 85-500 mg tablet 1 tab PO NEEDED PRN (Reason: migraines) Patient Comments: TAKE 1 TABLET BY MOUTH NEEDED FOR HEADACHE. MAY REPEAT IN 2 HOURS IF HEADACHE RETURNS, NO MORE THAN 2 TABS IN 24 HOURS. rosuvastatin 20 mg tablet 20 mg PO HS esomeprazole magnesium 20 mg capsule,delayed release(DR/EC) 20 mg PO DAILY Patient Comments: TAKE 1 CAPSULE BY MOUTH EVERY MORNING AND 2 CAPSULES EVERY EVENING. esomeprazole magnesium 20 mg capsule,delayed release(DR/EC) 40 mg PO HS Patient Comments: TAKE 1 CAPSULE BY MOUTH EVERY MORNING AND 2 CAPSULES EVERY EVENING. topiramate 50 mg tablet 50 mg PO DAILY Patient Comments: TAKE 1 TABLET BY MOUTH IN THE MORNING AND 2 TABLETS AT BEDTIME. Held triamterene-hydrochlorothiazid 37.5-25 mg tablet 1 tab PO DAILY Hold Instructions: Pending follow-up with PCP to discuss further continuing this medication Discontinued prednisone 20 mg tablet 20 mg PO DIRECTED Rx Instructions: 20 mg orally BID x 5 days then daily x 5 days Problem Reconciliation Problems Reviewed?: Yes Patient Discharge Instructions ACTIVITY: Continue current activity DIET: continue same diet Patient Instructions: How to Care for Your Colostomy or Ileostomy, DI for Exploratory Laparotomy, DI for Surgical Site Infection Print Language: Georgian Providers Primary Care Provider: Marci Munguia Admit Provider: Johnny Chung Attending Provider: Johnny Chung
--- NOTE | 2024-07-09 10:29 | HMH.PHACLD ---
Madelin Talamantes has received discharge medication counseling on the following medications:
--- NOTE | 2024-07-09 10:30 | SW/DCPLANNER ---
Spoke with patient on the phone. Patient stated that she is doing well. 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 Patient stated that she is aware of her upcoming appointments. Patient stated that she has no concerns or questions at this time. Cong Russell
== END 2024-07-06 16:30 | disposition home or self-care (01) | DRG 331 ==
LOC: ER 12:24 → SDC 12:30 → ICU 15:42 → 2ND 07-02 14:41
PROVIDERS: Nurse Practitioner Family; Student in an Organized Health Care Education/Training Program; Admitting Provider Student in an Organized Health Care Education/Training Program; Emergency Provider Emergency Medicine; PCP Nurse Practitioner; Visit Provider Student in an Organized Health Care Education/Training Program
PROC: 0D1N0Z4 Bypass Sigmoid Colon to Cutaneous, Open Approach (ICD-10-PCS; CPT 49000; principal; 2024-07-01 13:00)
DX: K57.20 Diverticulitis of large intestine with perforation and abscess without bleeding (principal); K21.9 Gastro-esophageal reflux disease without esophagitis; K44.9 Diaphragmatic hernia without obstruction or gangrene; K22.70 Barrett's esophagus without dysplasia; I10 Essential (primary) hypertension; E78.5 Hyperlipidemia, unspecified; E87.6 Hypokalemia; E83.42 Hypomagnesemia; D64.89 Other specified anemias; Z79.01 Long term (current) use of anticoagulants; Z79.899 Other long term (current) drug therapy; Z79.82 Long term (current) use of aspirin; Z86.79 Personal history of other diseases of the circulatory system
CPT/HCPCS: 36415; 74177; 80048; 80053; 81001; 83605; 83690; 83735; 84484; 85025; 86803; 87040; 87086; 87389; 93005; 97162; 97165; 99291; J3490; J0131; J0666; J1171; J1650; J1885; J2250; J2543; J3010; J3475; J3480; J7120; Q9967; S0028

== ENCOUNTER 2024-07-12 13:35 | Outpatient (CLI) | payer BC, SELFPAY | END 2024-07-12 23:59 | disposition home or self-care (01) | LOC: LAB.DROPOF 07-13 14:49 | PROVIDERS: PCP Nurse Practitioner; Visit Provider Nurse Practitioner | DX: N39.0 Urinary tract infection, site not specified (principal) | CPT/HCPCS: 87086 ==

== ENCOUNTER 2024-08-27 16:27 | Outpatient (CLI) | payer BC, SELFPAY ==
--- NOTE | 2024-08-27 16:00 | CT_ITS ---
PROCEDURE INFORMATION: Exam: CT Abdomen And Pelvis With Contrast Exam date and time: 08/27/2024 5:35 PM Age: 64 years old Clinical indication: Abdominal pain; Localized; Left; Prior surgery; Surgery date: 1-6 months; Surgery type: S/P colectomy with colostomy; Additional info: Left abdominal pain, S/P colectomy with colostomy TECHNIQUE: Imaging protocol: Computed tomography of the abdomen and pelvis with contrast. Radiation optimization: All CT scans at this facility use at least one of these dose optimization techniques: automated exposure control; mA and/or kV adjustment per patient size (includes targeted exams where dose is matched to clinical indication); or iterative reconstruction. Contrast material: ISOVUE; Contrast volume: 75 ml; Contrast route: IV; COMPARISON: CT ABDOMEN PELVIS W CON 07/01/2024 11:27 AM FINDINGS: Liver: Multiple hypoattenuating circumscribed structures of the liver compatible with simple hepatic cysts with the largest measuring 0.7 cm in diameter. Left hepatic lobe hypoattenuating structure with peripheral discontinuous enhancement favoring hepatic hemangioma unchanged from prior exam. Multiple calcific densities of the liver are likely related to prior granulomatous process. Gallbladder and biliary ducts: Normal. No calcified stones. No ductal dilation. Pancreas: Normal. No ductal dilation. Spleen: Normal. No splenomegaly. Adrenal glands: Normal. No mass. Kidneys and ureters: Normal. No hydronephrosis. Stomach and bowel: Moderate size hiatal hernia with gastric cardia located at the inferior mediastinum. Postsurgical changes compatible with left hemicolectomy with ostomy at the left lower quadrant, and chain suture at the sigmoid colon resection site. No significant inflammatory changes or fluid collections. Appendix: No evidence of appendicitis. Intraperitoneal space: Unremarkable. No free air. No significant fluid collection. Vasculature: Unremarkable. No abdominal aortic aneurysm. Lymph nodes: Unremarkable. No enlarged lymph nodes. Urinary bladder: Unremarkable as visualized. Reproductive: Unremarkable as visualized. Bones/joints: Moderate loss of intervertebral disc space with degenerative changes involving L5-S1 Soft tissues: Normal. IMPRESSION: 1. Moderate size hiatal hernia with gastric cardia located at the inferior mediastinum. 2. Postsurgical changes compatible with left hemicolectomy with ostomy at the left lower quadrant, and chain suture at the sigmoid colon resection site. No significant inflammatory changes or fluid collections.
[2024-08-27 17:01] LABS: Blood Urea Nitrogen 15 mg/dl (7-17); Estimated Glomerular Filt Rate 73 ml/min (>60); GFR (African American) 88 ML/MIN (>60)
[2024-08-27] MEDS: IOPAMIDOL-370 (76%);100ML BOTTLE 75 ML IV (17:45)
[2024-08-27] MEDS: SODIUM CHLORIDE 0.9% 10ML SYR (RAD ONLY) 10 ML IV (17:45)
== END 2024-08-27 23:59 | disposition home or self-care (01) ==
LOC: RAD 16:28
PROVIDERS: PCP Nurse Practitioner; Visit Provider Nurse Practitioner
DX: N30.01 Acute cystitis with hematuria (principal); R10.9 Unspecified abdominal pain; Z90.49 Acquired absence of other specified parts of digestive tract; Z93.3 Colostomy status
CPT/HCPCS: 36415; 74177; 82565; 84520; 87086; 87088; 87186; Q9967

== ENCOUNTER 2024-09-04 15:30 | Outpatient (CLI) | payer BC, SELFPAY | END 2024-09-04 23:59 | disposition home or self-care (01) | LOC: LAB.DROPOF 09-05 13:25 | PROVIDERS: PCP Nurse Practitioner; Visit Provider Nurse Practitioner | DX: R10.9 Unspecified abdominal pain (principal) | CPT/HCPCS: 87086 ==

== ENCOUNTER 2024-09-19 10:37 | Outpatient (CLI) | payer BC, SELFPAY ==
[2024-09-19 19:10] LABS: Basophils # 0.1 K/mm3 (0-0.2); Basophils % 0.7 % (0.1-2.0); Eosinophils # 0.4 K/mm3 (0.0-0.4); Eosinophils % 5.2 % (0.1-12.0); Hemoglobin 11.8 g/dL (12.2-16.2); Lymphocytes # 2.3 K/mm3 (0.7-4.5); Lymphocytes % 33.9 % (10-50); Mean Corpuscular HGB Conc 29.5 g/dL (31.8-35.4); Mean Corpuscular Volume 88.3 fl (81-99); Mean Platelet Volume 10.6 fl (7.4-10.4); Monocytes # 0.5 K/mm3 (0.1-1.0); Monocytes % 8.1 % (1.7-9.3); Neutrophils # 3.5 K/mm3 (1.8-7.8); Nucleated Red Blood Cells # 0 10^3/uL; Nucleated Red Blood Cells % 0 %; Platelet Count 332 K/mm3 (142-424); Red Blood Count 4.53 M/mm3 (4.20-5.40); White Blood Count 6.7 K/mm3 (4.8-10.8)
[2024-09-19 19:11] LABS: Alanine Aminotransferase 18 U/L (12-78); Albumin Level 4.6 g/dl (3.5-5.0); Albumin/Globulin Ratio 1.6 (1.1-1.8); Alkaline Phosphatase 82 U/L (38-126); Anion Gap 15.6 mEq/L (5-15); Aspartate Amino Transferase 27 U/L (14-36); Bilirubin,Total 0.4 mg/dl (0.2-1.3); Blood Urea Nitrogen 11 mg/dl (7-17); Calcium 9.9 mg/dl (8.4-10.2); Carbon Dioxide 24 mmol/L (22.0-30.0); Chloride 107 mmol/L (98-107); Chol/HDL Ratio 2.6 (1-3.5); Cholesterol 180 mg/dl (140-200); Estimated Glomerular Filt Rate 73 ml/min (>60); GFR (African American) 88 ML/MIN (>60); Globulin 2.8 g/dL (1.3-3.2); Glucose 82 mg/dl (74-100); HDL Cholesterol 68 mg/dl (40-60); Potassium 4.6 mmoL/L (3.5-5.1); Sodium 142 mmol/L (136-145); Total Protein,Serum 7.4 g/dl (6.3-8.2); Triglycerides 163 mg/dl (30-150); VLDL Cholesterol 33 mg/dL (0-40)
[2024-09-19 19:27] LABS: Direct LDL Cholesterol 72.46 mg/dL (100-129)
[2024-09-19 19:45] LABS: Microalbumin/Creatinine Ratio 11.2
[2024-09-19 19:47] LABS: Thyroid Stimulating Hormone 2.42 uIU/mL (0.465-4.68)
[2024-09-19 19:49] LABS: Creatinine,Urine Random 133 mg/dL (Not Estab.)
[2024-09-19 20:09] LABS: Vitamin B12 627 pg/mL (239-931)
[2024-09-19 21:01] LABS: Hemoglobin A1C 5.5 % (4.0-6.0)
== END 2024-09-19 23:59 | disposition home or self-care (01) ==
LOC: LAB.DROPOF 09-20 10:57
PROVIDERS: PCP Nurse Practitioner; Visit Provider Nurse Practitioner
DX: I10 Essential (primary) hypertension (principal); E78.2 Mixed hyperlipidemia; K21.00 Gastro-esophageal reflux disease with esophagitis, without bleeding; E55.9 Vitamin D deficiency, unspecified; E53.8 Deficiency of other specified B group vitamins
CPT/HCPCS: 80053; 80061; 82043; 82306; 82570; 82607; 83036; 84443; 85025

== ENCOUNTER 2024-10-19 09:03 | Outpatient (CLI) | payer BC, SELFPAY ==
--- NOTE | 2024-10-19 09:30 | CT_ITS ---
FINAL REPORT TECHNIQUE: Thin section axial images are obtained through the abdomen and pelvis after intravenous contrast. Reconstruction images were obtained from the axial data. Exam was performed using dose reduction techniques. This study was performed with techniques to keep radiation doses as low as reasonably achievable (ALARA). Individualized dose reduction techniques using automated exposure control or adjustment of mA and/or kV according to the patient's size were employed. CLINICAL HISTORY: Abdominal pain states she has colostomy, f/u for possible reversal COMPARISON: 08/27/2024 FINDINGS: LUNG BASES: Lung bases are clear. Heart size is normal. LIVER: There are several hypodense liver lesions noted, the largest of which is likely a hemangioma. The others are favored to be cysts, and are stable since the prior exam of 08/28/2023. GALLBLADDER/BILIARY SYSTEM: Gallbladder is present. No gallstones. No biliary dilatation. SPLEEN: Unremarkable. PANCREAS: Unremarkable. ADRENALS: Unremarkable. KIDNEYS/URETERS/BLADDER: No hydronephrosis, renal mass, or renal stone. Unremarkable urinary bladder. GI TRACT: Small hiatal hernia is again noted. A left lower quadrant colostomy is again noted. No small bowel obstruction or dilatation. Normal appendix. There is a suture line in the rectosigmoid colon. There is abnormal attenuation in the omentum anterior to the descending colon just proximal to the portion of colon into the ostomy. This is of uncertain etiology, but is new since the prior exam. There is also a soft tissue nodule in the omentum, best seen on image #56, measuring 10 mm, just anterior to the transverse colon, which is also new. This may be infectious or inflammatory. PELVIC ORGANS: Unremarkable for age. LYMPH NODES/RETROPERITONEUM/MESENTERY: No lymphadenopathy. No abdominal aortic aneurysm. ABDOMINAL WALL: The abdominal wall is intact. FREE FLUID: No ascites. BONES: No acute osseous abnormality. IMPRESSION: Abnormal attenuation in the omentum anterior to the descending colon, just proximal to the colon entering the ostomy site. There is also a soft tissue nodule in the omentum just anterior to the transverse colon. Both of these findings are new since the prior exam. This may be infectious or inflammatory, but peritoneal metastases are not excluded. Recommend correlation with CEA and consider follow-up exam. These lesions are too small for evaluation with PET. Reviewed, Interpreted and Dictated by Mallory Fall MD Transcribed by Katie Jimenez Authenticated and [facility]
[2024-10-19] MEDS: SODIUM CHLORIDE 0.9% 10ML SYR (RAD ONLY) 10 ML IV (12:06)
[2024-10-19] MEDS: IOPAMIDOL-370 (76%);100ML BOTTLE 75 ML IV (12:06)
[2024-10-19] MEDS: BARIUM SULFATE(READI-CAT2);450ML BOTTLE 450 ML PO (12:06)
== END 2024-10-19 23:59 | disposition home or self-care (01) ==
LOC: RAD 09:06
PROVIDERS: PCP Nurse Practitioner; Visit Provider Surgery
DX: R93.3 Abnormal findings on diagnostic imaging of other parts of digestive tract (principal); R10.9 Unspecified abdominal pain
CPT/HCPCS: 74177; Q9967

== ENCOUNTER 2024-11-09 11:29 | Day surgery (SDC) | payer BC, SELFPAY ==
[2024-11-08 12:59] VITALS: BMI 25.4
--- NOTE | 2024-11-09 11:39 | EXP.GEN.HP ---
HPI HPI HPI: Patient presents for colonoscopy. 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 Oscar Sales on 07/01/2024. She did undergo a colonoscopy at [facility] in December 2023. She has been followed in the office regularly. She complained of symptoms consistent with uterine prolapse when she was last seen and she underwent evaluation with Dr. Ranjana Avila. Ultimately discussion was held and she had a referral to urogynecology which she saw at [facility]. It was felt that patient would require transabdominal surgery but the physician wished to refrain from doing so until her colostomy was reversed and she was healed so essentially waiting until summer 2025. Patient wishes to pursue colostomy reversal. She wants to have this done in early to have the summer to recover. I will see if I can initiate arrangements for reversal. Plan for colonoscopy via ostomy and anus to assess the distal remaining colon. I have obtained the records from [facility] where she had seen Dr. Sharyn Orlando. It appears as though recommendations were for possible da Daija robotic surgery 1 year after colostomy takedown. I did have her undergo CT scan which revealed abnormal attenuation in the omentum anterior to the descending colon just proximal to the ostomy as well as soft tissue nodule in the omentum just anterior to the transverse colon. It was felt that this could be either infectious or inflammatory. There were felt to be too small for evaluation with PET CT scan. [facility] Disclaimer: The information contained in this section may have been updated after the patient was seen, as this information can be updated by other users. Medical History Left lateral abdominal pain Uterine prolapse Chest tightness MVP (mitral valve prolapse) Barretts esophagus Hiatal hernia Vitamin B12 deficiency Vitamin D deficiency Migraine GERD (gastroesophageal reflux disease) Hyperlipidemia Essential hypertension Surgical History History of colectomy History of colonoscopy (~2013) Family History Other No significant family history Social History Smoking Status: Never smoker alcohol intake: never substance use type: denies use current occupational status: employed Travel in the last 8 weeks?: None household members: family housing: house Have you lived/traveled outside US in past 30 days?: No Contact w/someone who lives/traveled outside US past 30 days?: No Exposure to someone with infectious disease in past 14 days?: No Do you have a fever (greater than 100.4 F or 38 C)?: No Have you tested positive for COVID-19?: No Exposed to someone with COVID-19 in past 14 days?: No Do you have a sore throat?: No Do you have a cough?: No Do you have any weakness?: No Do you have any diarrhea?: No Are you experiencing any unusual bleeding?: No Do you have any muscle aches/pain?: No Do you have any abdominal pain?: No Are you experiencing loss of taste or smell?: No Other Medical History Have you received the Flu Vaccine for this season: No Have you received the Pneumonia Vaccine: No Meds Home Medications and Allergies Home Medications ?Medication ?Instructions ?Recorded ?Confirmed ?Type sumatriptan 85 mg-naproxen 500 mg 1 tab PO NEEDED PRN migraines 12/21/23 11/09/24 History tablet esomeprazole magnesium 20 mg 20 mg PO .COMPLEX #270 caps 09/19/24 11/09/24 Rx capsule,delayed release rosuvastatin 20 mg tablet 20 mg PO HS #90 tabs 09/19/24 11/09/24 Rx topiramate 50 mg tablet 50 mg PO .COMPLEX #270 tabs 09/19/24 11/09/24 Rx New Prescriptions to Start Prescriptions: Allergies Allergy/AdvReac Type Severity Reaction Status Date / Time No Known Allergies Allergy Verified 11/09/24 11:41 Exam Data for Last 24 hours I & O for Last 24 hours: Intake & Output 11/06/24 11/07/24 11/08/24 11/09/24 11:59 11:59 11:59 11:59 Weight 135 lb Constitutional Constitutional: no acute distress *Routine HEENT Exam Head: Present normocephalic Eye: Present EOMI and PERRL ENT: Present mucous membranes moist *Routine Neck Exam Neck: Present supple; Absent lymphadenopathy *Routine Respiratory Exam Respiratory: Present CTA bilaterally *Routine Cardiovascular Exam Cardiovascular: Present RRR *Routine Abdominal Exam Abdominal: Present soft, normoactive bowel sounds and ostomy; Absent tenderness *Routine Rectal Exam Rectal:: deferred *Routine Genitalia Exam Genitalia:: deferred *Routine Extremities Exam Extremities: Absent cyanosis, clubbing or edema *Routine Skin Exam Skin: Present warm; Absent rash *Routine Neurological Exam Neurological: Present alert and oriented X3 Assessment and Plan *Assessment and plan (1) Perforated diverticulum: Status: Acute Category: Surgical Code(s): K57.80 - Diverticulitis of intestine, part unspecified, with perforation and abscess without bleeding Plan CT scan findings are likely fat necrosis inflammation given the history. I do not feel that this would preclude proceeding with arrangements for possible takedown. Plan for colonoscopy.
[2024-11-09 11:42] VITALS: BP 132/83; PULSE 87; RESP 20; TEMP 36.5; O2SAT 97
[2024-11-09] MEDS: LACTATED RINGERS 1000ML 1,000 ML 50 ML IV (11:47)
--- NOTE | 2024-11-09 11:48 | SUR.PREOP ---
colostomy bag noted to left lower abdomen
--- NOTE | 2024-11-09 11:51 | P.PNANES_ITS ---
[facility] Disclaimer: The information contained in this section may have been updated after the patient was seen, as this information can be updated by other users. Medical History Left lateral abdominal pain Uterine prolapse Chest tightness MVP (mitral valve prolapse) Barretts esophagus Hiatal hernia Vitamin B12 deficiency Vitamin D deficiency Migraine GERD (gastroesophageal reflux disease) Hyperlipidemia Essential hypertension Surgical History History of colectomy History of colonoscopy (~2013) Family History Other No significant family history Social History Smoking Status: Never smoker alcohol intake: never substance use type: denies use current occupational status: employed Travel in the last 8 weeks?: None household members: family housing: house Have you lived/traveled outside US in past 30 days?: No Contact w/someone who lives/traveled outside US past 30 days?: No Exposure to someone with infectious disease in past 14 days?: No Do you have a fever (greater than 100.4 F or 38 C)?: No Have you tested positive for COVID-19?: No Exposed to someone with COVID-19 in past 14 days?: No Do you have a sore throat?: No Do you have a cough?: No Do you have any weakness?: No Do you have any diarrhea?: No Are you experiencing any unusual bleeding?: No Do you have any muscle aches/pain?: No Do you have any abdominal pain?: No Are you experiencing loss of taste or smell?: No [facility] Anesthesia Checklist Patient Identification Patient Identification: Arm Band Structural Data Admitted From: Home Planned Operative Procedure/s: Colonoscopy Consent for Planned Operative Procedure(s) Verified: Yes Verified Documents: Surgical Consent and History and Physical NPO Status Verified Time NPO: 00:00 Additional verifications Anesthesia Reactions: No Airway Assessment Mallampati Score:: Class II C-Spine Mobility Assessed: Yes TMJ Mobility Assessed: Yes Dentition: Good Dentition Neurological Assessment Level of Consciousness: Awake, Alert and Appropriate Anesthesia Plan Anesthesia Risk discussed: Yes Anesthesia Plan: Verified ASA Class: II Anesthesia Type: MAC
--- NOTE | 2024-11-09 12:35 | HMH.SCOPE ---
Procedure: Date: 11/09/24 Patient Date of :: 1960 Procedure Performed:: Total colonoscopy via colostomy Proctosigmoidoscopy . Indications:: Patient presents for colonoscopy. 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 Oscar Sales on 07/01/2024. She did undergo a colonoscopy at [facility] in December 2023. She has been followed in the office regularly. She complained of symptoms consistent with uterine prolapse when she was last seen and she underwent evaluation with Dr. Ranjana Avila. Ultimately discussion was held and she had a referral to urogynecology which she saw at [place]. It was felt that patient would require transabdominal surgery but the physician wished to refrain from doing so until her colostomy was reversed and she was healed so essentially waiting until summer 2025. Patient wishes to pursue colostomy reversal. She wants to have this done in early to have the summer to recover. I will see if I can initiate arrangements for reversal. Plan for colonoscopy via ostomy and anus to assess the distal remaining colon. I have obtained the records from [place] where she had seen Dr. Sharyn Orlando. It appears as though recommendations were for possible da Daija robotic surgery 1 year after colostomy takedown. I did have her undergo CT scan which revealed abnormal attenuation in the omentum anterior to the descending colon just proximal to the ostomy as well as soft tissue nodule in the omentum just anterior to the transverse colon. It was felt that this could be either infectious or inflammatory. There were felt to be too small for evaluation with PET CT scan. Performing Provider:: Trey Madsen MD Referring Provider:: . Sedation:: MAC sedation Procedure:: Patient history was obtained and appropriate physical examination was performed. Patient's medications and allergies were reviewed. Informed consent was obtained after explaining the benefits, alternatives, and risks of the procedure including, but not limited to, bleeding, perforation, missed lesions, and adverse reaction to anesthesia medications. Patient was transported to endoscopy procedure room. Patient was connected to monitoring devices. Throughout the procedure the patient's blood pressure, pulse, and oxygen saturations were monitored continuously. Patient identification and planned procedure were verified by the staff. Attention was first turned to colonoscopy of the ostomy. Patient was maintained in a supine position. By opening the colostomy appliance bag colonoscope was able to be inserted via the ostomy. It was advanced to the ileocecal valve under direct visualization. Colonic preparation was good. He was advanced a short distance into the terminal ileum. Colonoscope was slowly withdrawn while examining the colonic mucosa circumferentially. There were noted to be no obvious polyps, masses, or even any diverticuli. Patient was then positioned in lateral decubitus position. Digital anorectal exam was performed. There was insipidated mucousy stool which was removed with digital disimpaction. Variable stiffness Olympus colonoscope was inserted and advanced to the staple line at approximately 15 cm from the anal verge. There were no masses or notable diverticuli. Colonoscope was slowly withdrawn. . Findings:: Normal colonoscopy the ostomy and normal proctosigmoidoscopy via the anus Recommendations:: No findings which would be prohibitive of proceeding with colostomy reversal Complications:: None immediately apparent Estimated blood obtained (mL): 0 Colonoscopy Component Colonoscopy Component Was a colonoscopy performed during today's procedure?: Yes Recommended follow up colonoscopy of at least 10 years?: Yes
[2024-11-09 12:36] VITALS: BP 87/44; PULSE 74; RESP 16; TEMP 36.8; O2SAT 96
[2024-11-09 12:46] VITALS: BP 84/56; PULSE 67; RESP 18; O2SAT 98
[2024-11-09 12:56] VITALS: BP 94/44; PULSE 76; RESP 18; O2SAT 98
[2024-11-09 13:06] VITALS: BP 109/80; PULSE 78; RESP 18; O2SAT 99
== END 2024-11-09 13:24 | disposition home or self-care (01) ==
PROVIDERS: PCP Nurse Practitioner; Visit Provider Surgery
PROC: 0DJD8ZZ Inspection of Lower Intestinal Tract, Via Natural or Artificial Opening Endoscopic (ICD-10-PCS; CPT 44388; principal; 2024-11-09 12:25)
DX: Z12.11 Encounter for screening for malignant neoplasm of colon (principal); K22.70 Barrett's esophagus without dysplasia; G43.909 Migraine, unspecified, not intractable, without status migrainosus; E55.9 Vitamin D deficiency, unspecified; E53.8 Deficiency of other specified B group vitamins; K44.9 Diaphragmatic hernia without obstruction or gangrene; K21.9 Gastro-esophageal reflux disease without esophagitis; E78.5 Hyperlipidemia, unspecified; I10 Essential (primary) hypertension; I34.1 Nonrheumatic mitral (valve) prolapse; N81.4 Uterovaginal prolapse, unspecified; Z93.3 Colostomy status; Z90.49 Acquired absence of other specified parts of digestive tract; Z79.899 Other long term (current) drug therapy
CPT/HCPCS: 44388; 45300; J2003; J2704; J7120

== ENCOUNTER 2024-11-30 09:25 | Outpatient (CLI) | payer BC, SELFPAY ==
--- OUTSIDE RECORDS SUMMARY | 2024-11-30 09:27 | XMS_ITS | Encounter Summary ---
Author Organization [place] [address] Care Team Providers Care Supervisor Machining Name Role Phone Javi Arias MD Primary Care Provider [phone] Boris Juarez MD Unavailable [phone] Encounter Details Date Type Department Care Team (Late st Contact Info) Description 06/08/2017 Orders Only [facility] [address] [facility] [address] [place] [address] Hector Lam MD PHD [address] [place] [address] Social History Tobacco Use Types Packs/Day Years Used Date Smoking Tobacco: Never Cigarettes Smokeless Tobacco: Never Alcohol Use Standard Drinks/Week Comments No 0 (1 standard drink = 0.6 oz pur e alcohol) Sexually Active Control Partners Comments Yes Male Comments No Sex and Gender Information Value Date Recorded Sex Assigned at Not on file Legal Sex Female 5:54 AM EDT Gender Identity Not on file Sexual Orientation Not on file documented as of this encounter Plan of Treatment Not on file documented as of this encounter Procedures Procedure Name Priority Date/Time Associated Diagnosis Comments GMED EGD Routine 06/08/2017 11:00 AM EST documented in this encounter Results * GMED EGD (06/08/2017 11:00 AM EST) 06/08/2017 11:0 0 AM EST Impressions [facility] - 06/08/2017 11:47 AM EST Normal duodenum. Polyps in the fundus and stomach body. Mucosa suggestive of Gay's esophagus (Biopsy). Corrugated mucosa in the whole esophagus. Normal mucosa in the whole stomach. Esophageal hiatal hernia. Plan: Await pathology results. If you do not receive pathology results within 2 weeks, please call our office for findings and final recommendations. Repeat EGD in 3 years for Gay's surveillance if no dysplasia on biopsies; sooner if dysplasia present. Continue esomeprazole. This section is an excerpt of the full report. us Hector Lam MD PHD GI PROCEDURE ORDERABLES Fin al Result Performing Organization Address City/State/[facility] Co de Phone Number [facility] [address] [place] [address] documented in this encounter Visit Diagnoses Not on filedocumented in this encounter Care Teams Supervisor Machining Relationship Specialty Start Date End Date Javi Arias MD [address] [facility] [address] [place] [address] PCP - General Psychiatry & Neurology-Neurology 05/02/12 Boris Juarez MD [address] [facility] [address] [place] [address] Physician Internal Medicine-Gastroenterolog y 04/01/16 documented as of this encounter
--- OUTSIDE RECORDS SUMMARY | 2024-11-30 09:27 | XMS_ITS | Encounter Summary ---
Author Organization [place] [address] Care Team Providers Care Parts Manager Name Role Phone Javi Arias MD Primary Care Provider [phone] Boris Juarez MD Unavailable [phone] Encounter Details Date Type Department Care Team (Late st Contact Info) Description 06/02/2020 Lab Requisition [facility] [address] 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; Diaphragmatic hernia without obstruction or gangrene Social History Tobacco Use Types Packs/Day Years Used Date Smoking Tobacco: Never Cigarettes Smokeless Tobacco: Never Alcohol Use Standard Drinks/Week Comments No 0 (1 standard drink = 0.6 oz pur e alcohol) Sexually Active Control Partners Comments Yes Post-menopausal Male Tubal done Comments No Sex and Gender Information Value Date Recorded Sex Assigned at Not on file Legal Sex Female 5:54 AM EDT Gender Identity Not on file Sexual Orientation Not on file documented as of this encounter Plan of Treatment Not on file documented as of this encounter Procedures Procedure Name Priority Date/Time Associated Diagnosis Comments PATHOLOGY TISSUE REQUEST Routine 06/02/2020 2:40 PM EST 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 06/03/2020 3:50 PM EST [facility] FINAL DIAGNOSIS A) Esophageal Biopsy at 34 cm: - Benign Gastric Mucosa with Fundic Gland Polyp Changes. - Mild Patchy Superficial Chronic Inflammation. - Negative for H. pylori Organisms. - Esophageal Mucosa Not Identified. B) Esophageal Biopsy at 32 cm: - Gastric Mucosa With Mild Superficial Reactive Changes, Suggesting Chemical Gastritis. - Negative For H. pylori Organisms. - Esophageal Mucosa Not Identified. C) Esophageal Biopsy at 30 cm: - Columnar Mucosa With Intestinal Metaplasia, Negative For Dysplasia. - In The Appropriate Clinical/Endos copic Setting, The Intestinal Metaplasia Would Represent Gay's Esophagus. - Squamous Esophageal Mucosa With Mild Nonspecific Chronic Esophagitis. 06/03/2020 3:50 PM EST [facility] at 1550 EST MICROSCOPIC DESCRIPTION Microscopic examination is performed and the findings corroborate the diagnosis. 06/03/2020 3:50 PM EST [facility] EMBEDDED IMAGES 06/03/2020 3:50 PM [facility] GROSS DESCRIPTION Part A) Received in formalin labeled with the patient s name and b iopsy 34 cm esophageal are five fragments of eid tissue ranging from 0.2 to 0.3 cm in greatest dimension. Entirely submitted in one cassette. /TE Part B) Received in formalin labeled with the patient s name and b iopsy 32 cm esophageal are two fragments of eid tissue averaging 0.4 cm in greatest dimension. Entirely submitted in one cassette. /TE Part C) Received in formalin labeled with the patient s name and b iopsy - 30 cm esophageal are four fragments of eid tissue ranging from 0.2 to 0.3 cm in greatest dimension. Entirely submitted in one cassette. /TE 06/03/2020 3:50 PM EST [facility] Tissue SPECIMEN FROM ESOPHAGUS / Unknown 06/02/2020 2:40 PM EST 06/02/2020 6:41 PM EST Tissue specimen (specimen) ESOPHAGEAL STRUCTURE / Unknown 06/02/2020 2:40 PM EST 06/02/2020 6:41 PM EST Tissue specimen (specimen) ESOPHAGEAL STRUCTURE / Unknown 06/02/2020 2:40 PM EST 06/02/2020 6:41 PM EST Hector Lam MD PHD PATHOLOGY ORDERABLES Final Result [facility] [address] [place] [address] [facility] [address] [place] [address] documented in this encounter Visit Diagnoses Diagnosis 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
--- OUTSIDE RECORDS SUMMARY | 2024-11-30 09:27 | XMS_ITS | Clinical Summary ---
Author Organization [facility] Address [address] [place] [address] Phone Care Team Providers Care Steam Frame Operator Name Role Phone Javi Arias MD Primary Care Provider [phone] Boris Juarez MD Unavailable [phone] Allergies No known active allergies Medications Sumatriptan-Napr oxen (TREXIMET) 85-500 mg Oral Tablet Take by mouth. Activ e Coenzyme Q10 100 mg Oral Capsule Take by mouth. Active MULTIVIT WITH CALCIUM,IRON,MIN (WOMEN'S DAILY MULTIVITAMIN ORAL) Take by mouth. Activ e cholecalciferol, vitamin D3, 400 unit Oral Tablet Take 1 Tab by mouth daily. Active UNABLE TO FIND Med Name: Vitamin B 6 100mg Active BIOTIN ORAL Take by mouth. Act radha topiramate (TOPAMAX) 50 mg tablet Take 50 mg by mouth 2 times daily. 1 qam, 2qpm Active aspirin 81 mg Oral Tablet, Delayed Release (E.C.) Take by mouth daily. Active magnesium citrate 100 mg Oral Tablet Take by mouth daily. Active potassium (POTASSIMIN ORAL) Take by mouth. Activ e rosuvastatin (CRESTOR) 20 mg Oral Tablet Take 20 mg by mouth daily. Active esomeprazole (NEXIUM) 20 mg Oral Capsule, Delayed Release(E.C.)Ind ications:gastroe sophageal reflux disease,heartbur n,Gay's esophagus Take 1 Capsule by mouth before breakfast AND 2 Capsules every day before evening meal. Indications: gastroesophageal reflux disease, heartburn, Gay's esophagus 270 Capsule 3 06/21/19 23 Active triamterene-hydr ochlorothiazide (MAXZIDE-25) 37.5-25 mg Oral Tablet Take 1 Tablet by mouth daily. Active Active Problems Problem Noted Date Diagnosed Date Cystocele with uterine prolapse 08/19/2015 Rectocele 08/19/2015 Menopausal symptoms 05/02/2012 Encounters Date Type Department Care Team Description 09/24/2024 Results Follow-Up [facility] Urogynecology [address] [address] Sharyn Orlando MD URINE CULTURE (NO STAIN), URINALYSIS 09/21/2024 8:30 AM EDT Office Visit [facility] Urogynecology [address] [address] Sharyn Orlando MD Incomplete uterovaginal prolapse (Primary Dx); Overactive bladder; Frequency of urination; Menopausal symptoms; Rectocele; Hematuria, unspecified type from Last 3 Months Surgical History Surgery Date Site/Laterality Comments DILATION AND CURETTAGE OF UTERUS HYSTEROSCOPY COLONOSCOPY COLONOSCOPY UPPER GASTROINTESTINAL ENDOSCOPY 08/10/2017 TS UPPER GASTROINTESTINAL ENDOSCOPY Medical History Medical History Date Comments Depression Ulcer GERD (gastroesophageal reflux disease) Family History Medical History Relation Name Comments Cirrhosis Brother Douglas Liver Disease Brother Douglas Migraines Father Stroke Father Asthma Mother Colon Cancer Neg Hx Esophageal Cancer Neg Hx Liver Cancer Neg Hx Rectal Cancer Neg Hx Stomach Cancer Neg Hx Relation Name Status Comments Brother Douglas Father Mother Sister x1 Alive Social History Tobacco Use Types Packs/Day Years Used Date Smoking Tobacco: Never Cigarettes Smokeless Tobacco: Never Tobacco Cessation:Counseling Given: No Alcohol Use Standard Drinks/Week Comments No 0 (1 standard drink = 0.6 oz pur e alcohol) Sexually Active Control Partners Comments Yes Post-menopausal Male Tubal done Comments No Sex and Gender Information Value Date Recorded Sex Assigned at Not on file Legal Sex Female 5:54 AM EDT Gender Identity Not on file Sexual Orientation Not on file Obstetrics History Para Term AB IAB SAB Ectopic Multiple Livin g Live Births 1 1 Date Outcome GA Total Labor Labor/2nd/3rd Weight Sex Type Anes PTL Arlene A1 A5 Name Clin Para Vag-Spo nt Last Filed Vital Signs Vital Sign Reading Time Taken Comments Blood Pressure 112/62 01/05/2024 3:40 PM EDT Pulse 78 09/21/2024 8:37 AM EDT Temperature 36.3 C (97.4 F) 01/05/2024 3:14 PM EDT Respiratory Rate 16 01/05/2024 3:40 PM EDT Oxygen Saturation 98% 09/21/2024 8:37 AM EDT Inhaled Oxygen Concentration - - Weight 61.7 kg (136 lb) 09/21/2024 8:37 AM EDT Height 154.9 cm (5' 1 ) 01/05/2024 1:30 PM EDT Body Mass Index 25.7 01/05/2024 1:30 PM EDT Plan of Treatment Health Maintenance Due Date Last Done Comments Annual Wellness Exam 1963 Hepatitis C Screening 02/26/1980 HPV/Pap Cotest 02/26/1992 Cologuard 2007 FIT 2007 Sigmoidoscopy 2007 Virtual Colonography 2007 Pneumococcal Vaccine 50+ (1 of 1 - PCV) 02/26/2012 Zoster (1 of 2) 02/26/2012 Breast Cancer Screening 11/03/2019 11/02/2018 Cervical Cancer Screening 12/05/2021 Pap Smear 12/05/2021 12/05/2018, 11/11, 08/19/2015, Additional history exists COVID-19 Vaccine ( season) 2024 06/22/2021, 09/01/2020, 08/02/2020 DTaP/TDaP/Td (2 - Td or Tdap) 03/28/2028 03/28/2018 Colon Cancer Screening 01/04/2029 Colonoscopy 01/04/2029 01/05/2024 Hepatitis B Vaccine Completed 10/16/2018, 05/18/2018, 04/18/2018 Influenza Vaccine Completed 03/29/2024, , 04/15/2020, Additional history exists Meningococcal B Vaccine Aged Out No l onger eligible based on patient's age to complete this topic Goals Goal Patient Goal Type Associated Problems Recent Progress Patient-Stated? Author Maintain a healthy diet, exercise regularly and maintain an ideal body weight General No Bonneau, Dang, CAR DUMPER OPERATOR HELPER Procedures Procedure Name Priority Date/Time Associated Diagnosis Comments URINALYSIS Routine 09/21/2024 8:47 AM EDT Hematuria, unspecified type URINE CULTURE (NO STAIN) Routine 09/21/2024 8:47 AM EDT Frequency of urination COLONOSCOPY Routine 01/05/2024 3:12 PM EDT Screening for colon cancer CASINO DUTY MANAGER CYTOLOGY REQUEST (PAP ONLY) Routine 12/05/2018 3:40 PM EDT Well woman exam from Last 3 Months or Most Recently Relevant to Health Maintenance Results * URINALYSIS (09/21/2024 8:47 AM EDT) UA Color Colorless 09/21/2024 8:52 PM EDT [facility] UA Appear Clear Clear 09/21/2024 8:52 PM EDT [facility] UA Glucose Negative Negative mg/dL 09/21/2024 8:52 PM EDT [facility] UA Ketones Negative Negative mg/dL 09/21/2024 8:52 PM EDT [facility] UA Blood Negative Negative 09/21/2024 8:52 PM EDT [facility] UA pH 6.5 5.0 - 8.0 pH 09/21/2024 8:52 PM EDT [facility] UA Protein Negative Negative mg/dL 09/21/2024 8:52 PM EDT [facility] UA Urobilinogen Normal <=1 mg/dL 8:52 PM EDT [facility] UA Bili Negative Negative 09/21/2024 8:52 PM EDT [facility] UA Nitrite Negative Negative 09/21/2024 8:52 PM EDT [facility] UA Leuk Est Negative Negative 09/21/2024 8:52 PM EDT [facility] UA Spec Grav 1.004 1.001 - 1.035 no units 09/21/2024 8:52 PM EDT [facility] Comment:Reference range caesar d for random specimens only. Urine URINARY BLADDER STRUCTURE / Unknown 09/21/2024 8:47 AM EDT 09/21/2024 8:47 AM EDT Sharyn Orlando MD URINE ORDERABLES Final Re sult Performing Organization Address [facility] Co de Phone Number [facility] [address] , [place] [address] * URINE CULTURE (NO STAIN) (09/21/2024 8:47 AM EDT) Culture No growth at 30 hours. 09/23/2024 3:[address] [facility] Urine URINARY BLADDER STRUCTURE / Unknown 09/21/2024 8:47 AM EDT 09/21/2024 8:47 AM EDT Sharyn Orlando MD MICROBIOLOGY - GENERAL OR DERABLES Final Result Performing Organization Address [facility] de Phone Number [facility] [address] , [place] [address] * COLONOSCOPY (01/05/2024 3:12 PM EDT) Anatomical Region Laterality Modality Endoscopy Narrative 01/05/2024 3:12 PM EDT Table formatting from the original result was not included. Findings The bowel prep quality was excellent. Few diverticula of mild severity in the ascending colon and rectosigmoid Two polyps measuring from 4 mm up to 6 mm in the ascending colon; performed cold snare removal. Polyps 4mm and 6mm Internal small hemorrhoids Recommendation - Follow up pathology results. A pathology report should be available in MyChart in ~1 week. - An additional MyChart note with further recommendations should be available 1-2 weeks after the pathology report. - IF YOU DO NOT RECEIVE THIS INFORMATION VIA MYCHART OR OFFICE PHONE CALL WITHIN 2-3 WEEKS, PLEASE CALL OUR OFFICE FOR FINDINGS & FINAL RECOMMENDATIONS. - Interval to next Colonoscopy will be based upon histology of polyp(s). Pre-Procedure Diagnosis / Indication Screening for colon cancer Post-Procedure Diagnosis Screening for colon cancer Staff Staff Role Collin Rincon, MILDRED Surveying Crew Rodman Ya Silva MD Anesthesiologist Hector Lam MD PHD Performing Provider CAYETANO Vicente CRNA, LPN Endoscopy Nurse Medications See Anesthesia Record. Preprocedure A history and physical has been performed, and patient medication allergies have been reviewed. The patient's tolerance of previous anesthesia has been reviewed. The risks and benefits of the procedure and the sedation options and risks were discussed with the patient. All questions were answered and informed consent obtained. ASA 2 - Patient with mild systemic disease Details of the Procedure The patient underwent monitored anesthesia care, which was administered by an anesthesia professional. The patient's blood pressure, heart rate, level of consciousness, oxygen, respirations, ECG and ETCO2 were monitored throughout the procedure. A digital rectal exam was performed. The scope was introduced through the anus and advanced to the cecum. Retroflexion was performed in the rectum. Bowel prep was adequate. The patient experienced no blood loss. The procedure was not difficult. The patient tolerated the procedure well. There were no apparent adverse events. Patient provided education and educated on specific discharge instructions. Patient educated on medications given during the procedure and new medications for discharge. Patient verbalizes understanding of discharge education. Patient stable and awaiting transport for discharge. Events Procedure Events Event Event Time ENDO SCOPE IN TIME 01/05/2024 2:41 PM ENDO SCOPE OUT TIME 01/05/2024 2:50 PM ENDO SCOPE IN TIME 01/05/2024 2:55 PM ENDO CECUM REACHED 01/05/2024 2:58 PM ENDO SCOPE OUT TIME 01/05/2024 3:10 PM Specimens ID Type Source Tests Collected by Time 1 : Esophageal Biopsies at 35cm via forceps Tissue Esophagus PATHOLOGY TISSUE REQUEST Hector Lam MD PHD 01/05/2024 1442 2 : Esophageal Biopsies at 34cm via forceps Tissue Esophagus PATHOLOGY TISSUE REQUEST Hector Lam MD PHD 01/05/2024 1445 3 : Esophageal Biopsies at 33cm via forceps Tissue Esophagus PATHOLOGY TISSUE REQUEST Hector Lam MD PHD 01/05/2024 1445 4 : Ascending colon polyps x2 via cold snare Tissue Large Intestine, Right/Ascending Colon PATHOLOGY TISSUE REQUEST Hector Lam MD PHD 01/05/2024 1502 Anesthesia Event Time In Patient In - Proc. Room 02:34 PM us Hector Lam MD PHD ENDOSCOPY PROCEDURE ORDERAB LES Final Result * CASINO DUTY MANAGER CYTOLOGY REQUEST (PAP ONLY) (12/05/2018 3:40 PM EDT) CASE REPORT Gynecologic Cytology Report Case: [id number] Authorizing Provider: Tien Das MD Collected: 12/05/2018 1540 Ordering Location: [facility] [place] Received: 12/05/2018 1540 First Screen: Laura Guardado, CT Rescreen: Stefany Ambrosio, MARCIN Specimen: LIQUID-BASED PAP - CERVICAL/ENDOCERV ICAL, Cervix, Endocervical 12/07/2018 3:47 PM EDT [facility] PAP FINAL DIAGNOSIS Negative for intraepithelial lesion or malignancy 12/07/2018 3:47 PM EDT [facility] at 1547 EDT MICROSCOPIC DESCRIPTION Microscopic examination is performed and the findings corroborate the diagnosis. 12/07/2018 3:47 PM EDT [facility] PAP SMEAR ADEQUACY Satisfactory for evaluation 12/07/2018 3:47 PM EDT [facility] ENDOCERVICAL T-ZONE Transformation Zone Absent. This is not unusual in a post-menopausal woman. 12/07/2018 3:47 PM EDT [facility] EMBEDDED IMAGES 9 3:47 PM EDT [facility] PAP DISCLAIMER The Pap Smear is a screening test that aids in the detection of cervical cancer and cancer precursors. Both false positive and false negative results can occur. The test should be used at regular intervals, and positive results should be confirmed before definitive therapy. Processed using the ThinPrep Sloop Captain Automated cytology screening device ([employer]). 12/07/2018 3:47 PM EDT [facility] PAP OTHER FINDINGS Many acute inflammatory cells noted. 12/07/2018 3:47 PM EDT [facility] Thin Prep ENDOCERVICAL STRUCTURE / Unknown 12/05/2018 3:40 PM EDT 12/05/2018 3:40 PM EDT Tien Das MD CYTOLOGY ORDERABLES Final Re sult [facility] [address] [address] from Last 3 Months or Most Recently Relevant to Health Maintenance Insurance Care Teams Steam Frame Operator Relationship Specialty Start Date End Date Javi Arias MD [address] [place] [address] [address] [place] [id number] PCP - General Psychiatry & Neurology-Neurology 05/02/12 Boris Juarez MD [address] [facility] [address] [place] [address] Physician Internal Medicine-Gastroenterolog y 04/01/16
--- OUTSIDE RECORDS SUMMARY | 2024-11-30 09:27 | XMS_ITS | Clinical Summary ---
Author Organization Healthcare Address [address] [place] [address] Care Team Providers Care Instrumentation And Controls Designer Name Role Phone Johnny Arias MD Primary Care Provider [phone] Family History Medical History Relation Name Comments Other cancer Brother 1 Hepatitis Brother 2 Stroke Father Emphysema Mother Relation Name Status Comments Brother 1 Brother 2 Father Mother Social History Tobacco Use Types Packs/Day Years Used Date Smoking Tobacco: Never Alcohol Use Standard Drinks/Week Comments No 0 (1 standard drink = 0.6 oz pur e alcohol) Comments Unknown Sex and Gender Information Value Date Recorded Sex Assigned at Not on file Legal Sex Female 8:19 PM EDT Gender Identity Not on file Sexual Orientation Not on file Last Filed Vital Signs Vital Sign Reading Time Taken Comments Blood Pressure - - Pulse - - Temperature - - Respiratory Rate - - Oxygen Saturation - - Inhaled Oxygen Concentration - - Weight 64.9 kg (142 lb 15.9 oz) 015 12:25 PM EST Height 154.9 cm (5' 1 ) 04/30/2015 12:2 5 PM EST Body Mass Index 27.02 04/30/2015 12:25 PM EST Plan of Treatment Not on file Care Teams Instrumentation And Controls Designer Relationship Specialty Start Date End Date Johnny Arias MD [address] [facility] [place] [address] PCP - General 10/24/20
--- OUTSIDE RECORDS SUMMARY | 2024-11-30 09:27 | XMS_ITS | Encounter Summary ---
Author Organization [place] [address] Care Team Providers Care Veneer Redrier Name Role Phone Javi Arias MD Primary Care Provider Boris Juarez MD Unavailable [phone] Encounter Details Date Type Department Care Team (Late st Contact Info) Description 05/04/2016 Orders Only [facility] Gastro [facility] [address] [facility] [address] [place] [address] [place] [address] [place] [address] Social History Tobacco Use Types Packs/Day Years [...] Date/Time Associated Diagnosis Comments GMED EGD Routine 05/04/2016 10:20 AM EST documented in this encounter Results * GMED EGD (05/04/2016 10:20 AM EST) 05/04/2016 10:2 0 AM EST Impressions [facility] - 05/04/2016 11:18 AM EST Irregularity in the area at and just proximal to the squamo-columnar junction. (Biopsy, Brushing). Esophageal hiatal hernia. Polyps in the fundus. Erythema in the duodenal bulb compatible with duodenitis. (Biopsy). Plan: Await pathology results Education Handout: Gay's Esophagus Acid Reflux diet and Education Continue current medication for acid suppression 30 minutes before a meal. Follow-up office visit in 2 months or as needed with continued symptoms. This section is an excerpt of the full report. us Boris Juarez MD GI PROCEDURE ORDERABLES Tsering kwok Result Performing Organization Address City/State/[facility] Co de Phone Number [facility] [address] [place] [address] documented in this encounter Visit Diagnoses Not on filedocumented in this encounter Care Teams Veneer Redrier Relationship Specialty Start Date End Date Javi Arias MD [address] [facility] [address] [place] [address] PCP - General Psychiatry & Neurology-Neurology 05/02/12 Boris Juarez MD [address] [facility] [address] [place] [address] Physician Internal Medicine-Gastroenterolog y 04/01/16 documented as of this encounter
--- OUTSIDE RECORDS SUMMARY | 2024-11-30 09:27 | XMS_ITS | Encounter Summary ---
Author Organization [place] [address] Care Team Providers Care Bolt Maker Name Role Phone Javi Arias MD Primary Care Provider [phone] Boris Juarez MD Unavailable [phone] Encounter Details Date Type Department Care Team (Late st Contact Info) Description 06/02/2020 Orders Only SEP Gastro [facility] [address] [facility] [address] [place] [address] Hector Lam MD PHD [address] [place] [address] Social History Tobacco Use Types [...] Date/Time Associated Diagnosis Comments GMED EGD Routine 06/02/2020 2:40 PM EST documented in this encounter Results * GMED EGD (06/02/2020 2:40 PM EST) 06/02/2020 2:40 PM EST Impressions [facility] - 06/02/2020 3:33 PM EST Normal duodenum. Polyps (4 mm to 6 mm) in the stomach body. Normal mucosa in the whole stomach. Mucosa suggestive of Gay's esophagus (Biopsy). Hiatal Hernia. Plan: Follow up pathology results. If you do not receive pathology results within 2 weeks, please call our office for findings and final recommendations. Continue PPI. Repeat EGD in 3 years for Gay's surveillance if no dysplasia on biopsies; sooner if dysplasia present. This section is an excerpt of the full report. us Hector Lam MD PHD GI PROCEDURE ORDERABLES Fin al Result [facility] [address] [place] [address] documented in this encounter Visit Diagnoses Not on filedocumented in this encounter Care Teams Bolt Maker Relationship Specialty Start Date End Date Javi Arias MD [address] [facility] [address] [place] [address] PCP - General Psychiatry & Neurology-Neurology 05/02/12 Boris Juarez MD [address] [facility] [address] [place] [address] Physician Internal Medicine-Gastroenterolog y 04/01/16 documented as of this encounter
--- OUTSIDE RECORDS SUMMARY | 2024-11-30 09:27 | XMS_ITS | Encounter Summary ---
Author Organization [place] [address] Care Team Providers Care Cannon Fire Direction Specialist Name Role Phone Javi Arias MD Primary Care Provider [phone] Boris Juarez MD Unavailable [phone] Encounter Details Date Type Department Care Team (Late st Contact Info) Description 08/10/2017 Orders Only SEP Gastro [facility] [address] [facility] [address] [place] [address] Hector Lam MD PHD [address] [place] [address] Social History Tobacco Use Types [...] Date/Time Associated Diagnosis Comments GMED EGD Routine 08/10/2017 11:00 AM EST documented in this encounter Results * GMED EGD (08/10/2017 11:00 AM EST) 08/10/2017 11:0 0 AM EST Impressions [facility] - 08/11/2017 6:42 AM EST Normal duodenum. Esophageal hiatal hernia. Mucosa suggestive of Gay's esophagus. Polyps in the fundus and stomach body. Ring in the lower third of the esophagus. (Dilation). Normal mucosa in the whole stomach. Plan: Continue twice a day esomeprazole (Nexium) Follow-up as needed This section is an excerpt of the full report. us Hcetor Lam MD PHD GI PROCEDURE ORDERABLES Pedro Luis simin Result - Final [facility] [address] [place] [id number] documented in this encounter Visit Diagnoses Not on filedocumented in this encounter Care Teams Cannon Fire Direction Specialist Relationship Specialty Start Date End Date Javi Arias MD [address] [place] [address] PCP - General Psychiatry & Neurology-Neurology 05/02/12 Boris Juarez MD [address] [place] [address] Physician Internal Medicine-Gastroenterolog y 04/01/16 documented as of this encounter
--- OUTSIDE RECORDS SUMMARY | 2024-11-30 09:27 | XMS_ITS | Encounter Summary ---
Author Organization [place] [address] Care Team Providers Care Pharmacist Per Diem Name Role Phone Javi Arias MD Primary Care Provider [phone] Boris Juarez MD Unavailable [phone] Encounter Details Date Type Department Care Team (Late st Contact Info) Description 06/08/2017 Lab Requisition [facility] 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 06/09/2017 9:15 AM EST [facility] FINAL DIAGNOSIS A) Esophagus, biopsies at 33 cm: - Gastric oxyntic mucosa with no diagnostic pathologic abnormality. B) Esophagus, biopsy at 31 cm: - Gay's esophagus, negative for dysplasia. 06/09/2017 9:15 AM EST [facility] at 0915 EST GROSS DESCRIPTION The specimen is received in two parts, each in formalin labeled with the patient's name. Part A) The specimen is designated esophageal biopsy at 33 cm and is 3 portions of eid soft tissue, 0.2 to 0.4 cm in greatest dimension. Entirely submitted in one cassette. /CDM Part B) The specimen is designated esophageal biopsy at 31 cm and is 3 portions of eid soft tissue, 0.3 to 0.5 cm in greatest dimension. Entirely submitted in one cassette. /CDM 06/09/2017 9:15 AM EST [facility] SECTION DIAGNOSIS 06/09/2017 9:15 AM EST [facility] MICROSCOPIC DESCRIPTION Microscopic examination is performed and the findings corroborate the diagnosis. 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 Gay's esophagus Polyp of stomach and duodenum Benign neoplasm of stomach Diaphragmatic hernia without obstruction or gangrene Diaphragmatic hernia without mention of obstruction or gangrene documented in this encounter Care Teams Pharmacist Per Diem Relationship Specialty Start Date End Date Javi Arias MD [address] [facility] [address] [place] [address] PCP - General Psychiatry & Neurology-Neurology 05/02/12 Boris Juarez MD [address] [facility] [address] [place] [address] Physician Internal Medicine-Gastroenterolog y 04/01/16 documented as of this encounter
--- OUTSIDE RECORDS SUMMARY | 2024-11-30 09:27 | XMS_ITS | Encounter Summary ---
Author Organization [place] [address] Care Team Providers Care Cyanide Pot Hardener Name Role Phone Javi Arias MD Primary Care Provider [phone] Boris Juarez MD Unavailable [phone] Encounter Details Date Type Department Care Team (Latest Contact Info) Description 09/24/2024 Results Follow-Up [facility] Urogynecology [address] [id number] Sharyn Orlando MD [address] [place] [phone] URINE CULTURE (NO STAIN), URINALYSIS Social History Tobacco Use Types Packs/Day Years [...] on file documented as of this encounter Progress Notes * Sharyn Orlando MD - 09/24/2024 7:51 AM EDT Patient has negative urine culture. Notified via MyChart of results. Thank you. Sharyn Orlando MD documented in this encounter Plan of Treatment Not on file documented as of this encounter Goals Goal Patient Goal Type Associated Problems Recent Progress Patient-Stated? Author Maintain a healthy diet, exercise regularly and maintain an ideal body weight No Dang Carter APRN documented as of this encounter Visit Diagnoses Not on filedocumented in this encounter Care Teams Cyanide Pot Hardener Relationship Specialty Start Date End Date Javi Arias MD [address] [facility] [address] [place] [phone] PCP - General Psychiatry & Neurology-Neurology 05/02/12 Boris Juarez MD [address] [facility] [address] [place] [phone] Physician Internal Medicine-Gastroenterolog y 04/01/16 documented as of this encounter
--- NOTE | 2024-11-30 09:40 | ECG_ITS ---
APPROVED REPORT Exam: Resting ECG HR:69 bpm ECG Measurements Heart Rate 69 AXES IL 148 P 23 QRSd 80 QRS -10 QT 401 T 5 QTc 420 Conclusion SINUS RHYTHM POSSIBLE RIGHT VENTRICULAR CONDUCTION DELAY [RSR (QR) IN V1/V2] MINIMAL VOLTAGE CRITERIA FOR LVH, CONSIDER NORMAL VARIANT [MEETS CRITERIA IN ONE OF: R(aVL), S(V1), R(V5), R(V5/V6)+S(V1)] MINIMAL ST DEPRESSION [0.025+ mV ST DEPRESSION] BORDERLINE ECG UNCONFIRMED REPORT Electronically signed by : Barrie Beebe MD 12/01/2024 14:53:20
[2024-11-30 09:44] VITALS: BMI 25.4
[2024-11-30 09:57] LABS: Basophils % 0.7 % (0.1-2.0); Eosinophils # 0.2 Kmm3 (0.0-0.4); Eosinophils % 4.2 % (0.1-12.0); Hematocrit 37.2 % (37.0-47.0); Hemoglobin 11.3 g/dL (12.2-16.2); Immature Granulocytes # 0.03 10^3uL; Immature Granulocytes % 0.5 %; Lymphocytes # 1.9 K/mm3 (0.7-4.5); Lymphocytes % 32.3 % (10-50); Mean Corpuscular HGB Conc 30.4 g/dL (31.8-35.4); Mean Corpuscular Hemoglobin 25.7 pg (27.0-31.2); Mean Corpuscular Volume 84.5 fl (81-99); Mean Platelet Volume 9.9 fl (7.4-10.4); Monocytes # 0.4 K/mm3 (0.1-1.0); Monocytes % 7.3 % (1.7-9.3); Neutrophils # 3.2 K/mm3 (1.8-7.8); Nucleated Red Blood Cells # 0 10^3/uL; Nucleated Red Blood Cells % 0 %; Platelet Count 306 K/mm3 (142-424); Red Cell Distribution Width 15.6 % (11.5-17.5); Red Cell Distribution Width-SD 47.4 fL; White Blood Count 5.7 K/mm3 (4.8-10.8)
[2024-11-30 10:07] LABS: Chloride 109 mmol/L (98-107); Potassium 4.1 mmoL/L (3.5-5.1); Sodium 141 mmol/L (136-145)
[2024-11-30 10:10] LABS: Anion Gap 10.1 mEq/L (5-15); Blood Urea Nitrogen 11 mg/dl (7-17); Carbon Dioxide 26 mmol/L (22.0-30.0); Creatinine Clearance Estimated 56 mL/min (50-200); Estimated Glomerular Filt Rate 73 ml/min (>60); GFR (African American) 88 ML/MIN (>60)
[2024-11-30 10:11] LABS: Calcium 9.8 mg/dl (8.4-10.2); Glucose 96 mg/dl (74-100)
== END 2024-11-30 23:59 | disposition home or self-care (01) ==
LOC: PREOP 09:26
PROVIDERS: PCP Nurse Practitioner; Visit Provider Surgery
DX: Z01.810 Encounter for preprocedural cardiovascular examination (principal); Z01.812 Encounter for preprocedural laboratory examination; R94.31 Abnormal electrocardiogram [ECG] [EKG]
CPT/HCPCS: 80048; 85025; 93005

== ENCOUNTER 2024-12-06 06:50 | Inpatient (IN) | payer BC, SELFPAY ==
[2024-11-30 12:40] VITALS: BMI 25.4
[2024-12-06] VITALS (21 sets, daily range): BP systolic 95–137; BP diastolic 57–79; PULSE 70–96; RESP 16–20; TEMP 36.3–36.7; O2SAT 93–100
--- NOTE | 2024-12-06 06:47 | P.HP_ITS ---
HPI HPI HPI: Patient presents for colostomy takedown. 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 Oscar Sales on 07/01/2024. She did undergo a colonoscopy at [facility] in December 2023. She has been followed in the office regularly. She complained of symptoms consistent with uterine prolapse when she was last seen and she underwent evaluation with Dr. Ranjana Avila. Ultimately discussion was held and she had a referral to urogynecology which she saw at [place]. It was felt that patient would require transabdominal surgery but the physician wished to refrain from doing so until her colostomy was reversed and she was healed so essentially waiting until summer 2025. Patient wishes to pursue colostomy reversal. She wants to have this done in early to have the summer to recover. I will see if I can initiate arrangements for reversal. Plan for colonoscopy via ostomy and anus to assess the distal remaining colon. I have obtained the records from [place] where she had seen Dr. Sharyn Orlando. It appears as though recommendations were for possible da Daija robotic surgery 1 year after colostomy takedown. I did have her undergo CT scan which revealed abnormal attenuation in the omentum anterior to the descending colon just proximal to the ostomy as well as soft tissue nodule in the omentum just anterior to the transverse colon. It was felt that this could be either infectious or inflammatory. There were felt to be too small for evaluation with PET CT scan. Colonoscopy done on 11/09/2024 via colostomy revealed normal colon. Proctoscopy via anus revealed approximately 15 cm normal-appearing colon. [facility] Disclaimer: The information contained in this section may have been updated after the patient was seen, as this information can be updated by other users. Medical History History of diverticulitis Left lateral abdominal pain Uterine prolapse Chest tightness MVP (mitral valve prolapse) Barretts esophagus Hiatal hernia Vitamin B12 deficiency Vitamin D deficiency Migraine GERD (gastroesophageal reflux disease) Hyperlipidemia Essential hypertension Surgical History History of colectomy History of colonoscopy (~2013) Family History Other No significant family history Social History (Updated 12/06/24 @ 06:26 by Beba Carroll RN) Smoking Status: Never smoker alcohol intake: never substance use type: denies use current occupational status: employed Travel in the last 8 weeks?: None household members: family housing: house Have you lived/traveled outside US in past 30 days?: No Contact w/someone who lives/traveled outside US past 30 days?: No Exposure to someone with infectious disease in past 14 days?: No Do you have a fever (greater than 100.4 F or 38 C)?: No Have you tested positive for COVID-19?: No Exposed to someone with COVID-19 in past 14 days?: No Do you have a sore throat?: No Do you have a cough?: No Do you have any weakness?: No Are you experiencing any nausea/vomitting?: No Do you have any diarrhea?: No Are you experiencing any unusual bleeding?: No Do you have any muscle aches/pain?: No Do you have any abdominal pain?: No Are you experiencing loss of taste or smell?: No Other Medical History Have you received the Flu Vaccine for this season: No Have you received the Pneumonia Vaccine: No Meds Home Medications and Allergies Home Medications ?Medication ?Instructions ?Recorded ?Confirmed ?Type sumatriptan 85 mg-naproxen 500 mg 1 tab PO NEEDED P RN migraines 12/21/23 12/06/24 History tablet esomeprazole magnesium 20 mg 20 mg PO .COMPLEX #270 ca ps 09/19/24 12/06/24 Rx capsule,delayed release rosuvastatin 20 mg tablet 20 mg PO HS #90 tabs 5 12/06/24 Rx topiramate 50 mg tablet 50 mg PO .COMPLEX #270 tabs 09/19/24 12/06/24 Rx peg 3350-electrolytes 236 240 ml PO Q10M #4,000 mL 09/0412/06/24 Rx gram-22.74 gram-6.74 gram-5.86 gram solution (Golytely) New Prescriptions to Start Prescriptions: Allergies Allergy/AdvReac Type Severity Reaction Status Date / Time No Known Allergies Allergy Verified 11/13/24 10:18 Exam Data for Last 24 hours Vital signs and Labs for Last 24 Hours: Temp Pulse Resp BP Pulse Ox O2 Del Method 98.0 F 80 16 128/79 96 Room Air 12/06/24 06:25 12/06/24 06:25 12/06/24 06:12/06/24 06:25 12/06/24 06:25 12/06/24 06:25 Constitutional Constitutional: no acute distress *Routine HEENT Exam Head: Present normocephalic Eye: Present EOMI and PERRL ENT: Present mucous membranes moist *Routine Neck Exam Neck: Present supple; Absent lymphadenopathy *Routine Respiratory Exam Respiratory: Present CTA bilaterally *Routine Cardiovascular Exam Cardiovascular: Present RRR *Routine Abdominal Exam Abdominal: Present soft, normoactive bowel sounds, surgical scars and ostomy; Absent tenderness *Routine Rectal Exam Rectal:: deferred *Routine Genitalia Exam Genitalia:: deferred *Routine Extremities Exam Extremities: Absent cyanosis, clubbing or edema *Routine Skin Exam Skin: Present warm; Absent rash *Routine Neurological Exam Neurological: Present alert and oriented X3 Assessment and Plan *Assessment and plan (1) Colostomy present: Status: Acute Category: Medical Code(s): Z93.3 - Colostomy status Plan Patient would like to pursue colostomy reversal. I feel that the findings on the CT scan are likely fat necrosis and not neoplastic given her history. Plan will be to proceed with colostomy takedown with low pelvic anastomosis. I did e xplain to her the risks including, but not limited to, bleeding, infection, anesthetic risk, anastomotic leak, and need for temporary proximal ostomy. She understands and agrees to proceed. She will require inpatient stay.
--- NOTE | 2024-12-06 07:01 | P.PNANES_ITS ---
[facility] Disclaimer: The information contained in this section may have been updated after the patient was seen, as this information can be updated by other users. Medical History History of diverticulitis Left lateral abdominal pain Uterine prolapse Chest tightness MVP (mitral valve prolapse) Barretts esophagus Hiatal hernia Vitamin B12 deficiency Vitamin D deficiency Migraine GERD (gastroesophageal reflux disease) Hyperlipidemia Essential hypertension Surgical History History of colectomy History of colonoscopy (~2013) Family History Other No significant family history Social History (Updated 12/06/24 @ 06:26 by Beba Carroll RN) Smoking Status: Never smoker alcohol intake: never substance use type: denies use current occupational status: employed Travel in the last 8 weeks?: None household members: family housing: house Have you lived/traveled outside US in past 30 days?: No Contact w/someone who lives/traveled outside US past 30 days?: No Exposure to someone with infectious disease in past 14 days?: No Do you have a fever (greater than 100.4 F or 38 C)?: No Have you tested positive for COVID-19?: No Exposed to someone with COVID-19 in past 14 days?: No Do you have a sore throat?: No Do you have a cough?: No Do you have any weakness?: No Are you experiencing any nausea/vomitting?: No Do you have any diarrhea?: No Are you experiencing any unusual bleeding?: No Do you have any muscle aches/pain?: No Do you have any abdominal pain?: No Are you experiencing loss of taste or smell?: No [facility] Anesthesia Checklist Patient Identification Patient Identification: Arm Band and Verbal (Name & ) Structural Data Admitted From: Home Planned Operative Procedure/s: Colostomy takedown Verified Documents: Surgical Consent NPO Status Verified Time NPO: 00:00 Chart Verification Results Verified: None Additional verifications Anesthesia Reactions: No Hx Blood Transfusions: No Airway Assessment Mallampati Score:: Class II C-Spine Mobility Assessed: Yes TMJ Mobility Assessed: Yes Dentition: Good Dentition Neurological Assessment Level of Consciousness: Awake, Alert and Appropriate Hx Seizures: No Numbness or tingling in extremities: No Anesthesia Plan Anesthesia Risk discussed: Yes Anesthesia Plan: Verified ASA Class: II Anesthesia Type: General
[2024-12-06] MEDS: AMPICILLIN/SULBACTAM 3 GM in 0.9 % SODIUM CHLORIDE 100 ML IV (07:15)
--- NOTE | 2024-12-06 08:15 | HMH.PHAINT1 ---
Pharmacy Intervention Comments: MEDICATION RECONCILIATION COMPLETED ON PATIENT USING EXTERNAL FILL HISTORY FROM PHARMACY. -TRAVON COATES, CLAIRD
--- NOTE | 2024-12-06 10:49 | EXP.OP.NOTE ---
Date of procedure: 12/06/24 Pre-op Diagnosis:: Obsolete colostomy Post-op Diagnosis:: Same Procedure performed:: Takedown and reversal of colostomy with pelvic anastomosis using EEA 29 stapler Incidental open appendectomy Surgeon:: Trey Madsen MD Review Scheduling Coordinator(s):: Nazario Cassidy MD Anesthesia: GETA Estimated blood loss (mL): 50 Clinical Note:: Patient presents for colostomy takedown. 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 Oscar Sales on 07/01/2024. She did undergo a colonoscopy at [facility] in December 2023. She has been followed in the office regularly. She complained of symptoms consistent with uterine prolapse when she was last seen and she underwent evaluation with Dr. Ranjana Avila. Ultimately discussion was held and she had a referral to urogynecology which she saw at [place]. It was felt that patient would require transabdominal surgery but the physician wished to refrain from doing so until her colostomy was reversed and she was healed so essentially waiting until summer 2025. Patient wishes to pursue colostomy reversal. She wants to have this done in early to have the summer to recover. I will see if I can initiate arrangements for reversal. Plan for colonoscopy via ostomy and anus to assess the distal remaining colon. I have obtained the records from [place] where she had seen Dr. Sharyn Orlando. It appears as though recommendations were for possible da Daija robotic surgery 1 year after colostomy takedown. I did have her undergo CT scan which revealed abnormal attenuation in the omentum anterior to the descending colon just proximal to the ostomy as well as soft tissue nodule in the omentum just anterior to the transverse colon. It was felt that this could be either infectious or inflammatory. There were felt to be too small for evaluation with PET CT scan. Colonoscopy done on 11/09/2024 via colostomy revealed normal colon. Proctoscopy via anus revealed approximately 15 cm normal-appearing colon. . Operative findings:: She had extensive abdominal adhesions. The distal colon appeared healthy at the rectosigmoid. Appendix was somewhat injected and thickened and indurated. Operative note:: Patient was taken the operating room. She was positioned in supine position. General anesthesia was induced via endotracheal tube. Pro catheter was placed. Left lower quadrant colostomy was closed with a running locking 0 Nurolon. She was positioned in modified lithotomy position. Abdomen and perineal area were prepped and draped in the standard surgical fashion. Midline incision was made in previous scar. Dissection was carried down through subcutaneous tissues to the fascia. Fascia was incised with electrocautery. Peritoneal cavity was carefully entered. There were relatively extensive intra-abdominal adhesions. These were taken down using some blunt dissection with use of Metzenbaum dissection as well as electrocautery where appropriate. Exposure was achieved of the pelvis. She had a rather attenuated uterus. The appendix was noted to be somewhat thickened and injected and indurated. Exposure was achieved of the pelvis. Ultimately the small bowel was freed from the retroperitoneum where it was adherent and the distal rectosigmoid stump was identified. There was unavoidable serosal tear in the loop of small bowel and this was reapproximated transversely with several 3?0 Surgilon sutures. There was moderate residual colon which appeared healthy. Attention was then turned to takedown of the colostomy. Elliptical incision was made in left lower quadrant around the closed ostomy. Dissection was carried down through subcutaneous tissues and the colon was freed from the fascia. It was delivered into the peritoneal cavity. There was some adherent omentum which was freed using electrocautery. Several centimeters proximal to the colostomy site the colon was divided at a point where it appeared relatively healthy with a LISA 75 stapling device. Colon was then placed into the pelvis and it appeared as though it would be acceptable for an end-to-end anastomosis without tension. Pursestring device was then used to create a pursestring in the proximal colon using 2-0 Prolene suture. Colon dilator/sizers were brought onto the field. 25 mm was easily inserted into the proximal colon. 28 mm was able to be inserted. 31 mm was unable to safely be inserted. Therefore a 29 mm EEA stapler was brought onto the field. The anvil portion was placed within the proximal colon and secured with the 2-0 Prolene pursestring. Attention was turned to lower portion of the procedure. Review Scheduling Coordinator, Dr. Baptiste, placed dilators sequentially followed by the EEA stapling device. However this was unable to easily be advanced to the staple line. Therefore decision was made for performance of limited resection of the distal defunctionalized colon. This was mobilized incising the peritoneum. Several centimeters were then excised using the contour stapling device. Attention was then turned to the lower portion once again. The 29 mm stapler was able to be advanced to the staple line and into and 29 mm anastomosis was created. Anastomotic ring (donuts) were intact albeit somewhat asymmetric. Pelvis was then filled with warm saline and proctoscopy was used to test the anastomosis and there was noted to be no evidence of any leak. Peritoneal cavity was then evacuated. Inspection was then carried out of the appendix once again. Given its atypical appearance and due to the high morbidity associated with possible development of acute appendicitis decision was made to perform incidental appendectomy. The mesoappendix was clamped, divided, and ligated with Vicryl ties. Appendix was clamped at its base with a straight hemostat which was then positioned immediately distal to this. Appendix was doubly ligated with 2-0 Vicryl tie. Appendix was divided at its base sharply. It was sent off as a specimen. Several 3-0 Surgilon sutures were placed at the site of the appendix and the appendiceal stump was imbricated. Enteric contents were returned to the peritoneal cavity. Colostomy site fascia was closed in 2 layers with 0 PDS. Fascia was closed with running 0 looped PDS x 2. Subcutaneous tissues were irrigated. Skin incision was closed with warren. Clean dry sterile dressing was applied. . Condition: stable Disposition: PACU Specimens:: Anastomotic rings Appendix Complications:: None immediately apparent
--- NOTE | 2024-12-06 11:16 | P.PNANES_ITS ---
[facility] Anesthesia Record Part I Anesthesia Record I Intake, IV Amount: 2,700 Hydration: Adequate Estimated blood loss (mL): 50 Urine output (mL): 400 Blood Products used (#): none Blood Pressure: 115/76 SaO2: 99 Pulse Rate: 88 Airway Patency: Patent Respiratory Rate: 16 Temperature: 97.4 F Patient is:: Drowsy and Stable Stable to PACU at:: 11:10
[2024-12-06 12:40] LABS: Microscopic,Cath URINE MICROSCOPIC (MICROSCOPIC)
[2024-12-06 12:43] LABS: Appearance,Urine/Cath CLEAR (Clear); Blood, Urine/Cath Negative (Negative); Color,Urine/Cath YELLOW (Yellow); Glucose,Urine/Cath (UA) Negative (Negative); Ketones,Urine/Cath 2+ (Negative); Leukocyte Esterase,Cath TRACE (Negative); Nitrate,Cath POSITIVE (Negative); PH,Urine/Cath 5.5 (5.0-8.5); Protein,Urine/Cath TRACE (Negative); Specific Gravity, Urine/Cath >= 1.030 (1.005-1.030); Urobilinogen,Cath 0.2 EU/dl (0.2)
[2024-12-06] MEDS: LACTATED RINGERS 1000ML 1,000 ML 125 ML IV ×2 (12:51→18:35)
[2024-12-06 12:53] LABS: Bilirubin,Cath Negative (Negative)
[2024-12-06] MEDS: HYDROMORPHONE 2MG/ML SYRINGE 1 MG IV ×4 (12:54→20:28)
[2024-12-06] MEDS: ONDANSETRON 4MG/2ML VIAL 4 MG IV ×2 (12:54→20:14)
[2024-12-06 13:11] LABS: Bacteria,Urine/Cath 1+ /lpf; RBC,Urine/Cath Occasional # /hpf (0-3); Squamous Epithelial Ur./Cath Occasional #/hpf (0-5)
[2024-12-06] MEDS: AMPICILLIN SODIUM/SULBACTAM 3 GM in 0.9 % SODIUM CHLORIDE 100 ML IV ×2 (13:55→18:35)
--- NOTE | 2024-12-06 17:18 | EXP.MED.CON ---
History of Present Illness *Admission Date: 12/06/24 *Reason for visit:: Colostomy take-down *History of present illness: Ms. Merissa White is a 64-year-old female who was admitted in June for perforated sigmoid diverticulum status post sigmoid colectomy with creation of colostomy. She presented today for elective colostomy takedown with surgery. Planned admission after surgery. Overall doing well. Had a colonoscopy performed on 11/09 via colostomy which revealed normal colon. No complications during procedure. Medicine consulted to assist with management of medical conditions by surgery. Patient stable on 2 L oxygen for comfort at this time. Currently on maintenance fluids. Still having some pain but responding well to Dilaudid. Family at bedside. Denies shortness of breath, confusion, nausea or vomiting. [facility] Disclaimer: The information contained in this section may have been updated after the patient was seen, as this information can be updated by other users. Medical History History of diverticulitis Left lateral abdominal pain Uterine prolapse Chest tightness MVP (mitral valve prolapse) Barretts esophagus Hiatal hernia Vitamin B12 deficiency Vitamin D deficiency Migraine GERD (gastroesophageal reflux disease) Hyperlipidemia Essential hypertension Surgical History History of colectomy History of colonoscopy (~2013) Family History Other No significant family history Social History Smoking Status: Never smoker alcohol intake: never substance use type: denies use current occupational status: employed Travel in the last 8 weeks?: None household members: family housing: house Have you lived/traveled outside US in past 30 days?: No Contact w/someone who lives/traveled outside US past 30 days?: No Exposure to someone with infectious disease in past 14 days?: No Do you have a fever (greater than 100.4 F or 38 C)?: No Have you tested positive for COVID-19?: No Exposed to someone with COVID-19 in past 14 days?: No Do you have a sore throat?: No Do you have a cough?: No Do you have any weakness?: No Are you experiencing any nausea/vomitting?: No Do you have any diarrhea?: No Are you experiencing any unusual bleeding?: No Do you have any muscle aches/pain?: No Do you have any abdominal pain?: No Are you experiencing loss of taste or smell?: No Review of Systems Review of Systems Review of systems (narrative): 14 point review of systems performed, pertinent positives and negatives as per HPI Exam Data for Last 24 hours Vital signs and Labs for Last 24 Hours: Temp Pulse Resp BP Pulse Ox O2 Del Method O2 Flow Rate 97.8 F 96 H 16 111/57 L 100 Room Air 2 12/06/24 15:26 12/06/24 15:26 12/06/24 15:26 12/06/24 15:26 12/06/24 16:26 12/06/24 16:12/06/24 13:06 Laboratory Results - last 24 hr 12/06/24 07:20: Urine Color Yellow, Urine Appearance Clear, Urine pH 5.5, Ur Specific [place] >= 1.030, Urine Protein Trace, Urine Glucose (UA) Negative, Urine Ketones 2+, Urine Blood Negative, Urine Nitrate Positive A, Urine Bilirubin Negative, Urine Urobilinogen 0.2, Ur Leukocyte Esterase Trace, Urine RBC Occasional, Urine WBC 3-5, Ur Squamous Epith Cells Occasional, Urine Bacteria 1+ I & O for Last 24 hours: Intake & Output 12/03/24 12/04/24 12/05/24 12/06/24 23:59 23:59 23:59 23:59 Intake Total 2700 / 2700 Balance 2700 / 2700 Constitutional Constitutional: mild distress, average body habitus, chronically ill appearing and cooperative *Routine HEENT Exam Head: Present normocephalic Eye: Present EOMI and PERRL ENT: Present mucous membranes moist *Routine Neck Exam Neck: Present supple; Absent lymphadenopathy *Routine Respiratory Exam Respiratory: Present CTA bilaterally; Absent rhonchi, wheezes or crackles *Routine Cardiovascular Exam Cardiovascular: Present RRR *Routine Abdominal Exam Abdominal: Present soft and tenderness; Absent distended or ostomy Comments: Incisional tenderness, bandage in place that is clean dry and intact; hypoactive bowel sound *Routine Rectal Exam Patient deferred: visual exam *Routine Exam Patient deferred: external exam *Routine Extremities Exam Extremities: Absent cyanosis, clubbing or edema *Routine Skin Exam Skin: Present intact and warm; Absent rash *Routine Neurological Exam Neurological: Present alert, oriented X3 and moving all extremities; Absent altered mental status Meds Home Medications and Allergies Home Medications ?Medication ?Instructions ?Recorded ?Confirmed ?Type sumatriptan 85 mg-naproxen 500 mg 1 tab PO NEEDED PRN migraines 12/21/23 12/06/24 History tablet rosuvastatin 20 mg tablet 20 mg PO HS #90 tabs 09/19/24 12/06/24 Rx albuterol sulfate 90 mcg/actuation 2 puff inhalation Q4HP PRN 12/06/24 12/06/24 History aerosol inhaler Shortness Of Breath Or Wheezing esomeprazole magnesium 20 mg 20 mg PO DAILY 12/06/24 12/06/24 History capsule,delayed release esomeprazole magnesium 20 mg 40 mg PO HS 12/06/24 12/06/24 History capsule,delayed release topiramate 50 mg tablet 50 mg PO DAILY 12/06/24 12/06/24 History topiramate 50 mg tablet 100 mg PO HS 12/06/24 12/06/24 History New Prescriptions to Start Prescriptions: Allergies Allergy/AdvReac Type Severity Reaction Status Date / Time No Known Allergies Allergy Verified 11/13/24 10:18 Results Labs Labs: Abnormal lab results 12/06/24 Range/Units 07:20 Urine Nitrate Positive A (Negative) All other labs normal. Assessment and Plan *Assessment and plan (1) Abdominal pain: Status: Acute Qualifiers: Abdominal location: generalized Qualified Code(s): R10.84 - Generalized abdominal pain Category: Medical Code(s): R10.9 - Unspecified abdominal pain (2) S/P colostomy takedown: Status: Acute Category: Surgical Code(s): Z98.890 - Other specified postprocedural states (3) Diverticulosis: Status: Acute Category: Medical Code(s): K57.90 - Diverticulosis of intestine, part unspecified, without perforation or abscess without bleeding (4) Status post laparotomy: Status: Acute Category: Surgical Code(s): Z98.890 - Other specified postprocedural states (5) S/P colectomy: Status: Acute Category: Surgical Code(s): Z90.49 - Acquired absence of other specified parts of digestive tract (6) Colostomy present: Status: Acute Category: Medical Code(s): Z93.3 - Colostomy status (7) Postoperative abdominal pain: Status: Acute Category: Medical Code(s): R10.9 - Unspecified abdominal pain; G89.18 - Other acute postprocedural pain (8) Hypomagnesemia: Status: Resolved Category: Medical Code(s): E83.42 - Hypomagnesemia (9) Hypokalemia: Status: Resolved Category: Medical Code(s): E87.6 - Hypokalemia Plan Madelin Talamantes is a 64-year-old female who presented for reversal of colostomy. Presented earlier this year in June with perforated sigmoid diverticulitis status post sigmoid colectomy with end colostomy. Was brought for elective reversal today. Medicine was consulted by surgery to evaluate and assist with medical management. Patient complaining of some abdominal pain but otherwise feeling okay. Pain being controlled with IV Dilaudid. N.p.o. at this time. Discussed case with surgery, request assistance with medical management. Problems addressed as follows: Abdominal pain Colostomy takedown -History of perforated sigmoid diverticulum with partial colectomy and end colostomy in June. Brought in for elective reversal today. Tolerated procedure well. -Initiated on Dilaudid IV 1mg every hour for severe breakthrough pain. Monitor for toxicity - Continue Unasyn 3 g every 6 hours - N.p.o. pending improvement in bowel function. Defer dietary advancement to surgery -Encourage ambulation - CBC, CMP, magnesium ordered for the morning. Preop labs obtained 5 days ago with stable hemoglobin 11.3, white count normal at 5.7 - Kidney function normal on 11/30 with BUN 11, creatinine 0.8. GERD: Resume home as resolved nightly Migraines: Continue Topamax prophylaxis with the 100 mg nightly and 50 mg daily Hyperlipidemia: Hold statin while patient is NPO. Will advance cautiously after resumption of diet Full code Maintenance IV fluids with LR at 150 cc an hour. Reevaluate in the more, caution with volume of Sips and chips
--- NOTE | 2024-12-06 19:03 | PC.NURSE ---
1140 report recieved from wei paz food and beverage intern 1903 report given to merry trevino rn
[2024-12-06] MEDS: FAMOTIDINE 20MG/2ML VIAL 20 MG IV (20:16)
[2024-12-06] MEDS: SODIUM CHLORIDE 0.9% 10ML VIAL 8 ML IV (20:16)
[2024-12-07] VITALS (7 sets, daily range): BP systolic 99–112; BP diastolic 53–73; PULSE 74–95; RESP 16–18; TEMP 36.3–37.1; O2SAT 96–99
[2024-12-07] MEDS: AMPICILLIN SODIUM/SULBACTAM 3 GM in 0.9 % SODIUM CHLORIDE 100 ML IV ×4 (00:45→18:35)
[2024-12-07] MEDS: HYDROMORPHONE 2MG/ML SYRINGE 1 MG IV ×2 (04:06→09:16)
[2024-12-07] MEDS: LACTATED RINGERS 1000ML 1,000 ML 125 ML IV ×3 (04:13→22:32)
--- NOTE | 2024-12-07 06:07 | PC.NURSE ---
0608 - Dr. Madsen at bedside.
[2024-12-07 06:08] LABS: Basophils % 0.1 % (0.1-2.0); Immature Granulocytes # 0.06 10^3uL; Immature Granulocytes % 0.5 %; Lymphocytes # 1.1 K/mm3 (0.7-4.5); Lymphocytes % 8.4 % (10-50); Mean Corpuscular HGB Conc 29.6 g/dL (31.8-35.4); Mean Corpuscular Hemoglobin 25.6 pg (27.0-31.2); Mean Corpuscular Volume 86.5 fl (81-99); Mean Platelet Volume 11.7 fl (7.4-10.4); Monocytes # 1.4 K/mm3 (0.1-1.0); Monocytes % 10.5 % (1.7-9.3); Neutrophils # 10.4 K/mm3 (1.8-7.8); Neutrophils % 80.5 % (37.0-80.0); Nucleated Red Blood Cells # 0 10^3/uL; Nucleated Red Blood Cells % 0 %; Platelet Count 144 K/mm3 (142-424); Red Blood Count 3.12 M/mm3 (4.20-5.40); Red Cell Distribution Width 16.5 % (11.5-17.5); Red Cell Distribution Width-SD 51.2 fL; White Blood Count 12.9 K/mm3 (4.8-10.8)
[2024-12-07 06:12] LABS: Chloride 107 mmol/L (98-107)
[2024-12-07 06:13] LABS: Potassium 3.4 mmoL/L (3.5-5.1); Sodium 139 mmol/L (136-145)
[2024-12-07 06:15] LABS: Blood Urea Nitrogen 16 mg/dl (7-17); Creatinine Clearance Estimated 56 mL/min (50-200); Estimated Glomerular Filt Rate 73 ml/min (>60); GFR (African American) 88 ML/MIN (>60)
[2024-12-07 06:16] LABS: Anion Gap 10.4 mEq/L (5-15); Carbon Dioxide 25 mmol/L (22.0-30.0); Glucose 108 mg/dl (74-100)
--- NOTE | 2024-12-07 06:35 | EXP.SURG.PN ---
Subjective Narrative: Patient has had some incisional pain. Occasional nausea. No flatus. Exam Data for Last 24 hours Vital signs and Labs for Last 24 Hours: Temp Pulse Resp BP Pulse Ox O2 Del Method O2 Flow Rate 98.7 F 84 16 112/60 99 Room Air 1 12/07/24 04:05 12/07/24 04:05 12/07/24 04:05 12/07/24 04:05 12/07/24 04:05 12/07/24 04:05 12/07/24 00:09 Laboratory Results - last 24 hr 12/06/24 07:20: Urine Color Yellow, Urine Appearance Clear, Urine pH 5.5, Ur Specific [place] >= 1.030, Urine Protein Trace, Urine Glucose (UA) Negative, Urine Ketones 2+, Urine Blood Negative, Urine Nitrate Positive A, Urine Bilirubin Negative, Urine Urobilinogen 0.2, Ur Leukocyte Esterase Trace, Urine RBC Occasional, Urine WBC 3-5, Ur Squamous Epith Cells Occasional, Urine Bacteria 1+ 12/07/24 05:38: WBC 12.9 H, RBC 3.12 L, Hgb 8.0 L, Hct 27.0 L, MCV 86.5, MCH 25.6 L, MCHC 29.6 L, RDW 16.5, Plt Count 144, MPV 11.7 H, Neut % (Auto) 80.5 H, Lymph % (Auto) 8.4 L, Mcmullen % (Auto) 10.5 H, Eos % (Auto) 0.0 L, Baso % (Auto) 0.1, Neut # (Auto) 10.4 H, Lymph # (Auto) 1.1, Mcmullen # (Auto) 1.4 H, Eos # (Auto) 0.0, Baso # (Auto) 0.0, Sodium 139, Potassium 3.4 L, Chloride 107, Carbon Dioxide 25, Anion Gap 10.4, BUN 16, Creatinine 0.80, Estimated Creat Clear 56, Estimated GFR 73, Est GFR ( Amer) 88, Glucose 108 H, Calcium 8.0 L I & O for Last 24 hours: Intake & Output 12/04/24 12/05/24 12/06/24 12/07/24 11:59 11:59 11:59 11:59 Intake Total 2700 / 2700 Output Total 925 / 925 Balance 2700 / 2700 -925 / -925 *Routine Abdominal Exam Abdominal: Present tenderness; Absent distended Comments: Dressing dry Progress Note: A&P Assessment and plan (1) Abdominal pain: Status: Acute (2) S/P colostomy takedown: Status: Acute Assessment and plan: Increase ambulation. Continue n.p.o. except ice chips. CBC reveals hemoglobin of 8.0. Continue to monitor. On perioperative antibiotics. (3) Diverticulosis: Status: Acute (4) Status post laparotomy: Status: Acute (5) S/P colectomy: Status: Acute (6) Colostomy present: Status: Acute (7) Postoperative abdominal pain: Status: Acute (8) Hypomagnesemia: Status: Resolved (9) Hypokalemia: Status: Resolved
--- NOTE | 2024-12-07 07:23 | PC.NURSE ---
Report given to Maureen Shaw RN
--- OUTSIDE RECORDS SUMMARY | 2024-12-07 07:23 | XMS_ITS | Encounter Summary ---
Author Organization [place] [address] Care Team Providers Care Photogrammetric Engineer Name Role Phone Javi Arias MD Primary Care Provider [phone] Boris Juarez MD Unavailable [phone] Encounter Details Date Type Department Care Team (Late st Contact Info) Description 06/02/2020 Orders Only [facility] Gastro [facility] [address] [facility] Building [address] [place] [address] Hector Lam MD PHD [address] [place] [address] Social History Tobacco Use Types [...] EST) 06/02/2020 2:40 PM EST Impressions [facility] - 06/02/2020 3:33 PM EST Normal [...] GI PROCEDURE ORDERABLES Fin al Result [facility] [address] [place] [address] documented in this encounter Visit Diagnoses Not on filedocumented in this encounter Care Teams Photogrammetric Engineer Relationship Specialty Start Date End Date Javi Arias MD [address] [facility] [address] [place] [address] PCP - General Psychiatry & Neurology-Neurology 05/02/12 Boris Juarez MD [address] [facility] [address] [place] [address] Physician Internal Medicine-Gastroenterolog y 04/01/16 documented as of this encounter
--- OUTSIDE RECORDS SUMMARY | 2024-12-07 07:23 | XMS_ITS | Encounter Summary ---
Author Organization [place] [address] Care Team Providers Care High School Coach Name Role Phone Javi Arias MD Primary Care Provider [phone] Boris Juarez MD Unavailable [phone] Encounter Details Date Type Department Care Team (Latest Contact Info) Description 09/24/2024 Results Follow-Up [facility] Urogynecology [address] [address] Sharyn Orlando MD [address] [place] [address] [phone] URINE CULTURE (NO STAIN), URINALYSIS Social History [...] on filedocumented in this encounter Care Teams High School Coach Relationship Specialty Start Date End Date Javi Arias MD [address] [facility] [address] [place] [phone] PCP - General Psychiatry & Neurology-Neurology 05/02/12 Boris Juarez MD [address] [facility] [address] [place] [phone] Physician Internal Medicine-Gastroenterolog y 04/01/16 documented as of this encounter
--- OUTSIDE RECORDS SUMMARY | 2024-12-07 07:23 | XMS_ITS | Encounter Summary ---
Author Organization [place] [address] Care Team Providers Care Human Projectile Name Role Phone Javi Arias MD Primary Care Provider [phone] Boris Juarez MD Unavailable [phone] Encounter Details Date Type Department Care Team (Late st Contact Info) Description 05/04/2016 Orders Only SEP Gastro [facility] [address] [facility] Building [address] [place] [address] [place] [address] [place] [address] Social History Tobacco Use Types [...] EST) 05/04/2016 10:2 0 AM EST Impressions [facility] - 05/04/2016 11:18 AM [...] ORDERABLES Tsering kwok Result Performing Organization Address City/State/[facility] Co de Phone Number [facility] [address] [place] [address] documented in this encounter Visit Diagnoses Not on filedocumented in this encounter Care Teams Human Projectile Relationship Specialty Start Date End Date Javi Arias MD [address] [facility] [address] [place] [address] PCP - General Psychiatry & Neurology-Neurology 05/02/12 Boris Juarez MD [address] [facility] [address] [place] [address] Physician Internal Medicine-Gastroenterolog y 04/01/16 documented as of this encounter
--- OUTSIDE RECORDS SUMMARY | 2024-12-07 07:23 | XMS_ITS | Encounter Summary ---
Author Organization [place] [address] Care Team Providers Care Small Parts Assembler Name Role Phone Javi Arias MD Primary Care Provider [phone] Boris Juarez MD Unavailable [phone] Encounter Details Date Type Department Care Team (Late st Contact Info) Description 06/02/2020 Lab Requisition [facility] [address] [place] [id number] Hector Lam MD PHD [address] [place] [address] Gay's esophagus without dysplasia; Diaphragmatic hernia without [...] PM EST) CASE REPORT Surgical Pathology Case: [id number] Authorizing Provider: Hector Lam MD PHD Collected: 06/02/2020 1440 Ordering Location: [facility] Received: 06/02/2020 1841 Pathologist: Sawyer Hoff MD Specimens: A) - Esophagus B) - Esophagus C) - Esophagus 06/03/2020 3:50 PM EST [facility] CLINICAL HISTORY Gay's esophagus. 06/03/2020 3:50 PM EST [facility] FINAL DIAGNOSIS A) Esophageal Biopsy [...] Nonspecific Chronic Esophagitis. 06/03/2020 3:50 PM EST [facility] at 1550 EST MICROSCOPIC DESCRIPTION Microscopic examination is performed and the findings corroborate the diagnosis. 06/03/2020 3:50 PM EST [facility] EMBEDDED IMAGES 06/03/2020 3:50 PM [facility] GROSS DESCRIPTION Part A) Received in [...] one cassette. /TE 06/03/2020 3:50 PM EST [facility] Tissue SPECIMEN FROM ESOPHAGUS / Unknown 06/02/2020 2:40 PM EST 06/02/2020 6:41 PM EST Tissue specimen (specimen) ESOPHAGEAL STRUCTURE / Unknown 06/02/2020 2:40 PM EST 06/02/2020 6:41 PM EST Tissue specimen (specimen) ESOPHAGEAL STRUCTURE / Unknown 06/02/2020 2:40 PM EST 06/02/2020 6:41 PM EST Hector Lam MD PHD PATHOLOGY ORDERABLES Final Result [facility] [address] [place] [address] [facility] [address] [place] [address] documented in this encounter Visit Diagnoses Diagnosis Gay's esophagus without dysplasia Gay's esophagus Diaphragmatic hernia without obstruction or gangrene Diaphragmatic hernia without mention of obstruction or gangrene documented in this encounter Care Teams Small Parts Assembler Relationship Specialty Start Date End Date Javi Arias MD [address] [facility] [address] [place] [address] PCP - General Psychiatry & Neurology-Neurology 05/02/12 Boris Juaerz MD [address] [facility] [address] [place] [address] Physician Internal Medicine-Gastroenterolog y 04/01/16 documented as of this encounter
--- OUTSIDE RECORDS SUMMARY | 2024-12-07 07:23 | XMS_ITS | Clinical Summary ---
Author Organization [facility] Address [address] [place] [address] Care Team Providers Care Electrophysiology Scientist Name Role Phone Johnny Arias MD Primary Care Provider [phone] Family History Medical History Relation Name Comments [...] of Treatment Not on file Care Teams Electrophysiology Scientist Relationship Specialty Start Date End Date Johnny Arias MD [address] [facility] [place] [address] PCP - General 10/24/20
--- OUTSIDE RECORDS SUMMARY | 2024-12-07 07:23 | XMS_ITS | Encounter Summary ---
Author [place] [address] Care Team Providers Care Student Financial Aid Manager Name Role Phone Javi Arias MD Primary Care Provider [phone] Boris Juarez MD Unavailable [phone] Encounter Details Date Type Department Care Team (Late st Contact Info) Description 06/08/2017 Orders Only SEP Gastro [facility] [address] [facility] [address] [place] [address] Hector Lam MD PHD [address] [place] [address] Social History Tobacco Use Types [...] EST) 06/08/2017 11:0 0 AM EST Impressions [facility] - 06/08/2017 11:47 AM EST Normal [...] ORDERABLES Fin al Result Performing Organization Address City/State/[facility] Co de Phone Number [facility] [address] [place] [address] documented in this encounter Visit Diagnoses Not on filedocumented in this encounter Care Teams Student Financial Aid Manager Relationship Specialty Start Date End Date Javi Arias MD [address] [facility] [address] [place] [address] PCP - General Psychiatry & Neurology-Neurology 05/02/12 Boris Juarez MD [address] [facility] [address] [place] [address] Physician Internal Medicine-Gastroenterolog y 04/01/16 documented as of this encounter
--- OUTSIDE RECORDS SUMMARY | 2024-12-07 07:23 | XMS_ITS | Clinical Summary ---
Author Organization [facility] [place] Address [address] [place] [address] Phone Care Team Providers Care Claims Account Manager Name Role Phone Javi Arias MD Primary Care Provider [phone] Boris Juarez MD Unavailable [phone] Allergies No known active allergies Medications Sumatriptan-Napr [...] Department Care Team Description 09/24/2024 Results Follow-Up [facility] [place] [address] [address] Sharyn Orlando MD URINE CULTURE (NO STAIN), URINALYSIS 09/21/2024 8:30 AM EDT Office Visit [facility] [place] [address] [address] Sharyn Orlando MD Incomplete uterovaginal prolapse (Primary [...] maintain an ideal body weight General No Hawkeye, Dang, REEL FILM INSPECTOR Procedures Procedure Name Priority Date/Time Associated Diagnosis Comments URINALYSIS Routine 09/21/2024 8:47 AM EDT Hematuria, unspecified type URINE CULTURE (NO STAIN) Routine 09/21/2024 8:47 AM EDT Frequency of urination COLONOSCOPY Routine 01/05/2024 3:12 PM EDT Screening for colon cancer MARINE EQUIPMENT ENGINEER CYTOLOGY REQUEST (PAP ONLY) Routine 12/05/2018 3:40 [...] ORDERABLES Final Re sult Performing Organization Address [facility] Co de Phone Number [facility] [employer] [address] , [place] [address] * URINE CULTURE (NO STAIN) (09/21/2024 8:47 AM EDT) Culture No growth at 30 hours. 09/23/2024 3:27 PM EDT [place] [employer] [facility] Urine URINARY BLADDER STRUCTURE / Unknown 09/21/2024 8:47 AM EDT 09/21/2024 8:47 AM EDT Sharyn Orlando MD MICROBIOLOGY - GENERAL OR DERABLES Final Result Performing Organization Address [facility] de Phone Number [facility] [employer] [address] , [place] [address] * COLONOSCOPY (01/05/2024 3:12 PM EDT) Anatomical [...] cancer Staff Staff Role Collin Rincon, MILDRED Door Assembler Ya Silva MD Anesthesiologist Hector Lam MD [...] ENDOSCOPY PROCEDURE ORDERAB LES Final Result * MARINE EQUIPMENT ENGINEER CYTOLOGY REQUEST (PAP ONLY) (12/05/2018 3:40 PM EDT) CASE REPORT Gynecologic Cytology Report Case: [id number] Authorizing Provider: Tien Das MD Collected: 12/05/2018 1540 Ordering Location: [facility] Received: 12/05/2018 1540 First Screen: Laura Guardado, CT Rescreen: Stefany Ambrosio, MARCIN Specimen: LIQUID-BASED PAP - CERVICAL/ENDOCERV ICAL, Cervix, Endocervical 12/07/2018 3:47 PM EDT [facility] PAP FINAL DIAGNOSIS Negative for intraepithelial lesion or malignancy 12/07/2018 3:47 PM EDT [facility] at 1547 EDT MICROSCOPIC DESCRIPTION Microscopic examination is performed and the findings corroborate the diagnosis. 12/07/2018 3:47 PM EDT [facility] PAP SMEAR ADEQUACY Satisfactory for evaluation 12/07/2018 3:47 PM EDT [facility] ENDOCERVICAL T-ZONE Transformation Zone Absent. This is not unusual in a post-menopausal woman. 12/07/2018 3:47 PM EDT [facility] EMBEDDED IMAGES 9 3:47 PM EDT [facility] PAP DISCLAIMER The Pap Smear is a screening test that aids in the detection of cervical cancer and cancer precursors. Both false positive and false negative results can occur. The test should be used at regular intervals, and positive results should be confirmed before definitive therapy. Processed using the ThinPrep Churner Automated cytology screening device ([employer]). 12/07/2018 3:47 PM EDT [facility] PAP OTHER FINDINGS Many acute inflammatory cells noted. 12/07/2018 3:47 PM EDT [facility] Thin Prep ENDOCERVICAL STRUCTURE / Unknown 12/05/2018 3:40 PM EDT 12/05/2018 3:40 PM EDT Tien Das MD CYTOLOGY ORDERABLES Final Re sult [employer] [address] [address] from Last 3 Months or Most Recently Relevant to Health Maintenance Insurance Care Teams Claims Account Manager Relationship Specialty Start Date End Date Javi Arias MD [address] [place] [address] [address] [place] [address] PCP - General Psychiatry & Neurology-Neurology 05/02/12 Boris Juarez MD [address] [facility] [address] [place] [address] Physician Internal Medicine-Gastroenterolog y 04/01/16
--- OUTSIDE RECORDS SUMMARY | 2024-12-07 07:23 | XMS_ITS | Encounter Summary ---
Author Organization [place] [address] Care Team Providers Care Painter Airbrush Name Role Phone Javi Arias MD Primary Care Provider [phone] Boris Juarez MD Unavailable [phone] Encounter Details Date Type Department Care Team (Late st Contact Info) Description 06/08/2017 Lab Requisition [facility] [place] [address] 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 06/09/2017 9:15 AM EST [facility] FINAL DIAGNOSIS A) Esophagus, biopsies at 33 cm: - Gastric oxyntic mucosa with no diagnostic pathologic abnormality. B) Esophagus, biopsy at 31 cm: - Gay's esophagus, negative for dysplasia. 06/09/2017 9:[address] [facility] at 0915 EST GROSS DESCRIPTION The specimen [...] one cassette. /CDM 06/09/2017 9:15 AM EST [facility] FR[facility] SE[facility]AGNOSIS 06/09/2017 9:[address] [facility] MICROSCOPIC DESCRIPTION Microscopic examination is performed and the findings corroborate the diagnosis. 06/09/2017 9:15 AM EST [facility] EMBEDDED IMAGES 06/09/2017 9:[address] 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
--- OUTSIDE RECORDS SUMMARY | 2024-12-07 07:23 | XMS_ITS | Encounter Summary ---
Author Organization [place] [address] Care Team Providers Care Rn Burn Name Role Phone Javi Arias MD Primary Care Provider [phone] Boris Juarez MD Unavailable [phone] Encounter Details Date Type Department Care Team (Late st Contact Info) Description 08/10/2017 Orders Only [facility] G[facility] [address] [facility] [address] [place] [address] Hector Lam MD PHD [address] [place] [address] Social History Tobacco Use Types [...] EST) 08/10/2017 11:0 0 AM EST Impressions [facility] - 08/11/2017 6:42 AM EST Normal [...] Hector Lam MD PHD GI PROCEDURE ORDERABLES Pedro Luis simin Result - Final [facility] [address] [id number] documented in this encounter Visit Diagnoses Not on filedocumented in this encounter Care Teams Rn Burn Relationship Specialty Start Date End Date Javi Arias MD [address] [place] [address] PCP - General Psychiatry & Neurology-Neurology 05/02/12 Boris Juarez MD [address] [place] [address] Physician Internal Medicine-Gastroenterolog y 04/01/16 documented as of this encounter
--- NOTE | 2024-12-07 08:32 | P.PNANES_ITS ---
[facility] Anesthesia Record Part II Anesthesia Record Part II Discharge Time: 11:40 Destination: Medical Surgical Department PACU nurse assessment reviewed?: Yes Patient Condition:: Good Anesthesia Complications:: None Swallowing reflex intact?: Yes Airway Patency: Patent Cyanosis?: No Blood Pressure: 107/71 SaO2: 97 Respiratory Rate: 18 Pulse Rate: 95 Temperature: 97.4 F Mental Status: Alert & Oriented Pain level:: 5 Nausea and/or vomitting:: None Intake, IV Amount: 0 Hydration: Adequate
[2024-12-07] MEDS: TOPIRAMATE 25MG TABLET 50 MG PO (09:04)
[2024-12-07] MEDS: SODIUM CHLORIDE 0.9% 10ML FLUSH SYRINGE 10 ML IV (09:05)
[2024-12-07] MEDS: FAMOTIDINE 20MG/2ML VIAL 20 MG IV ×2 (09:06→20:27)
[2024-12-07] MEDS: SODIUM CHLORIDE 0.9% 10ML VIAL 8 ML IV ×2 (09:06→20:27)
--- NOTE | 2024-12-07 10:08 | PC.NURSE ---
SPO2 noted to be at 87% on RA. After several deep breathes SPO2 noted to be at 86%. 2L O2 via NC applied SPO2 noted to be at 98%.
[2024-12-07] MEDS: ONDANSETRON 4MG/2ML VIAL 4 MG IV (11:49)
--- NOTE | 2024-12-07 12:00 | PC.NURSE ---
Addendum entered by Irene Shaw RN 12/07/24 12:01: occurred at 11:45 Original Note: Nurse assisted pt. to stand and sit up in rocking chair. Pt. tolerating fair. Pt. reports nausea and pain starting to increase. Pt. sitting in rocking chair, performing bed bath. Pt. denies needs, requests nausea medication once finished. Nurse v/u.
--- NOTE | 2024-12-07 14:20 | EXP.MED.CON ---
History of Present Illness *Admission Date: 12/06/24 *History of present illness: Ms. Merissa White is a 64-year-old female who was admitted in June for perforated sigmoid diverticulum status post sigmoid colectomy with creation of colostomy. She presented today for elective colostomy takedown with surgery. Planned admission after surgery. Overall doing well. Had a colonoscopy performed on 11/09 via colostomy which revealed normal colon. No complications during procedure. Medicine consulted to assist with management of medical conditions by surgery. Patient stable on 2 L oxygen for comfort at this time. Currently on maintenance fluids. Still having some pain but responding well to Dilaudid. Family at bedside. Denies shortness of breath, confusion, nausea or vomiting. [facility] Disclaimer: The information contained in this section may have been updated after the patient was seen, as this information can be updated by other users. Medical History History of diverticulitis Left lateral abdominal pain Uterine prolapse Chest tightness MVP (mitral valve prolapse) Barretts esophagus Hiatal hernia Vitamin B12 deficiency Vitamin D deficiency Migraine GERD (gastroesophageal reflux disease) Hyperlipidemia Essential hypertension Surgical History History of colectomy History of colonoscopy (~2013) Family History Other No significant family history Social History Smoking Status: Never smoker alcohol intake: never substance use type: denies use current occupational status: employed Travel in the last 8 weeks?: None household members: family housing: house Have you lived/traveled outside US in past 30 days?: No Contact w/someone who lives/traveled outside US past 30 days?: No Exposure to someone with infectious disease in past 14 days?: No Do you have a fever (greater than 100.4 F or 38 C)?: No Have you tested positive for COVID-19?: No Exposed to someone with COVID-19 in past 14 days?: No Do you have a sore throat?: No Do you have a cough?: No Do you have any weakness?: No Are you experiencing any nausea/vomitting?: No Do you have any diarrhea?: No Are you experiencing any unusual bleeding?: No Do you have any muscle aches/pain?: No Do you have any abdominal pain?: No Are you experiencing loss of taste or smell?: No Exam Data for Last 24 hours Vital signs and Labs for Last 24 Hours: Temp Pulse Resp BP Pulse Ox O2 Del Method O2 Flow Rate 98.3 F 74 18 99/53 L 98 Room Air 2 12/07/24 08:15 12/07/24 08:15 12/07/24 08:33 12/07/24 08:15 12/07/24 08:15 12/07/24 14:03 12/07/24 10:00 Laboratory Results - last 24 hr 12/07/24 05:38: WBC 12.9 H, RBC 3.12 L, Hgb 8.0 L, Hct 27.0 L, MCV 86.5, MCH 25.6 L, MCHC 29.6 L, RDW 16.5, Plt Count 144, MPV 11.7 H, Neut % (Auto) 80.5 H, Lymph % (Auto) 8.4 L, [place] % (Auto) 10.5 H, Eos % (Auto) 0.0 L, Baso % (Auto) 0.1, Neut # (Auto) 10.4 H, Lymph # (Auto) 1.1, [place] # (Auto) 1.4 H, Eos # (Auto) 0.0, Baso # (Auto) 0.0, Sodium 139, Potassium 3.4 L, Chloride 107, Carbon Dioxide 25, Anion Gap 10.4, BUN 16, Creatinine 0.80, Estimated Creat Clear 56, Estimated GFR 73, Est GFR ( Amer) 88, Glucose 108 H, Calcium 8.0 L I & O for Last 24 hours: Intake & Output 12/04/24 12/05/24 12/06/24 12/07/24 23:59 23:59 23:59 23:59 Intake Total 2700 / 2700 0 / 0 Output Total 650 / 650 475 / 475 Balance 2049 / 2049 -475 / -475 Meds Home Medications and Allergies Home Medications ?Medication ?Instructions ?Recorded ?Confirmed ?Type sumatriptan 85 mg-naproxen 500 mg 1 tab PO NEEDED PRN migraines 12/21/23 12/06/24 History tablet rosuvastatin 20 mg tablet 20 mg PO HS #90 tabs 09/19/24 12/06/24 Rx albuterol sulfate 90 mcg/actuation 2 puff inhalation Q4HP PRN 12/06/24 12/06/24 History aerosol inhaler Shortness Of Breath Or Wheezing esomeprazole magnesium 20 mg 20 mg PO DAILY 12/06/24 12/06/24 History capsule,delayed release esomeprazole magnesium 20 mg 40 mg PO HS 12/06/24 12/06/24 History capsule,delayed release topiramate 50 mg tablet 50 mg PO DAILY 12/06/24 12/06/24 History topiramate 50 mg tablet 100 mg PO HS 12/06/24 12/06/24 History New Prescriptions to Start Prescriptions: Allergies Allergy/AdvReac Type Severity Reaction Status Date / Time No Known Allergies Allergy Verified 11/13/24 10:18 Results Labs 12/07/24 05:38 12/07/24 05:38 Labs: Abnormal lab results 12/07/24 Range/Units 05:38 WBC 12.9 H (4.8-10.8) K/mm3 RBC 3.12 L (4.20-5.40) M/mm3 Hgb 8.0 L (12.2-16.2) g/dL Hct 27.0 L (37.0-47.0) % MCH 25.6 L (27.0-31.2) pg MCHC 29.6 L (31.8-35.4) g/dL MPV 11.7 H (7.4-10.4) fl Neut % (Auto) 80.5 H (37.0-80.0) % Lymph % (Auto) 8.4 L (10-50) % Fleming % (Auto) 10.5 H (1.7-9.3) % Eos % (Auto) 0.0 L (0.1-12.0) % Neut # (Auto) 10.4 H (1.8-7.8) K/mm3 Fleming # (Auto) 1.4 H (0.1-1.0) K/mm3 Potassium 3.4 L (3.5-5.1) mmoL/L Glucose 108 H (74-100) mg/dl Calcium 8.0 L (8.4-10.2) mg/dl H & H 12/07/24 Range/Units 05:38 Hgb 8.0 L (12.2-16.2) g/dL Hct 27.0 L (37.0-47.0) % All other labs normal.
[2024-12-07] MEDS: KETOROLAC 30MG/ML VIAL 30 MG IV ×2 (14:40→20:42)
--- NOTE | 2024-12-07 15:36 | EXP.MED.FU ---
Subjective *Date: 12/07/24 *Time: 15:36 Interval history: Patient still having abdominal pain but feeling more activity in her abdomen. No nausea or vomiting. No gas yet. Stable on room air. Afebrile. Exam Data for Last 24 hours Vital signs and Labs for Last 24 Hours: Temp Pulse Resp BP Pulse Ox O2 Del Method O2 Flow Rate 98.3 F 74 18 99/53 L 98 Room Air 2 12/07/24 08:15 12/07/24 08:15 12/07/24 08:33 12/07/24 08:15 12/07/24 08:15 12/07/24 14:03 12/07/24 10:00 Laboratory Results - last 24 hr 12/07/24 05:38: WBC 12.9 H, RBC 3.12 L, Hgb 8.0 L, Hct 27.0 L, MCV 86.5, MCH 25.6 L, MCHC 29.6 L, RDW 16.5, Plt Count 144, MPV 11.7 H, Neut % (Auto) 80.5 H, Lymph % (Auto) 8.4 L, [place] % (Auto) 10.5 H, Eos % (Auto) 0.0 L, Baso % (Auto) 0.1, Neut # (Auto) 10.4 H, Lymph # (Auto) 1.1, [place] # (Auto) 1.4 H, Eos # (Auto) 0.0, Baso # (Auto) 0.0, Sodium 139, Potassium 3.4 L, Chloride 107, Carbon Dioxide 25, Anion Gap 10.4, BUN 16, Creatinine 0.80, Estimated Creat Clear 56, Estimated GFR 73, Est GFR ( Amer) 88, Glucose 108 H, Calcium 8.0 L I & O for Last 24 hours: Intake & Output 12/04/24 12/05/24 12/06/24 12/07/24 23:59 23:59 23:59 23:59 Intake Total 2700 / 2700 0 / 0 Output Total 650 / 650 475 / 475 Balance 2049 / 2049 -475 / -475 Constitutional Constitutional: mild distress, average body habitus, chronically ill appearing and cooperative *Routine HEENT Exam Head: Present normocephalic Eye: Present EOMI and PERRL ENT: Present mucous membranes moist *Routine Neck Exam Neck: Present supple; Absent lymphadenopathy *Routine Respiratory Exam Respiratory: Present CTA bilaterally; Absent rhonchi, wheezes or crackles *Routine Cardiovascular Exam Cardiovascular: Present RRR *Routine Abdominal Exam Abdominal: Present soft, normoactive bowel sounds and tenderness (Worsen lower abdomen); Absent distended Comments: Incisions clean dry and intact, dry bandage in place *Routine Rectal Exam Patient deferred: visual exam *Routine Exam Patient deferred: external exam *Routine Extremities Exam Extremities: Absent cyanosis, clubbing or edema *Routine Skin Exam Skin: Present intact and warm; Absent rash *Routine Neurological Exam Neurological: Present alert, oriented X3 and moving all extremities; Absent altered mental status Assessment and Plan *Assessment and plan (1) Abdominal pain: Status: Acute Qualifiers: Abdominal location: generalized Qualified Code(s): R10.84 - Generalized abdominal pain Category: Medical Code(s): R10.9 - Unspecified abdominal pain (2) S/P colostomy takedown: Status: Acute Category: Surgical Code(s): Z98.890 - Other specified postprocedural states (3) Diverticulosis: Status: Acute Category: Medical Code(s): K57.90 - Diverticulosis of intestine, part unspecified, without perforation or abscess without bleeding (4) Status post laparotomy: Status: Acute Category: Surgical Code(s): Z98.890 - Other specified postprocedural states (5) S/P colectomy: Status: Acute Category: Surgical Code(s): Z90.49 - Acquired absence of other specified parts of digestive tract (6) Colostomy present: Status: Acute Category: Medical Code(s): Z93.3 - Colostomy status (7) Postoperative abdominal pain: Status: Acute Category: Medical Code(s): R10.9 - Unspecified abdominal pain; G89.18 - Other acute postprocedural pain (8) Hypomagnesemia: Status: Resolved Category: Medical Code(s): E83.42 - Hypomagnesemia (9) Hypokalemia: Status: Resolved Category: Medical Code(s): E87.6 - Hypokalemia Plan Madelin Talamantes is a 64-year-old female who presented for reversal of colostomy. Presented earlier this year in June with perforated sigmoid diverticulitis status post sigmoid colectomy with end colostomy. Was brought for elective reversal today. Medicine was consulted by surgery to evaluate and assist with medical management. Patient complaining of some abdominal pain but otherwise feeling okay. Pain being controlled with IV Dilaudid. N.p.o. at this time. Discussed case with surgery, request assistance with medical management. Still awaiting bowel function. Addressing pain today. Doing well. Problems addressed as follows: Abdominal pain Colostomy takedown -History of perforated sigmoid diverticulum with partial colectomy and end colostomy in June. Brought in for elective reversal today. Tolerated procedure well. - Continue Dilaudid 1 mg IV every hour as needed for severe pain. Will initiate Toradol 30 mg IV every 6 hours as needed to decrease opiate needs. Monitor for toxicity - Continue Unasyn 3 g every 6 hours - N.p.o. pending improvement in bowel function. Defer dietary advancement to surgery -Encourage ambulation Kidney function normal BUN 16, creatinine 0.8. White count slightly up at 12.9, hemoglobin dropped from 11-8. No indication for transfusion at this time. Transfusion threshold hemoglobin less than 7. Repeat CBC, CMP, magnesium ordered for the morning. GERD: Continue esomeprazole 40 mg nightly Migraines: Continue Topamax prophylaxis with the 100 mg nightly and 50 mg daily Hyperlipidemia: Hold statin while patient is NPO. Will advance cautiously after resumption of diet Full code Maintenance IV fluids with LR at 125 cc an hour. Reevaluate in the more, caution with volume Sips and chips
[2024-12-07 16:11] LABS: Hematocrit 25.2 % (37.0-47.0); Hemoglobin 7.5 g/dL (12.2-16.2)
[2024-12-07] MEDS: PANTOPRAZOLE 40MG TABLET 40 MG PO (20:27)
[2024-12-07] MEDS: TOPIRAMATE 100MG TABLET 100 MG PO (20:27)
--- NOTE | 2024-12-07 21:09 | XR_ITS ---
PROCEDURE INFORMATION: Exam: XR Chest Exam date and time: 12/07/2024 9:47 PM Age: 64 years old Clinical indication: Other: Hypoxia TECHNIQUE: Imaging protocol: Radiologic exam of the chest. Views: 1 view. COMPARISON: CR XR CHEST 2V 11/29/2023 4:51 PM FINDINGS: Lungs: Granulomatous changes. No consolidation. Pleural spaces: Unremarkable. No pleural effusion. No pneumothorax. Heart/Mediastinum: Unremarkable. No cardiomegaly. Bones/joints: Unremarkable. IMPRESSION: No acute findings.
--- NOTE | 2024-12-07 21:12 | PC.NURSE ---
2109 - Pts O2 noted to be 92% upon RN entering room and dropped to 89%. Pt reports feeling asymptomatic at this time, lungs clear upon assessment. 2L O2 applied and stats improved to 98%. Hospitalist informed. Verbal orders received to keep pt on 2L nasal cannula, no order to ween obtained at this time. Order received to monitor for changes in respiratory status. Will notify provider if changes in breath sounds develop.
--- NOTE | 2024-12-07 21:47 | PC.NURSE ---
2142 - Radiology at bedside for CXR at this time
[2024-12-08] VITALS (14 sets, daily range): BP systolic 113–128; BP diastolic 55–80; PULSE 66–83; RESP 16–18; TEMP 36.6–36.9; O2SAT 93–99; BMI 25.4
[2024-12-08] MEDS: AMPICILLIN SODIUM/SULBACTAM 3 GM in 0.9 % SODIUM CHLORIDE 100 ML IV ×4 (00:17→18:55)
--- NOTE | 2024-12-08 01:20 | PC.NURSE ---
0025 - Pt 98% on 2L and continues to be asymptomatic. Bilateral lung sounds auscultated, clear throughout.
[2024-12-08 07:39] LABS: Basophils % 0.3 % (0.1-2.0); Eosinophils # 0.1 Kmm3 (0.0-0.4); Eosinophils % 0.8 % (0.1-12.0); Hematocrit 23.9 % (37.0-47.0); Hemoglobin 7.1 g/dL (12.2-16.2); Immature Granulocytes # 0.03 10^3uL; Immature Granulocytes % 0.3 %; Lymphocytes # 1.4 K/mm3 (0.7-4.5); Lymphocytes % 15.4 % (10-50); Mean Corpuscular HGB Conc 29.7 g/dL (31.8-35.4); Mean Corpuscular Volume 87.5 fl (81-99); Monocytes # 0.7 K/mm3 (0.1-1.0); Monocytes % 7.6 % (1.7-9.3); Neutrophils % 75.6 % (37.0-80.0); Nucleated Red Blood Cells # 0 10^3/uL; Nucleated Red Blood Cells % 0 %; Platelet Count 175 K/mm3 (142-424); Red Blood Count 2.73 M/mm3 (4.20-5.40); Red Cell Distribution Width 16.6 % (11.5-17.5); Red Cell Distribution Width-SD 52.2 fL; White Blood Count 9.2 K/mm3 (4.8-10.8)
[2024-12-08 07:41] LABS: Chloride 108 mmol/L (98-107); Sodium 139 mmol/L (136-145)
[2024-12-08 07:42] LABS: Potassium 3.2 mmoL/L (3.5-5.1)
[2024-12-08 07:44] LABS: Blood Urea Nitrogen 11 mg/dl (7-17); Creatinine Clearance Estimated 56 mL/min (50-200); Estimated Glomerular Filt Rate 73 ml/min (>60); GFR (African American) 88 ML/MIN (>60)
[2024-12-08 07:45] LABS: Anion Gap 9.2 mEq/L (5-15); Carbon Dioxide 25 mmol/L (22.0-30.0); Glucose 71 mg/dl (74-100)
--- NOTE | 2024-12-08 08:06 | PC.NURSE ---
Pt arrived to floor @ 0892
[2024-12-08] MEDS: KETOROLAC 30MG/ML VIAL 30 MG IV ×2 (11:00→23:58)
[2024-12-08] MEDS: FAMOTIDINE 20MG/2ML VIAL 20 MG IV ×2 (11:01→21:23)
[2024-12-08] MEDS: FUROSEMIDE 40MG/4ML VIAL 40 MG IV (11:01)
[2024-12-08] MEDS: ONDANSETRON 4MG/2ML VIAL 4 MG IV (11:01)
[2024-12-08] MEDS: TOPIRAMATE 25MG TABLET 50 MG PO (11:01)
[2024-12-08] MEDS: POTASSIUM CHLORIDE 20MEQ TAB 40 MEQ PO ×2 (11:02→12:16)
--- NOTE | 2024-12-08 11:09 | P.PN_ITS ---
Subjective Narrative: She feels just okay today. She had some lightheadedness after she got some IV narcotic. She was up in the chair yesterday. Has passed flatus. She feels a lot of gas pain. Has not done incentive spirometry. Wonders why she is on 1 L of oxygen. Does not feel short of breath. Voiding via Pro. Afebrile. Exam Data for Last 24 hours Vital signs and Labs for Last 24 Hours: Temp Pulse Resp BP Pulse Ox O2 Del Method O2 Flow Rate 98.3 F 83 17 113/62 99 Nasal Cannula 2 12/08/24 04:35 12/08/24 04:35 12/08/24 04:35 12/08/24 04:35 12/08/24 05:50 12/08/24 06:00 12/08/24 06:00 Laboratory Results - last 24 hr 12/07/24 16:02: Hgb 7.5 L, Hct 25.2 L 12/08/24 07:22: WBC 9.2 D, RBC 2.73 L, Hgb 7.1 L, Hct 23.9 L, MCV 87.5, MCH 26.0 L, MCHC 29.7 L, RDW 16.6, Plt Count 175, MPV 10.0, Neut % (Auto) 75.6, Lymph % (Auto) 15.4, [place] % (Auto) 7.6, Eos % (Auto) 0.8, Baso % (Auto) 0.3, Neut # (Auto) 7.0, Lymph # (Auto) 1.4, [place] # (Auto) 0.7, Eos # (Auto) 0.1, Baso # (Auto) 0.0, Sodium 139, Potassium 3.2 L, Chloride 108 H, Carbon Dioxide 25, Anion Gap 9.2, BUN 11 D, Creatinine 0.80, Estimated Creat Clear 56, Estimated GFR 73, Est GFR ( Amer) 88, Glucose 71 L, Calcium 8.0 L 12/08/24 09:15: Blood Type O Positive, Crossmatch (AHG) See Detail I & O for Last 24 hours: Intake & Output 12/05/24 12/06/24 12/07/24 12/08/24 23:59 23:59 23:59 23:59 Intake Total 2700 / 2700 1510 / 1510 1627 / 1627 Output Total 650 / 650 1450 / 1450 550 / 550 Balance 2049 60 / 60 1077 / 1077 Weight 135 lb Microbiology Reports for the Last 24 Hours: Microbiology 12/06/24 07:20 Urine,Catheterized Urine Culture - Final No growth. Constitutional Constitutional: no acute distress and cooperative *Routine Abdominal Exam Abdominal: Present normoactive bowel sounds; Absent distended Comments: Dressing removed. Midline incision and old ostomy site are clean and dry with warren. No erythema. Progress Note: A&P Assessment and plan (1) Abdominal pain: Status: Acute (2) S/P colostomy takedown: Problem details: Postoperative day 2. Doing well, but hemoglobin continues to drift down. Currently 7.1 from preop of 11.3. Normotensive, no tachycardia, no melena or hematochezia. May be secondary to oozing. She is symptomatic of pallor and lightheadedness. Transfuse 1 unit of PRBC. Restart maintenance IV fluids. Replace potassium. She has had flatus and bowel sounds, cautiously try clear liquid diet. Not on anticoagulation. Encourage incentive spirometry. Encourage ambulation once she has less lightheadedness. Status: Acute (3) Diverticulosis: Status: Acute (4) Status post laparotomy: Status: Acute (5) S/P colectomy: Status: Acute (6) Colostomy present: Status: Acute (7) Postoperative abdominal pain: Status: Acute (8) Hypomagnesemia: Status: Resolved (9) Hypokalemia: Status: Resolved
[2024-12-08] MEDS: D5W/0.45% NaCl w/40mEq KCl 1,000 ML 100 ML IV (11:33)
--- NOTE | 2024-12-08 13:00 | EXP.MED.FU ---
Subjective *Date: 12/08/24 *Time: 14:56 Interval history: Required oxygen at night due to increased shortness of breath. Suspect secondary to volume. May also be anemia however as her hemoglobin is low this morning. Initiating transfusion. Passing gas but no bowel movement. No nausea or vomiting. Abdominal mildly improved. Feeling quite weak per her report. Pleasant on exam Exam Data for Last 24 hours Vital signs and Labs for Last 24 Hours: Temp Pulse Resp BP Pulse Ox O2 Del Method O2 Flow Rate 98.3 F 83 17 113/62 99 Nasal Cannula 2 12/08/24 04:35 12/08/24 04:35 12/08/24 04:35 12/08/24 04:35 12/08/24 05:50 12/08/24 11:00 12/08/24 11:00 Laboratory Results - last 24 hr 12/07/24 16:02: Hgb 7.5 L, Hct 25.2 L 12/08/24 07:22: WBC 9.2 D, RBC 2.73 L, Hgb 7.1 L, Hct 23.9 L, MCV 87.5, MCH 26.0 L, MCHC 29.7 L, RDW 16.6, Plt Count 175, MPV 10.0, Neut % (Auto) 75.6, Lymph % (Auto) 15.4, [place] % (Auto) 7.6, Eos % (Auto) 0.8, Baso % (Auto) 0.3, Neut # (Auto) 7.0, Lymph # (Auto) 1.4, [place] # (Auto) 0.7, Eos # (Auto) 0.1, Baso # (Auto) 0.0, Sodium 139, Potassium 3.2 L, Chloride 108 H, Carbon Dioxide 25, Anion Gap 9.2, BUN 11 D, Creatinine 0.80, Estimated Creat Clear 56, Estimated GFR 73, Est GFR ( Amer) 88, Glucose 71 L, Calcium 8.0 L, Blood Type Confirm O Positive 12/08/24 09:15: Blood Type O Positive, Antibody Screen Negative, Crossmatch ([facility]) See Detail I & O for Last 24 hours: Intake & Output 12/05/24 12/06/24 12/07/24 12/08/24 23:59 23:59 23:59 23:59 Intake Total 2700 / 2700 1510 / 1510 1727 / 1727 Output Total 650 / 650 1450 / 1450 3050 / 3050 Balance 2049 / 2049 60 / 60 -1323 / -1323 Weight 61.235 kg Microbiology Reports for the Last 24 Hours: Microbiology 12/06/24 07:20 Urine,Catheterized Urine Culture - Final No growth. Constitutional Constitutional: mild distress, average body habitus, chronically ill appearing and cooperative *Routine HEENT Exam Head: Present normocephalic Eye: Present EOMI and PERRL ENT: Present mucous membranes moist *Routine Neck Exam Neck: Present supple; Absent lymphadenopathy *Routine Respiratory Exam Respiratory: Present CTA bilaterally; Absent rhonchi, wheezes or crackles *Routine Cardiovascular Exam Cardiovascular: Present RRR *Routine Abdominal Exam Abdominal: Present soft, normoactive bowel sounds and tenderness (Interval improvement); Absent distended Comments: Incisions clean dry and intact, bandage removed. Scant drainage from most cephalad portion of center incision. No significant erythema *Routine Rectal Exam Patient deferred: visual exam *Routine Exam Patient deferred: external exam *Routine Extremities Exam Extremities: Absent cyanosis, clubbing or edema *Routine Skin Exam Skin: Present intact and warm; Absent rash *Routine Neurological Exam Neurological: Present alert, oriented X3 and moving all extremities; Absent altered mental status Assessment and Plan *Assessment and plan (1) Abdominal pain: Status: Acute Qualifiers: Abdominal location: generalized Qualified Code(s): R10.84 - Generalized abdominal pain Category: Medical Code(s): R10.9 - Unspecified abdominal pain (2) S/P colostomy takedown: Problem Comment: Postoperative day 2. Doing well, but hemoglobin continues to drift down. Currently 7.1 from preop of 11.3. Normotensive, no tachycardia, no melena or hematochezia. May be secondary to oozing. She is symptomatic of pallor and lightheadedness. Transfuse 1 unit of PRBC. Restart maintenance IV fluids. Replace potassium. She has had flatus and bowel sounds, cautiously try clear liquid diet. Not on anticoagulation. Encourage incentive spirometry. Encourage ambulation once she has less lightheadedness. Status: Acute Category: Surgical Code(s): Z98.890 - Other specified postprocedural states (3) Diverticulosis: Status: Acute Category: Medical Code(s): K57.90 - Diverticulosis of intestine, part unspecified, without perforation or abscess without bleeding (4) Status post laparotomy: Status: Acute Category: Surgical Code(s): Z98.890 - Other specified postprocedural states (5) S/P colectomy: Status: Acute Category: Surgical Code(s): Z90.49 - Acquired absence of other specified parts of digestive tract (6) Colostomy present: Status: Acute Category: Medical Code(s): Z93.3 - Colostomy status (7) Postoperative abdominal pain: Status: Acute Category: Medical Code(s): R10.9 - Unspecified abdominal pain; G89.18 - Other acute postprocedural pain (8) Hypomagnesemia: Status: Resolved Category: Medical Code(s): E83.42 - Hypomagnesemia (9) Hypokalemia: Status: Resolved Category: Medical Code(s): E87.6 - Hypokalemia (10) Blood loss anemia: Status: Acute Category: Medical Code(s): D50.0 - Iron deficiency anemia secondary to blood loss (chronic) Plan Madelin Talamantes is a 64-year-old female who presented for reversal of colostomy. Presented earlier this year in June with perforated sigmoid diverticulitis status post sigmoid colectomy with end colostomy. Was brought for elective reversal today. Medicine was consulted by surgery to evaluate and assist with medical management. Patient complaining of some abdominal pain but otherwise feeling okay. Pain being controlled with IV Dilaudid. N.p.o. at this time. Discussed case with surgery, request assistance with medical management. Passing gas. Advance to clear liquid diet. Transfusing today. Continues to require inpatient management. Problems addressed as follows: Abdominal pain Colostomy takedown -History of perforated sigmoid diverticulum with partial colectomy and end colostomy in June. Brought in for elective reversal today. Tolerated procedure well. - Continue Dilaudid 1 mg IV de-escalates every 3 hours as needed for severe pain. Continue Toradol 30 mg IV every 6 hours as needed to decrease opiate needs. Monitor for toxicity - Continue Unasyn 3 g every 6 hours - Clear liquid diet Blood loss anemia - Hemoglobin down to 7.1 this morning. Initially 11 several weeks ago. Suspect blood loss due to dilution and postsurgical. Will transfuse this morning as patient is feeling weak and has new oxygen requirement. Repeat H&H ordered for 2 hours after transfusion. Repeat CBC, CMP, magnesium ordered for the morning. - Kidney function normal with BUN 11, creatinine 0.8. Potassium low at 3.2. Electrolyte protocol in place. GERD: Continue esomeprazole 40 mg nightly Migraines: Continue Topamax prophylaxis with the 100 mg nightly and 50 mg daily Hyperlipidemia: Hold statin while patient is NPO. Will advance cautiously after resumption of diet Full code Advance to clear liquid diet Reevaluate fluid needs
--- NOTE | 2024-12-08 13:13 | PC.NURSE ---
Blood ready at 12:11 not symptomatic and not a stat order. Got iv abx that was scheduled. charge aware.
[2024-12-08 17:01] LABS: Hematocrit 30.5 % (37.0-47.0)
[2024-12-08 17:08] LABS: Hemoglobin 9.4 g/dL (12.2-16.2)
[2024-12-08] MEDS: TOPIRAMATE 100MG TABLET 100 MG PO (21:23)
[2024-12-08] MEDS: PANTOPRAZOLE 40MG TABLET 40 MG PO (21:23)
[2024-12-09] MEDS: AMPICILLIN SODIUM/SULBACTAM 3 GM in 0.9 % SODIUM CHLORIDE 100 ML IV ×4 (01:00→18:33)
[2024-12-09 04:00] VITALS: BP 121/68; PULSE 68; RESP 16; TEMP 36.7; O2SAT 96; BMI 26.4
--- NOTE | 2024-12-09 04:56 | PC.NURSE ---
Surgical sites on abdomen monitored. No drainage present. Pt c/o pain once during shift, treated per AUG. Pt tolerated IV ABX. v/s, ox4, RA. No acute events to report. Plan of care ongoing.
[2024-12-09 06:27] LABS: Basophils # 0.1 K/mm3 (0-0.2); Basophils % 0.6 % (0.1-2.0); Eosinophils # 0.2 Kmm3 (0.0-0.4); Eosinophils % 2.3 % (0.1-12.0); Hematocrit 29.4 % (37.0-47.0); Hemoglobin 9.2 g/dL (12.2-16.2); Immature Granulocytes # 0.03 10^3uL; Immature Granulocytes % 0.3 %; Lymphocytes # 1.6 K/mm3 (0.7-4.5); Lymphocytes % 18.9 % (10-50); Mean Corpuscular HGB Conc 31.3 g/dL (31.8-35.4); Mean Corpuscular Hemoglobin 27.2 pg (27.0-31.2); Mean Platelet Volume 9.2 fl (7.4-10.4); Monocytes # 0.7 K/mm3 (0.1-1.0); Monocytes % 7.9 % (1.7-9.3); Nucleated Red Blood Cells # 0 10^3/uL; Nucleated Red Blood Cells % 0 %; Platelet Count 192 K/mm3 (142-424); Red Blood Count 3.38 M/mm3 (4.20-5.40); Red Cell Distribution Width 16.4 % (11.5-17.5); Red Cell Distribution Width-SD 51.1 fL; White Blood Count 8.6 K/mm3 (4.8-10.8)
[2024-12-09 06:46] LABS: Albumin Level 3.4 g/dl (3.5-5.0); Chloride 105 mmol/L (98-107); Potassium 3.5 mmoL/L (3.5-5.1); Sodium 139 mmol/L (136-145)
[2024-12-09 06:49] LABS: Alanine Aminotransferase 20 U/L (12-78); Albumin/Globulin Ratio 1.3 (1.1-1.8); Alkaline Phosphatase 66 U/L (38-126); Anion Gap 14.5 mEq/L (5-15); Aspartate Amino Transferase 33 U/L (14-36); Bilirubin,Total 0.6 mg/dl (0.2-1.3); Blood Urea Nitrogen 11 mg/dl (7-17); Carbon Dioxide 23 mmol/L (22.0-30.0); Creatinine Clearance Estimated 59 mL/min (50-200); Estimated Glomerular Filt Rate 73 ml/min (>60); GFR (African American) 88 ML/MIN (>60); Globulin 2.6 g/dL (1.3-3.2)
[2024-12-09 06:50] LABS: Calcium 8.4 mg/dl (8.4-10.2); Glucose 68 mg/dl (74-100)
[2024-12-09] MEDS: TOPIRAMATE 25MG TABLET 50 MG PO (07:42)
[2024-12-09] MEDS: FAMOTIDINE 20MG/2ML VIAL 20 MG IV ×2 (07:42→20:36)
[2024-12-09] MEDS: POTASSIUM CHLORIDE 20MEQ TAB 40 MEQ PO ×2 (08:26→13:01)
[2024-12-09 12:00] VITALS: BP 135/79; PULSE 81; RESP 16; TEMP 37.4; O2SAT 95
--- NOTE | 2024-12-09 12:07 | EXP.ACUTE.PN ---
Subjective *Date: 12/09/24 *Time: 16:08 Interval history: Still having mild abdominal pain, continues to pass gas. No nausea or vomiting. Ambulating in room. Afebrile. Stable on room air Medical Exam Vital signs and Labs for Last 24 Hours: Vital Signs Temp Pulse Pulse Resp BP BP Pulse Ox 12/09/24 10:20 12/09/24 08:03 12/09/24 07:49 12/09/24 06:27 12/09/24 04:55 12/09/24 04:00 98.0 F 68 16 121/68 96 12/09/24 03:00 12/09/24 00:41 12/08/24 23:00 12/08/24 21:00 12/08/24 20:00 12/08/24 20:00 98.4 F 72 16 128/72 93 L 12/08/24 18:21 12/08/24 16:50 98 F 68 17 119/63 95 12/08/24 15:50 98.1 F 76 17 120/61 94 L 12/08/24 15:50 12/08/24 14:50 98.1 F 68 16 120/66 94 L 12/08/24 14:35 98.1 F 68 16 121/80 94 L 12/08/24 14:34 12/08/24 14:20 98.1 F 72 16 125/67 94 L 12/08/24 14:05 98.2 F 79 16 119/58 L 94 L 12/08/24 14:00 98.2 F 78 17 116/61 94 L 12/08/24 13:55 98.1 F 71 16 117/60 94 L 12/08/24 13:50 98.1 F 71 16 114/55 L 93 L 12/08/24 13:35 98.1 F 66 16 116/60 93 L O2 Del Method O2 Flow Rate 12/09/24 10:20 Room Air 12/09/24 08:03 Room Air 12/09/24 07:49 Room Air 12/09/24 06:27 Room Air 12/09/24 04:55 Room Air 12/09/24 04:00 Room Air 12/09/24 03:00 Room Air 12/09/24 00:41 Room Air 12/08/24 23:00 Room Air 12/08/24 21:00 Room Air 12/08/24 20:00 Room Air 12/08/24 20:00 Room Air 12/08/24 18:21 Room Air 12/08/24 16:50 12/08/24 15:50 12/08/24 15:50 Nasal Cannula 2 12/08/24 14:50 12/08/24 14:35 12/08/24 14:34 Nasal Cannula 2 12/08/24 14:20 12/08/24 14:05 12/08/24 14:00 12/08/24 13:55 12/08/24 13:50 12/08/24 13:35 Intake and Output 12/08/24 12/09/24 12/09/24 23:59 07:59 15:59 Intake Total 440 / 2446 240 / 240 Output Total 0 / 3050 900 / 1900 1000 / 1900 Balance 440 / -604 -900 / -1660 -760 / -1660 Intake: Intake, Oral Amount 240 / 240 240 / 240 Intake, Total IV Amount 200 / 1927 D5W/0.45% NaCl w/40mEq KCl 1, 200 / 200 000 ml @ 100 mls/hr IV .Q10H [facility] Rx#:[id number] Output: Output, Urine Amount 0 / 3050 900 / 900 Output, Urine Amount (Catheter) 1000 / 1000 Pro 1000 / 1000 Other: Number of Unmeasured Voids 0 Weight 63.56 kg Patient Weight 12/09/24 23:59 Weight 63.56 kg Laboratory Results - last 24 hr 12/08/24 09:15: Blood Type O Positive, Antibody Screen Negative, Crossmatch ([facility]) See Detail 12/08/24 16:50: Hgb 9.4 L D, Hct 30.5 L 12/09/24 06:20: WBC 8.6, RBC 3.38 L, Hgb 9.2 L, Hct 29.4 L, MCV 87.0, MCH 27.2, MCHC 31.3 L, RDW 16.4, Plt Count 192, MPV 9.2, Neut % (Auto) 70.0, Lymph % (Auto) 18.9, [place] % (Auto) 7.9, Eos % (Auto) 2.3, Baso % (Auto) 0.6, Neut # (Auto) 6.0, Lymph # (Auto) 1.6, [place] # (Auto) 0.7, Eos # (Auto) 0.2, Baso # (Auto) 0.1, Sodium 139, Potassium 3.5, Chloride 105, Carbon Dioxide 23, Anion Gap 14.5, BUN 11, Creatinine 0.80, Estimated Creat Clear 59, Estimated GFR 73, Est GFR ( Amer) 88, Glucose 68 L, Calcium 8.4, Magnesium 2.0, Total Bilirubin 0.6, AST 33, ALT 20, Alkaline Phosphatase 66, Total Protein 6.0 L, Albumin 3.4 L, Globulin 2.6, Albumin/Globulin Ratio 1.3 I & O for Labs for Last 24 Hours: Intake & Output 12/06/24 12/07/24 12/08/24 12/09/24 23:59 23:59 23:59 23:59 Intake Total 2700 / 2700 1510 / 1510 2446 / 2446 240 / 240 Output Total 650 / 650 1450 / 1450 3050 / 3050 1900 / 1900 Balance 2049 / 2049 60 / 60 -604 / -604 -1660 / -1660 Weight 61.235 kg 63.56 kg Constitutional: Present no acute distress, obese, chronically ill appearing and cooperative Head: Present atraumatic and normocephalic ENT: Present normal exam Respiratory: Present normal respiratory effort; Absent rhonchi, wheezes or crackles Cardiac: Present Reg Rate and Rhythm GI: Present soft, tenderness (Mainly around surgical site) and normal bowel sounds; Absent distention Extremities: Present normal inspection and full ROM Skin: Present intact; Absent erythema Neuro: Present Grossly Intact, alert, awake, oriented x 3 and moves all extremities Assessment and Plan *Assessment and plan (1) Abdominal pain: Status: Acute Qualifiers: Abdominal location: generalized Qualified Code(s): R10.84 - Generalized abdominal pain Category: Medical Code(s): R10.9 - Unspecified abdominal pain (2) S/P colostomy takedown: Problem Comment: Postoperative day 3. Transfused 1 unit yesterday for postoperative anemia, hemoglobin responded appropriately, no longer symptomatic of weakness, pallor and lightheadedness. She has flatus, bowel sounds, has tolerated a liquid diet. Cautiously advance to a general diet. Awaiting bowel movement. Discontinue Pro. Ambulate at least 3 times daily. Resume postoperative Lovenox 40 mg daily. Initiate oral pain medicine, wean IV pain medicine. Encourage incentive spirometry. Status: Acute Category: Surgical Code(s): Z98.890 - Other specified postprocedural states (3) Diverticulosis: Status: Acute Category: Medical Code(s): K57.90 - Diverticulosis of intestine, part unspecified, without perforation or abscess without bleeding (4) Status post laparotomy: Status: Acute Category: Surgical Code(s): Z98.890 - Other specified postprocedural states (5) S/P colectomy: Status: Acute Category: Surgical Code(s): Z90.49 - Acquired absence of other specified parts of digestive tract (6) Colostomy present: Status: Acute Category: Medical Code(s): Z93.3 - Colostomy status (7) Postoperative abdominal pain: Status: Acute Category: Medical Code(s): R10.9 - Unspecified abdominal pain; G89.18 - Other acute postprocedural pain (8) Hypomagnesemia: Status: Resolved Category: Medical Code(s): E83.42 - Hypomagnesemia (9) Hypokalemia: Status: Resolved Category: Medical Code(s): E87.6 - Hypokalemia (10) Blood loss anemia: Status: Acute Category: Medical Code(s): D50.0 - Iron deficiency anemia secondary to blood loss (chronic) Plan Madelin Talamantes is a 64-year-old female who presented for reversal of colostomy. Presented earlier this year in June with perforated sigmoid diverticulitis status post sigmoid colectomy with end colostomy. Was brought for elective reversal today. Medicine was consulted by surgery to evaluate and assist with medical management. Patient complaining of some abdominal pain but otherwise feeling okay. Pain being controlled with IV Dilaudid. N.p.o. at this time. Discussed case with surgery, recommend initiating DVT prophylaxis and adjusting to oral pain control. Passing gas. Advance to full liquid diet. Transition to oral pain control. Discontinue IV morphine. Continues to require inpatient management. Feeling better since transfusion. Problems addressed as follows: Abdominal pain Colostomy takedown -History of perforated sigmoid diverticulum with partial colectomy and end colostomy in June. Brought in for elective reversal today. Tolerated procedure well. - This continue Dilaudid. Continue Toradol 30 mg IV every 6 hours as needed. Initiate oxycodone 7.5 mg every 4 hours as needed for severe pain. Monitor for toxicity - Continue Unasyn 3 g every 6 hours - Advance to full liquid diet Blood loss anemia - Hemoglobin responded well to transfusion. Improved to 9.2. Stable this morning. White count 8.6. Off supplemental oxygen. - Repeat CBC, CMP, magnesium ordered for the morning. - Kidney function normal with BUN 11, creatinine 0.8. Potassium 3.5, magnesium 2.0. Electrolyte protocol in place. GERD: Continue esomeprazole 40 mg nightly Migraines: Continue Topamax prophylaxis with the 100 mg nightly and 50 mg daily Hyperlipidemia: Hold statin while patient is NPO. Will advance cautiously after resumption of diet Full code Advance to full liquid Lovenox 40 mg subcu daily
--- NOTE | 2024-12-09 12:12 | P.PN_ITS ---
Subjective Narrative: She feels much better today since she got some blood. She feels less weak. She is eager to have her Pro out and to ambulate. She tolerated liquid diet. She has passed more gas. No bowel movement yet. Urine output for 24 hours was 3400 via Pro catheter. I-S 1000. Exam Data for Last 24 hours Vital signs and Labs for Last 24 Hours: Temp Pulse Resp BP Pulse Ox O2 Del Method O2 Flow Rate 98.0 F 68 16 121/68 96 Room Air 2 12/09/24 04:00 12/09/24 04:00 12/09/24 04:00 12/09/24 04:00 12/09/24 04:00 12/09/24 10:20 12/08/24 15:50 Laboratory Results - last 24 hr 12/08/24 09:15: Blood Type O Positive, Antibody Screen Negative, Crossmatch ([facility]) See Detail 12/08/24 16:50: Hgb 9.4 L D, Hct 30.5 L 12/09/24 06:20: WBC 8.6, RBC 3.38 L, Hgb 9.2 L, Hct 29.4 L, MCV 87.0, MCH 27.2, MCHC 31.3 L, RDW 16.4, Plt Count 192, MPV 9.2, Neut % (Auto) 70.0, Lymph % (Auto) 18.9, [place] % (Auto) 7.9, Eos % (Auto) 2.3, Baso % (Auto) 0.6, Neut # (Auto) 6.0, Lymph # (Auto) 1.6, [place] # (Auto) 0.7, Eos # (Auto) 0.2, Baso # (Auto) 0.1, Sodium 139, Potassium 3.5, Chloride 105, Carbon Dioxide 23, Anion Gap 14.5, BUN 11, Creatinine 0.80, Estimated Creat Clear 59, Estimated GFR 73, Est GFR ( Amer) 88, Glucose 68 L, Calcium 8.4, Magnesium 2.0, Total Bilirubin 0.6, AST 33, ALT 20, Alkaline Phosphatase 66, Total Protein 6.0 L, Albumin 3.4 L, Globulin 2.6, Albumin/Globulin Ratio 1.3 I & O for Last 24 hours: Intake & Output 12/06/24 12/07/24 12/08/24 06/29/25 23:59 23:59 23:59 23:59 Intake Total 2700 / 2700 1510 / 1510 2446 / 2446 240 / 240 Output Total 650 / 650 1450 / 1450 3050 / 3050 1900 / 1900 Balance 2049 / 2049 60 / 60 -604 / -604 -1660 / -1660 Weight 135 lb 140 lb 2 oz Constitutional Constitutional: no acute distress and cooperative *Routine Abdominal Exam Abdominal: Present normoactive bowel sounds; Absent tenderness or distended Comments: Midline and old ostomy site with [place] are clean without erythema. Small amount of serous drainage from superior pole of midline incision. Redressed. Progress Note: A&P Assessment and plan (1) Abdominal pain: Status: Acute (2) S/P colostomy takedown: Problem details: Postoperative day 3. Transfused 1 unit yesterday for postoperative anemia, hemoglobin responded appropriately, no longer symptomatic of weakness, pallor and lightheadedness. She has flatus, bowel sounds, has tolerated a liquid diet. Cautiously advance to a general diet. Awaiting bowel movement. Discontinue Pro. Ambulate at least 3 times daily. Resume postoperative Lovenox 40 mg daily. Initiate oral pain medicine, wean IV pain medicine. Encourage incentive spirometry. Status: Acute (3) Diverticulosis: Status: Acute (4) Status post laparotomy: Status: Acute (5) S/P colectomy: Status: Acute (6) Colostomy present: Status: Acute (7) Postoperative abdominal pain: Status: Acute (8) Hypomagnesemia: Status: Resolved (9) Hypokalemia: Status: Resolved (10) Blood loss anemia: Status: Acute
[2024-12-09] MEDS: OXYCODONE 5MG W/APAP 325MG TABLET 1 EACH PO (13:04)
--- NOTE | 2024-12-09 16:55 | PC.NURSE ---
Aox 4, up with assist times one, pain med given once today, on abx, Midline c/d/i on RA, regular diet for dinner, waiting to have a bowel movement.
[2024-12-09 20:00] VITALS: BP 132/78; PULSE 70; RESP 16; TEMP 36.8; O2SAT 94
[2024-12-09] MEDS: TOPIRAMATE 100MG TABLET 100 MG PO (20:36)
[2024-12-09] MEDS: PANTOPRAZOLE 40MG TABLET 40 MG PO (20:36)
[2024-12-09] MEDS: KETOROLAC 30MG/ML VIAL 30 MG IV (22:52)
[2024-12-10] MEDS: AMPICILLIN SODIUM/SULBACTAM 3 GM in 0.9 % SODIUM CHLORIDE 100 ML IV ×2 (01:00→06:35)
[2024-12-10 04:00] VITALS: BP 130/78; PULSE 67; RESP 16; TEMP 36.8; O2SAT 96; BMI 26.2
--- NOTE | 2024-12-10 05:45 | PC.NURSE ---
Pt had bowel movement this morning. v/s, ox4. Pt tolerating iv AXB. Pt c/o pain once during shift, treated per AUG. Sx site monitored for drainage. possible d/c today. No acute events to report. Plan of care ongoing.
[2024-12-10 06:44] LABS: Basophils % 0.5 % (0.1-2.0); Eosinophils # 0.3 Kmm3 (0.0-0.4); Eosinophils % 3.6 % (0.1-12.0); Hematocrit 30.4 % (37.0-47.0); Hemoglobin 9.1 g/dL (12.2-16.2); Immature Granulocytes # 0.07 10^3uL; Immature Granulocytes % 0.9 %; Lymphocytes # 1.4 K/mm3 (0.7-4.5); Lymphocytes % 19.1 % (10-50); Mean Corpuscular HGB Conc 29.9 g/dL (31.8-35.4); Mean Corpuscular Hemoglobin 25.9 pg (27.0-31.2); Mean Corpuscular Volume 86.6 fl (81-99); Monocytes # 0.7 K/mm3 (0.1-1.0); Monocytes % 8.7 % (1.7-9.3); Neutrophils % 67.2 % (37.0-80.0); Nucleated Red Blood Cells # 0 10^3/uL; Nucleated Red Blood Cells % 0 %; Platelet Count 230 K/mm3 (142-424); Red Blood Count 3.51 M/mm3 (4.20-5.40); Red Cell Distribution Width 16.4 % (11.5-17.5); Red Cell Distribution Width-SD 50.7 fL; White Blood Count 7.4 K/mm3 (4.8-10.8)
[2024-12-10 06:52] LABS: Chloride 105 mmol/L (98-107)
[2024-12-10 06:53] LABS: Albumin Level 3.5 g/dl (3.5-5.0); Potassium 3.6 mmoL/L (3.5-5.1); Sodium 139 mmol/L (136-145)
[2024-12-10 06:55] LABS: Blood Urea Nitrogen 9 mg/dl (7-17); Creatinine Clearance Estimated 58 mL/min (50-200); Estimated Glomerular Filt Rate 85 ml/min (>60); GFR (African American) 103 ML/MIN (>60)
[2024-12-10 06:56] LABS: Alanine Aminotransferase 19 U/L (12-78); Albumin/Globulin Ratio 1.3 (1.1-1.8); Alkaline Phosphatase 65 U/L (38-126); Anion Gap 13.6 mEq/L (5-15); Aspartate Amino Transferase 25 U/L (14-36); Bilirubin,Total 0.6 mg/dl (0.2-1.3); Calcium 8.8 mg/dl (8.4-10.2); Carbon Dioxide 24 mmol/L (22.0-30.0); Globulin 2.8 g/dL (1.3-3.2); Glucose 92 mg/dl (74-100); Total Protein,Serum 6.3 g/dl (6.3-8.2)
[2024-12-10 08:00] VITALS: BP 132/76; PULSE 75; RESP 16; TEMP 36.7; O2SAT 94
[2024-12-10] MEDS: ENOXAPARIN 40MG/0.4ML SYRINGE 40 MG SUBCUT (09:09)
[2024-12-10] MEDS: SODIUM CHLORIDE 0.9% 10ML VIAL 8 ML IV (09:09)
[2024-12-10] MEDS: TOPIRAMATE 25MG TABLET 50 MG PO (09:09)
[2024-12-10] MEDS: FAMOTIDINE 20MG/2ML VIAL 20 MG IV (09:09)
--- NOTE | 2024-12-10 12:16 | EXP.DC.SUM ---
General Admission date:: 12/06/24 Discharge date: 12/10/24 HPI HPI HPI: Ms. Talamantes is a 64-year-old female who was admitted in June for perforated sigmoid diverticulum status post sigmoid colectomy with creation of colostomy. She presented today for elective colostomy takedown with surgery. Planned admission after surgery. Overall doing well. Had a colonoscopy performed on 11/09 via colostomy which revealed normal colon. No complications during procedure. Medicine consulted to assist with management of medical conditions by surgery. Patient stable on 2 L oxygen for comfort at this time. Currently on maintenance fluids. Still having some pain but responding well to Dilaudid. Family at bedside. Denies shortness of breath, confusion, nausea or vomiting. Hospital Course Hospital Course Hospital Course: Madelin Talamantes is a 64-year-old female who presented for reversal of colostomy. Presented earlier this year in June with perforated sigmoid diverticulitis status post sigmoid colectomy with end colostomy. Was brought for elective reversal today. Medicine was consulted by surgery to evaluate and assist with medical management. Patient has done well after surgery. Pain improving. Bowel function improving. Passing gas and having bowel movements. Able to advance diet. Stable on room air. Stable discharge home with close outpatient follow-up. Problems addressed as follows: Abdominal pain Colostomy takedown - History of perforated sigmoid diverticulum with partial colectomy and end colostomy in June. Brought in for elective reversal today. Tolerated procedure well without complication. Was initiated on IV Dilaudid and Toradol with empiric antibiotics. Of Unasyn 3 g every 6 hours. Bowel function slowly improved. Diet advanced and tolerating regular diet with passing flatus and bowel movements. Transition to oral oxycodone and Toradol for pain control. Tolerating well at this time. Stable to discharge home. Will discontinue Unasyn, no indication for further antibiotics. White count normal at 7.4 on day of discharge. Follow-up with surgery as scheduled. Blood loss anemia - Hemoglobin trickle down after surgery. Necessitated transfusion. Transfused 1 unit with good response. Hemoglobin remained elevated above 9 after transfusion. White count stable and normal. Kidney function normal along with normal electrolytes after procedure. No active signs of bleeding. GERD: Continue esomeprazole 40 mg nightly Migraines: Continue Topamax prophylaxis with the 100 mg nightly and 50 mg daily Hyperlipidemia: Hold statin while patient is NPO. Will advance cautiously after resumption of diet Total time spent on discharge 32 minutes in counseling, documentation, chart review, and direct care with patient. Exam Data for Last 24 hours Vital signs and Labs for Last 24 Hours: Temp Pulse Resp BP Pulse Ox O2 Del Method O2 Flow Rate 98.1 F 75 16 132/76 94 L Room Air 2 12/10/24 08:00 12/10/24 08:00 12/10/24 08:00 12/10/24 08:00 12/10/24 08:00 12/10/24 09:00 12/08/24 15:50 Laboratory Results - last 24 hr 12/10/24 06:06: WBC 7.4, RBC 3.51 L, Hgb 9.1 L, Hct 30.4 L, MCV 86.6, MCH 25.9 L, MCHC 29.9 L, RDW 16.4, Plt Count 230, MPV 10.0, Neut % (Auto) 67.2, Lymph % (Auto) 19.1, [place] % (Auto) 8.7, Eos % (Auto) 3.6, Baso % (Auto) 0.5, Neut # (Auto) 5.0, Lymph # (Auto) 1.4, [place] # (Auto) 0.7, Eos # (Auto) 0.3, Baso # (Auto) 0.0, Sodium 139, Potassium 3.6, Chloride 105, Carbon Dioxide 24, Anion Gap 13.6, BUN 9, Creatinine 0.70, Estimated Creat Clear 58, Estimated GFR 85, Est GFR ( Amer) 103, Glucose 92 D, Calcium 8.8, Total Bilirubin 0.6, AST 25, ALT 19, Alkaline Phosphatase 65, Total Protein 6.3, Albumin 3.5, Globulin 2.8, Albumin/Globulin Ratio 1.3 I & O for Last 24 hours: Intake & Output 12/07/24 12/08/24 12/09/24 12/10/24 23:59 23:59 23:59 23:59 Intake Total 1510 / 1510 2446 / 2446 1180 / 1180 200 / 200 Output Total 1450 / 1450 3050 / 3050 2750 / 3100 1000 / 1000 Balance 60 / 60 -604 / -604 -1570 / -1920 -800 / -800 Weight 61.235 kg 63.56 kg 62.851 kg Constitutional Constitutional: no acute distress, average body habitus and cooperative *Routine HEENT Exam Head: Present normocephalic Eye: Present EOMI and PERRL ENT: Present mucous membranes moist *Routine Neck Exam Neck: Present supple; Absent lymphadenopathy *Routine Respiratory Exam Respiratory: Present CTA bilaterally; Absent wheezes or crackles *Routine Cardiovascular Exam Cardiovascular: Present RRR *Routine Abdominal Exam Abdominal: Present soft, normoactive bowel sounds and tenderness (lower abdomen, around incisions); Absent distended Comments: Midline incision and incision at site of previous left lower quadrant colostomy. No drainage. Janell intact. No bleeding. Clean dry and intact. *Routine Rectal Exam Patient deferred: visual exam *Routine Exam Patient deferred: external exam *Routine Extremities Exam Extremities: Absent cyanosis, clubbing or edema *Routine Skin Exam Skin: Present intact and warm; Absent rash *Routine Neurological Exam Neurological: Present alert, oriented X3 and moving all extremities; Absent altered mental status Results Data Completed and Pending Labs on day of discharge: Labs from last 24 hours 12/10/24 06:06 WBC 7.4 RBC 3.51 L Hgb 9.1 L Hct 30.4 L MCV 86.6 MCH 25.9 L MCHC 29.9 L RDW 16.4 Plt Count 230 MPV 10.0 Neut % (Auto) 67.2 Lymph % (Auto) 19.1 [place] % (Auto) 8.7 Eos % (Auto) 3.6 Baso % (Auto) 0.5 Neut # (Auto) 5.0 Lymph # (Auto) 1.4 [place] # (Auto) 0.7 Eos # (Auto) 0.3 Baso # (Auto) 0.0 Sodium 139 Potassium 3.6 Chloride 105 Carbon Dioxide 24 Anion Gap 13.6 BUN 9 Creatinine 0.70 Estimated Creat Clear 58 Estimated GFR 85 Est GFR ( Amer) 103 Glucose 92 D Calcium 8.8 Total Bilirubin 0.6 AST 25 ALT 19 Alkaline Phosphatase 65 Total Protein 6.3 Albumin 3.5 Globulin 2.8 Albumin/Globulin Ratio 1.3 DS: Diagnosis Discharge Diagnosis (1) Abdominal pain: Status: Acute Code(s): R10.9 - Unspecified abdominal pain Qualifiers: Abdominal location: generalized Qualified Code(s): R10.84 - Generalized abdominal pain (2) S/P colostomy takedown: Status: Acute Code(s): Z98.890 - Other specified postprocedural states Problem details: Postoperative day 3. Transfused 1 unit yesterday for postoperative anemia, hemoglobin responded appropriately, no longer symptomatic of weakness, pallor and lightheadedness. She has flatus, bowel sounds, has tolerated a liquid diet. Cautiously advance to a general diet. Awaiting bowel movement. Discontinue Pro. Ambulate at least 3 times daily. Resume postoperative Lovenox 40 mg daily. Initiate oral pain medicine, wean IV pain medicine. Encourage incentive spirometry. (3) Diverticulosis: Status: Acute Code(s): K57.90 - Diverticulosis of intestine, part unspecified, without perforation or abscess without bleeding (4) Status post laparotomy: Status: Acute Code(s): Z98.890 - Other specified postprocedural states (5) S/P colectomy: Status: Acute Code(s): Z90.49 - Acquired absence of other specified parts of digestive tract (6) Colostomy present: Status: Acute Code(s): Z93.3 - Colostomy status (7) Postoperative abdominal pain: Status: Acute Code(s): R10.9 - Unspecified abdominal pain; G89.18 - Other acute postprocedural pain (8) Hypomagnesemia: Status: Resolved Code(s): E83.42 - Hypomagnesemia (9) Hypokalemia: Status: Resolved Code(s): E87.6 - Hypokalemia (10) Blood loss anemia: Status: Acute Code(s): D50.0 - Iron deficiency anemia secondary to blood loss (chronic) Meds Home Medications and Allergies Home Medications ?Medication ?Instructions ?Recorded ?Confirmed ?Type sumatriptan 85 mg-naproxen 500 mg 1 tab PO NEEDED PRN migraines 12/21/23 12/06/24 History tablet rosuvastatin 20 mg tablet 20 mg PO HS #90 tabs 09/19/24 12/06/24 Rx albuterol sulfate 90 mcg/actuation 2 puff inhalation Q4HP PRN 12/06/24 12/06/24 History aerosol inhaler Shortness Of Breath Or Wheezing esomeprazole magnesium 20 mg 20 mg PO DAILY 12/06/24 12/06/24 History capsule,delayed release esomeprazole magnesium 20 mg 40 mg PO HS 12/06/24 12/06/24 History capsule,delayed release topiramate 50 mg tablet 50 mg PO DAILY 12/06/24 12/06/24 History topiramate 50 mg tablet 100 mg PO HS 12/06/24 12/06/24 History ketorolac 10 mg tablet 10 mg PO Q6HP PRN Moderate To 12/10/24 Rx Severe Pain (4-10) 3 days #12 tabs oxycodone-acetaminophen 5 mg-325 1 tab PO Q6HP PRN Moderate To 12/10/24 Rx mg tablet Severe Pain (4-10) 3 days #12 tabs New Prescriptions to Start Prescriptions: Destin Alexander oxycodone-acetaminophen Destin Tobias Allergies Allergy/AdvReac Type Severity Reaction Status Date / Time No Known Allergies Allergy Verified 11/13/24 10:18 Discharge Plan Disposition Patient Disposition: Home, Self-Care Condition: Fair Discharge Order Discharge Orders: Discharge Order (Routine); Ordered 12/10/24 Ordered By: Destin Tobias Follow up Plan Follow up with: Trey Madsen MD [Staff Physician, General Surgery] - 12/13/24 1:30 pm Marci Munguia APRN [Primary Care Provider, Family Practice] - 12/17/24 9:40 am Prescriptions/Medication Reconciliation: New oxycodone-acetaminophen 5-325 mg Tablet 1 tab PO Q6HP PRN (Reason: Moderate To Severe Pain (4-10)) 3 Days Qty: 12 0RF ketorolac 10 mg tablet 10 mg PO Q6HP PRN (Reason: Moderate To Severe Pain (4-10)) 3 Days Qty: 12 0RF Rx Instructions: Tolerated IV without adverse effects while admitted Continued sumatriptan-naproxen 85-500 mg tablet 1 tab PO NEEDED PRN (Reason: migraines) Patient Comments: TAKE 1 TABLET BY MOUTH NEEDED FOR HEADACHE. MAY REPEAT IN 2 HOURS IF HEADACHE RETURNS, NO MORE THAN 2 TABS IN 24 HOURS. rosuvastatin 20 mg tablet 20 mg PO HS Qty: 90 1RF albuterol sulfate 90 mcg/actuation HFA aerosol inhaler 2 puff INHALATION Q4HP PRN (Reason: Shortness Of Breath Or Wheezing) Patient Comments: INHALE 2 PUFFS INTO THE LUNGS EVERY 4 TO 6 HOURS NEEDED FOR SHORTNESS OF BREATH OR WHEEZING. esomeprazole magnesium 20 mg capsule,delayed release(DR/EC) 40 mg PO HS Patient Comments: TAKE 1 CAPSULE BY MOUTH IN THE MORNING AND 2 CAPSULES IN THE EVENING. topiramate 50 mg tablet 100 mg PO HS Patient Comments: TAKE 1 TABLET BY MOUTH IN THE MORNING AND 2 TABLETS AT BEDTIME. esomeprazole magnesium 20 mg capsule,delayed release(DR/EC) 20 mg PO DAILY topiramate 50 mg tablet 50 mg PO DAILY Problem Reconciliation Problems Reviewed?: Yes Patient Discharge Instructions ACTIVITY: Continue current activity DIET: continue same diet Patient Instructions: DI for an Appendectomy, DI for Surgical Site Infection, DI for Colostomy or Ileostomy Reversal, Catheter-Associated Urinary Tract Infection Print Language: Ukrainian Providers Primary Care Provider: Marci Munguia Admit Provider: Tery Madsen Attending Provider: Trey Madsen
--- NOTE | 2024-12-12 10:42 | SW/DCPLANNER ---
Phoned patient x2. Left message with call back number and name. Cong Russell
== END 2024-12-10 13:53 | disposition home or self-care (01) | DRG 330 ==
LOC: OB 06:52 → 2ND 12-08 07:53
PROVIDERS: Internal Medicine Adolescent Medicine; Admitting Provider Surgery; PCP Nurse Practitioner; Visit Provider Surgery
PROC: 0DBN0ZZ Excision of Sigmoid Colon, Open Approach (ICD-10-PCS; CPT 44620; principal; 2024-12-06 07:30)
DX: Z43.3 Encounter for attention to colostomy (principal); D62 Acute posthemorrhagic anemia; K21.9 Gastro-esophageal reflux disease without esophagitis; G43.909 Migraine, unspecified, not intractable, without status migrainosus; E78.5 Hyperlipidemia, unspecified; E83.42 Hypomagnesemia; E87.6 Hypokalemia; K66.0 Peritoneal adhesions (postprocedural) (postinfection); Z79.899 Other long term (current) drug therapy; Z98.890 Other specified postprocedural states; Z90.49 Acquired absence of other specified parts of digestive tract
CPT/HCPCS: 36415; 36430; 51702; 71045; 80048; 80053; 81001; 83735; 85014; 85018; 85025; 86850; 87086; 96374; J0295; J0665; J0666; J1100; J1171; J1650; J1885; J1938; J2003; J2250; J2371; J2405; J2704; J3010; J3480; J7120; P9016

== ENCOUNTER 2024-12-17 10:35 | Outpatient (CLI) | payer BC, SELFPAY ==
--- OUTSIDE RECORDS SUMMARY | 2024-12-18 07:20 | XMS_ITS | Encounter Summary ---
Author Organization [place] [address] Care Team Providers Care Machine Shop Supervisor Name Role Phone Javi Arias MD Primary Care Provider Boris Juarez MD Unavailable [phone] Encounter Details Date Type Department Care Team (Late st Contact Info) Description 06/08/2017 Orders Only SEP Gastro [facility] [address] [facility] [address] [place] [address] Hector Lam MD PHD [address] [place] [address] Social History Tobacco Use Types [...] EST) 06/08/2017 11:0 0 AM EST Impressions [facility] - 06/08/2017 11:47 AM [...] ORDERABLES Fin al Result Performing Organization Address City/State/[facility] Co de Phone Number [facility] [address] [place] [address] documented in this encounter Visit Diagnoses Not on filedocumented in this encounter Care Teams Machine Shop Supervisor Relationship Specialty Start Date End Date Javi Arias MD [address] [facility] [address] [place] [address] PCP - General Psychiatry & Neurology-Neurology 05/02/12 Boris Juarez MD [address] [facility] [address] [place] [address] Physician Internal Medicine-Gastroenterolog y 04/01/16 documented as of this encounter
--- OUTSIDE RECORDS SUMMARY | 2024-12-18 07:20 | XMS_ITS | Encounter Summary ---
Author Organization [place] [address] Care Team Providers Care Pc Network Technician Name Role Phone Javi Arias MD Primary Care Provider [phone] Boris Juarez MD Unavailable [phone] Encounter Details Date Type Department Care Team (Late st Contact Info) Description 06/02/2020 Lab Requisition [facility] [address] [place] [id number] Hector Lam MD PHD [address] [place] [address] Gay's esophagus without dysplasia; Diaphragmatic hernia without [...] PM EST) CASE REPORT Surgical Pathology Case: [id number] Authorizing Provider: Hector Lam MD PHD Collected: 06/02/2020 1440 Ordering Location: [facility] Received: 06/02/2020 1841 Pathologist: Sawyer Hoff MD Specimens: A) - Esophagus B) - Esophagus C) - Esophagus 06/03/2020 3:50 PM EST [facility] CLINICAL HISTORY Gay's esophagus. 06/03/2020 3:50 PM EST [facility] FINAL DIAGNOSIS A) Esophageal Biopsy at [...] Nonspecific Chronic Esophagitis. 06/03/2020 3:50 PM EST [facility] at 1550 EST MICROSCOPIC DESCRIPTION Microscopic examination is performed and the findings corroborate the diagnosis. 06/03/2020 3:50 PM EST [facility] EMBEDDED IMAGES 06/03/2020 3:50 PM [facility] GROSS DESCRIPTION Part A) Received [...] one cassette. /TE 06/03/2020 3:50 PM EST [facility] Tissue SPECIMEN FROM ESOPHAGUS / Unknown 06/02/2020 2:40 PM EST 06/02/2020 6:41 PM EST Tissue specimen (specimen) ESOPHAGEAL STRUCTURE / Unknown 06/02/2020 2:40 PM EST 06/02/2020 6:41 PM EST Tissue specimen (specimen) ESOPHAGEAL STRUCTURE / Unknown 06/02/2020 2:40 PM EST 06/02/2020 6:41 PM EST Hector Lam MD PHD PATHOLOGY ORDERABLES Final Result [facility] [address] [place] [address] [facility] [address] [place] [address] documented in this encounter Visit Diagnoses Diagnosis 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
--- OUTSIDE RECORDS SUMMARY | 2024-12-18 07:20 | XMS_ITS | Encounter Summary ---
Author Organization [place] [address] Care Team Providers Care Knife Sharpener Name Role Phone Javi Arias MD Primary Care Provider [phone] Boris Juarez MD Unavailable [phone] Encounter Details Date Type Department Care Team (Latest Contact Info) Description 09/24/2024 Results Follow-Up SEP Urogynecology [address] [address] Sharyn Orlando MD [address] [place] [id number] URINE CULTURE (NO STAIN), URINALYSIS Social History [...] on filedocumented in this encounter Care Teams Knife Sharpener Relationship Specialty Start Date End Date Javi Arias MD [address] [facility] [address] [place] [address] PCP - General Psychiatry & Neurology-Neurology 05/02/12 Boris Juarez MD [address] [facility] [address] [place] [address] Physician Internal Medicine-Gastroenterolog y 04/01/16 documented as of this encounter
--- OUTSIDE RECORDS SUMMARY | 2024-12-18 07:20 | XMS_ITS | Encounter Summary ---
Author Organization [place] [address] Care Team Providers Care Dietary Clerk Name Role Phone Javi Arias MD Primary Care Provider [phone] Boris Juarez MD Unavailable [phone] Encounter Details Date Type Department Care Team (Late st Contact Info) Description 05/04/2016 Orders Only SEP Gastro [facility] [address] [facility] [address] [place] [address] [place] [address] [place] [address] Social History Tobacco Use Types [...] EST) 05/04/2016 10:2 0 AM EST Impressions [facility] - 05/04/2016 11:18 AM EST Irregularity [...] ORDERABLES Tsering kwok Result Performing Organization Address City/State/[facility] Co de Phone Number [facility] [address] [place] [address] documented in this encounter Visit Diagnoses Not on filedocumented in this encounter Care Teams Dietary Clerk Relationship Specialty Start Date End Date Javi Arias MD [address] [facility] [address] [place] [address] PCP - General Psychiatry & Neurology-Neurology 05/02/12 Boris Juarez MD [address] [facility] [address] [place] [address] Physician Internal Medicine-Gastroenterolog y 04/01/16 documented as of this encounter
--- OUTSIDE RECORDS SUMMARY | 2024-12-18 07:20 | XMS_ITS | Encounter Summary ---
Author Organization [place] [address] Care Team Providers Care Slubber Runner Name Role Phone Javi Arias MD Primary Care Provider [phone] Boris Juarez MD Unavailable [phone] Encounter Details Date Type Department Care Team (Late st Contact Info) Description 08/10/2017 Orders Only SEP Gastro [facility] [address] [facility] [address] [place] [address] Hector Lam MD PHD [address] [place] [address] Social History Tobacco Use Types [...] EST) 08/10/2017 11:0 0 AM EST Impressions [facility] - 08/11/2017 6:42 AM EST Normal [...] ORDERABLES Pedro Luis simin Result - Final [facility] [address] [place] [phone] documented in this encounter Visit Diagnoses Not on filedocumented in this encounter Care Teams Slubber Runner Relationship Specialty Start Date End Date Javi Arias MD [address] [place] [address] PCP - General Psychiatry & Neurology-Neurology 05/02/12 Boris Juarez MD [address] [place] [address] Physician Internal Medicine-Gastroenterolog y 04/01/16 documented as of this encounter
--- OUTSIDE RECORDS SUMMARY | 2024-12-18 07:20 | XMS_ITS | Clinical Summary ---
Author Organization [facility] Address [address] [place] [address] Care Team Providers Care Salesperson Surgical Appliances Name Role Phone Johnny Arias MD Primary Care Provider [phone] Family History Medical History Relation Name Comments [...] of Treatment Not on file Care Teams Salesperson Surgical Appliances Relationship Specialty Start Date End Date Johnny Arias MD [address] [facility] [place] [address] PCP - General 10/24/20
--- OUTSIDE RECORDS SUMMARY | 2024-12-18 07:20 | XMS_ITS | Clinical Summary ---
Author Organization [facility] Address [address] [place] [address] Phone Care Team Providers Care Wet Roaster Name Role Phone Javi Arias MD Primary Care Provider [phone] Boris Juarez MD Unavailable Allergies No known active allergies Medications Sumatriptan-Napr [...] Department Care Team Description 09/24/2024 Results Follow-Up [facility] Urogynecology [address] [address] Sharyn Orlando MD URINE CULTURE (NO STAIN), URINALYSIS 09/21/2024 8:30 AM EDT Office Visit [facility] Urogynecology [address] [address] Sharyn Orlando MD Incomplete uterovaginal prolapse (Primary [...] Vaccine ( season) 2024 06/22/2021, 09/01/2020, 08/02/2020 Influenza Vaccine (#1) 2025 , 03/29/2022, 04/15/2020, Additional history exists DTaP/TDaP/Td (2 - Td or Tdap) 03/28/2028 03/28/2018 Colon Cancer Screening 01/04/2029 Colonoscopy 01/04/2029 01/05/2024 Hepatitis B Vaccine Completed 10/16/2018, 05/18/2018, 04/18/2018 Meningococcal B Vaccine Aged Out No l onger eligible based on patient's age to complete this topic Goals Goal Patient Goal Type Associated Problems Recent Progress Patient-Stated? Author Maintain a healthy diet, exercise regularly and maintain an ideal body weight General No Dang Carter APRN Procedures Procedure Name Priority Date/Time Associated Diagnosis Comments URINALYSIS Routine 09/21/2024 8:47 AM EDT Hematuria, unspecified type URINE CULTURE (NO STAIN) Routine 09/21/2024 8:47 AM EDT Frequency of urination COLONOSCOPY Routine 01/05/2024 3:12 PM EDT Screening for colon cancer MANAGER DISASTER RECOVERY CYTOLOGY REQUEST (PAP ONLY) Routine 12/05/2018 3:40 PM EDT Well woman exam from Last 3 Months or Most Recently Relevant to Health Maintenance Results * URINALYSIS (09/21/2024 8:47 AM EDT) UA Color Colorless 09/21/2024 8:52 PM EDT [facility] UA Appear Clear Clear 09/21/2024 8:52 PM EDT [facility] UA Glucose Negative Negative mg/dL 09/21/2024 8:52 PM EDT [facility] UA Ketones Negative Negative mg/dL 09/21/2024 8:52 PM EDT [facility] UA Blood Negative Negative 09/21/2024 8:52 PM EDT [facility] UA pH 6.5 5.0 - 8.0 pH 09/21/2024 8:52 PM EDT [facility] UA Protein Negative Negative mg/dL 09/21/2024 8:52 PM EDT [facility] UA Urobilinogen Normal <=1 mg/dL 8:52 PM EDT [facility] UA Bili Negative Negative 09/21/2024 8:52 PM EDT [facility] UA Nitrite Negative Negative 09/21/2024 8:52 PM EDT [facility] UA Leuk Est Negative Negative 09/21/2024 8:52 PM EDT [facility] UA Spec Grav 1.004 1.001 - 1.035 no units 09/21/2024 8:52 PM EDT [facility] Comment:Reference range caesar d for random specimens only. Urine URINARY BLADDER STRUCTURE / Unknown 09/21/2024 8:47 AM EDT 09/21/2024 8:47 AM EDT Sharyn Orlando MD URINE ORDERABLES Final Re sult Performing Organization Address [facility] Co de Phone Number [facility] [employer] [address] , [place] [address] * URINE CULTURE (NO STAIN) (09/21/2024 8:47 AM EDT) Culture No growth at 30 hours. 09/23/2024 3:27 PM EDT [facility] Urine URINARY BLADDER STRUCTURE / Unknown 09/21/2024 8:47 AM EDT 09/21/2024 8:47 AM EDT Sharyn Orlando MD MICROBIOLOGY - GENERAL OR DERABLES Final Result Performing Organization Address [facility] de Phone Number [facility] [employer] [address] , [place] [address] * COLONOSCOPY (01/05/2024 3:12 PM EDT) Anatomical [...] cancer Staff Staff Role Collin Rincon, MILDRED Retail Sales Lead Ya Silva MD Anesthesiologist Hector Lam MD [...] Patient In - Proc. Room 02:34 PM Hector Lam MD PHD ENDOSCOPY PROCEDURE ORDERAB LES Final Result * MANAGER DISASTER RECOVERY CYTOLOGY REQUEST (PAP ONLY) (12/05/2018 3:40 PM EDT) CASE REPORT Gynecologic Cytology Report Case: [id number] Authorizing Provider: Tien Das MD Collected: 12/05/2018 1540 Ordering Location: [facility] Received: 12/05/2018 1540 First Screen: Laura Guardado, CT Rescreen: Stefany Ambrosio, MARCIN Specimen: LIQUID-BASED PAP - CERVICAL/ENDOCERV ICAL, Cervix, Endocervical 12/07/2018 3:47 PM EDT [facility] PAP FINAL DIAGNOSIS Negative for intraepithelial lesion or malignancy 12/07/2018 3:47 PM EDT [facility] at 1547 EDT MICROSCOPIC DESCRIPTION Microscopic examination is performed and the findings corroborate the diagnosis. 12/07/2018 3:47 PM EDT [facility] PAP SMEAR ADEQUACY Satisfactory for evaluation 12/07/2018 3:47 PM EDT [facility] ENDOCERVICAL T-ZONE Transformation Zone Absent. This is not unusual in a post-menopausal woman. 12/07/2018 3:47 PM EDT [facility] EMBEDDED IMAGES 9 3:47 PM EDT [facility] PAP DISCLAIMER The Pap Smear is a screening test that aids in the detection of cervical cancer and cancer precursors. Both false positive and false negative results can occur. The test should be used at regular intervals, and positive results should be confirmed before definitive therapy. Processed using the ThinPrep Meat Boner Automated cytology screening device (FloTime). 12/07/2018 3:47 PM EDT [facility] PAP OTHER FINDINGS Many acute inflammatory cells noted. 12/07/2018 3:47 PM EDT [facility] Thin Prep ENDOCERVICAL STRUCTURE / Unknown 12/05/2018 3:40 PM EDT 12/05/2018 3:40 PM EDT Tien Das MD CYTOLOGY ORDERAB[place] [address] from Last 3 Months or Most Recently Relevant to Health Maintenance Insurance Member Subscriber Plan / Payer (Ef fective 2007-Present) Name:Madelin Talamantes Relation to Subscriber:Self Name:Madelin Talamantes Payer ID:[id number] (NAIC) Group ID:[id number] Type:Not on file Address: [address] Care Teams Wet Roaster Relationship Specialty Start Date End Date Javi Arias MD [address] [place] [address] PCP - General Psychiatry & Neurology-Neurology 05/02/12 Boris Juarez MD [address] [facility] [address] [place] [address] Physician Internal Medicine-Gastroenterolog y 04/01/16
--- OUTSIDE RECORDS SUMMARY | 2024-12-18 07:20 | XMS_ITS | Encounter Summary ---
Author Organization [place] [address] Care Team Providers Care Lamp Shade Sewer Name Role Phone Javi Arias MD Primary Care Provider [phone] Boris Juarez MD Unavailable [phone] Encounter Details Date Type Department Care Team (Late st Contact Info) Description 06/08/2017 Lab Requisition [facility] 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 06/09/2017 9:15 AM EST [facility] FINAL DIAGNOSIS A) Esophagus, biopsies at 33 cm: - Gastric oxyntic mucosa with no diagnostic pathologic abnormality. B) Esophagus, biopsy at 31 cm: - Gay's esophagus, negative for dysplasia. 06/09/2017 9:15 AM EST [facility] at 0915 EST GROSS DESCRIPTION The [...] one cassette. /CDM 06/09/2017 9:15 AM EST [facility] SE[facility] DIAGNOSIS 06/09/2017 9:15 AM EST [facility] MICROSCOPIC DESCRIPTION Microscopic examination is performed and the findings corroborate the diagnosis. 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
--- OUTSIDE RECORDS SUMMARY | 2024-12-18 07:20 | XMS_ITS | Encounter Summary ---
Author Organization [place] [address] Care Team Providers Care Automatic Tire Tester Name Role Phone Javi Arias MD Primary Care Provider [phone] Boris Juarez MD Unavailable [phone] Encounter Details Date Type Department Care Team (Late st Contact Info) Description 06/02/2020 Orders Only [facility] [address] [facility] [address] [place] [address] Hector Lam MD PHD [address] [place] [address] Social History Tobacco Use Types [...] PM EST) 06/02/2020 2:40 PM EST Impressions [facility] - 06/02/2020 3:33 PM EST [...] PHD GI PROCEDURE ORDERABLES Fin al Result [facility] [address] [place] [address] documented in this encounter Visit Diagnoses Not on filedocumented in this encounter Care Teams Automatic Tire Tester Relationship Specialty Start Date End Date Javi Arias MD [address] [facility] [address] [place] [address] PCP - General Psychiatry & Neurology-Neurology 05/02/12 Boris Juarez MD [address] [facility] [address] [place] [address] Physician Internal Medicine-Gastroenterolog y 04/01/16 documented as of this encounter
== END 2024-12-17 23:59 | disposition home or self-care (01) ==
LOC: LAB.DROPOF 12-18 07:19
PROVIDERS: PCP Nurse Practitioner; Visit Provider Nurse Practitioner
DX: M54.50 Low back pain, unspecified (principal); Z98.890 Other specified postprocedural states
CPT/HCPCS: 87086

== ENCOUNTER 2025-01-09 10:55 | Outpatient (CLI) | payer BC, SELFPAY ==
--- OUTSIDE RECORDS SUMMARY | 2025-01-09 10:57 | XMS_ITS | Clinical Summary ---
Author Organization [facility] [place] Address [address] [place] [address] Phone Care Team Providers Care Painter Apprentice Name Role Phone Javi Arias MD Primary Care Provider [phone] Boris Juarez MD Unavailable [phone] Allergies No known active allergies Medications Sumatriptan-Napr [...] prolapse 08/19/2015 Rectocele 08/19/2015 Menopausal symptoms 05/02/2012 Surgical History Surgery Date Site/Laterality Comments DILATION [...] maintain an ideal body weight General No Emma, Dang, BINGO FLOATER Procedures Procedure Name Priority Date/Time Associated Diagnosis Comments COLONOSCOPY Routine 01/05/2024 3:12 PM EDT Screening for colon cancer SPRING ASSEMBLER CYTOLOGY REQUEST (PAP ONLY) Routine 12/05/2018 3:40 PM EDT Well woman exam from Last 3 Months or Most Recently Relevant to Health Maintenance Results * COLONOSCOPY (01/05/2024 3:12 PM EDT) Anatomical [...] for colon cancer Staff Staff Role Collin Rincon RN Ruby Developer Ya Silva MD Anesthesiologist Hector Lam MD [...] ENDOSCOPY PROCEDURE ORDERAB LES Final Result * SPRING ASSEMBLER CYTOLOGY REQUEST (PAP ONLY) (12/05/2018 3:40 PM EDT) CASE REPORT Gynecologic Cytology Report Case: [id number] Authorizing Provider: Tien Das MD Collected: 12/05/2018 1540 Ordering Location: [facility] Received: 12/05/2018 1540 First Screen: Laura Guardado CT Rescreen: Stefany Ambrosio CT Specimen: LIQUID-BASED PAP - CERVICAL/ENDOCERV ICAL, Cervix, Endocervical 12/07/2018 3:47 PM EDT [facility] PAP FINAL DIAGNOSIS Negative for intraepithelial lesion or malignancy 12/07/2018 3:47 PM EDT [facility] at 1547 EDT MICROSCOPIC DESCRIPTION Microscopic examination is performed and the findings corroborate the diagnosis. 12/07/2018 3:47 PM EDT [facility] PAP SMEAR ADEQUACY Satisfactory for evaluation 12/07/2018 3:47 PM EDT [facility] ENDOCERVICAL T-ZONE Transformation Zone Absent. This is not unusual in a post-menopausal woman. 12/07/2018 3:47 PM EDT [facility] EMBEDDED IMAGES 3:47 PM EDT [facility] PAP DISCLAIMER The Pap Smear is a screening test that aids in the detection of cervical cancer and cancer precursors. Both false positive and false negative results can occur. The test should be used at regular intervals, and positive results should be confirmed before definitive therapy. Processed using the ThinPrep Weed Thinner Automated cytology screening device (Qulsar). 12/07/2018 3:47 PM EDT [facility] PAP OTHER FINDINGS Many acute inflammatory cells noted. 12/07/2018 3:47 PM EDT [facility] Thin Prep ENDOCERVICAL STRUCTURE / Unknown 12/05/2018 3:40 PM EDT 12/05/2018 3:40 PM EDT Tien Das MD CYTOLOGY ORDERABLES Final Re sult [facility] [address] [place] [address] from Last 3 Months or Most Recently Relevant to Health Maintenance Insurance [address] [place], [place] [address] * Guarantor: [employer] HE[employer] Account Type Relation to Patient Date of Phone Billing Address Corporate Employer [address] [place] [address] Care Teams Painter Apprentice Relationship Specialty Start Date End Date Javi Arias MD [address] [facility] [address] [place] [address] PCP - General Psychiatry & Neurology-Neurology 05/02/12 Boris Juarez MD [address] [facility] [address] [place] [address] Physician Internal Medicine-Gastroenterolog y 04/01/16
--- OUTSIDE RECORDS SUMMARY | 2025-01-09 10:57 | XMS_ITS | Clinical Summary ---
Author Organization Healthcare Address [address] [place] [address] Care Team Providers Care Template Maker Name Role Phone Johnny Arias MD Primary Care Provider [phone] Family History Medical History Relation Name Comments [...] of Treatment Not on file Care Teams Template Maker Relationship Specialty Start Date End Date Johnny Arias MD [address] [facility] [place] [address] PCP - General 10/24/20
--- OUTSIDE RECORDS SUMMARY | 2025-01-09 10:58 | XMS_ITS | Encounter Summary ---
Author Organization [place] [address] Care Team Providers Care Tool Repairer Name Role Phone Javi Arias MD Primary Care Provider [phone] Boris Juarez MD Unavailable [phone] Encounter Details Date Type Department Care Team (Late st Contact Info) Description 06/08/2017 Orders Only [facility] [address] [facility] [address] [place] [address] Hector Lam MD PHD [address] [place] [address] Social History Tobacco Use Types [...] EST) 06/08/2017 11:0 0 AM EST Impressions [facility] - 06/08/2017 11:47 AM EST [...] ORDERABLES Fin al Result Performing Organization Address City/State/[facility] Co de Phone Number [facility] [address] [place] [address] documented in this encounter Visit Diagnoses Not on filedocumented in this encounter Care Teams Tool Repairer Relationship Specialty Start Date End Date Javi Arias MD [address] [facility] [address] [place] [address] PCP - General Psychiatry & Neurology-Neurology 05/02/12 Boris Juarez MD [address] [facility] [address] [place] [address] Physician Internal Medicine-Gastroenterolog y 04/01/16 documented as of this encounter
--- OUTSIDE RECORDS SUMMARY | 2025-01-09 10:58 | XMS_ITS | Encounter Summary ---
Author Organization [place] [address] Care Team Providers Care Pulp Tester Name Role Phone Javi Arias MD Primary Care Provider [phone] Boris Juarez MD Unavailable [phone] Encounter Details Date Type Department Care Team (Late st Contact Info) Description 06/02/2020 Orders Only [facility] [address] [facility] [address] [place] [address] Hector Lam MD PHD [address] [place] [address] Social History Tobacco Use Types [...] PM EST) 06/02/2020 2:40 PM EST Impressions [facility] - 06/02/2020 3:33 PM EST [...] PHD GI PROCEDURE ORDERABLES Fin al Result [facility] [address] [place] [address] documented in this encounter Visit Diagnoses Not on filedocumented in this encounter Care Teams Pulp Tester Relationship Specialty Start Date End Date Javi Arias MD [address] [facility] [address] [place] [address] PCP - General Psychiatry & Neurology-Neurology 05/02/12 Boris Juarez MD [address] [facility] [address] [place] [address] Physician Internal Medicine-Gastroenterolog y 04/01/16 documented as of this encounter
--- OUTSIDE RECORDS SUMMARY | 2025-01-09 10:58 | XMS_ITS | Encounter Summary ---
Author Organization [place] [address] Care Team Providers Care Clinical Audiologist Name Role Phone Javi Arias MD Primary Care Provider [phone] Boris Juarez MD Unavailable [phone] Encounter Details Date Type Department Care Team (Late st Contact Info) Description 06/08/2017 Lab Requisition [facility] [place] [address] Hector Lam MD PHD [address] [place] [address] Gay's esophagus without dysplasia; Polyp of stomach [...] AM EST) CASE REPORT Surgical Pathology Case: [id number] Authorizing Provider: Hector Lam MD PHD Collected: 06/08/2017 1100 Pathologist: Colin Hsieh MD Received: 06/08/2017 1602 Specimens: A) - Esophagus, Lower third esophagus at 33cm from incisors B) - Esophagus, Lower third esophagus at 31cm from incisors 06/09/2017 9:15 AM EST [facility] CLINICAL HISTORY Gay's esophagus. 06/09/2017 9:15 AM EST [facility] FINAL DIAGNOSIS A) Esophagus, biopsies at 33 cm: - Gastric oxyntic mucosa with no diagnostic pathologic abnormality. B) Esophagus, biopsy at 31 cm: - Gay's esophagus, negative for dysplasia. 06/09/2017 9:15 AM EST [facility] at 0915 EST GROSS DESCRIPTION The specimen [...] one cassette. /CDM 06/09/2017 9:15 AM EST [facility] SECTION DIAGNOSIS 06/09/2017 9:15 AM EST [facility] MICROSCOPIC DESCRIPTION Microscopic examination is performed and the findings corroborate the diagnosis. 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 Gay's esophagus Polyp of stomach and duodenum Benign neoplasm of stomach Diaphragmatic hernia without obstruction or gangrene Diaphragmatic hernia without mention of obstruction or gangrene documented in this encounter Care Teams Clinical Audiologist Relationship Specialty Start Date End Date Javi Arias MD [address] [facility] [address] [place] [address] PCP - General Psychiatry & Neurology-Neurology 05/02/12 Boris Juarez MD [address] [facility] [address] [place] [address] Physician Internal Medicine-Gastroenterolog y 04/01/16 documented as of this encounter
--- OUTSIDE RECORDS SUMMARY | 2025-01-09 10:58 | XMS_ITS | Encounter Summary ---
Author Organization [place] [address] Care Team Providers Care Double Surface Operator Name Role Phone Javi Arias MD Primary Care Provider [phone] Boris Juarez MD Unavailable [phone] Encounter Details Date Type Department Care Team (Late st Contact Info) Description 06/02/2020 Lab Requisition [facility] [address] [place] [id number] Hector Lam MD PHD [address] [place] [address] Gay's esophagus without dysplasia; Diaphragmatic hernia without [...] PM EST) CASE REPORT Surgical Pathology Case: [id number] Authorizing Provider: Hector Lam MD PHD Collected: 06/02/2020 1440 Ordering Location: [facility] Received: 06/02/2020 1841 Pathologist: Sawyer Hoff MD Specimens: A) - Esophagus B) - Esophagus C) - Esophagus 06/03/2020 3:50 PM EST [facility] CLINICAL HISTORY Gay's esophagus. 06/03/2020 3:50 PM EST [facility] FINAL DIAGNOSIS A) Esophageal Biopsy at [...] Nonspecific Chronic Esophagitis. 06/03/2020 3:50 PM EST [facility] at 1550 EST MICROSCOPIC DESCRIPTION Microscopic examination is performed and the findings corroborate the diagnosis. 06/03/2020 3:50 PM EST [facility] EMBEDDED IMAGES 06/03/2020 3:50 PM [facility] GROSS DESCRIPTION Part A) Received [...] one cassette. 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
--- OUTSIDE RECORDS SUMMARY | 2025-01-09 10:58 | XMS_ITS | Encounter Summary ---
Author Organization [place] [address] Care Team Providers Care Nougat Cutter Machine Name Role Phone Javi Arias MD Primary Care Provider [phone] Boris Juarez MD Unavailable [phone] Encounter Details Date Type Department Care Team (Late st Contact Info) Description 05/04/2016 Orders Only SEP Gastro [facility] 651 [facility] [address] [place] [address] [place] [address] [place] [address] Social History Tobacco Use Types [...] EST) 05/04/2016 10:2 0 AM EST Impressions [facility] - 05/04/2016 11:18 AM EST Irregularity [...] ORDERABLES Tsering kwok Result Performing Organization Address City/State/[facility] Co de Phone Number [facility] 1 [place] [address] documented in this encounter Visit Diagnoses Not on filedocumented in this encounter Care Teams Nougat Cutter Machine Relationship Specialty Start Date End Date Javi Arias MD [address] [facility] [address] [place] [address] PCP - General Psychiatry & Neurology-Neurology 05/02/12 Boris Juarez MD [address] [facility] [address] [place] [address] Physician Internal Medicine-Gastroenterolog y 04/01/16 documented as of this encounter
--- OUTSIDE RECORDS SUMMARY | 2025-01-09 10:58 | XMS_ITS | Encounter Summary ---
Author Organization [place] [address] Care Team Providers Care Supervisor Inspection Room Name Role Phone Javi Arias MD Primary Care Provider [phone] Boris Juarez MD Unavailable [phone] Encounter Details Date Type Department Care Team (Latest Contact Info) Description 09/24/2024 Results Follow-Up SEP Urogynecology [address] [address] Sharyn Orlando MD [address] [place] [address] [id number] URINE CULTURE (NO STAIN), URINALYSIS Social History [...] filedocumented in this encounter Care Teams Supervisor Inspection Room Relationship Specialty Start Date End Date Javi Arias MD [address] [facility] [address] [place] [address] PCP - General Psychiatry & Neurology-Neurology 05/02/12 Boris Juarez MD [address] [facility] [address] [place] [address] Physician Internal Medicine-Gastroenterolog y 04/01/16 documented as of this encounter
--- OUTSIDE RECORDS SUMMARY | 2025-01-09 10:58 | XMS_ITS | Encounter Summary ---
Author [place] [address] Care Team Providers Care Hide Salter Name Role Phone Javi Arias MD Primary Care Provider Boris Juarez MD Unavailable [phone] Encounter Details Date Type Department Care Team (Late st Contact Info) Description 08/10/2017 Orders Only SEP Gastro [facility] 651 [facility] Building [address] [place] [address] Hector Lam MD PHD [address] [place] [address] Social History Tobacco Use Types [...] EST) 08/10/2017 11:0 0 AM EST Impressions [facility] - 08/11/2017 6:42 AM EST Normal [...] ORDERABLES Pedro Luis simin Result - Final [facility] 1 [place] [id number] documented in this encounter Visit Diagnoses Not on filedocumented in this encounter Care Teams Hide Salter Relationship Specialty Start Date End Date Javi Arias MD [address] [place] [address] PCP - General Psychiatry & Neurology-Neurology 05/02/12 Boris Juarez MD [address] [place] [address] Physician Internal Medicine-Gastroenterolog y 04/01/16 documented as of this encounter
--- NOTE | 2025-01-09 11:00 | MM_ITS ---
PROCEDURE INFORMATION: Exam: MG Bilateral Screening 3D Mammography Exam date and time: 01/09/2025 10:56 AM Age: 64 years old Clinical indication: Screening examination TECHNIQUE: Imaging protocol: Bilateral Screening tomosynthesis and 2D mammography including computer-aided detection (CAD) when performed. COMPARISON: 1. MG MM DIG SCREENING MAMM BI W/CAD 12/19/2023 3:31 PM 2. MG MM DIG SCREENING MAMM BI W/CAD 11/15/2022 1:05 PM FINDINGS: MAMMOGRAPHY: Breast composition: The breasts are heterogeneously dense, which may obscure small masses. Mass: None. Architectural distortion: None. Calcifications: No suspicious calcifications. Asymmetric density: None. Skin thickening: None. Axillary adenopathy: None. IMPRESSION: No mammographic evidence of malignancy. Annual screening is recommended unless otherwise clinically indicated. ASSESSMENT: BI-RADS Category 1: Negative.
== END 2025-01-09 23:59 | disposition home or self-care (01) ==
LOC: RAD 10:56
PROVIDERS: PCP Nurse Practitioner; Visit Provider Nurse Practitioner
DX: Z12.31 Encounter for screening mammogram for malignant neoplasm of breast (principal); R92.333 Mammographic heterogeneous density, bilateral breasts
CPT/HCPCS: 77063; 77067

== ENCOUNTER 2025-02-18 14:55 | Outpatient (CLI) | payer BC, SELFPAY ==
[2025-02-18 19:57] LABS: Hematocrit 33.8 % (37.0-47.0); Hemoglobin 10.0 g/dL (12.2-16.2); Immature Granulocytes % 0.5 %; Mean Corpuscular HGB Conc 29.6 g/dL (31.8-35.4); Mean Corpuscular Hemoglobin 25.5 pg (27.0-31.2); Mean Corpuscular Volume 86.2 fl (81-99); Nucleated Red Blood Cells % 0 %; Platelet Count 308 K/mm3 (142-424); Red Blood Count 3.92 M/mm3 (4.20-5.40); Red Cell Distribution Width-SD 46.4 fL; White Blood Count 8.8 K/mm3 (4.8-10.8)
[2025-02-18 20:35] LABS: Alanine Aminotransferase 15 U/L (12-78); Albumin Level 4.5 g/dl (3.5-5.0); Albumin/Globulin Ratio 1.6 (1.1-1.8); Alkaline Phosphatase 79 U/L (38-126); Anion Gap 13.2 mEq/L (5-15); Aspartate Amino Transferase 26 U/L (14-36); Bilirubin,Total 0.4 mg/dl (0.2-1.3); Blood Urea Nitrogen 18 mg/dl (7-17); Calcium 9.4 mg/dl (8.4-10.2); Carbon Dioxide 24 mmol/L (22.0-30.0); Chloride 107 mmol/L (98-107); Creatinine,Serum 0.90 mg/dl (0.52-1.04); Estimated Glomerular Filt Rate 63 ml/min (>60); GFR (African American) 77 ML/MIN (>60); Globulin 2.9 g/dL (1.3-3.2); Glucose 81 mg/dl (74-100); Potassium 4.2 mmoL/L (3.5-5.1); Sodium 140 mmol/L (136-145); Total Protein,Serum 7.4 g/dl (6.3-8.2)
--- OUTSIDE RECORDS SUMMARY | 2025-02-19 11:04 | XMS_ITS | Encounter Summary ---
Author Organization [place] [address] Care Team Providers Care Keno Terminal Operator Name Role Phone Javi Arias MD Primary Care Provider [phone] Boris Juarez MD Unavailable [phone] Encounter Details Date Type Department Care Team (Late st Contact Info) Description 06/02/2020 Lab Requisition [facility] [address] [place] [id number] Hector Lam MD PHD [address] [place] [address] Gay's esophagus without dysplasia; Diaphragmatic hernia without [...] PM EST) CASE REPORT Surgical Pathology Case: [id number] Authorizing Provider: Hector Lam MD PHD Collected: 06/02/2020 1440 Ordering Location: [facility] Received: 06/02/2020 1841 Pathologist: Sawyer Hoff MD Specimens: A) - Esophagus B) - Esophagus C) - Esophagus 06/03/2020 3:50 PM EST [facility] CLINICAL HISTORY Gay's esophagus. 06/03/2020 3:50 PM EST [facility] FINAL DIAGNOSIS A) Esophageal Biopsy at [...] Nonspecific Chronic Esophagitis. 06/03/2020 3:50 PM EST [facility] at 1550 EST MICROSCOPIC DESCRIPTION Microscopic examination is performed and the findings corroborate the diagnosis. 06/03/2020 3:50 PM EST [facility] EMBEDDED IMAGES 06/03/2020 3:50 PM [facility] GROSS DESCRIPTION Part A) Received in [...] one cassette. 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
--- OUTSIDE RECORDS SUMMARY | 2025-02-19 11:04 | XMS_ITS | Encounter Summary ---
Author Organization [place] [address] Care Team Providers Care Parking Regulation Enforcement Officer Name Role Phone Javi Arias MD Primary Care Provider [phone] Boris Juarez MD Unavailable [phone] Encounter Details Date Type Department Care Team (Late st Contact Info) Description 08/10/2017 Orders Only SEP Gastro [facility] [address] [facility] [address] [place] [address] Hector Lam MD PHD [address] [place] [address] Social History Tobacco Use Types Packs/Day Years [...] EST) 08/10/2017 11:0 0 AM EST Impressions [facility] - 08/11/2017 6:42 AM EST [...] ORDERABLES Pedro Luis simin Result - Final [facility] [address] [place] [id number] documented in this encounter Visit Diagnoses Not on filedocumented in this encounter Care Teams Parking Regulation Enforcement Officer Relationship Specialty Start Date End Date Javi Arias MD [address] [place] [address] PCP - General Psychiatry & Neurology-Neurology 05/02/12 Boris Juarez MD [address] [place] [address] Physician Internal Medicine-Gastroenterolog y 04/01/16 documented as of this encounter
--- OUTSIDE RECORDS SUMMARY | 2025-02-19 11:04 | XMS_ITS | Encounter Summary ---
Author Organization [place] [address] Care Team Providers Care Spoilage Worker Name Role Phone Javi Arias MD Primary Care Provider [phone] Boris Juarez MD Unavailable [phone] Encounter Details Date Type Department Care Team (Late st Contact Info) Description 05/04/2016 Orders Only SEP Gastro [facility] 6[address] [facility] [address] [place] [address] [place] [address] [place] [address] Social History Tobacco Use Types [...] EST) 05/04/2016 10:2 0 AM EST Impressions [facility] - 05/04/2016 11:18 AM EST Irregularity [...] ORDERABLES Tsering kwok Result Performing Organization Address City/State/[facility] Co de Phone Number [facility] 1 [place] [address] documented in this encounter Visit Diagnoses Not on filedocumented in this encounter Care Teams Spoilage Worker Relationship Specialty Start Date End Date Javi Arias MD [address] [facility] [address] [place] [address] PCP - General Psychiatry & Neurology-Neurology 05/02/12 Boris Juarez MD [address] [facility] [address] [place] [address] Physician Internal Medicine-Gastroenterolog y 04/01/16 documented as of this encounter
--- OUTSIDE RECORDS SUMMARY | 2025-02-19 11:04 | XMS_ITS | Encounter Summary ---
Author Organization [place] [address] Care Team Providers Care Pipe Organ Tuner And Repairer Name Role Phone Javi Arias MD Primary Care Provider [phone] Boris Juarez MD Unavailable [phone] Encounter Details Date Type Department Care Team (Late st Contact Info) Description 06/08/2017 Orders Only SEP Gastro [facility] [address] [facility] [address] [place] [address] Hector Lam MD PHD [address] [place] [address] Social History Tobacco Use Types Packs/Day Years [...] EST) 06/08/2017 11:0 0 AM EST Impressions [facility] - 06/08/2017 11:47 [...] ORDERABLES Fin al Result Performing Organization Address City/State/[facility] Co de Phone Number [facility] 1 [place] [address] documented in this encounter Visit Diagnoses Not on filedocumented in this encounter Care Teams Pipe Organ Tuner And Repairer Relationship Specialty Start Date End Date Javi Arias MD [address] [facility] [address] [place] [address] PCP - General Psychiatry & Neurology-Neurology 05/02/12 Boris Juarez MD [address] [facility] [address] [place] [address] Physician Internal Medicine-Gastroenterolog y 04/01/16 documented as of this encounter
--- OUTSIDE RECORDS SUMMARY | 2025-02-19 11:04 | XMS_ITS | Encounter Summary ---
Author Organization [place] [address] Care Team Providers Care Test Deck Supervisor Name Role Phone Javi Arias MD Primary Care Provider [phone] Boris Juarez MD Unavailable [phone] Encounter Details Date Type Department Care Team (Late st Contact Info) Description 06/02/2020 Orders Only SEP Gastro [facility] [address] [facility] [address] [place] [address] Hector Lam MD PHD [address] [place] [address] Social History Tobacco Use Types Packs/Day Years [...] PM EST) 06/02/2020 2:40 PM EST Impressions [facility] - 06/02/2020 3:33 PM EST Normal [...] PHD GI PROCEDURE ORDERABLES Fin al Result [facility] 1 [place] [address] documented in this encounter Visit Diagnoses Not on filedocumented in this encounter Care Teams Test Deck Supervisor Relationship Specialty Start Date End Date Javi Arias MD [address] [facility] [address] [place] [address] PCP - General Psychiatry & Neurology-Neurology 05/02/12 Boris Juarez MD [address] [facility] [address] [place] [address] Physician Internal Medicine-Gastroenterolog y 04/01/16 documented as of this encounter
--- OUTSIDE RECORDS SUMMARY | 2025-02-19 11:04 | XMS_ITS | Encounter Summary ---
Author Organization [place] [address] Care Team Providers Care Rice Farmer Name Role Phone Javi Arias MD Primary Care Provider [phone] Boris Juarez MD Unavailable [phone] Encounter Details Date Type Department Care Team (Late st Contact Info) Description 06/08/2017 Lab Requisition [facility] 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 06/09/2017 9:15 AM EST [facility] FINAL DIAGNOSIS A) Esophagus, biopsies at 33 cm: - Gastric oxyntic mucosa with no diagnostic pathologic abnormality. B) Esophagus, biopsy at 31 cm: - Gay's esophagus, negative for dysplasia. 06/09/2017 9:[address] [facility] at 0915 EST GROSS DESCRIPTION The specimen [...] one cassette. /CDM 06/09/2017 9:15 AM EST [email or web address] SE[facility] DIAGNOSIS 06/09/2017 9:[address] [facility] MICROSCOPIC DESCRIPTION Microscopic examination is performed and the findings corroborate the diagnosis. 06/09/2017 9:15 AM EST [email or web address] EMBEDDED IMAGES 06/09/2017 9:[address] 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
--- OUTSIDE RECORDS SUMMARY | 2025-02-19 11:04 | XMS_ITS | Clinical Summary ---
Author Organization [facility] Address [address] [place] [address] Care Team Providers Care Family Counselor Name Role Phone Johnny Arias MD Primary Care Provider [phone] Family History Medical History Relation Name Comments [...] of Treatment Not on file Care Teams Family Counselor Relationship Specialty Start Date End Date Johnny Arias MD [address] [facility] [place] [address] PCP - General 10/24/20
--- OUTSIDE RECORDS SUMMARY | 2025-02-19 11:04 | XMS_ITS | Clinical Summary ---
Author Organization [facility] Address [address] [place] [address] Phone Care Team Providers Care Shipping Associate Name Role Phone Javi Arias MD Primary Care Provider [phone] Boris Juarez MD Unavailable [phone] Allergies No known active allergies Medications Sumatriptan-Napr [...] Additional history exists COVID-19 Vaccine ( season) 2025 06/22/2021, 09/01/2020, 08/02/2020 Influenza Vaccine (#1) 2025 [...] ideal body weight General No Emma, Dang, DOUGH MAKER Procedures Procedure Name Priority Date/Time Associated Diagnosis Comments COLONOSCOPY Routine 01/05/2024 3:12 PM EDT Screening for colon cancer STRATEGIC PARTNER DEVELOPMENT MANAGER CYTOLOGY REQUEST (PAP ONLY) Routine 12/05/2018 [...] cancer Staff Staff Role Collin Rincon RN Twister Operator Ya Silva MD Anesthesiologist Hector Lam MD [...] ENDOSCOPY PROCEDURE ORDERAB LES Final Result * STRATEGIC PARTNER DEVELOPMENT MANAGER CYTOLOGY REQUEST (PAP ONLY) (12/05/2018 3:40 PM EDT) CASE REPORT Gynecologic Cytology Report Case: [id number] Authorizing Provider: Tien Das MD Collected: 12/05/2018 1540 Ordering Location: [facility] Received: 12/05/2018 1540 First Screen: Laura Guardado CT Rescreen: Stefany Ambrosio CT Specimen: LIQUID-BASED PAP - CERVICAL/ENDOCERV ICAL, Cervix, Endocervical 12/07/2018 3:47 PM EDT [email or web address] PAP FINAL DIAGNOSIS Negative for intraepithelial lesion or malignancy 12/07/2018 3:47 PM EDT [email or web address] at 1547 EDT MICROSCOPIC DESCRIPTION Microscopic examination is performed and the findings corroborate the diagnosis. 12/07/2018 3:47 PM EDT [email or web address] PAP SMEAR ADEQUACY Satisfactory for evaluation 12/07/2018 3:47 PM EDT [email or web address] ENDOCERVICAL T-ZONE Transformation Zone Absent. This is not unusual in a post-menopausal woman. 12/07/2018 3:47 PM EDT [email or web address] EMBEDDED IMAGES 3:47 PM EDT [facility] PAP DISCLAIMER The Pap Smear is a screening test that aids in the detection of cervical cancer and cancer precursors. Both false positive and false negative results can occur. The test should be used at regular intervals, and positive results should be confirmed before definitive therapy. Processed using the ThinPrep Security Developer Automated cytology screening device ([place]ercaux). 12/07/2018 3:47 PM EDT [facility] PAP OTHER FINDINGS Many acute inflammatory cells noted. 12/07/2018 3:47 PM EDT [facility] Thin Prep ENDOCERVICAL STRUCTURE / Unknown 12/05/2018 3:40 PM EDT 12/05/2018 3:40 PM EDT Tien Das MD CYTOLOGY ORDERABLES Final Re sult [facility] 1 [place] [address] from Last 3 Months or Most Recently Relevant to Health Maintenance Insurance 92Bonilla BURRELL [address] [place], [place] [address] Care Teams Shipping Associate Relationship Specialty Start Date End Date Javi Arias MD [address] [facility] [address] [place] [address] PCP - General Psychiatry & Neurology-Neurology 05/02/12 Boris Juarez MD [address] [facility] [address] [place] [address] Physician Internal Medicine-Gastroenterolog y 04/01/16
== END 2025-02-18 23:59 | disposition home or self-care (01) ==
LOC: LAB.DROPOF 02-19 10:50
PROVIDERS: PCP Nurse Practitioner; Visit Provider Nurse Practitioner
DX: N30.01 Acute cystitis with hematuria (principal); R10.30 Lower abdominal pain, unspecified
CPT/HCPCS: 80053; 85025; 87086; 87088

== ENCOUNTER 2025-02-26 21:21 | Outpatient (CLI) | payer BC, SELFPAY ==
--- OUTSIDE RECORDS SUMMARY | 2025-02-26 21:24 | XMS_ITS | Clinical Summary ---
Author Organization [facility] Address [address] [place] [address] Phone Care Team Providers Care Community Mental Health Social Worker Name Role Phone Javi Arias MD Primary Care Provider [phone] Boris Juarez MD Unavailable [phone] Allergies No known active allergies Medications Sumatriptan-Napr [...] maintain an ideal body weight General No [place], Dang, DIRECTOR PEDIATRIC Procedures Procedure Name Priority Date/Time Associated Diagnosis Comments COLONOSCOPY Routine 01/05/2024 3:12 PM EDT Screening for colon cancer REGIONAL FACILITIES SPECIALIST CYTOLOGY REQUEST (PAP ONLY) Routine 12/05/2018 3:40 [...] cancer Staff Staff Role Collin Rincon RN Rotor Casting Machine Operator Ya Silva MD Anesthesiologist Hector Lam [...] ENDOSCOPY PROCEDURE ORDERAB LES Final Result * REGIONAL FACILITIES SPECIALIST CYTOLOGY REQUEST (PAP ONLY) (12/05/2018 3:40 PM EDT) CASE REPORT Gynecologic Cytology Report Case: [id number] Authorizing Provider: Tien Das MD Collected: 12/05/2018 1540 Ordering Location: [facility] Received: 12/05/2018 1540 First Screen: Laura Guardado CT Rescreen: Stefany Ambrosio CT Specimen: LIQUID-BASED PAP - CERVICAL/ENDOCERV ICAL, Cervix, Endocervical 12/07/2018 3:47 PM EDT [facility] PAP FINAL DIAGNOSIS Negative for intraepithelial lesion or malignancy 12/07/2018 3:47 PM EDT [facility] at 1547 EDT MICROSCOPIC DESCRIPTION Microscopic examination is performed and the findings corroborate the diagnosis. 12/07/2018 3:47 PM EDT [facility] PAP SMEAR ADEQUACY Satisfactory for evaluation 12/07/2018 3:47 PM EDT [facility] ENDOCERVICAL T-ZONE Transformation Zone Absent. This is not unusual in a post-menopausal woman. 12/07/2018 3:47 PM EDT [facility] EMBEDDED IMAGES 3:47 PM EDT [facility] PAP DISCLAIMER The Pap Smear is a screening test that aids in the detection of cervical cancer and cancer precursors. Both false positive and false negative results can occur. The test should be used at regular intervals, and positive results should be confirmed before definitive therapy. Processed using the ThinPrep Auxiliary Powerplant Operator Automated cytology screening device (Dada Room). 12/07/2018 3:47 PM EDT [facility] PAP OTHER FINDINGS Many acute inflammatory cells noted. 12/07/2018 3:47 PM EDT [facility] Thin Prep ENDOCERVICAL STRUCTURE / Unknown 12/05/2018 3:40 PM EDT 12/05/2018 3:40 PM EDT Tien Das MD CYTOLOGY ORDERABLES Final Re sult [facility] [address] [place] [address] from Last 3 Months or Most Recently Relevant to Health Maintenance Insurance 92Bonilla BURRELL [address] [place], [place] [address] Care Teams Community Mental Health Social Worker Relationship Specialty Start Date End Date Javi Arias MD [address] [facility] [address] [place] [address] PCP - General Psychiatry & Neurology-Neurology 05/02/12 Boris Juarez MD [address] [facility] [address] [place] [address] Physician Internal Medicine-Gastroenterolog y 04/01/16
--- OUTSIDE RECORDS SUMMARY | 2025-02-26 21:25 | XMS_ITS | Encounter Summary ---
Author Organization [place] [address] Care Team Providers Care Coil Strapper Name Role Phone Javi Arias MD Primary Care Provider [phone] Boris Juarez MD Unavailable [phone] Encounter Details Date Type Department Care Team (Late st Contact Info) Description 05/04/2016 Orders Only SEP Gastro [facility] [address] [facility] [address] [place] [address] [place] [address] [place] [address] Social History Tobacco Use Types [...] EST) 05/04/2016 10:2 0 AM EST Impressions [facility] - 05/04/2016 11:18 AM EST Irregularity [...] ORDERABLES Tsering kwok Result Performing Organization Address City/State/[facility] Co de Phone Number [facility] [address] [place] [address] documented in this encounter Visit Diagnoses Not on filedocumented in this encounter Care Teams Coil Strapper Relationship Specialty Start Date End Date Javi Arias MD [address] [facility] [address] [place] [address] PCP - General Psychiatry & Neurology-Neurology 05/02/12 Boris Juarez MD [address] [facility] [address] [place] [address] Physician Internal Medicine-Gastroenterolog y 04/01/16 documented as of this encounter
--- OUTSIDE RECORDS SUMMARY | 2025-02-26 21:25 | XMS_ITS | Encounter Summary ---
Author Organization [place] [address] Care Team Providers Care Interstate Planner Name Role Phone Javi Arias MD Primary Care Provider Boris Juarez MD Unavailable [phone] Encounter Details Date Type Department Care Team (Late st Contact Info) Description 08/10/2017 Orders Only SEP Gastro [facility] [address] [facility] [address] [place] [address] Hector Lam MD PHD [address] [place] [address] Social History Tobacco Use Types Packs/Day Years [...] EST) 08/10/2017 11:0 0 AM EST Impressions [facility] - 08/11/2017 6:42 AM EST Normal [...] ORDERABLES Pedro Luis simin Result - Final [facility] [address] [place] [id number] documented in this encounter Visit Diagnoses Not on filedocumented in this encounter Care Teams Interstate Planner Relationship Specialty Start Date End Date Javi Arias MD [address] [place] [address] PCP - General Psychiatry & Neurology-Neurology 05/02/12 Boris Juarez MD [address] [place] [address] Physician Internal Medicine-Gastroenterolog y 04/01/16 documented as of this encounter
--- OUTSIDE RECORDS SUMMARY | 2025-02-26 21:25 | XMS_ITS | Encounter Summary ---
Author Organization [place] [address] Care Team Providers Care Tooth Cutter Clutch Name Role Phone Javi Arias MD Primary Care Provider [phone] Boris Juarez MD Unavailable Encounter Details Date Type Department Care Team (Late st Contact Info) Description 06/08/2017 Orders Only SEP Gastro [facility] [address] [facility] [address] [place] [address] Hector Lam MD PHD [address] [place] [address] Social History Tobacco Use Types Packs/Day Years [...] EST) 06/08/2017 11:[address] [facility] - 06/08/2017 11:47 AM [...] ORDERABLES Fin al Result Performing Organization Address City/State/[facility] Co de Phone Number [facility] [address] [place] [address] documented in this encounter Visit Diagnoses Not on filedocumented in this encounter Care Teams Tooth Cutter Clutch Relationship Specialty Start Date End Date Javi Arias MD [address] [facility] [address] [place] [address] PCP - General Psychiatry & Neurology-Neurology 05/02/12 Boris Juarez MD [address] [facility] [address] [place] [address] Physician Internal Medicine-Gastroenterolog y 04/01/16 documented as of this encounter
--- OUTSIDE RECORDS SUMMARY | 2025-02-26 21:25 | XMS_ITS | Clinical Summary ---
Author Organization Healthcare Address [address] [place] [address] Care Team Providers Care Button Decorating Machine Operator Name Role Phone Johnny Arias MD Primary Care Provider [phone] Family History Medical History Relation Name Comments [...] of Treatment Not on file Care Teams Button Decorating Machine Operator Relationship Specialty Start Date End Date Johnny Arias MD [address] [facility] [place] [address] PCP - General 10/24/20
--- OUTSIDE RECORDS SUMMARY | 2025-02-26 21:25 | XMS_ITS | Encounter Summary ---
Author Organization [place] [address] Care Team Providers Care Membership Manager Name Role Phone Javi Arias MD Primary Care Provider [phone] Boris Juarez MD Unavailable [phone] Encounter Details Date Type Department Care Team (Late st Contact Info) Description 06/02/2020 Orders Only SEP Gastro [facility] [address] [facility] [address] [place] [address] Hector Lam MD PHD [address] [place] [address] Social History Tobacco Use Types Packs/Day Years [...] PM EST) 06/02/2020 2:40 PM EST Impressions [facility] - 06/02/2020 3:33 PM EST Normal [...] PHD GI PROCEDURE ORDERABLES Fin al Result [facility] [address] [place] [address] documented in this encounter Visit Diagnoses Not on filedocumented in this encounter Care Teams Membership Manager Relationship Specialty Start Date End Date Javi Arias MD [address] [facility] [address] [place] [address] PCP - General Psychiatry & Neurology-Neurology 05/02/12 Boris Juarez MD [address] [facility] [address] [place] [address] Physician Internal Medicine-Gastroenterolog y 04/01/16 documented as of this encounter
--- OUTSIDE RECORDS SUMMARY | 2025-02-26 21:25 | XMS_ITS | Encounter Summary ---
Author Organization [place] [address] Care Team Providers Care Propulsion Systems Engineer Name Role Phone Javi Arias MD Primary Care Provider [phone] Boris Juarez MD Unavailable [phone] Encounter Details Date Type Department Care Team (Late st Contact Info) Description 06/02/2020 Lab Requisition [facility] [address] [place] [place] [id number] Hector Lam MD PHD [address] [place] [address] Gay's esophagus without dysplasia; Diaphragmatic hernia without [...] PM EST) CASE REPORT Surgical Pathology Case: [id number] Authorizing Provider: Hector Lam MD PHD Collected: 06/02/2020 1440 Ordering Location: [facility] Received: 06/02/2020 1841 Pathologist: Sawyer Hoff MD Specimens: A) - Esophagus B) - Esophagus C) - Esophagus 06/03/2020 3:50 PM EST [facility] CLINICAL HISTORY Gay's esophagus. 06/03/2020 3:50 PM EST [facility] FINAL DIAGNOSIS A) Esophageal Biopsy [...] Nonspecific Chronic Esophagitis. 06/03/2020 3:50 PM EST [facility] at 1550 EST MICROSCOPIC DESCRIPTION Microscopic examination is performed and the findings corroborate the diagnosis. 06/03/2020 3:50 PM EST [facility] EMBEDDED IMAGES 06/03/2020 3:50 PM [facility] GROSS DESCRIPTION Part A) [...] one cassette. /TE 06/03/2020 3:50 PM EST [facility] Tissue SPECIMEN FROM ESOPHAGUS / Unknown 06/02/2020 2:40 PM EST 06/02/2020 6:41 PM EST Tissue specimen (specimen) ESOPHAGEAL STRUCTURE / Unknown 06/02/2020 2:40 PM EST 06/02/2020 6:41 PM EST Tissue specimen (specimen) ESOPHAGEAL STRUCTURE / Unknown 06/02/2020 2:40 PM EST 06/02/2020 6:41 PM EST Hector Lam MD PHD PATHOLOGY ORDERABLES Final Result [facility] [address] [place] [address] [facility] [address] [place] [address] documented in this encounter Visit Diagnoses Diagnosis Gay's esophagus without dysplasia Gay's esophagus Diaphragmatic hernia without obstruction or gangrene Diaphragmatic hernia without mention of obstruction or gangrene documented in this encounter Care Teams Propulsion Systems Engineer Relationship Specialty Start Date End Date Javi Arias MD [address] [facility] [address] [place] [address] PCP - General Psychiatry & Neurology-Neurology 05/02/12 Boris Juarez MD [address] [facility] [address] [place] [address] Physician Internal Medicine-Gastroenterolog y 04/01/16 documented as of this encounter
--- OUTSIDE RECORDS SUMMARY | 2025-02-26 21:25 | XMS_ITS | Encounter Summary ---
Author Organization [place] [address] Care Team Providers Care Consumer Electronic Retail Specialist Name Role Phone Javi Arias MD Primary Care Provider [phone] Boris Juarez MD Unavailable [phone] Encounter Details Date Type Department Care Team (Late st Contact Info) Description 06/08/2017 Lab Requisition [facility] [place] [address] Hector Lam MD PHD [address] [place] [address] Gay's esophagus without dysplasia; Polyp of stomach [...] AM EST) CASE REPORT Surgical Pathology Case: [id number] Authorizing Provider: Hector Lam MD PHD Collected: 06/08/2017 1100 Pathologist: Colin Hsieh MD Received: 06/08/2017 1608 Specimens: A) - Esophagus, Lower third esophagus at 33cm from incisors B) - Esophagus, Lower third esophagus at 31cm from incisors 06/09/2017 9:15 AM EST [facility] CLINICAL HISTORY Gay's esophagus. 06/09/2017 9:15 AM EST [facility] FINAL DIAGNOSIS A) Esophagus, biopsies at 33 cm: - Gastric oxyntic mucosa with no diagnostic pathologic abnormality. B) Esophagus, biopsy at 31 cm: - Gay's esophagus, negative for dysplasia. 06/09/2017 9:15 AM EST [facility] at 0915 EST GROSS DESCRIPTION The [...] one cassette. /CDM 06/09/2017 9:15 AM EST [facility] 06/09/2017 9:15 AM EST [facility] MICROSCOPIC DESCRIPTION Microscopic examination is performed and the findings corroborate the diagnosis. 06/09/2017 9:15 AM EST [facility] EMBEDDED IMAGES 06/09/2017 9:15 AM EST [facility] Tissue SPECIMEN FROM ESOPHAGUS / Unknown 06/08/2017 11:00 AM EST 06/08/2017 4:04 PM EST Tissue specimen (specimen) ESOPHAGEAL STRUCTURE / Unknown 06/08/2017 11:00 AM EST 06/08/2017 4:04 PM EST us Hector Lam MD PHD PATHOLOGY ORDERABLES Final Result [address] [address] documented in this encounter Visit Diagnoses Diagnosis Gay's esophagus without dysplasia Gay's esophagus Polyp of stomach and duodenum Benign neoplasm of stomach Diaphragmatic hernia without obstruction or gangrene Diaphragmatic hernia without mention of obstruction or gangrene documented in this encounter Care Teams Consumer Electronic Retail Specialist Relationship Specialty Start Date End Date Javi Arias MD [address] [facility] [address] [place] [address] PCP - General Psychiatry & Neurology-Neurology 05/02/12 Boris Juarez MD [address] [facility] [address] [place] [address] Physician Internal Medicine-Gastroenterolog y 04/01/16 documented as of this encounter
== END 2025-02-26 23:59 | disposition home or self-care (01) ==
LOC: LAB.DROPOF 21:23
PROVIDERS: PCP Student in an Organized Health Care Education/Training Program; Visit Provider Student in an Organized Health Care Education/Training Program
DX: J02.9 Acute pharyngitis, unspecified (principal)